=== PATIENT | male | born 1940 | race Caucasian/White ===

== ENCOUNTER 2019-04-23 19:25 | Inpatient (IN) | payer BC, MEDICARE ==
[~2019-04-23] VITALS: Ht 182.9 cm; Wt 78.7 kg
[2019-04-23 19:58] LABS: HEMATOCRIT 44.8 % (42.0-52.0); MEAN CORPUSCULAR HEMOGLOBIN 30.8 pg (27.0-33.0); MEAN CORPUSCULAR HGB CONC 33.5 g/dl (32.0-36.5); PLATELET COUNT, AUTOMATED 200 10^3/uL (150-450); RED BLOOD COUNT 4.87 10^6/uL (4.30-6.10)
[2019-04-23 20:13] LABS: ALBUMIN 3.2 GM/DL (3.2-5.2); BILIRUBIN,DIRECT 0.8 MG/DL (0.0-0.2); BILIRUBIN,TOTAL 1.9 MG/DL (0.2-1.0); CALCIUM LEVEL 9.3 MG/DL (8.8-10.2); CREATININE FOR GFR 2.38 MG/DL (0.70-1.30); GLOMERULAR FILTRATION RATE 28.2 (>42); POTASSIUM SERUM 4.1 MEQ/L (3.5-5.1); TOTAL PROTEIN 6.7 GM/DL (6.4-8.2)
[2019-04-23 20:16] LABS: WHITE BLOOD COUNT 31.2 10^3/uL (4.0-10.0)
[2019-04-23] MEDS ORDERED: AZITHROMYCIN INJ 500 MG, VIAL MATE ADAPTER 1 EACH in D5W 250 ML IV ONE (20:30)
[2019-04-23] MEDS ORDERED: cefTRIAXone SOD 1 GM in D5W MINI-BAG PLUS 50 ML IV ONE (20:30)
[2019-04-23 20:41] LABS: LYMPHOCYTES 3 % (16-44); MONOCYTES 3 % (0-5); NEUTROPHILS 87 % (28-66); PLATELET ESTIMATE NORMAL (NORMAL)
[2019-04-23] MEDS ORDERED: LOSA100T50 PO (20:43)
[2019-04-23] MEDS ORDERED: NS 1,000 ML IV ONE (20:45)
--- NOTE | 2019-04-23 20:50 | ECGEPIP ---
[facility] - ED Test Date: 2019-04-23 Pat Name: TACOS FINE Department: Room: - Gender: Male Manager Bank: : [id number] Requested By: AARON Ratliff Order Number: [id number] Reading MD: Wyatt Almaraz Measurements Intervals [place] Rate: 119 P: 50 [place]: 150 QRS: -64 QRSD: 144 T: 38 QT: 311 QTc: 439 Interpretive Statements SINUS TACHYCARDIA RIGHT BUNDLE BRANCH BLOCK POSSIBLE LATERAL MYOCARDIAL INFARCTION, OF INDETERMINATE AGE NO PRIORS FOR COMPARISON Electronically Signed on 04-23-2019 20:50:02 EDT by Wyatt Almaraz
--- NOTE | 2019-04-23 21:28 | HPEPDOC ---
General Date of Admission 04/23/19 Date of Service: Apr 23, 2019 Primary Care Physician: Regan Lind Attending Physician: TONI SANDY MD Chief Complaint The patient is a 78-year-old male admitted with a reason for visit of Flu/Cold Symptoms. Source: Patient Exam Limitations: No limitations Timing/Duration: Other Severity: Moderate Associated Symptoms: Chills History of Present Illness 78 years old white male with past medical history of hypertension, recently was treated for community-acquired pneumonia, left sudden onset of runny nose, c ough, decreased appetite, chills and fever. Patient was seen at an urgent care center and was referred to ER for further care. Patient denies chest pain, shortness of breath, dizziness, etc. Home Medications Scheduled Losartan Potassium (Losartan Potassium) 100 Mg Tablet, 100 MG PO DAILY, (Reported) Allergies Coded Allergies: No Known Allergies (Unverified , 04/23/19) Past Medical History Medical History Hypertension Surgical History anal fissure repair Family History Significant Family History: No pertinent family hx Social History * Smoker: non-smoker Alcohol: Denies Drugs: denies A-FIB/CHADSVASC A-FIB History Current/History of A-Fib/PAF?: No Review of Systems Constitutional: Reports: Chills, Fever Eyes: Denies: Pain, Vision change, Conjunctivae inflammation, Eyelid inflammation, Redness, Other ENT: Reports: Post Nasal Drip; Denies: Head Aches, Ear Pain, Dysphagia, Sinus Congestion, Sore Throat, Epistaxis, Other Symptoms Skin: Denies: Rash, Lesions, Jaundice, Bruising, Itching, Dry, Breakdown, Nail Changes, Other Pulmonary: Reports: Cough Cardiovascular: Denies: Chest Pain, Palpitations, Orthopnea, Paroxysmal Noc. Dyspnea, Edema, Lt Headedness, Other Symptoms Gastrointestinal: Denies: Nausea, Vomiting, Abdominal Pain, Diarrhea, Constipation, Melena, Hematochezia, Other Symptoms Genitourinary: Denies: Dysuria, Frequency, Incontinence, Hematuria, Retention, Other Symptoms Hematologic: Denies: Bruising, Bleeding Excessively, Petecchia, Purpura, Enlarged Lymph Nodes, Other Hematologic Endocrine: Denies: Polydipsia, Polyphagia, Polyuria, Heat Intolerance, Cold Intolerance, Other Endocrine Sx Musculoskeletal: Denies: Neck Pain, Back Pain, Shoulder Pain, Arm Pain, Hand Pain, Leg Pain, Foot Pain, Joint Pain, Muscle Pain, Spasms, Other Symptoms Neurological: Denies: Weakness, Numbness, Incoordination, Change in speech, Confusion, Seizures, Other Symptoms Psych: Denies: Mood Normal, Anxiety, Depression, Memory Issues, Thoughts of Self Harm, Anger, Thoughts of Harming Other, Other Psych Physical Examination General Exam: Positive: Alert, Cooperative Eye Exam: Positive: PERRLA, Conjunctiva & lids normal ENT Exam: Positive: Atraumatic, Mucous membr. moist/pink Neck Exam: Positive: Supple Chest Exam: Positive: Clear to auscultation, Other (crackles at right base) Heart Exam: Positive: Rate Normal, Normal S1, Normal S2 Abdomen Exam: Positive: Normal bowel sounds, Soft, Tenderness Extremity Exam: Positive: Normal pulses Skin Exam: Positive: Nl turgor and temperature Neuro Exam: Positive: Strength at 5/5 X4 ext, Sensation Intact Vital Signs Vital Signs Date Time Temp Pulse Resp B/P (MAP) Pulse Ox O2 Delivery O2 Flow Rate FiO2 04/23/19 20:02 04/23/19 20:00 117 19 04/23/19 19:55 91 04/23/19 19:26 99.7 Room Air Laboratory Data Labs 24H Laboratory Tests 2 04/23/19 19:45: White Blood Count 31.2*H, Red Blood Count 4.87, Hemoglobin 15.0, Hematocrit 44.8, Mean Corpuscular Volume 92.0, Mean Corpuscular Hemoglobin 30.8, Mean Corpuscular Hemoglobin Concent 33.5, Red Cell Distribution Width 13.9, Platelet Count 200, Neutrophils # (Auto) , Nucleated Red Blood Cells % (auto) 0.0, Neutrophils 87H, Band Neutrophils 7, Lymphocytes (Manual) 3L, Monocytes (Manual) 3, Platelet Estimate NORMAL, Red Blood Cell Morphology NORMAL, Anion Gap 9, Glomerular Filtration Rate 28.2L, Calcium Level 9.3, Aspartate Amino Transf (AST/SGOT) 19, Alanine Aminotransferase (ALT/SGPT) 22, Alkaline Phosphatase 121H , Total Bilirubin 1.9H, Direct Bilirubin 0.8H, Total Protein 6.7, Albumin 3.2, Albumin/Globulin Ratio 0.91L 04/23/19 19:59: Lactic Acid Level 1.7 CBC/BMP Laboratory Tests 04/23/19 19:45 Red Blood Count 4.87, Mean Corpuscular Volume 92.0, Mean Corpuscular Hemoglobin 30.8, Mean Corpuscular Hemoglobin Concent 33.5, Red Cell Distribution Width 13.9, Neutrophils # (Auto) Microbiology Microbiology 04/23/19 Blood Culture, Received Pending 04/23/19 Blood Culture, Received Pending Problems (1) Pneumonia Status: Acute Problem Text: 78 years old white male with past medical history of hypertension presented with chief complaints of shivering chills, cough, runny nose, decreased appetite on just a week. He was found to have right lower lobe pneumonia and his WBC was 31,000 on CBC . Patient will be admitted to medical MedSurg floor with the diagnosis of right lower lobe pneumonia, which is most likely community-acquired Admit to MedSurg floor IVF half-normal saline at 70 mL per hour Rocephin 1 g IV piggyback every 24 hours Zithromax 500 mg IV piggyback every 24 hours Tylenol when necessary Continue home meds CBC, CMP in a.m. DVT prophylaxis with heparin Diet regular Activity as tolerated (2) HTN (hypertension) Status: Chronic Problem Text: Continue home meds The patient is under control Plan / VTE VTE Prophylaxis Ordered?: Yes TONI SANDY MD Apr 23, 2019 21:28
[2019-04-23] MEDS ORDERED: MOM 30ML SUSPENSION UDC PO PRN (21:30)
[2019-04-23] MEDS ORDERED: MAALOX 30 ML SUSP *UDC PO PRN (21:30)
[2019-04-23] MEDS ORDERED: AZITHROMYCIN INJ 500 MG, VIAL MATE ADAPTER 1 EACH in D5W 250 ML IV SCH (22:00)
[2019-04-23 23:13] VITALS: BP 92/52
[2019-04-23 23:18] LABS: VENOUS BASE EXCESS -0.5 (-2.0-2.0); VENOUS HCO3 25.2 MEQ/L (23.0-27.0); VENOUS PARTIAL PRESSURE CO2 45.3 mmHg (38.0-50.0); VENOUS PARTIAL PRESSURE O2 93.3 mmHg (30.0-50.0); VENOUS PH 7.363 UNITS (7.330-7.430); VENOUS STANDARD HCO3 24.1 MEQ/L; VENOUS TOTAL CO2 26.6 MEQ/L (24.0-28.0)
[2019-04-23] MEDS ORDERED: NS 500 ML IV ONE (23:45)
[2019-04-23] MEDS: DOCUSATE SODIUM 100 MG CAP PO SCH (23:53)
[2019-04-24 00:45] VITALS: BP 98/54
[2019-04-24] MEDS: NS 1,000 ML IV SCH ×4 (01:21→20:59)
[2019-04-24 06:00] VITALS: BP 91/55
[2019-04-24 06:18] LABS: HEMATOCRIT 36.8 % (42.0-52.0); MEAN CORPUSCULAR HEMOGLOBIN 30.6 pg (27.0-33.0); MEAN CORPUSCULAR HGB CONC 33.7 g/dl (32.0-36.5); MEAN CORPUSCULAR VOLUME 90.9 fl (80.0-96.0); PLATELET COUNT, AUTOMATED 180 10^3/uL (150-450); RED BLOOD COUNT 4.05 10^6/uL (4.30-6.10); WHITE BLOOD COUNT 26.6 10^3/uL (4.0-10.0)
[2019-04-24] MEDS: ACETAMINOPHEN TAB 650MG DOSE (2X325MG) PO PRN ×2 (06:22→14:34)
[2019-04-24 06:28] LABS: HEMOGLOBIN 12.4 g/dl (13.5-17.5)
[2019-04-24 06:38] LABS: ALBUMIN 2.3 GM/DL (3.2-5.2); CALCIUM LEVEL 8.3 MG/DL (8.8-10.2); CREATININE FOR GFR 1.79 MG/DL (0.70-1.30); GLOMERULAR FILTRATION RATE 39.2 (>42); POTASSIUM SERUM 4.1 MEQ/L (3.5-5.1); TOTAL PROTEIN 5.9 GM/DL (6.4-8.2)
--- NOTE | 2019-04-24 07:58 | REP ---
Portable chest, a 01:00 p.m., single AP view the patient upright: There are no comparisons. There is a right upper lobe infiltrate. There is a right lower lobe infiltrate. There are nodular densities throughout the left lung. Cardiac size is normal. The laura, mediastinum, skeletal structures are unremarkable except for bilateral shoulder osteoarthritis. Impression: Right upper lobe infiltrate. Right lower lobe infiltrate. Multiple nodular densities in the left lung. Bilateral shoulder osteoarthritis. Electronically Signed by Rinku Sibley MD 04/24/2019 07:49 A
[2019-04-24] MEDS: DOCUSATE SODIUM 100 MG CAP PO SCH ×2 (08:59→22:15)
[2019-04-24] MEDS: HEPARIN SOD (PORCINE) 5000 UNITS/ML VIAL SC SCH ×2 (08:59→22:14)
[2019-04-24] MEDS ORDERED: FLUBLOK(EGG FREE)(QUAD)INFLUENZA VACC 0.5ML SYRINGE (90682)18YRS&OLDER IM ONE (09:00)
[2019-04-24] MEDS ORDERED: LOSARTAN 50 MG TAB PO SCH (09:00)
[2019-04-24] MEDS ORDERED: FLUBLOK(EGG FREE)(QUAD)INFLUENZA VACC 0.5ML SYRINGE (90682)18YRS&OLDER IM SCH (09:15)
[2019-04-24 10:22] LABS: AMORPHOUS SEDIMENT MODERATE (NEGATIVE); APPEARANCE, URINE CLOUDY (CLEAR); BACTERIA, URINE AUTO NEGATIVE (NEGATIVE); BILIRUBIN, URINE AUTO NEGATIVE (NEGATIVE); BLOOD, URINE BLOOD 1+ (NEGATIVE); COLOR, URINE AMBER (YELLOW); GLUCOSE, URINE (UA) AUTO NEGATIVE (NEGATIVE); GRANULAR CAST, URINE AUTO 20 /LPF; KETONE, URINE AUTO NEGATIVE (NEGATIVE); LEUKOCYTE ESTERASE, URINE AUTO NEGATIVE (NEGATIVE); MUCUS, URINE SMALL (NEGATIVE); NITRITE, URINE AUTO NEGATIVE (NEGATIVE); PROTEIN, URINE AUTO NEGATIVE (NEGATIVE); RBC, URINE AUTO 1 /HPF (0-3); SPECIFIC GRAVITY URINE AUTO 1.016 (1.002-1.035); SQUAMOUS EPITHELIAL CELL UR AU 0 /HPF (0-6); UROBILINOGEN, URINE AUTO 0.2 mg/dL (0.0-2.0); WBC, URINE AUTO 2 /HPF (0-3)
[2019-04-24 11:28] LABS: INFLUENZA A AMPLIFICATION NEGATIVE (NEGATIVE); INFLUENZA B AMPLIFICATION NEGATIVE (NEGATIVE)
[2019-04-24 14:00] VITALS: BP 91/50
--- NOTE | 2019-04-24 15:56 | IPNPDOC ---
Date Seen The patient was seen on 04/24/19. Progress Note SUBJECTIVE: 78-year-old male with past medical history of hypertension, admitted for pneumonia. Patient reports diagnosed a walking pneumonia little over a month ago, was treated with presumed oral antibiotics for 10 days, was doing well up until a few days ago, started experiencing dyspnea, cough productive of sputum, denies fever or chest pain, lives alone, denies sick contacts. Patient was hypotensive, tachycardic and febrile upon presentation, has been receiving IV fluids, clinically appears stable, sitting up on chair eating breakfast at this time, comfortable, without significant complaints at this time. He denies any chest pain, abdominal pain, nausea, vomiting or diarrhea at this time. 10 point review systems was negative except for above OBJECTIVE PHYSICAL EXAMINATION: VITAL SIGNS: Please see below. GENERAL: No distress HEENT: Normocephalic, atraumatic CARDIOVASCULAR: S1, S2, tachycardic. RESPIRATORY: Scattered rhonchi appreciated. ABDOMINAL: Soft, nontender, nondistended, positive bowel sounds EXTREMITIES: Range of Motion intact NEUROLOGICAL:. Alert and oriented 3, no focal deficits PSYCHOLOGICAL: Calm LABORATORY DATA, IMAGING STUDIES, MICROBIOLOGY: Please see below. DVT prophylaxis ordered?: Yes ASSESSMENT AND PLAN: 78-year-old male with past medical history history of hypertension, admitted for sepsis secondary to pneumonia and acute renal failure. PROBLEMS: 1. Sepsis: . Due to pneumonia, community-acquired. Respiratory viral panel negative. Chest x-ray reviewed, possible multifocal pneumonia, will evaluate further with CAT scan If no improvement is noted in the next 24-48 hours. Continue Zithromax and ceftriaxone, continue IV fluids. Continue Tylenol for fever. 2. Acute renal failure: . Likely related to infection, dehydration due to volume loss from fever. Continue IV fluids, will monitor 3. Hypertension: . Hold home meds given low normal blood pressure at this time. DVT prophylaxis: Heparin subcutaneous. GI prophylaxis: Not needed at this time VS, I&O, 24H, Fishbone Vital Signs/I&O Vital Signs Date Time Temp Pulse Resp B/P (MAP) Pulse Ox O2 Delivery O2 Flow Rate FiO2 04/24/19 14:00 100.4 118 19 91/50 (64) 91 04/23/19 19:26 Room Air I&O- Last 24 Hours up to 6 AM 04/24/19 06:00 Intake Total 2380 ml Output Total 0 ml Balance 2380 ml Laboratory Data 24H LABS Laboratory Tests 2 04/23/19 19:45: White Blood Count 31.2*H, Red Blood Count 4.87, Hemoglobin 15.0, Hematocrit 44.8, Mean Corpuscular Volume 92.0, Mean Corpuscular Hemoglobin 30.8, Mean Co rpuscular Hemoglobin Concent 33.5, Red Cell Distribution Width 13.9, Platelet Count 200, Neutrophils # (Auto) , Nucleated Red Blood Cells % (auto) 0.0, Neutrophils 87H, Band Neutrophils 7, Lymphocytes (Manual) 3L, Monocytes (Manual) 3, Platelet Estimate NORMAL, Red Blood Cell Morphology NORMAL, Anion Gap 9, Glomerular Filtration Rate 28.2L, Calcium Level 9.3, Aspartate Amino Transf (AST/SGOT) 19, Alanine Aminotransferase (ALT/SGPT) 22, Alkaline Phosphatase 121H, Total Bilirubin 1.9H, Direct Bilirubin 0.8H, Total Protein 6.7, Albumin 3.2, Albumin/Globulin Ratio 0.91L 04/23/19 19:59: Lactic Acid Level 1.7 04/23/19 22:48: Blood Gas Bicarbonate Standard 24.1, Venous Blood pH 7.363, Venous Blood Partial Pressure CO2 45.3, Venous Blood Partial Pressure O2 93.3H, Venous Blood Total Carbon Dioxide 26.6, Venous Blood HCO3 25.2, Venous Blood Oxygen Saturation 97.0H, Venous Blood Base Excess -0.5 04/24/19 06:01: Nucleated Red Blood Cells % (auto) 0.0, Anion Gap 9, Glomerular Filtration Rate 39.2L, Calcium Level 8.3L, Aspartate Amino Transf (AST/SGOT) 14, Alanine Aminotransferase (ALT/SGPT) 19, Alkaline Phosphatase 103, Total Bilirubin 1.0, Total Protein 5.9L, Albumin 2.3#L, Albumin/Globulin Ratio 0.64L, Blood Urea Nitrogen 41H, Creatinine 1.79H, Sodium Level 136, Potassium Level 4.1, Chloride Level 103, Carbon Dioxide Level 24 04/24/19 08:58: Influenza Type A (RT-PCR) NEGATIVE, Influenza Type B (RT-PCR) NEGATIVE 04/24/19 09:55: Urine Appearance CLOUDYH, Urine Color PRECIOUS, Urine pH 5.0, Urine Specific [place] 1.016, Urine Protein NEGATIVE, Urine Glucose (UA) NEGATIVE, Urine Ketones NEGATIVE, Urine Urobilinogen 0.2, Urine Bilirubin NEGATIVE, Urine Leukocyte Esterase NEGATIVE, Urine Blood 1+H, Urine Nitrite NEGATIVE, Urine WBC (Auto) 2, Urine RBC (Auto) 1, Urine Hyaline Casts (Auto) 0, Urine Bacteria (Auto) NEGATIVE, Urine Squamous Epithelial Cells 0, Urine Amorphous Sediment M [place], Urine Granular Casts (Auto) 20, Urine Mucus (Auto) SMALL, Urine Sperm (Auto) CBC/BMP Laboratory Tests 04/23/19 19:45 Red Blood Count 4.87, Mean Corpuscular Volume 92.0, Mean Corpuscular Hemoglobin 30.8, Mean Corpuscular Hemoglobin Concent 33.5, Red Cell Distribution Width 13.9, Neutrophils # (Auto) 04/24/19 06:01 Red Blood Count 4.05 L, Mean Corpuscular Volume 90.9, Mean Corpuscular Hemoglobin 30.6, Mean Corpuscular Hemoglobin Concent 33.7, Red Cell Distribution Width 14.1, Calcium Level 8.3 L, Aspartate Amino Transf (AST/SGOT) 14, Alanine Aminotransferase (ALT/SGPT) 19, Alkaline Phosphatase 103, Total Bilirubin 1.0, Total Protein 5.9 L, Albumin 2.3 #L Microbiology Microbiology 04/24/19 Urine Culture, Received Pending 04/24/19 Respiratory Virus Panel (PCR) (YG) - Final, Complete 04/23/19 Blood Culture, Received Pending 04/23/19 Blood Culture, Received Pending KIMBERLY ANDERSON MD Apr 24, 2019 15:56
--- NOTE | 2019-04-24 16:43 | REP ---
CT chest without contrast: History: Pneumonia. Comparison chest x-ray is from April 23, 2019. CT findings: There is extensive consolidation throughout the right lower lobe with air bronchograms consistent with essentially lobar pneumonia. There is also a fairly large right upper lobe infiltrate. The right middle lobe is spared. These findings are compatible with acute pneumonia. There is calcific pleural plaquing bilaterally. No significant pulmonary nodule is appreciated. There are scattered subcarinal and pretracheal mediastinal lymph nodes. The largest of these is right precarinal node measuring 1.4 x 1.8 cm. There is extensive calcification in the aortic valve leaflets, question aortic stenosis. Vascular calcification is seen in the arch and descending aorta. Incidental note is made of a fairly large nodule in the right lobe of the thyroid gland, 2.7 cm in greatest diameter. Impression: Extensive pneumonia throughout the right lower lobe and a large infiltrate in the right upper lobe. There is bilateral calcific pleural plaquing suggesting previous asbestos exposure. Mildly hypertrophied mediastinal lymph nodes are present. There is a right thyroid nodule. Electronically Signed by Shubham Bennett MD 04/24/2019 04:51 P
[2019-04-24] MEDS ORDERED: cefTRIAXone SOD 1 GM in D5W MINI-BAG PLUS 50 ML IV SCH (21:00)
[2019-04-24 22:00] VITALS: BP 107/56
[2019-04-24] MEDS: AZITHROMYCIN INJ 500 MG, VIAL MATE ADAPTER 1 EACH in D5W 250 ML IV SCH (23:06)
[2019-04-25] MEDS: BENZONATATE 100 MG CAP PO PRN ×3 (04:33→22:12)
[2019-04-25] MEDS: NS 1,000 ML IV SCH ×4 (04:36→19:53)
[2019-04-25 06:00] VITALS: BP 98/50
[2019-04-25 06:13] LABS: HEMATOCRIT 35.8 % (42.0-52.0); HEMOGLOBIN 11.8 g/dl (13.5-17.5); MEAN CORPUSCULAR HEMOGLOBIN 30.4 pg (27.0-33.0); MEAN CORPUSCULAR VOLUME 92.3 fl (80.0-96.0); PLATELET COUNT, AUTOMATED 169 10^3/uL (150-450); RED BLOOD COUNT 3.88 10^6/uL (4.30-6.10); WHITE BLOOD COUNT 28.1 10^3/uL (4.0-10.0)
[2019-04-25 06:46] LABS: ALBUMIN 1.9 GM/DL (3.2-5.2); ALT/SGPT 24 U/L (12-78); BILIRUBIN,TOTAL 0.6 MG/DL (0.2-1.0); BLOOD UREA NITROGEN 29 MG/DL (7-18); CALCIUM LEVEL 8.1 MG/DL (8.8-10.2); CARBON DIOXIDE LEVEL 25 MEQ/L (21-32); CHLORIDE LEVEL 108 MEQ/L (98-107); CREATININE FOR GFR 1.13 MG/DL (0.70-1.30); GLOMERULAR FILTRATION RATE > 60.0 (>42); GLUCOSE, FASTING 98 MG/DL (70-100); POTASSIUM SERUM 3.6 MEQ/L (3.5-5.1); SODIUM LEVEL 139 MEQ/L (136-145); TOTAL PROTEIN 5.3 GM/DL (6.4-8.2)
[2019-04-25] MEDS: HEPARIN SOD (PORCINE) 5000 UNITS/ML VIAL SC SCH ×2 (09:00→22:11)
[2019-04-25] MEDS: DOCUSATE SODIUM 100 MG CAP PO SCH ×2 (09:00→21:00)
[2019-04-25] MEDS: PIPERACILLIN/TAZOBACTAM SOD 3.375 GM in D5W MINI-BAG PLUS 50 ML IV SCH ×2 (12:21→18:19)
[2019-04-25] MEDS: TAMSULOSIN 0.4 MG CAP PO SCH (12:21)
[2019-04-25 14:00] VITALS: BP 112/58
[2019-04-25] MEDS: ACETAMINOPHEN TAB 650MG DOSE (2X325MG) PO PRN (14:40)
--- NOTE | 2019-04-25 19:16 | IPNPDOC ---
Date Seen The patient was seen on 04/25/19. Progress Note SUBJECTIVE: 78 y/o M with h/o HTN was admitted for pneumonia. Patient reports diagnosed a walking pneumonia little over a month ago, was treated with presumed oral antibiotics for 10 days, was doing well up until a few days ago, started experiencing dyspnea, cough productive of sputum, lives alone, denies sick contacts. Patient was hypotensive, tachycardic and febrile upon presentation, has been receiving IV fluids, clinically appears stable. Pt was seen and examined at bedside. Over the night foleys catheter was placed due to urinary retention. Pt c/o cough, 10 point review systems was negative except for above OBJECTIVE PHYSICAL EXAMINATION: VITAL SIGNS: stable, Please see below. GENERAL: No distress HEENT: Normocephalic, atraumatic CARDIOVASCULAR: S1, S2, tachycardic. RESPIRATORY: b/l scattered rhonchi ABDOMINAL: Soft, nontender, nondistended, positive bowel sounds EXTREMITIES: Range of Motion intact, NEUROLOGICAL:. Alert and oriented 3, no focal deficits PSYCHOLOGICAL: Calm LABORATORY DATA, IMAGING STUDIES, MICROBIOLOGY: reviewed, Please see below. DVT prophylaxis ordered?: Yes ASSESSMENT AND PLAN: 78-year-old male with past medical history history of hypertension, admitted for sepsis secondary to pneumonia and acute renal failure. PROBLEMS: 1. Sepsis: . Due to pneumonia, community-acquired. improving Respiratory viral panel negative. Chest x-ray reviewed, possible multifocal pneumonia, - Pt is still spiking fever, will change antibiotics to iv zosyn. will f/u sputum culture, if pt continues to spike fever after change in antibiotics will consider adding vancomycin. Continue Zithromax continue IV fluids. Continue Tylenol for fever. 2. Acute renal failure: . improving Likely related to infection, dehydration due to volume loss from fever. Continue IV fluids, will monitor 3. Hypertension: . Hold home meds given low normal blood pressure at this time. 4. urinary retention most probably related to BPH will start pt on PO flomax and continue garcia catheter for now will perform voiding trials DVT prophylaxis: Heparin subcutaneous. GI prophylaxis: Not needed at this time VS, I&O, 24H, Fishbone Vital Signs/I&O Vital Signs Date Time Temp Pulse Resp B/P (MAP) Pulse Ox O2 Delivery O2 Flow Rate FiO2 04/25/19 06:00 99.1 110 18 98/50 (66) 93 04/23/19 19:26 Room Air I&O- Last 24 Hours up to 6 AM 04/25/19 06:00 Intake Total 3000 ml Output Total 1825 ml Balance 1175 ml Laboratory Data 24H LABS Laboratory Tests 2 04/25/19 06:02: Nucleated Red Blood Cells % (auto) 0.0, Anion Gap 6L, Glomerular Filtration Rate > 60.0, Blood Urea Nitrogen 29H, Creatinine 1.13, Sodium Level 139, Potassium Level 3.6, Chloride Level 108H, Carbon Dioxide Level 25, Calcium Level 8.1L, Aspartate Amino Transf (AST/SGOT) 18, Alanine Aminotransferase (ALT/SGPT) 24, Alkaline Phosphatase 109, Total Bilirubin 0.6, Total Protein 5.3L, Albumin 1.9L, Albumin/Globulin Ratio 0.56L CBC/BMP Laboratory Tests 04/25/19 06:02 Red Blood Count 3.88 L, Mean Corpuscular Volume 92.3, Mean Corpuscular Hemoglobin 30.4, Mean Corpuscular Hemoglobin Concent 33.0, Red Cell Distribution Width 14.4, Calcium Level 8.1 L, Aspartate Amino Transf (AST/SGOT) 18, Alanine Aminotransferase (ALT/SGPT) 24, Alkaline Phosphatase 109, Total Bilirubin 0.6, Total Protein 5.3 L, Albumin 1.9 L Microbiology Microbiology 04/24/19 Urine Culture - Final, Complete 04/24/19 Respiratory Virus Panel (PCR) (YG) - Final, Complete 04/23/19 Blood Culture - Preliminary, Resulted No growth after 24 hours . All specim... 04/23/19 Blood Culture - Preliminary, Resulted No growth after 24 hours . All specim... SRIDEVI MARK MD Apr 25, 2019 12:08
[2019-04-25 22:00] VITALS: BP 105/56
[2019-04-25] MEDS: AZITHROMYCIN INJ 500 MG, VIAL MATE ADAPTER 1 EACH in D5W 250 ML IV SCH (22:12)
[2019-04-26] MEDS: PIPERACILLIN/TAZOBACTAM SOD 3.375 GM in D5W MINI-BAG PLUS 50 ML IV SCH ×4 (01:35→18:41)
[2019-04-26] MEDS: NS 1,000 ML IV SCH ×3 (04:37→21:35)
[2019-04-26 05:48] LABS: HEMATOCRIT 34.9 % (42.0-52.0); HEMOGLOBIN 11.5 g/dl (13.5-17.5); MEAN CORPUSCULAR HEMOGLOBIN 30.3 pg (27.0-33.0); MEAN CORPUSCULAR VOLUME 91.8 fl (80.0-96.0); PLATELET COUNT, AUTOMATED 184 10^3/uL (150-450); WHITE BLOOD COUNT 22.7 10^3/uL (4.0-10.0)
[2019-04-26 06:00] VITALS: BP 106/57
[2019-04-26 06:13] LABS: BLOOD UREA NITROGEN 19 MG/DL (7-18); CARBON DIOXIDE LEVEL 25 MEQ/L (21-32); CHLORIDE LEVEL 108 MEQ/L (98-107); CREATININE FOR GFR 1.07 MG/DL (0.70-1.30); GLOMERULAR FILTRATION RATE > 60.0 (>42); GLUCOSE, FASTING 86 MG/DL (70-100); POTASSIUM SERUM 3.4 MEQ/L (3.5-5.1); SODIUM LEVEL 140 MEQ/L (136-145)
[2019-04-26] MEDS: BENZONATATE 100 MG CAP PO PRN (06:26)
[2019-04-26] MEDS: TAMSULOSIN 0.4 MG CAP PO SCH (08:48)
[2019-04-26] MEDS: HEPARIN SOD (PORCINE) 5000 UNITS/ML VIAL SC SCH ×2 (08:48→21:36)
[2019-04-26] MEDS: DOCUSATE SODIUM 100 MG CAP PO SCH ×2 (08:48→21:00)
[2019-04-26] MEDS ORDERED: POTASSIUM CHLORIDE 10 MEQ SR TABLET PO ONE (09:00)
[2019-04-26 14:00] VITALS: BP 127/74
--- NOTE | 2019-04-26 16:49 | IPNPDOC ---
Date Seen The patient was seen on 04/26/19. Progress Note SUBJECTIVE: 78-year-old male with past medical history of hypertension, admitted for pneumonia. Patient reports diagnosed a walking pneumonia little over a month ago, was treated with presumed oral antibiotics for 10 days, was doing well up until a few days ago, started experiencing dyspnea, cough productive of sputum, denies fever or chest pain, lives alone, denies sick contacts. Patient was hypotensive, tachycardic and febrile upon presentation, has been receiving IV fluids, clinically appears stable, sitting up on chair eating breakfast at this time, comfortable, without significant complaints at this time. He denies any chest pain, abdominal pain, nausea, vomiting or diarrhea at this time. 04/26/19 No acute events overnight, patient fatigued, continues to have productive cough, dyspnea, improved, not requiring supplemental oxygen, having intermittent fevers, reports poor appetite, only eating breakfast, ambulating around the room, I encouraged to ambulate more if possible. 10 point review systems was negative except for above OBJECTIVE PHYSICAL EXAMINATION: VITAL SIGNS: Please see below. GENERAL: No distress HEENT: Normocephalic, atraumatic CARDIOVASCULAR: S1, S2, tachycardic. RESPIRATORY: Scattered rhonchi appreciated. ABDOMINAL: Soft, nontender, nondistended, positive bowel sounds EXTREMITIES: Range of Motion intact NEUROLOGICAL:. Alert and oriented 3, no focal deficits PSYCHOLOGICAL: Calm LABORATORY DATA, IMAGING STUDIES, MICROBIOLOGY: Please see below. DVT prophylaxis ordered?: Yes ASSESSMENT AND PLAN: 78-year-old male with past medical history history of hypertension, admitted for sepsis secondary to multifocal pneumonia and acute renal failure. PROBLEMS: 1. Sepsis: . Due to multifocal pneumonia Respiratory viral panel negative. CT scan with multifocal pneumonia in the right lung, appears gravity dependent, questionable aspiration, patient without complaints. Continue Zosyn, clinically improving. Continue Tylenol for fever. 2. Acute renal failure: . Resolved with IV fluids. We'll continue IV fluids given fever, tachycardia, low normal blood pressure, poor appetite. 3. Hypertension: . Hold home meds given low normal blood pressure at this time. DVT prophylaxis: Heparin subcutaneous. GI prophylaxis: Not needed at this time VS, I&O, 24H, Fishbone Vital Signs/I&O Vital Signs Date Time Temp Pulse Resp B/P (MAP) Pulse Ox O2 Delivery O2 Flow Rate FiO2 04/26/19 14:00 100.0 107 22 127/74 (91) 92 04/23/19 19:26 Room Air I&O- Last 24 Hours up to 6 AM 04/26/19 06:00 Intake Total 4167.5 ml Output Total 2250 ml Balance 1917.5 ml Laboratory Data 24H LABS Laboratory Tests 2 04/26/19 05:38: Nucleated Red Blood Cells % (auto) 0.0, Anion Gap 7L, Glomerular Filtration Rate > 60.0, Blood Urea Nitrogen 19H, Creatinine 1.07, Sodium Level 140, Potassium Level 3.4L, Chloride Level 108H, Carbon Dioxide Level 25, Calcium Level 8.0L CBC/BMP Laboratory Tests 04/26/19 05:38 Red Blood Count 3.80 L, Mean Corpuscular Volume 91.8, Mean Corpuscular Hemoglobin 30.3, Mean Corpuscular Hemoglobin Concent 33.0, Red Cell Distribution Width 14.5, Calcium Level 8.0 L Microbiology Microbiology 04/26/19 Stool Occult Blood (YG) - Final, Complete 04/25/19 Gram Stain - Final, Resulted 04/25/19 Sputum Culture, Resulted Pending 04/24/19 Urine Culture - Final, Complete 04/24/19 Respiratory Virus Panel (PCR) (YG) - Final, Complete 04/23/19 Blood Culture - Preliminary, Resulted No Growth after 48 hours. All Specime... 04/23/19 Blood Culture - Preliminary, Resulted No Growth after 48 hours. All Specime... KIMBERLY ANDERSON MD Apr 26, 2019 16:49
--- NOTE | 2019-04-26 19:39 | IPNPDOC ---
Text Note Date of Service The patient was seen on 04/26/19. NOTE *Interim progress note.* This note is from the evening hospitalist team. A stool occult blood test was ordered the morning of 04/26. Nursing staff on the evening of 04/26 reported a positive result on occult stool to evening hospitalist team. Patient's hemoglobin on most recent lab result was 11.5. He has been trending down on last 3 hemoglobins, from 12.4 to11.8 to the 11.5 most recently. Patient was admitted for primary reason of pneumonia. Evening hospitalist team, reviewed Mr. Salgado's chart and a morning CBC for 04/27 has been ordered. The day hospitalist team ove rseeing care of Mr. Salgado please be aware and continue to follow. Thank you. Franklyn TOMAS, I+O VSFranklyn, I+O Laboratory Tests 04/26/19 05:38 Red Blood Count 3.80 L, Mean Corpuscular Volume 91.8, Mean Corpuscular Hemoglobin 30.3, Mean Corpuscular Hemoglobin Concent 33.0, Red Cell Distribution Width 14.5, Calcium Level 8.0 L Vital Signs Date Time Temp Pulse Resp B/P (MAP) Pulse Ox O2 Delivery O2 Flow Rate FiO2 04/26/19 18:35 98.7 04/26/19 14:00 107 22 127/74 (91) 92 04/23/19 19:26 Room Air I&O- Last 24 Hours up to 6 AM 04/26/19 06:00 Intake Total 4167.5 ml Output Total 2250 ml Balance 1917.5 ml VALERIE VELASCO PGY-1 Apr 26, 2019 19:39
[2019-04-26] MEDS: AZITHROMYCIN INJ 500 MG, VIAL MATE ADAPTER 1 EACH in D5W 250 ML IV SCH (21:36)
[2019-04-26 22:00] VITALS: BP 126/65
[2019-04-27] MEDS: PIPERACILLIN/TAZOBACTAM SOD 3.375 GM in D5W MINI-BAG PLUS 50 ML IV SCH ×4 (01:26→18:28)
[2019-04-27] MEDS: NS 1,000 ML IV SCH (05:57)
[2019-04-27 06:00] VITALS: BP 136/79
[2019-04-27 06:03] LABS: HEMATOCRIT 34.9 % (42.0-52.0); HEMOGLOBIN 11.4 g/dl (13.5-17.5); MEAN CORPUSCULAR HGB CONC 32.7 g/dl (32.0-36.5); MEAN CORPUSCULAR VOLUME 91.8 fl (80.0-96.0); PLATELET COUNT, AUTOMATED 210 10^3/uL (150-450); WHITE BLOOD COUNT 19.2 10^3/uL (4.0-10.0)
[2019-04-27 06:42] LABS: ALBUMIN 1.5 GM/DL (3.2-5.2); ALT/SGPT 47 U/L (12-78); BLOOD UREA NITROGEN 18 MG/DL (7-18); CALCIUM LEVEL 7.8 MG/DL (8.8-10.2); CARBON DIOXIDE LEVEL 24 MEQ/L (21-32); CHLORIDE LEVEL 110 MEQ/L (98-107); CREATININE FOR GFR 0.88 MG/DL (0.70-1.30); GLOMERULAR FILTRATION RATE > 60.0 (>42); GLUCOSE, FASTING 84 MG/DL (70-100); POTASSIUM SERUM 3.4 MEQ/L (3.5-5.1); SODIUM LEVEL 141 MEQ/L (136-145); TOTAL PROTEIN 4.7 GM/DL (6.4-8.2)
[2019-04-27] MEDS ORDERED: POTASSIUM CHLORIDE 10 MEQ SR TABLET PO ONE (08:15)
[2019-04-27] MEDS: DOCUSATE SODIUM 100 MG CAP PO SCH (09:00)
[2019-04-27] MEDS: TAMSULOSIN 0.4 MG CAP PO SCH (09:30)
[2019-04-27] MEDS: HEPARIN SOD (PORCINE) 5000 UNITS/ML VIAL SC SCH ×2 (09:31→20:33)
[2019-04-27 14:00] VITALS: BP 134/70
[2019-04-27 14:05] LABS: CLOSTRIDIUM DIFFICILE PCR NEGATIVE (NEGATIVE)
[2019-04-27] MEDS: ONDANSETRON 4 MG TAB (S0181) PO PRN (14:41)
--- NOTE | 2019-04-27 16:37 | IPNPDOC ---
Date Seen The patient was seen on 04/27/19. Progress Note SUBJECTIVE: 78-year-old male with past medical history of hypertension, admitted for pneumonia. Patient reports diagnosed a walking pneumonia little over a month ago, was treated with presumed oral antibiotics for 10 days, was doing well up until a few days ago, started experiencing dyspnea, cough productive of sputum, denies fever or chest pain, lives alone, denies sick contacts. Patient was hypotensive, tachycardic and febrile upon presentation, has been receiving IV fluids, clinically appears stable, sitting up on chair eating breakfast at this time, comfortable, without significant complaints at this time. He denies any chest pain, abdominal pain, nausea, vomiting or diarrhea at this time. 04/26/19 No acute events overnight, patient fatigued, continues to have productive cough, dyspnea, improved, not requiring supplemental oxygen, having intermittent fevers, reports poor appetite, only eating breakfast, ambulating around the room, I encouraged to ambulate more if possible. 04/27/2019 Patient reports malaise, poor appetite, continues to have diarrhea, C. difficile ruled out. Patient denies any shortness of breath, chest pain, nausea, vomiting or abdominal pain. 10 point review systems was negative except for above OBJECTIVE PHYSICAL EXAMINATION: VITAL SIGNS: Please see below. GENERAL: No distress HEENT: Normocephalic, atraumatic CARDIOVASCULAR: S1, S2, tachycardic. RESPIRATORY: Scattered rhonchi appreciated. ABDOMINAL: Soft, nontender, nondistended, positive bowel sounds EXTREMITIES: Range of Motion intact NEUROLOGICAL:. Alert and oriented 3, no focal deficits PSYCHOLOGICAL: Calm LABORATORY DATA, IMAGING STUDIES, MICROBIOLOGY: Please see below. DVT prophylaxis ordered?: Yes ASSESSMENT AND PLAN: 78-year-old male with past medical history history of hyper tension, admitted for sepsis secondary to multifocal pneumonia and acute renal failure. PROBLEMS: 1. Sepsis: . Due to multifocal pneumonia Respiratory viral panel negative. CT scan with multifocal pneumonia in the right lung, appears gravity dependent, questionable aspiration, patient without complaints. Continue Zosyn, clinically improving. Continue Tylenol for fever. 2. Urinary retention. Likely related to BPH, Machado in place, on Flomax, plan for removal of Machado catheter tomorrow and attempt voiding trial. 3. Acute renal failure: . Resolved with IV fluids. IV fluids discontinued, will monitor PO intake. 4. Hypertension: . Home BP meds restarted. 5. Stool occult blood positive. No signs of active bleeding, hemoglobin down trend is likely related to IV fluids, recommend outpatient follow-up with GI. DVT prophylaxis: Heparin subcutaneous. GI prophylaxis: Not needed at this time VS, I&O, 24H, Fishbone Vital Signs/I&O Vital Signs Date Time Temp Pulse Resp B/P (MAP) Pulse Ox O2 Delivery O2 Flow Rate FiO2 04/27/19 14:00 98.9 111 19 134/70 (91) 92 04/23/19 19:26 Room Air I&O- Last 24 Hours up to 6 AM 04/27/19 06:00 Intake Total 4785 ml Output Total 1125 ml Balance 3660 ml Laboratory Data 24H LABS Laboratory Tests 2 04/27/19 05:30: Nucleated Red Blood Cells % (auto) 0.0, Anion Gap 7L, Glomerular Filtration Rate > 60.0, Blood Urea Nitrogen 18, Creatinine 0.88, Sodium Level 141, Potassium Level 3.4L, Chloride Level 110H, Carbon Dioxide Level 24, Calcium Level 7.8L, Aspartate Amino Transf (AST/SGOT) 41H, Alanine Aminotransferase (ALT/SGPT) 47, Alkaline Phosphatase 132H, Total Bilirubin 1.0#, Total Protein 4.7L, Albumin 1.5#L, Albumin/Globulin Ratio 0.47L 04/27/19 13:12: Clostridium difficile [id number] PRESUMPTIVE NEGATIVE, Clostridium difficile Toxin (PCR) NEGATIVE CBC/BMP Laboratory Tests 04/27/19 05:30 Red Blood Count 3.80 L, Mean Corpuscular Volume 91.8, Mean Corpuscular Hemoglobin 30.0, Mean Corpuscular Hemoglobin Concent 32.7, Red Cell Distribution Width 14.3, Calcium Level 7.8 L, Aspartate Amino Transf (AST/SGOT) 41 H, Alanine Aminotransferase (ALT/SGPT) 47, Alkaline Phosphatase 132 H, Total Bilirubin 1.0 #, Total Protein 4.7 L, Albumin 1.5 #L Microbiology Microbiology 04/26/19 Stool Occult Blood (YG) - Final, Complete 04/25/19 Gram Stain - Final, Complete 04/25/19 Sputum Culture - Final, Complete 04/24/19 Urine Culture - Final, Complete 04/24/19 Respiratory Virus Panel (PCR) (YG) - Final, Complete 04/23/19 Blood Culture - Preliminary, Resulted No Growth after 72 hours. All specime... 04/23/19 Blood Culture - Preliminary, Resulted No Growth after 72 hours. All specime... KIMBERLY ANDERSON MD Apr 27, 2019 16:37
[2019-04-27 20:00] VITALS: BP 112/68
[2019-04-27] MEDS: METAMUCIL (PSYLLIUM) PACKET PO SCH (20:33)
[2019-04-28] MEDS: PIPERACILLIN/TAZOBACTAM SOD 3.375 GM in D5W MINI-BAG PLUS 50 ML IV SCH ×4 (01:04→20:01)
[2019-04-28 06:00] VITALS: BP 112/57
[2019-04-28 06:25] LABS: HEMATOCRIT 32.7 % (42.0-52.0); HEMOGLOBIN 10.7 g/dl (13.5-17.5); MEAN CORPUSCULAR HEMOGLOBIN 30.1 pg (27.0-33.0); MEAN CORPUSCULAR HGB CONC 32.7 g/dl (32.0-36.5); MEAN CORPUSCULAR VOLUME 92.1 fl (80.0-96.0); PLATELET COUNT, AUTOMATED 252 10^3/uL (150-450); RED BLOOD COUNT 3.55 10^6/uL (4.30-6.10); WHITE BLOOD COUNT 18.6 10^3/uL (4.0-10.0)
[2019-04-28 06:51] LABS: BLOOD UREA NITROGEN 21 MG/DL (7-18); CALCIUM LEVEL 8.3 MG/DL (8.8-10.2); CARBON DIOXIDE LEVEL 23 MEQ/L (21-32); CHLORIDE LEVEL 110 MEQ/L (98-107); CREATININE FOR GFR 0.88 MG/DL (0.70-1.30); GLOMERULAR FILTRATION RATE > 60.0 (>42); GLUCOSE, FASTING 100 MG/DL (70-100); POTASSIUM SERUM 3.4 MEQ/L (3.5-5.1); SODIUM LEVEL 141 MEQ/L (136-145)
[2019-04-28] MEDS: OCUVITE 1 TAB PO SCH (08:32)
[2019-04-28] MEDS: TAMSULOSIN 0.4 MG CAP PO SCH (08:32)
[2019-04-28] MEDS: METAMUCIL (PSYLLIUM) PACKET PO SCH ×2 (08:33→20:01)
[2019-04-28] MEDS: HEPARIN SOD (PORCINE) 5000 UNITS/ML VIAL SC SCH ×2 (08:33→20:01)
[2019-04-28] MEDS: BENZONATATE 100 MG CAP PO PRN ×2 (08:37→22:58)
[2019-04-28] MEDS: KCL 10MEQ/100ML SWI (KRUN) 10 MEQ in IV 1 EA IV SCH ×4 (08:38→14:08)
--- NOTE | 2019-04-28 13:19 | IPNPDOC ---
Date Seen The patient was seen on 04/28/19. Progress Note SUBJECTIVE: 78-year-old male with past medical history of hypertension, admitted for pneumonia. Patient reports diagnosed a walking pneumonia little over a month ago, was treated with presumed oral antibiotics for 10 days, was doing well up until a few days ago, started experiencing dyspnea, cough productive of sputum, denies fever or chest pain, lives alone, denies sick contacts. Patient was hypotensive, tachycardic and febrile upon presentation, has been receiving IV fluids, clinically appears stable, sitting up on chair eating breakfast at this time, comfortable, without significant complaints at this time. He denies any chest pain, abdominal pain, nausea, vomiting or diarrhea at this time. 04/26/19 No acute events overnight, patient fatigued, continues to have productive cough, dyspnea, improved, not requiring supplemental oxygen, having intermittent fevers, reports poor appetite, only eating breakfast, ambulating around the room, I encouraged to ambulate more if possible. 04/27/2019 Patient reports malaise, poor appetite, continues to have diarrhea, C. difficile ruled out. Patient denies any shortness of breath, chest pain, nausea, vomiting or abdominal pain. 04/28/2019 Reports significant improvement in appetite, continues to have productive cough, dyspnea improved, encouraged ambulation with assistance, patient is agreeable. 10 point review systems was negative except for above OBJECTIVE PHYSICAL EXAMINATION: VITAL SIGNS: Please see below. GENERAL: No distress HEENT: Normocephalic, atraumatic CARDIOVASCULAR: S1, S2, tachycardic. RESPIRATORY: Scattered rhonchi appreciated. ABDOMINAL: Soft, nontender, nondistended, positive bowel sounds EXTREMITIES: Range of Motion intact NEUROLOGICAL:. Alert and oriented 3, no focal deficits PSYCHOLOGICAL: Calm LABORATORY DATA, IMAGING STUDIES, MICROBIOLOGY: Please see below. DVT prophylaxis ordered?: Yes ASSESSMENT AND PLAN: 78-year-old male with past medical history history of hypertension, admitted for sepsis secondary to multifocal pneumonia and acute renal failure. PROBLEMS: 1. Sepsis: . Due to multifocal pneumonia Respiratory viral panel negative. CT scan with multifocal pneumonia in the right lung, appears gravity dependent, questionable aspiration, patient without complaints. Continue Zosyn, clinically improving. Continue Tylenol for fever. 2. Urinary retention. Likely related to BPH Machado removed today, on Flomax, will monitor for retention. 3. Acute renal failure: . Resolved with IV fluids. IV fluids discontinued 4. Hypertension: . Home BP meds restarted. 5. Stool occult blood positive. No signs of active bleeding, hemoglobin down trend is likely related to IV fluids, recommend outpatient follow-up with GI. DVT prophylaxis: Heparin subcutaneous. GI prophylaxis: Not needed at this time VS, I&O, 24H, Fishbone Vital Signs/I&O Vital Signs Date Time Temp Pulse Resp B/P (MAP) Pulse Ox O2 Delivery O2 Flow Rate FiO2 04/28/19 06:00 98.4 98 17 112/57 (75) 90 04/23/19 19:26 Room Air I&O- Last 24 Hours up to 6 AM 04/28/19 05:59 Intake Total 3810 ml Output Total 1575 ml Balance 2235 ml Laboratory Data 24H LABS Laboratory Tests 2 04/28/19 05:33: Nucleated Red Blood Cells % (auto) 0.0, Anion Gap 8, Glomerular Filtration Rate > 60.0, Blood Urea Nitrogen 21H, Creatinine 0.88, Sodium Level 141, Potassium Level 3.4L, Chloride Level 110H, Carbon Dioxide Level 23, Calcium Level 8.3L CBC/BMP Laboratory Tests 04/28/19 05:33 Red Blood Count 3.55 L, Mean Corpuscular Volume 92.1, Mean Corpuscular Hemoglobin 30.1, Mean Corpuscular Hemoglobin Concent 32.7, Red Cell Distribution Width 14.2, Calcium Level 8.3 L Microbiology Microbiology 04/26/19 Stool Occult Blood (YG) - Final, Complete 04/25/19 Gram Stain - Final, Complete 04/25/19 Sputum Culture - Final, Complete 04/24/19 Urine Culture - Final, Complete 04/24/19 Respiratory Virus Panel (PCR) (YG) - Final, Complete 04/23/19 Blood Culture - Preliminary, Resulted No Growth after 72 hours. All specime... 04/23/19 Blood Culture - Preliminary, Resulted No Growth after 72 hours. All specime... KIMBERLY ANDERSON MD Apr 28, 2019 13:19
[2019-04-28 14:00] VITALS: BP 122/68
[2019-04-28 22:00] VITALS: BP 119/62
[2019-04-28] MEDS: ONDANSETRON 4 MG TAB (S0181) PO PRN (22:58)
[2019-04-29] MEDS: PIPERACILLIN/TAZOBACTAM SOD 3.375 GM in D5W MINI-BAG PLUS 50 ML IV SCH ×3 (01:56→13:00)
[2019-04-29 06:00] VITALS: BP 99/56
[2019-04-29 06:35] LABS: HEMATOCRIT 30.5 % (42.0-52.0); HEMOGLOBIN 10.1 g/dl (13.5-17.5); MEAN CORPUSCULAR HEMOGLOBIN 30.8 pg (27.0-33.0); MEAN CORPUSCULAR HGB CONC 33.1 g/dl (32.0-36.5); PLATELET COUNT, AUTOMATED 288 10^3/uL (150-450); RED BLOOD COUNT 3.28 10^6/uL (4.30-6.10); WHITE BLOOD COUNT 18.6 10^3/uL (4.0-10.0)
[2019-04-29 06:45] VITALS: BP 104/70
[2019-04-29 06:59] LABS: BLOOD UREA NITROGEN 19 MG/DL (7-18); CALCIUM LEVEL 8.3 MG/DL (8.8-10.2); CARBON DIOXIDE LEVEL 26 MEQ/L (21-32); CHLORIDE LEVEL 111 MEQ/L (98-107); CREATININE FOR GFR 0.83 MG/DL (0.70-1.30); GLOMERULAR FILTRATION RATE > 60.0 (>42); GLUCOSE, FASTING 114 MG/DL (70-100); POTASSIUM SERUM 3.5 MEQ/L (3.5-5.1); SODIUM LEVEL 143 MEQ/L (136-145)
[2019-04-29] MEDS ORDERED: POTASSIUM CHLORIDE 10 MEQ SR TABLET PO ONE (08:30)
[2019-04-29] MEDS: OCUVITE 1 TAB PO SCH (10:14)
[2019-04-29] MEDS: METAMUCIL (PSYLLIUM) PACKET PO SCH (10:14)
[2019-04-29] MEDS: KCL 10MEQ/100ML SWI (KRUN) 10 MEQ in IV 1 EA IV SCH ×4 (10:14→14:09)
[2019-04-29] MEDS: HEPARIN SOD (PORCINE) 5000 UNITS/ML VIAL SC SCH (10:15)
[2019-04-29] MEDS: TAMSULOSIN 0.4 MG CAP PO SCH (10:15)
[2019-04-29] MEDS ORDERED: FLOM0.4C39 PO (14:17)
--- NOTE | 2019-04-29 14:21 | DS.PDOC ---
Discharge Summary General Date of Admission Apr 23, 2019 at 21:29 Date of Discharge 04/29/2019 Attending Physician: KIMBERLY ANDERSON MD Discharge Summary PROCEDURES PERFORMED DURING STAY: None. ADMITTING DIAGNOSES: 1. Multifocal pneumonia. DISCHARGE DIAGNOSES: 1. Multifocal pneumonia. COMPLICATIONS/CHIEF COMPLAINT: Pneumonia. HISTORY OF PRESENT ILLNESS: 78-year-old male with past medical history of hypertension and BPH, admitted for sepsis secondary to multifocal pneumonia. He was treated with IV Zosyn, with significant clinical response, patient is now clinically and hemodynamically stable for discharge. During his stay, he developed urinary retention, Machado was placed which was removed later in the admission to attempt a voiding trial, patient failed voiding trial and Machado was reinserted prior to discharge. Patient was also stool occult blood positive, hemoglobin was stable, patient advised follow-up outpatient with GI for possible colonoscopy. Patient understands and is agreeable to discharge plan which includes all up with gastroenterology and urology. HOSPITAL COURSE: As above. DISCHARGE MEDICATIONS: Please see below. ALLERGIES: Please see below. PHYSICAL EXAMINATION: VITAL SIGNS: Please see below. GENERAL: No distress HEENT: Normocephalic, atraumatic, moist mucous membranes NECK: Supple CARDIOVASCULAR EXAMINATION: S1, S2, no murmurs RESPIRATORY EXAMINATION: Scattered rhonchi ABDOMINAL EXAMINATION: Soft, nontender, nondistended, positive bowel sounds EXTREMITIES: Range of motion intact SKIN: No rash NEUROLOGICAL EXAMINATION: Alert and oriented 3, no focal deficits PSYCHIATRIC EXAMINATION: Calm and cooperative LABORATORY DATA: Please see below. IMAGING: CT with multifocal pneumonia in the right lung PROGNOSIS: Fair ACTIVITY: As tolerated. DIET: Cardiac DISCHARGE PLAN: Patient will follow with gastroenterology and urology along with his PCP. DISPOSITION: . DISCHARGE INSTRUCTIONS: 1. Please follow with maintenance trainer urologist and PCP within 1-2 weeks. DISCHARGE CONDITION: Stable. TIME SPENT ON DISCHARGE: Greater than 35 minutes. Vital Signs/I&Os Vital Signs Date Time Temp Pulse Resp B/P (MAP) Pulse Ox O2 Delivery O2 Flow Rate FiO2 04/29/19 06:45 104/70 (81) 04/29/19 06:00 98.2 98 17 90 04/23/19 19:26 Room Air I&O- Last 24 Hours up to 6 AM 04/29/19 06:00 Intake Total 1050 ml Output Total 2925 ml Balance -1875 ml Laboratory Data Labs 24H Laboratory Tests 2 04/29/19 06:10: Nucleated Red Blood Cells % (auto) 0.0, Anion Gap 6L, Glomerular Filtration Rate > 60.0, Blood Urea Nitrogen 19H, Creatinine 0.83, Sodium Level 143, Potassium Level 3.5, Chloride Level 111H, Carbon Dioxide Level 26, Calcium Level 8.3L CBC/BMP Laboratory Tests 04/29/19 06:10 Red Blood Count 3.28 L, Mean Corpuscular Volume 93.0, Mean Corpuscular Hemoglobin 30.8, Mean Corpuscular Hemoglobin Concent 33.1, Red Cell Distribution Width 14.4, Calcium Level 8.3 L Microbiology Microbiology 04/26/19 Stool Occult Blood (YG) - Final, Complete 04/25/19 Gram Stain - Final, Complete 04/25/19 Sputum Culture - Final, Complete 04/24/19 Urine Culture - Final, Complete 04/24/19 Respiratory Virus Panel (PCR) (YG) - Final, Complete 04/23/19 Blood Culture - Final, Complete NO GROWTH AFTER 5 DAYS 04/23/19 Blood Culture - Final, Complete NO GROWTH AFTER 5 DAYS Discharge Medications Scheduled Losartan Potassium (Losartan Potassium) 100 Mg Tablet, 100 MG PO DAILY, (Reported) Tamsulosin HCl (Flomax) 0.4 Mg Capsule, 0.4 MG PO DAILY Allergies Coded Allergies: No Known Allergies (Unverified , 04/23/19) KIMBERLY ANDERSON MD Apr 29, 2019 14:21
[2019-04-29] MEDS ORDERED: KCL 10MEQ/100ML SWI (KRUN) 10 MEQ in IV 1 EA IV SCH (15:30)
== END 2019-04-29 17:36 | disposition home or self-care (01) | DRG 871 ==
LOC: M ED 19:25 → M ED INP 21:29 → M MSPAV 23:13
PROVIDERS: ADMIT Internal Medicine; ATTEND Internal Medicine
DX: A41.9 Sepsis, unspecified organism (principal); J18.9 Pneumonia, unspecified organism; N17.9 Acute kidney failure, unspecified; I10 Essential (primary) hypertension; N40.0 Benign prostatic hyperplasia without lower urinary tract symptoms; R33.9 Retention of urine, unspecified

== ENCOUNTER 2019-05-02 13:04 | Inpatient (IN) | payer MEDICARE ==
[~2019-05-02] VITALS: Ht 188 cm; Wt 86.9 kg
[~2019-05-02 13:04] MED LIST: FLOM0.4C39 PO; LOSA100T50 PO
[2019-05-02 14:14] LABS: BASO # 0.1 10^3/uL (0.0-0.2); BASO % 0.5 % (0.0-1.0); EOS # 0.2 10^3/uL (0.0-0.5); EOS % 0.9 % (0.0-3.0); HEMATOCRIT 34.2 % (42.0-52.0); HEMOGLOBIN 11.1 g/dl (13.5-17.5); LYMPH # 1.4 10^3/uL (1.5-5.0); LYMPH % 7.8 % (24.0-44.0); MEAN CORPUSCULAR HEMOGLOBIN 30.5 pg (27.0-33.0); MEAN CORPUSCULAR HGB CONC 32.5 g/dl (32.0-36.5); MONO # 0.9 10^3/uL (0.0-0.8); MONO % 5.2 % (0.0-5.0); NEUTROPHILS # 14.1 10^3/uL (1.5-8.5); NEUTROPHILS % 80.9 % (36.0-66.0); PLATELET COUNT, AUTOMATED 497 10^3/uL (150-450); RED BLOOD COUNT 3.64 10^6/uL (4.30-6.10); WHITE BLOOD COUNT 17.4 10^3/uL (4.0-10.0)
[2019-05-02] MEDS ORDERED: FUROSEMIDE 40 MG/4 ML VIAL (J1940) IV ONE (14:30)
[2019-05-02 14:42] LABS: ALBUMIN 2.2 GM/DL (3.2-5.2); ALT/SGPT 54 U/L (12-78); BILIRUBIN,DIRECT 0.2 MG/DL (0.0-0.2); BILIRUBIN,TOTAL 0.9 MG/DL (0.2-1.0); BLOOD UREA NITROGEN 12 MG/DL (7-18); CALCIUM LEVEL 8.3 MG/DL (8.8-10.2); CARBON DIOXIDE LEVEL 30 MEQ/L (21-32); CHLORIDE LEVEL 107 MEQ/L (98-107); CREATININE FOR GFR 0.84 MG/DL (0.70-1.30); GLOMERULAR FILTRATION RATE > 60.0 (>42); GLUCOSE, FASTING 102 MG/DL (70-100); NT-PRO BNP 15670 PG/ML (<450); SODIUM LEVEL 143 MEQ/L (136-145)
--- NOTE | 2019-05-02 14:54 | REP ---
Two-view chest: 05/02/2019. Indication: Pneumonia. Comparison: Plain film and CT studies of the chest dated 04/24/2019. Findings: The air space consolidation of the right upper lobe is more prominent on today's study. Right lower lobe aeration has mildly improved. There is no pleural effusion. No pneumothorax is present. Cardiac silhouette is unremarkable. The left lung is essentially clear with no changes compared to the previous study. Impression: Progressing pneumonia of the right upper lobe. Slightly improved aeration of the right lower lobe. Electronically Signed by Ronald Becerril DO 05/02/2019 02:45 P
--- NOTE | 2019-05-02 15:46 | ECGEPIP ---
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
--- NOTE | 2019-05-02 16:10 | REP ---
Duplex extremity venous ultrasound: Bilateral lower extremities. History: Edema. Question DVT. Findings: The deep veins are anechoic and fully compressible from the groin to the popliteal fossa in the left and right lower extremity. Color flow imaging is homogeneous. Spectral Doppler interrogation demonstrates intact respiratory variation in flow and normal manual augmentation of flow. There is no evidence of deep vein thrombosis. Impression: Negative bilateral lower extremity duplex venous ultrasound. No evidence of deep vein thrombosis. Electronically Signed by Shubham Bennett MD 05/02/2019 04:01 P
[2019-05-02] MEDS ORDERED: FLOM0.4C39 PO (16:28)
[2019-05-02] MEDS ORDERED: META28.32 PO (16:28)
[2019-05-02] MEDS ORDERED: OCUVCAP2 PO (16:28)
[2019-05-02] MEDS ORDERED: ACETAMINOPHEN TAB 650MG DOSE (2X325MG) PO PRN (17:00)
--- NOTE | 2019-05-02 17:57 | HPEPDOC ---
General Date of Admission May 02, 2019 at 16:51 Date of Service: May 02, 2019 Chief Complaint The patient is a 78-year-old male admitted with a reason for visit of Pneumonia. Source: Patient, Old records Exam Limitations: No limitations Timing/Duration: Day(s) Severity: Moderate Associated Symptoms: Loss of appetite History of Present Illness This is a 78-year-old male who was discharged from this hospital back on her around April 29. He had been admitted and treated for right-sided pneumonia. He received IV antibiotics in the form of Zosyn for 5 days. His leukocytosis showed a downward trend. He was subsequently discharged to home. In the interim, he had noted some edema to his feet and legs. This appeared to be worsening. He subsequently thought he should come back to the emergency room for evaluation. The patient did not have fever or chills. He did not have any chest pain, but had mild shortness of breath. He did not have any remarkable cough. He notes decreased appetite. Of interest, during his last hospital stay he was noted to have urinary retention and required placement of a Machado catheter; he has not yet had urology follow-up. Home Medications Scheduled C,E,Zinc,Copper 24/Om3/Lut/Lyn (Ocuvite Adult 50 Plus Softgel) 1 Each Capsule, 1 CAP PO DAILY, (Reported) Losartan Potassium (Losartan Potassium) 100 Mg Tablet, 100 MG PO DAILY, (Reported) Psyllium Husk (with Sugar) (Metamucil Powder) 575 Gm Powder, 1 PKT PO DAILY, (Reported) Tamsulosin HCl (Flomax) 0.4 Mg Capsule, 0.4 MG PO DAILY, (Reported) Allergies Coded Allergies: No Known Allergies (Unverified , 04/23/19) Past Medical History Medical History Past medical history is remarkable for hypertension, patient reports having "walking" pneumonia in February, patient has known benign prostatitic hypertrophy with recent episode of urinary retention, patient has reported occult blood to his stool, osteoarthritis, 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 There is also family member with a pacemaker. Social History * Smoker: non-smoker Alcohol: Denies Drugs: denies Psychosocial History: No pertinent psych hx The patient is retired from working for [employer]. A-FIB/CHADSVASC A-FIB History Current/History of A-Fib/PAF?: No Review of Systems Other systems 10 system review is otherwise negative except as stated in the brief presentation Physical Examination General Exam: Positive: Alert, Cooperative, No Acute Distress Eye Exam: Positive: PERRLA, Conjunctiva & lids normal, EOMI ENT Exam: Positive: Atraumatic, Mucous membr. moist/pink, Nares Patent Neck Exam: Positive: Supple; Negative: JVD, thyromegaly Chest Exam: Positive: Clear to auscultation, Normal air movement, Other (he does not have any rhonchi, rales or wheezing or cough) Heart Exam: Positive: Rate Normal, Regular Rhythm, Murmurs (patient has a grade 2 to 3/6 systolic murmur best heard to the left upper sternal border) Abdomen Exam: Positive: Normal bowel sounds, Soft; Negative: Tenderness, Hepatospenomegaly Extremity Exam: Positive: Edema (the patient does have 2-3+ pitting edema to his feet, ankles and legs), Normal pulses, Other (patient has remarkable joint changes, especially to his hands consistent with osteoarthritis. Additionally, he has bony deformity to his right foot from a nontreated dislocated fracture. He also has extended second toes bilaterally consistent with hammertoe); Negative: Clubbing, Cyanosis Skin Exam: Positive: Nl turgor and temperature; Negative: Breakdown, Lesion Neuro Exam: Positive: Normal Speech, Sensation Intact, Cranial Nerves 3-12 NL Psych Exam: Positive: Mental status NL, Mood NL, Memory Intact, Oriented x 3 Vital Signs Vital Signs Date Time Temp Pulse Resp B/P (MAP) Pulse Ox O2 Delivery O2 Flow Rate FiO2 05/02/19 16:30 94 119/57 (77) 93 Room Air 05/02/19 13:05 99.2 20 Laboratory Data Labs 24H Laboratory Tests 2 05/02/19 13:58: Immature Granulocyte % (Auto) 4.7H, Neutrophils (%) (Auto) 80.9H, Lymphocytes (%) (Auto) 7.8L, Monocytes (%) (Auto) 5.2H, Eosinophils (%) (Auto) 0.9, Basophils (%) (Auto) 0.5, Neutrophils # (Auto) 14.1H, Lymphocytes # (Auto) 1.4L, Monocytes # (Auto) 0.9H, Eosinophils # (Auto) 0.2, Basophils # (Auto) 0.1, Nucleated Red Blood Cells % (auto) 0.0, Anion Gap 6L, Glomerular Filtration Rate > 60.0, Calcium Level 8.3L, Total Bilirubin 0.9, Direct Bilirubin 0.2, Aspartate Amino Transf (AST/SGOT) 33, Alanine Aminotransferase (ALT/SGPT) 54, Alkaline Phosphatase 108, NY-Yzu-H-Type Natriuretic Peptide 45354D, Total Protein 5.0L, Albumin 2.2L, Albumin/Globulin Ratio 0.79L 05/02/19 15:13: Urine Color STRAW, Urine Appearance CLEAR, Urine pH 7.0, Urine Specific [place] 1.004, Urine Protein NEGATIVE, Urine Glucose (UA) NEGATIVE, Urine Ketones NEGATIVE, Urine Blood 1+H, Urine Nitrite NEGATIVE, Urine Bilirubin NEGATIVE, Urine Urobilinogen 0.2, Urine Leukocyte Esterase TRACEH, Urine WBC (Auto) 3, Urine RBC (Auto) 4H, Urine Hyaline Casts (Auto) 0, Urine Bacteria (Auto) NEGATIVE, Urine Squamous Epithelial Cells 0, Urine Mucus (Auto) SMALL, Urine Sperm (Auto) CBC/BMP Laboratory Tests 05/02/19 13:58 Microbiology Microbiology 05/02/19 Urine Culture, Received Pending Assessment/Plan 1. Right-sided pneumonia. Patient does have some increased infiltrate to the region of the right upper lobe. The patient's leukocytosis is less than it was at discharge. He does not have any demonstrable hypoxia and does not require oxygen. Plans are to place the patient on Levaquin; patient had been treated with 5 days of Zosyn. We will monitor for response. He has no active wheezing and consequently, we will not make use of systemic steroids. He also does not appear to need any nebulization treatments. The patient does not have any interstitial infiltrate consistent with fluid overload. 2. Lower extremity edema. Patient states that he had onset of this at discharge, actually. He states it got worse after he went home. Patient denies any history of heart disease. He has never had a stress test. He has not had chest pain or palpitations. There is no cardiomegaly to the chest x-ray. Patient is receiving diuresis with Lasix with good results. We will obtain an echocardiogram to look at his wall function and ejection fraction to rule and/out congestive heart failure. EKG shows sinus tachycardia with occasional supraventricular premature complexes. Note is made of right bundle branch block waveforms. Additionally, there are Q waves to V2 that may indicate an old event. 3. Urinary retention. Patient has known benign prostatic hypertrophy. He is on Flomax. Machado catheter is to remain in place until he has urology follow-up, which will occur on an outpatient basis. 4. Essential hypertension. Patient remains on his baseline regimen of losartan. Creatinine is stable at 0 .84. The patient is admitted inpatient status as we do anticipate it will take greater than 2 midnights to determine the etiology of his fluid overload. Again, he does not have interstitial infiltrate or cardiomegaly; patient has an elevated BNP of 15,670 with lower extremity edema. Plan / VTE VTE Prophylaxis Ordered?: Yes (Lovenox) Plan / Urinary Catheter Urinary Catheter: Other Catheter: (the patient has had a Machado catheter in place due to obstruction/retention.) Plan Diet: Continue Current Activity: Continue Current Medications: Start Antibiotics Diagnostics: Repeat Labs in AM Anticipated Discharge: Home DIONE OLIVAS MD May 02, 2019 17:57
[2019-05-02 18:35] VITALS: BP 123/74
[2019-05-02] MEDS: FUROSEMIDE 40 MG/4 ML VIAL (J1940) IV SCH (20:05)
[2019-05-02 22:00] VITALS: BP 114/66
[2019-05-03 05:47] LABS: HEMATOCRIT 32.1 % (42.0-52.0); HEMOGLOBIN 10.4 g/dl (13.5-17.5); MEAN CORPUSCULAR HEMOGLOBIN 30.1 pg (27.0-33.0); MEAN CORPUSCULAR HGB CONC 32.4 g/dl (32.0-36.5); MEAN CORPUSCULAR VOLUME 92.8 fl (80.0-96.0); PLATELET COUNT, AUTOMATED 479 10^3/uL (150-450); RED BLOOD COUNT 3.46 10^6/uL (4.30-6.10); WHITE BLOOD COUNT 15.4 10^3/uL (4.0-10.0)
[2019-05-03 06:00] VITALS: BP 121/66
[2019-05-03 06:15] LABS: BLOOD UREA NITROGEN 13 MG/DL (7-18); CALCIUM LEVEL 8.1 MG/DL (8.8-10.2); CARBON DIOXIDE LEVEL 32 MEQ/L (21-32); CHLORIDE LEVEL 107 MEQ/L (98-107); CREATININE FOR GFR 0.94 MG/DL (0.70-1.30); GLOMERULAR FILTRATION RATE > 60.0 (>42); GLUCOSE, FASTING 94 MG/DL (70-100); POTASSIUM SERUM 3.3 MEQ/L (3.5-5.1); SODIUM LEVEL 144 MEQ/L (136-145); TROPONIN I 0.05 NG/ML (< 0.10)
[2019-05-03] MEDS: FUROSEMIDE 40 MG/4 ML VIAL (J1940) IV SCH ×2 (08:30→20:16)
[2019-05-03] MEDS: TAMSULOSIN 0.4 MG CAP PO SCH (08:31)
[2019-05-03] MEDS: LOSARTAN 50 MG TAB PO SCH (08:31)
[2019-05-03] MEDS: ENOXAPARIN 40 MG/0.4 ML SYRINGE (J1650) SC SCH (08:31)
[2019-05-03] MEDS: METAMUCIL (PSYLLIUM) PACKET PO SCH (08:31)
[2019-05-03] MEDS: POTASSIUM CHLORIDE 10 MEQ SR TABLET PO SCH (08:31)
[2019-05-03 14:00] VITALS: BP 103/57
--- NOTE | 2019-05-03 19:22 | IPNPDOC ---
Text Note Date of Service The patient was seen on 05/03/19. NOTE SUBJECTIVE: Mr. Salgado is medically stable. Patient had been discharged recently for community-acquired pneumonia. He returned with lower extremity swelling and concerns for congestive heart failure. OBJECTIVE: Physical exam: HENT: Neck is supple with no adenopathy or thyromegaly. Oral mucosa is moist. There is no scleral icterus Cardiovascular: exam shows a regular rate and rhythm with a grade 2 to 3/6 systolic murmur at the left upper sternal border Respiratory: Clear to auscultation with no rhonchi, rales or wheezes. Abdomen:, Soft, nontender, nondistended. Extremities: Patient has edema decreased down to 1 - 2+ pitting to his feet, ankles and lower legs. Pedal pulses are readily palpable. Joint deformities to his feet and toes remain stable. ASSESSMENT/PLAN: 1. Right-sided pneumonia. On review of the x-rays this has not recurred, but infiltrate appears increased. Clinically patient remains stable with no hypoxia. White cell count is decreased from 17.4, down to 15.4. Patient remains on empiric antibiotics in the form of Levaquin. Cultures are negative to date. 2. Possible congestive heart failure, unspecified The patient developed lower extremity edema after discharge. The patient has responded well to diuretics. The patient initially denied any history of cardiac disease or cardiac event. He now mentions that he had been seen in [place] within the past month and undergone evaluation by echocardiogram; there is unverified report of valve stenosis. He also relates that valve placement was briefly discussed, but would not be required for another 2-3 years. Patient is to undergo evaluation by echocardiogram here. 3. Urinary retention. Patient has known benign prostatic hypertrophy. He had apparently been unable to urinate. He is expectant of outpatient follow-up with urology services. 4. Essential hypertension. Patient remains on his baseline regimen of losartan. VS,Fishbone, I+O VS, Fishbone, I+O Laboratory Tests 05/03/19 05:32 Vital Signs Date Time Temp Pulse Resp B/P (MAP) Pulse Ox O2 Delivery O2 Flow Rate FiO2 05/03/19 14:00 97.8 97 17 103/57 (72) 93 Room Air I&O- Last 24 Hours up to 6 AM 05/03/19 06:00 Intake Total 520 ml Output Total 4600 ml Balance -4080 ml DIONE OLIVAS MD May 03, 2019 19:22
[2019-05-03] MEDS: LevoFLOXacin IV 750 MG in IV 1 EA IV SCH (20:09)
[2019-05-03 22:00] VITALS: BP 120/64
[2019-05-04 06:00] VITALS: BP 121/76
[2019-05-04 07:47] LABS: BLOOD UREA NITROGEN 14 MG/DL (7-18); CALCIUM LEVEL 8.1 MG/DL (8.8-10.2); CARBON DIOXIDE LEVEL 33 MEQ/L (21-32); CHLORIDE LEVEL 105 MEQ/L (98-107); CREATININE FOR GFR 0.98 MG/DL (0.70-1.30); GLOMERULAR FILTRATION RATE > 60.0 (>42); GLUCOSE, FASTING 100 MG/DL (70-100); POTASSIUM SERUM 3.4 MEQ/L (3.5-5.1); SODIUM LEVEL 143 MEQ/L (136-145)
[2019-05-04 08:47] LABS: HEMATOCRIT 33.4 % (42.0-52.0); HEMOGLOBIN 10.6 g/dl (13.5-17.5); MEAN CORPUSCULAR HEMOGLOBIN 29.6 pg (27.0-33.0); MEAN CORPUSCULAR HGB CONC 31.7 g/dl (32.0-36.5); MEAN CORPUSCULAR VOLUME 93.3 fl (80.0-96.0); PLATELET COUNT, AUTOMATED 554 10^3/uL (150-450); RED BLOOD COUNT 3.58 10^6/uL (4.30-6.10); WHITE BLOOD COUNT 15.8 10^3/uL (4.0-10.0)
[2019-05-04] MEDS ORDERED: POTASSIUM CHLORIDE 10 MEQ SR TABLET PO ONE (09:00)
[2019-05-04] MEDS: ENOXAPARIN 40 MG/0.4 ML SYRINGE (J1650) SC SCH (09:18)
[2019-05-04] MEDS: METAMUCIL (PSYLLIUM) PACKET PO SCH (09:18)
[2019-05-04] MEDS: FUROSEMIDE 40 MG/4 ML VIAL (J1940) IV SCH ×2 (09:18→21:00)
[2019-05-04] MEDS: POTASSIUM CHLORIDE 10 MEQ SR TABLET PO SCH (09:19)
[2019-05-04] MEDS: TAMSULOSIN 0.4 MG CAP PO SCH (09:19)
[2019-05-04] MEDS: LOSARTAN 50 MG TAB PO SCH (09:19)
[2019-05-04 14:00] VITALS: BP 121/73
--- NOTE | 2019-05-04 15:09 | IPNPDOC ---
Text Note Date of Service The patient was seen on 05/04/19. NOTE SUBJECTIVE: Mr. Salgado complains of feeling weak today. Patient was re-admitted with right- sided pneumonia and lower extremity edema concerning for congestive heart failure. He does not have chest pain or shortness of breath. Does have activity intolerance. OBJECTIVE: Please see vital signs below Physical exam: HENT: Neck is supple with no adenopathy or thyromegaly. Oral mucosa is moist. There is no scleral icterus Cardiovascular: exam shows a regular rate and rhythm with a grade 2 to 3/6 systolic murmur at the left upper sternal border Respiratory: Clear to auscultation with no rhonchi, rales or wheezes. Abdomen:, Soft, nontender, nondistended. Extremities: Patient has edema decreased down to 1+ pitting to his feet, ankles and lower legs. Pedal pulses are readily palpable. Joint deformities to his feet and toes remain stable. ASSESSMENT/PLAN: 1. Right-sided pneumonia. On review of the x-rays this has not recurred, but infiltrate appears increased. Clinically patient remains stable with no hypoxia. White cell count is decreased from 17.4, down to 15.4. Patient remains on empiric antibiotics in the form of Levaquin. Cultures are negative to date. 2. Possible congestive heart failure, unspecified The patient developed lower extremity edema after discharge. The patient has responded well to diuretics. The patient initially denied any history of cardiac disease or cardiac event. He now mentions that he had been seen in [place] within the past month and undergone evaluation by echocardiogram; there is unverified report of valvular stenosis. He also relates that valve placement was briefly discussed, but would not be required for another 2-3 years. We are still awaiting echocardiogram and report. 3. Urinary retention. Patient has known benign prostatic hypertrophy. He had apparently been unable to urinate. He is expectant of outpatient follow-up with urology services. 4. Essential hypertension. Patient remains on his baseline regimen of losartan. VS,Fishbone, I+O VS, Fishbone, I+O Laboratory Tests 05/04/19 06:44 Vital Signs Date Time Temp Pulse Resp B/P (MAP) Pulse Ox O2 Delivery O2 Flow Rate FiO2 05/04/19 14:00 98.2 101 18 121/73 (89) 91 Room Air I&O- Last 24 Hours up to 6 AM 05/04/19 06:00 Intake Total 1020 ml Output Total 4600 ml Balance -3580 ml DIONE OLIVAS MD May 04, 2019 15:09
[2019-05-04 16:14] LABS: CALCIUM LEVEL 8.1 MG/DL (8.8-10.2); CREATININE FOR GFR 1.27 MG/DL (0.70-1.30); GLOMERULAR FILTRATION RATE 58.2 (>42); POTASSIUM SERUM 4.1 MEQ/L (3.5-5.1)
[2019-05-04] MEDS: LevoFLOXacin IV 750 MG in IV 1 EA IV SCH (21:03)
[2019-05-04 22:00] VITALS: BP 104/61
[2019-05-05 06:00] VITALS: BP 104/61
[2019-05-05 06:22] LABS: HEMATOCRIT 33.2 % (42.0-52.0); HEMOGLOBIN 10.6 g/dl (13.5-17.5); MEAN CORPUSCULAR HEMOGLOBIN 30.2 pg (27.0-33.0); MEAN CORPUSCULAR HGB CONC 31.9 g/dl (32.0-36.5); MEAN CORPUSCULAR VOLUME 94.6 fl (80.0-96.0); PLATELET COUNT, AUTOMATED 528 10^3/uL (150-450); RED BLOOD COUNT 3.51 10^6/uL (4.30-6.10); WHITE BLOOD COUNT 13.4 10^3/uL (4.0-10.0)
[2019-05-05] MEDS: FUROSEMIDE 40 MG/4 ML VIAL (J1940) IV SCH (09:10)
[2019-05-05] MEDS: METAMUCIL (PSYLLIUM) PACKET PO SCH (09:10)
[2019-05-05] MEDS: TAMSULOSIN 0.4 MG CAP PO SCH (09:11)
[2019-05-05] MEDS: LOSARTAN 50 MG TAB PO SCH (09:11)
[2019-05-05] MEDS: POTASSIUM CHLORIDE 10 MEQ SR TABLET PO SCH (09:11)
[2019-05-05] MEDS: ENOXAPARIN 40 MG/0.4 ML SYRINGE (J1650) SC SCH (09:12)
--- NOTE | 2019-05-05 11:32 | IPNPDOC ---
Text Note Date of Service The patient was seen on 05/05/19. NOTE SUBJECTIVE: Mr. Salgado is doing well. He was readmitted with presence of pneumonia and concern for possible congestive heart failure. OBJECTIVE: Physical exam: HENT: Neck is supple with no adenopathy or thyromegaly. Oral mucosa is moist. There is no scleral icterus Cardiovascular: exam shows a regular rate and rhythm with a grade 2 to 3/6 systolic murmur at the left upper sternal border Respiratory: Clear to auscultation with no rhonchi, rales or wheezes. Abdomen:, Soft, nontender, nondistended. Extremities: Patient has edema decreased down to 1+ pitting to his feet, ankles and lower legs. Pedal pulses are readily palpable. Joint deformities to his feet and toes remain stable. ASSESSMENT/PLAN: 1. Right-sided pneumonia. Patient remains stable with no hypoxia. White cell count is now down to 13.4. Patient remains on antibiotics in the form of Levaquin. Cultures remain negative to date. 2. Possible congestive heart failure, unspecified. The patient had developed lower extremity edema after his last discharge. He has responded well to diuretics in the form of Lasix. There is concern for valvular heart disease given his murmur, lower extremity edema and possible mention of valvular heart disease to an echocardiogram that was obtained outside of the hospital. We are still awaiting performance and results of an echocardiogram during this hospital stay. I will decrease his Lasix dosing. 3. Urinary retention. The patient has known benign prostatic hypertrophy. He had an inability to urinate and has a Machado catheter in place. Patient would like to trial removal of it. Patient is on Flomax and if he fails a trial we can put the Machado catheter back. 4. Essential hypertension. Patient remains on his baseline regimen of losartan. VS,Fishbone, I+O VS, Fishbone, I+O Laboratory Tests 05/04/19 15:34 05/05/19 06:04 Vital Signs Date Time Temp Pulse Resp B/P (MAP) Pulse Ox O2 Delivery O2 Flow Rate FiO2 05/05/19 09:11 122/64 05/05/19 06:00 98.4 86 16 92 Room Air I&O- Last 24 Hours up to 6 AM 05/05/19 06:00 Intake Total 1300 ml Output Total 2950 ml Balance -1650 ml DIONE OLIVAS MD May 05, 2019 11:32
[2019-05-05 14:00] VITALS: BP 107/59
[2019-05-05 20:00] VITALS: BP 136/74
[2019-05-05] MEDS: LevoFLOXacin IV 750 MG in IV 1 EA IV SCH (20:08)
[2019-05-05 22:00] VITALS: BP 98/60
[2019-05-06 05:43] LABS: HEMATOCRIT 34.8 % (42.0-52.0); MEAN CORPUSCULAR HEMOGLOBIN 29.7 pg (27.0-33.0); MEAN CORPUSCULAR HGB CONC 31.6 g/dl (32.0-36.5); MEAN CORPUSCULAR VOLUME 94.1 fl (80.0-96.0); PLATELET COUNT, AUTOMATED 560 10^3/uL (150-450); WHITE BLOOD COUNT 13.8 10^3/uL (4.0-10.0)
[2019-05-06 06:00] VITALS: BP 122/70
[2019-05-06 06:03] LABS: BLOOD UREA NITROGEN 23 MG/DL (7-18); CALCIUM LEVEL 8.7 MG/DL (8.8-10.2); CARBON DIOXIDE LEVEL 33 MEQ/L (21-32); CHLORIDE LEVEL 105 MEQ/L (98-107); CREATININE FOR GFR 1.22 MG/DL (0.70-1.30); GLOMERULAR FILTRATION RATE > 60.0 (>42); GLUCOSE, FASTING 99 MG/DL (70-100); POTASSIUM SERUM 4.4 MEQ/L (3.5-5.1); SODIUM LEVEL 141 MEQ/L (136-145)
[2019-05-06] MEDS: METAMUCIL (PSYLLIUM) PACKET PO SCH (08:29)
[2019-05-06] MEDS: POTASSIUM CHLORIDE 10 MEQ SR TABLET PO SCH (08:30)
[2019-05-06] MEDS: LOSARTAN 50 MG TAB PO SCH (08:30)
[2019-05-06] MEDS: TAMSULOSIN 0.4 MG CAP PO SCH (08:30)
[2019-05-06] MEDS: ENOXAPARIN 40 MG/0.4 ML SYRINGE (J1650) SC SCH (08:31)
[2019-05-06] MEDS ORDERED: FUROSEMIDE 40 MG/4 ML VIAL (J1940) IV SCH (09:00)
--- NOTE | 2019-05-06 13:36 | IPNPDOC ---
Text Note Date of Service The patient was seen on 05/06/19. NOTE Subjective: Patient was seen and examined at the bedside. Patient reports that his breathing is doing significant better. He denies any significant cough. Denies chest pain or palpitations. Has not expense any nausea, vomiting, abdominal pain, or diarrhea. Objective: Vitals (See below) General: Lying in bed, no acute distress, comfortable, AAOx3 HEENT: NC, AT CVS: RRR, +S1S2 Lungs: Fair air entry b/l, -w/r/r Abdomen: Soft, ND, NT Extremities: Trace edema bilaterally, - Calf tenderness Assessment and plan: Right-sided pneumonia - Clinically patient has reported improvement in her breathing and does not report any significant cough - Hemodynamically stable and afebrile - Physical is without any adventitious lung sounds - Leukocytosis appears to be improving - CXR 05/02: Progressing pneumonia of the right upper lobe. Slightly improved aeration of the right lower lobe. - c/w Levaquin Possible congestive heart failure, unspecified - Patient had presented with lower extremity edema that has significantly improved - Is not requiring any supplemental oxygen - Echocardiogram is currently pending - Will discontinue diuretic therapy at this time Urinary retention 2/2 BPH - Patient initially presented with indwelling Machado catheter - Patient of voiding trail that he has failed - Will have outpatient Folly catheter reinserted and have outpatient follow-up with urology - c/w Tamsulosin HTN - BP appears well controlled - c/w Losartan DVT prophylaxis - c/w Lovenox Disposition: - Patient has been ambulating without any difficulties - Anticipate discharge home within the next 24 hours VS,[place], I+O VS, [place], I+O Laboratory Tests 05/06/19 05:20 Vital Signs Date Time Temp Pulse Resp B/P (MAP) Pulse Ox O2 Delivery O2 Flow Rate FiO2 05/06/19 08:30 122/70 05/06/19 06:00 98.7 94 17 94 Room Air I&O- Last 24 Hours up to 6 AM 05/06/19 06:00 Intake Total 1760 ml Output Total 2435 ml Balance -675 ml CHING WRIGHT MD May 06, 2019 13:36
[2019-05-06 14:00] VITALS: BP 104/52
[2019-05-06] MEDS: LevoFLOXacin 750 MG TABLET PO SCH (17:32)
--- NOTE | 2019-05-06 19:25 | ECHO ---
DATE OF PROCEDURE: 05/06/2019 Date of : 1940 Age: 78 Gender: Male Height: 74 inches Weight: 191 pounds Body surface area: 2.14 meters squared Inpatient: [address] [place], room 4202 REFERRING PHYSICIAN: Dr. Ernestina Ho INDICATION: Edema. MEASUREMENTS: 2D Measurements: RV: 4.0 cm LV: 4.2 cm Septum: 1.0 cm Posterior wall: 1.0 cm Aortic root: 3.6 cm LA: 3.5 cm LVEF: 70% Doppler Measurements: AV: 3.0 meters per second LVOT: 1.0 meters per second Mean AV gradient: 22 mmHg Dimensionless index: 0.3 MV-E: 54, A: 108, EA ratio: 0.5 E prime: 6.2 A prime: 12 E/E prime ratio: 8.7 Pulmonary capillary wedge pressure: 11.8 mmHg PV: 1.0 meters per second Pulmonary artery acceleration time: 92 milliseconds RVSP: 46 mmHg IVC: 1.9 cm COMMENTS: Normal sinus rhythm with right bundle branch block. M-mode and two-dimensional echocardiography was performed with pulsed, continuous wave, color flow and tissue Doppler studies. Normal left ventricular size and wall thickness with subtle septal flattening suggestive of right ventricular pressure overload, yet preserved global resting left ventricular systolic function. Normal left atrial size but grade 1 diastolic dysfunction and current estimated mean left atrial pressure within normal limits. Right heart chamber sizes were upper limits of normal to slightly dilated with normal right ventricular free wall motion and Doppler evidence of at least moderate pulmonary hypertension. Normal inferior vena cava (IVC) size and collapse against an elevated central venous pressure at this time. Moderately severe calcific aortic stenosis without insufficiency. Normal aortic root size. Mild degenerative changes of the mitral valvular apparatus with very mild insufficiency. Normal appearing tricuspid valve with mild insufficiency. No apparent intracardiac mass or pericardial effusion.
[2019-05-06 22:00] VITALS: BP 109/59
[2019-05-07 06:00] VITALS: BP 111/60
[2019-05-07] MEDS: METAMUCIL (PSYLLIUM) PACKET PO SCH (08:04)
[2019-05-07 08:07] VITALS: BP 117/60
[2019-05-07] MEDS: POTASSIUM CHLORIDE 10 MEQ SR TABLET PO SCH (08:07)
[2019-05-07] MEDS: TAMSULOSIN 0.4 MG CAP PO SCH (08:07)
[2019-05-07] MEDS: LOSARTAN 50 MG TAB PO SCH (08:07)
[2019-05-07] MEDS: ENOXAPARIN 40 MG/0.4 ML SYRINGE (J1650) SC SCH (08:08)
--- NOTE | 2019-05-07 13:30 | IPNPDOC ---
Text Note Date of Service The patient was seen on 05/07/19. NOTE Subjective: Patient was seen and examined at the bedside. Patient reports that his breathing is doing significant better. He denies any significant cough. Denies chest pain or palpitations. He complained of right upper and lower quadrant abdominal pain in the am. He is concerned about his eye vitamins for his macular degeneration. Objective: Vitals (See below) General: Lying in bed, no acute distress, comfortable, AAOx3 HEENT: NC, AT, moist mucus membranes , anicteric eyes. CVS: RRR, +S1S2, Systolic murmur present, no rub or gallop. Lungs: Fair air entry b/l, -w/r/r Abdomen: Soft, non tender, normal bowel sounds. Extremities: No edema bilaterally, No Calf tenderness Assessment and plan: Right-sided pneumonia improving. Leukocytosis adam as before. CXR 05/02: Progressing pneumonia of the right upper lobe. Slightly improved aeration of the right lower lobe. c/w Levaquin Diastolic congestive heart failure with moderate to severe Aortic stenosis. Echo: shows diastolic dysfunction, EF 70%, moderate pulmonary HTN, moderately severe calcific aortic stenosis. Patient had presented with lower extremity edema that has significantly improved Is not requiring any supplemental oxygen in negative balance. continue to hold diuretics today. Urinary retention 2/2 BPH Patient initially presented with indwelling Machado catheter Patient had voiding trial that he has failed Machado catheter reinserted and have outpatient follow-up with urology c/w Tamsulosin HTN BP appears well controlled c/w Losartan DVT prophylaxis c/w Lovenox Disposition: Patient has been ambulating without any difficulties Anticipate discharge home within the next 24 hours VS,[place], I+O VS, [place], I+O Vital Signs Date Time Temp Pulse Resp B/P (MAP) Pulse Ox O2 Delivery O2 Flow Rate FiO2 05/07/19 08:07 117/60 05/07/19 06:00 98.5 80 18 98 05/06/19 22:00 Room Air I&O- Last 24 Hours up to 6 AM 05/07/19 06:00 Intake Total 660 ml Output Total 3700 ml Balance -3040 ml ABIEL ANTONY MD May 07, 2019 13:29
[2019-05-07 14:00] VITALS: BP 96/58
[2019-05-07] MEDS: OCUVITE 1 TAB PO SCH (14:59)
[2019-05-07] MEDS: LevoFLOXacin 750 MG TABLET PO SCH (17:23)
--- NOTE | 2019-05-07 19:48 | REP ---
HISTORY: Followup pneumonia. The patchy opacity seen previously in the right upper lobe is slightly more consolidated. The right lower lobe opacity is essentially unchanged. There is right CP angle blunting consistent with a small pleural effusion, which is essentially unchanged. There is a possible new opacity in the left mid lung zone difficult to evaluate on this portable exam. The heart is accentuated by technique. The osseous structures are unchanged. IMPRESSION: Evidence to suggest consolidating pneumonia and a right pleural effusion with other findings as described above. If clinically relevant consider CT. Electronically Signed by Claudy Martinez DO 05/07/2019 07:54 P
[2019-05-07 22:00] VITALS: BP 101/55
[2019-05-08 06:00] VITALS: BP 96/52
[2019-05-08 06:33] LABS: HEMATOCRIT 36.8 % (42.0-52.0); HEMOGLOBIN 11.4 g/dl (13.5-17.5); MEAN CORPUSCULAR HEMOGLOBIN 29.8 pg (27.0-33.0); MEAN CORPUSCULAR VOLUME 96.3 fl (80.0-96.0); PLATELET COUNT, AUTOMATED 525 10^3/uL (150-450); RED BLOOD COUNT 3.82 10^6/uL (4.30-6.10); WHITE BLOOD COUNT 11.3 10^3/uL (4.0-10.0)
[2019-05-08 08:53] VITALS: BP 99/54
[2019-05-08] MEDS: POTASSIUM CHLORIDE 10 MEQ SR TABLET PO SCH (08:57)
[2019-05-08] MEDS: OCUVITE 1 TAB PO SCH (08:57)
[2019-05-08] MEDS: TAMSULOSIN 0.4 MG CAP PO SCH (08:58)
[2019-05-08] MEDS: METAMUCIL (PSYLLIUM) PACKET PO SCH (08:58)
[2019-05-08] MEDS: ENOXAPARIN 40 MG/0.4 ML SYRINGE (J1650) SC SCH (08:58)
[2019-05-08 09:49] LABS: ALBUMIN 2.5 GM/DL (3.2-5.2); ALT/SGPT 27 U/L (12-78); BILIRUBIN,DIRECT 0.1 MG/DL (0.0-0.2); BILIRUBIN,TOTAL 0.4 MG/DL (0.2-1.0); TOTAL PROTEIN 5.8 GM/DL (6.4-8.2)
--- NOTE | 2019-05-08 13:43 | IPNPDOC ---
Text Note Date of Service The patient was seen on 05/08/19. NOTE Subjective: Complains of right upper quadrant pain for 2 days , no vomiting or diarrhea. Says mostly passing gas but no good bowel movements. He denies any cough and says his breathing is much better. Denies chest pain or palpitations. Objective: Vitals (See below) General: Lying in bed, no acute distress, comfortable, AAOx3 HEENT: NC, AT, moist mucus membranes , anicteric eyes. CVS: RRR, +S1S2, Systolic murmur present, no rub or gallop. Lungs: Fair air entry b/l, -w/r/r Abdomen: Soft, non tender, normal bowel sounds. Extremities: No edema bilaterally, No Calf tenderness Assessment and plan: Right-sided pneumonia Leukocytosis improving, no fever CXR 05/08: patchy opacity seen previously in the right upper lobe is slightly moreconsolidated. The right lower lobe opacity is essentially unchanged. There is right CP angle blunting consistent with a small pleural effusion, unchanged. Possible new opacity in the left mid lung zone On Levaquin from 05/03 Diastolic congestive heart failure with moderate to severe Aortic stenosis. Echo: shows diastolic dysfunction, EF 70%, moderate pulmonary HTN, moderately severe calcific aortic stenosis. Patient had presented with lower extremity edema that has resolved after diuresis. Is not requiring any supplemental oxygen in negative balance. Urinary retention 2/2 BPH Patient initially presented with indwelling Machado catheter Patient had voiding trial that he has failed Machado catheter reinserted and have outpatient follow-up with urology c/w Tamsulosin HTN BP appears well controlled c/w Losartan DVT prophylaxis c/w Lovenox Disposition: Patient has been ambulating without any difficulties Anticipate discharge home VS,Fishbone, I+O VS, Fishbone, I+O Laboratory Tests 05/08/19 05:13 Vital Signs Date Time Temp Pulse Resp B/P (MAP) Pulse Ox O2 Delivery O2 Flow Rate FiO2 05/08/19 08:53 98 99/54 (69) 05/08/19 06:00 97.9 16 98 Room Air I&O- Last 24 Hours up to 6 AM 05/08/19 06:00 Intake Total 1450 ml Output Total 1050 ml Balance 400 ml ABIEL ANTONY MD May 08, 2019 13:43
[2019-05-08 14:00] VITALS: BP 100/58
[2019-05-08 14:23] LABS: BLOOD UREA NITROGEN 26 MG/DL (7-18); CALCIUM LEVEL 8.7 MG/DL (8.8-10.2); CARBON DIOXIDE LEVEL 32 MEQ/L (21-32); CHLORIDE LEVEL 106 MEQ/L (98-107); GLOMERULAR FILTRATION RATE > 60.0 (>42); GLUCOSE, FASTING 83 MG/DL (70-100); POTASSIUM SERUM 4.6 MEQ/L (3.5-5.1); SODIUM LEVEL 142 MEQ/L (136-145)
--- NOTE | 2019-05-08 17:46 | REP ---
RIGHT UPPER QUADRANT ULTRASOUND: Real-time sonographic evaluation of the right upper quadrant performed. Gallbladder demonstrates no evidence of intraluminal sludge or calculi, wall thickening, or pericholecystic fluid. There is no intrahepatic or extrahepatic biliary dilatation, common bile duct measuring 3 mm. Liver and pancreas demonstrate no gross mass. Right kidney demonstrates no hydronephrosis with normal size 10.2 cm in length. Somewhat echogenic mass is seen of the mid right kidney measuring 2.9 x 1.8 x 2.3 cm. Right pleural fluid is incidentally noted. IMPRESSION: No gallstones or biliary dilatation. No free fluid. Right pleural fluid is noted. There is a solid echogenic nodule of the mid right kidney 2.9 cm in diameter. This is nonspecific. Recommend further evaluation with CT or MRI with and without contrast. Electronically Signed by Rinku Jiang MD 05/11/2019 10:14 A
[2019-05-08] MEDS: LevoFLOXacin 750 MG TABLET PO SCH (18:28)
[2019-05-08 22:00] VITALS: BP 107/86
[2019-05-08] MEDS ORDERED: ONDANSETRON 4 MG TAB (S0181) PO ONE (23:45)
[2019-05-09 06:00] VITALS: BP 98/50
[2019-05-09] MEDS ORDERED: LEVA750T7 PO (09:02)
[2019-05-09] MEDS: OCUVITE 1 TAB PO SCH (09:43)
[2019-05-09] MEDS: POTASSIUM CHLORIDE 10 MEQ SR TABLET PO SCH (09:43)
[2019-05-09] MEDS: TAMSULOSIN 0.4 MG CAP PO SCH (09:43)
[2019-05-09] MEDS: METAMUCIL (PSYLLIUM) PACKET PO SCH (09:43)
[2019-05-09] MEDS: ENOXAPARIN 40 MG/0.4 ML SYRINGE (J1650) SC SCH (09:44)
[2019-05-09 09:47] VITALS: BP 118/77
[2019-05-09 10:29] VITALS: BP 106/74
--- NOTE | 2019-05-09 15:51 | DS.PDOC ---
Discharge Summary General Date of Admission May 02, 2019 at 16:51 Date of Discharge 05/09/19 Discharge Summary PROCEDURES PERFORMED DURING STAY: ECHO: Normal left ventricular size and wall thickness with subtle septal flattening suggestive of right ventricular pressure overload, yet preserved global resting left ventricular systolic function. EF of 70% Normal left atrial size but grade 1 diastolic dysfunction and current estimated mean left atrial pressure within normal limits. Right heart chamber sizes were upper limits of normal to slightly dilated with normal right ventricular free wall motion and Doppler evidence of at least moderate pulmonary hypertension. RVSP 46 mm Hg Normal inferior vena cava (IVC) size and collapse against an elevated central venous pressure at this time. Moderately severe calcific aortic stenosis without insufficiency. Normal aortic root size. Mild degenerative changes of the mitral valvular apparatus with very mild insufficiency. Normal appearing tricuspid valve with mild insufficiency. No apparent intracardiac mass or pericardial effusion. DISCHARGE DIAGNOSES: Acute Diastolic CHF Moderate to Severe Aortic stenosis. Moderate pulmonary hypertension Right sided pneumonia with right small pleural effusion has been since 04/23/19. 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 HISTORY OF PRESENT ILLNESS: See History and physical HOSPITAL COURSE: This is a 78-year-old male who was hospitalized form 04/23 to 04/29 for right sided pneumonia and treated with 5 days of zosyn. He also had urinary retention during that hospitalization so was discharged with garcia catheter. He was again admitted on 05/02/19 for SOB. After the prior discharge he had noted some edema to his feet and legs. This appeared to be worsening. He subsequently thought he should come back to the emergency room for evaluation. CXR on 05/02/18 showed further progression of the consolidation on the right and also small right pleural effusion. Patient was started on Levofloxacin this admission. Patient also had signs of fluid overload. Patient was started on diuresis with good response and resolution of his SOB and his pedal edema. It was felt his symptoms this time was mostly due to Acute CHF. ECHO was done. Pateint complained of right upper quadrant pain so had an abdominal US done which showed a right kidney mid zone 2.9 CM solid echogenic mass. Acute CHF Diastolic congestive heart failure with moderate to severe Aortic stenosis. Echo: shows diastolic dysfunction, EF 70%, moderate pulmonary HTN, moderately severe calcific aortic stenosis. Patient had presented with lower extremity edema that has resolved after diuresis. Is not requiring any supplemental oxygen any more in negative balance. Right-sided pneumonia Leukocytosis improving, no fever CXR 05/08: patchy opacity seen previously in the right upper lobe is slightly more consolidated. The right lower lobe opacity is essentially unchanged. There is right CP angle blunting consistent with a small pleural effusion, unchanged. Possible new opacity in the left mid lung zone On Levaquin from 05/03 will need follow up CXR in 2 weeks Urinary retention 2/2 BPH Patient initially presented with indwelling Garcia catheter Patient had voiding trial that he has failed Garcia catheter reinserted and have outpatient follow-up with urology c/w Tamsulosin HTN BPs low in hospital losartan stopped Right renal Mass will need CT or MRI of the abdomen with and without contrast to further evaluate it Spoke with Dr Lind on the phone on 05/09/19 at 3:32 pm and he will arrange for t hese studies He will also arrange for a follow up CXR . DISCHARGE MEDICATIONS: Please see below. ALLERGIES: Please see below. PHYSICAL EXAMINATION ON DISCHARGE: VITAL SIGNS: Please see below. General: Lying in bed, no acute distress, comfortable, AAOx3 HEENT: NC, AT, moist mucus membranes , anicteric eyes. Neck: supple, no thyromegaly , no JVD CVS: RRR, +S1S2, Systolic murmur present, no rub or gallop. Lungs: Fair air entry b/l, slightly diminished at the right base, no ronchi or ralea or wheezing. Abdomen: Soft, non tender, normal bowel sounds. Extremities: No edema bilaterally, No Calf tenderness LABORATORY DATA: Please see below. IMAGING: CXR: The patchy opacity seen previously in the right upper lobe is slightly more consolidated. The right lower lobe opacity is essentially unchanged. There is right CP angle blunting consistent with a small pleural effusion, which is essentially unchanged. There is a possible new opacity in the left mid lung zone difficult to evaluate US abdomen: No gallstones or biliary dilatation. No free fluid. Right pleural fluid is noted. There is a solid echogenic nodule of the mid right kidney 2.9 cm in diameter. This is nonspecific. Recommend further evaluation with CT or MRI with and without contrast. ACTIVITY: [As tolerated]. DIET: regular with 1800 cc fluid restriction DISPOSITION: 01 Home, Self-Care. DISCHARGE INSTRUCTIONS: Follow up PMD in 1 to 2 weeks Follow up Urology for management of garcia ITEMS TO FOLLOWUP ON ON OUTPATIENT: CXR in [address] or MRI of the kidneys without followed by with contrast for evaluation of a solid echogenic nodule in mid right kidney DISCHARGE CONDITION: [Stable]. TIME SPENT ON DISCHARGE: 40 minutes. Vital Signs/I&Os Vital Signs Date Time Temp Pulse Resp B/P (MAP) Pulse Ox O2 Delivery O2 Flow Rate FiO2 05/09/19 10:29 88 18 106/74 (85) 95 Room Air 05/09/19 06:00 97.3 I&O- Last 24 Hours up to 6 AM 05/09/19 06:00 Intake Total 900 ml Output Total 1950 ml Balance -1050 ml Laboratory Data CBC/BMP Item Value Date Time White Blood Count 11.3 10^3/uL H 05/08/19 0513 Red Blood Count 3.82 10^6/uL L 05/08/19 0513 Hemoglobin 11.4 g/dl L 05/08/19 0513 Hematocrit 36.8 % L 05/08/19 0513 Mean Corpuscular Volume 96.3 fl H 05/08/19 0513 Mean Corpuscular Hemoglobin 29.8 pg 05/08/19 05 Mean Corpuscular Hemoglobin Concent 31.0 g/dl L 05/08/19 0513 Red Cell Distribution Width 14.7 % H 05/08/19 0513 Platelet Count 525 10^3/uL H 05/08/19 0513 Sodium Level 142 MEQ/L 05/08/19 0510 Potassium Level 4.6 MEQ/L 05/08/19 0510 Chloride Level 106 MEQ/L 05/08/19 0510 Carbon Dioxide Level 32 MEQ/L 05/08/19 0510 Anion Gap 4 MEQ/L L 05/08/19 0510 Blood Urea Nitrogen 26 MG/DL H 05/08/19 0510 Creatinine 1.20 MG/DL 05/08/19 0510 Glomerular Filtration Rate > 60.0 05/08/19 0510 Fasting Glucose 83 MG/DL 05/08/19 0510 Calcium Level 8.7 MG/DL L 05/08/19 0510 Total Bilirubin 0.4 MG/DL 05/08/19 0510 Direct Bilirubin 0.1 MG/DL 05/08/19 0510 Aspartate Amino Transf (AST/SGOT) 16 U/L 05/08/19 0510 Alanine Aminotransferase (ALT/SGPT) 27 U/L 05/08/19 0510 Alkaline Phosphatase 79 U/L 05/08/19 0510 Total Protein 5.8 GM/DL L 05/08/19 0510 Albumin 2.5 GM/DL L 05/08/19 0510 Albumin/Globulin Ratio 0.76 L 05/08/19 0510 Microbiology Microbiology 05/02/19 Urine Culture - Final, Complete Discharge Medications Scheduled C,E,Zinc,Copper 24/Om3/Lut/Lyn (Ocuvite Adult 50 Plus Softgel) 1 Each Capsule, 1 CAP PO DAILY, (Reported) Levofloxacin (Levaquin) 750 Mg Tablet, 750 MG PO DAILY@1800 Psyllium Husk (with Sugar) (Metamucil Powder) 575 Gm Powder, 1 PKT PO DAILY, (Reported) Tamsulosin HCl (Flomax) 0.4 Mg Capsule, 0.4 MG PO DAILY, (Reported) Allergies Coded Allergies: No Known Allergies (Unverified , 04/23/19) ABIEL ANTONY MD May 09, 2019 15:51
== END 2019-05-09 12:19 | disposition home health service (06) | DRG 194 ==
LOC: M ED 13:04 → M ED INP 16:51 → M MSPAV 18:35
PROVIDERS: ADMIT Internal Medicine; ATTEND Internal Medicine Nephrology
DX: J18.9 Pneumonia, unspecified organism (principal); I50.32 Chronic diastolic (congestive) heart failure; I35.0 Nonrheumatic aortic (valve) stenosis; I27.20 Pulmonary hypertension, unspecified; N40.0 Benign prostatic hyperplasia without lower urinary tract symptoms; R33.9 Retention of urine, unspecified; I11.0 Hypertensive heart disease with heart failure; Z79.899 Other long term (current) drug therapy

== ENCOUNTER → 2019-06-10 | Outpatient (REF) | payer MEDICARE ==
[~2019-06-10] MED LIST changes: +LEVA750T7 PO; +META28.32 PO; +OCUVCAP2 PO
== END ==
LOC: M SMT 17:22
PROVIDERS: ATTEND Urology
DX: N40.1 Benign prostatic hyperplasia with lower urinary tract symptoms (principal)

== ENCOUNTER → 2019-07-12 | Outpatient (REF) | payer MEDICARE ==
[2019-07-12 18:28] LABS: AMORPHOUS SEDIMENT SMALL (NEGATIVE); APPEARANCE, URINE CLEAR (CLEAR); BACTERIA, URINE AUTO 1+ (NEGATIVE); BILIRUBIN, URINE AUTO NEGATIVE (NEGATIVE); BLOOD, URINE BLOOD NEGATIVE (NEGATIVE); COLOR, URINE YELLOW (YELLOW); GLUCOSE, URINE (UA) AUTO NEGATIVE (NEGATIVE); KETONE, URINE AUTO NEGATIVE (NEGATIVE); LEUKOCYTE ESTERASE, URINE AUTO 3+ (NEGATIVE); MUCUS, URINE SMALL (NEGATIVE); NITRITE, URINE AUTO NEGATIVE (NEGATIVE); PROTEIN, URINE AUTO NEGATIVE (NEGATIVE); RBC, URINE AUTO 7 /HPF (0-3); SPECIFIC GRAVITY URINE AUTO 1.005 (1.002-1.035); SQUAMOUS EPITHELIAL CELL UR AU 0 /HPF (0-6); UROBILINOGEN, URINE AUTO 0.2 mg/dL (0.0-2.0); WBC, URINE AUTO TNTC /HPF (0-3)
== END ==
LOC: M SMT 17:32
PROVIDERS: ATTEND Nurse Practitioner Family
DX: R30.0 Dysuria (principal)

== ENCOUNTER 2021-02-24 18:15 | Observation (INO) | payer MEDICARE ==
[~2021-02-24] VITALS: Ht 180.3 cm; Wt 82.3 kg
[2021-02-24 18:54] LABS: VENOUS HCO3 25.1 MEQ/L (23.0-27.0); VENOUS O2 SATURATION 62.6 % (60.0-80.0); VENOUS PARTIAL PRESSURE CO2 42.4 mmHg (38.0-50.0); VENOUS PARTIAL PRESSURE O2 33.1 mmHg (30.0-50.0); VENOUS STANDARD HCO3 23.8 MEQ/L; VENOUS TOTAL CO2 26.4 MEQ/L (24.0-28.0)
[2021-02-24] MEDS ORDERED: fentaNYL 100 MCG/2 ML INJECTION (J3010) As Ordered ONE (19:03)
[2021-02-24] MEDS ORDERED: propofoL 200 MG/20 ML VIAL As Ordered ONE (19:04)
[2021-02-24] MEDS ORDERED: LIDOCAINE 1% MDV 20ML VIAL As Ordered ONE (19:14)
--- NOTE | 2021-02-24 19:16 | REP ---
INDICATION: Syncope/near-syncope. COMPARISON: Comparison portable chest x-ray May 07, 2019. TECHNIQUE: Portable upright AP chest radiograph. FINDINGS: Calcific pleural plaquing is visible bilaterally. EKG electrodes are seen. The heart is not enlarged. No infiltrate is seen. The pleural angles are sharp.. There are degenerative changes in the left shoulder and thoracic aorta. IMPRESSION: No active disease. <Electronically signed by Timbo Bennett > 02/24/21 9901
[2021-02-24 19:21] LABS: BASO % 0.2 % (0.0-1.0); EOS # 0.2 10^3/uL (0.0-0.5); EOS % 1.3 % (0.0-3.0); HEMATOCRIT 33.5 % (42.0-52.0); HEMOGLOBIN 10.9 g/dl (13.5-17.5); LYMPH # 1.7 10^3/uL (1.5-5.0); LYMPH % 15.2 % (24.0-44.0); MEAN CORPUSCULAR HEMOGLOBIN 30.9 pg (27.0-33.0); MEAN CORPUSCULAR HGB CONC 32.5 g/dl (32.0-36.5); MEAN CORPUSCULAR VOLUME 94.9 fl (80.0-96.0); MONO # 1.4 10^3/uL (0.0-0.8); MONO % 12.3 % (2.0-8.0); NEUTROPHILS % 70.5 % (36.0-66.0); PLATELET COUNT, AUTOMATED 143 10^3/uL (150-450); RED BLOOD COUNT 3.53 10^6/uL (4.30-6.10); WHITE BLOOD COUNT 11.3 10^3/uL (4.0-10.0)
[2021-02-24 19:32] LABS: INR 1.14; PROTHROMBIN TIME 15.1 SECONDS (12.7-14.5)
[2021-02-24] MEDS ORDERED: ceFAZolin SOD 2 GM in IV 1 EA IV ONE (19:35)
[2021-02-24 19:36] LABS: RSV AMPLIFICATION NEGATIVE (NEGATIVE)
[2021-02-24 19:36] LABS: CALCIUM LEVEL 8.3 MG/DL (8.8-10.2); CK-MB VALUE MASS 2.2 NG/ML (<3.6); CREATININE FOR GFR 1.59 MG/DL (0.70-1.30); GLOMERULAR FILTRATION RATE 44.7 (>35); MAGNESIUM LEVEL 2.6 MG/DL (1.8-2.4); POTASSIUM SERUM 4.1 MEQ/L (3.5-5.1); THYROID STIMULATING HORMONE 0.657 uIU/ML (0.358-3.740); TROPONIN I 0.4 NG/ML (< 0.10)
[2021-02-24] MEDS ORDERED: PRESCAP PO (19:39)
[2021-02-24] MEDS ORDERED: FINA5TAB2 PO (19:39)
[2021-02-24] MEDS ORDERED: HOME MED LIST COMPLETE! XX SCH (19:40)
[2021-02-24] MEDS ORDERED: ceFAZolin 2 GM/D5W 50 ML IV BAG (J0690 PER 500MG) As Ordered ONE (20:42)
[2021-02-24] MEDS ORDERED: LR 1,000 ML IV SCH (21:45)
[2021-02-24] MEDS ORDERED: fentaNYL 100 MCG/2 ML INJECTION (J3010) IV PRN (21:45)
[2021-02-24] MEDS ORDERED: ONDANSETRON 4MG/2ML VIAL IV PRN (21:45)
[2021-02-24] MEDS ORDERED: ACETAMINOPHEN TAB 650MG DOSE (2X325MG) PO PRN ×2 (21:50→22:05)
[2021-02-24] MEDS ORDERED: traMADol 50 MG TAB PO PRN (22:05)
[2021-02-24 22:20] VITALS: BP 124/56
[2021-02-24 22:50] VITALS: BP 116/56
[2021-02-24 23:00] VITALS: BP 116/74
--- NOTE | 2021-02-24 23:19 | REPVR ---
PROCEDURE INFORMATION: Exam: XR Chest Exam date and time: 02/24/21 (9:59pm) Age: 80 years old Clinical indication: S/P pacemaker placement TECHNIQUE: Imaging protocol: Portable CXR Views: 1 view COMPARISON: Portable CXR of 02/24/21 (6:43pm) FINDINGS: Comparison is made with a portable CXR done 3 hours ago. Stable heart size. Dual chamber pacemaker electrodes have been placed, with right atrial and right ventricular leads. Generator pack projects over the left lateral lung field. S/P aortic valve replacement. Aortic knob calcifications. No significant vascular congestion. No focal infiltrates. No pleural effusions. Old granulomatous changes are likely present. Degenerative changes at each shoulder joint. Skin finn project over the left upper lung field. IMPRESSION: No acute findings. S/P dual chamber pacemaker electrode placement. Right atrial and right ventricular leads are seen. No pneumothorax. Previous aortic valve replacement. Electronically signed by: Jovana Ochoa On 02/24/2021 23:18:52 PM
[2021-02-25] VITALS (9 sets, daily range): BP systolic 116–136; BP diastolic 56–78
[2021-02-25] MEDS: ceFAZolin SOD 1 GM in D5W MINI-BAG PLUS 50 ML IV SCH ×2 (05:26→12:15)
--- NOTE | 2021-02-25 06:42 | ECGEPIP ---
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
--- NOTE | 2021-02-25 08:17 | REP ---
INDICATION: s/p pacer placement. COMPARISON: 02/24/2021 TECHNIQUE: Two views FINDINGS: The lungs are emphysematous. Granulomas in both lungs. Postoperative changes after permanent pacemaker insertion. No active disease in either lung. Heart not enlarged. No failure PH no evidence of pneumothorax. No interval change compared with yesterday's exam. IMPRESSION: No interval change. No active process. <Electronically signed by Adolfo Vaughn > 02/25/21 0860
[2021-02-25] MEDS ORDERED: FINASTERIDE 5 MG TAB PO SCH (09:00)
[2021-02-25] MEDS ORDERED: TAMSULOSIN 0.4 MG CAP PO SCH (09:00)
[2021-02-25] MEDS ORDERED: METAMUCIL (PSYLLIUM) PACKET PO SCH (09:00)
--- NOTE | 2021-02-25 09:40 | RO ---
OPERATIVE NOTE DATE OF OPERATION: 02/24/2021 ADMITTING PREOPERATIVE DIAGNOSIS: 1. Syncope. 2. Complete heart block. 3. Abnormal electrocardiogram (EKG). 4. Aortic valve disorder (non-rheumatic/post transfemoral aortic valve replacement February 22, 2021 ) POSTOPERATIVE DIAGNOSIS: 1. Syncope. 2. Complete heart block 3. Abnormal electrocardiogram (EKG) 4. Aortic valve disorder (non-rheumatic/post transfemoral aortic valve replacement February 22, 2021 PROCEDURE: Implantation of permanent dural chamber pacemaker. IMPLANTING DRAWSTRING KNOTTER: Jaron Vo MD ANESTHESIOLOGIST: Deanne Marrero ANESTHESIA: Monitored local anesthesia. CLINICAL SUMMARY: This is an 80-year-old single retired resident of [place], [place], has been remarkably independent and active, living alone and caring for his own home, does his own shopping and driving. He has had a longstanding history of heart murmur with recent echocardiographic evidence demonstrating severe aortic stenosis. Cardiac catheterization at [facility] one month ago showed normal coronary arteries February 22, 2021, underwent transfemoral aortic valve replacement with Dr. Cheng, oceanography professor at [facility] in [place]. Procedure was uncomplicated. He was discharged home yesterday morning and had his sister say with him. This morning when he got up out of bed, he felt profoundly lightheaded and then collapsed on the floor. Family was present quickly and his awareness was restored. He remained profoundly weak. He had contacted his physician, who instructed him to come to [facility] Emergency Room. Upon his arrival, he was found to have profoundly slow rate in the 30s with blood pressure 105/55. He was bright and alert in the supine position. Electrocardiogram (EKG) confirmed a complete heart block with underlying sinus rate of approximately 100 beats per minute and ventricular response did average 39 beats per minute. QRS complexes showed a left anterior hemiblock and right bundle branch block. The emergency room physician promptly contacted my cardiology service for management. Upon my presentation, the patient was alert in the supine position. He felt comfortable having no chest pain. He was able to relay his history without difficulty. PAST MEDICAL HISTORY: Includes hemorrhoidectomy/anal fissure repair in his 40s. Longstanding heart murmur as mentioned above aortic valve disorder aortic stenosis. Prior colonoscopy showing diverticular disease. 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 Philip urology. He has had to perform self urethral catheterization every 4 hours for the past year. Prior CT scan reportedly shows right renal cyst that is being monitoring. CARDIAC SYMPTOMS: Prior to his recent valve surgery, the patient actually claims not to have had any chest pain, shortness of breath or dizziness. Has had no awareness of his heart action. No history of embolic phenomenon or claudication. Previously did not have lower leg swelling. CORONARY RISK FACTORS: Age, male gender, prior history of hypertension, denies hypercholesterolemia, smoking, diabetes or family history of premature coronary artery heart disease. OTHER SYSTEMS REVIEW: Denies any fever, chills or weight loss. No night sweats or chills. There is some reduced visual acuity. No apparent hearing problems. Has his own teeth. Denies cough, sputum, hemoptysis, but has a prior bout of pneumonia 2018 requiring hospitalization. Good appetite with no dysphagia, heartburn or reflux. Prior problem with intermittent abdominal pain, constipation and diverticulitis. Prior anal fissure and hemorrhoidal bleeding. Urinary problems as mentioned above. Denies arthralgia or arthritis. No history of rash or arthritic complaints. Customarily, he does not have any muscular weakness. Denies any lateralizing neurological deficits. All other systems reviewed were negative. PHYSICAL EXAMINATION: Friendly, bright, pleasant elderly male, lying comfortably, no pallor or cyanosis. VITAL SIGNS: Heart rate 36 beats per minute and somewhat irregular. Blood pressure 105/55, supine. Respiratory rate 18 per minute. O2 saturation 95% on room air, afebrile. Weight 174 pounds, height 5'11". EYES: Normal conjunctivae and lids. There was xanthelasmas. ENT/MOUTH: He has his own teeth. Normal moisture. No central cyanosis. NECK: Trachea midline. Thyroid not enlarged. Jugular veins did not appear to be elevated. RESPIRATORY: Normal appearing chest configuration and chest expansion. Good air entry with both lung fernandes with no abnormal adventitious sounds. CARDIOVASCULAR: Apical impulse currently nonpalpable. Heart sounds were somewhat distant, but still has soft audible systolic murmur. No diastolic murmur or rub. Normal carotid upstrokes with some variable volume with his variable heart rate. No carotid bruits. UPPER EXTREMITIES: Femoral and pedal pulses were all symmetrical and normal. Abdominal aorta was not palpable. No bruits. EXTREMITIES: No obvious joint deformities. Fairly normal muscular strength and tone. NEURO/PSYCH: Bright, alert and oriented, gave a lucid history. Eyes, facial and extremities movements were symmetrical and normal. No abnormal movements. SKIN: Ecchymotic areas over the right side of his neck and his groin following his recent transfemoral aortic valve replacement. No other rashes. Slightly degenerative changes of his skin of both lower legs associated with edema only since his valve replacement. ABDOMEN: Soft, nontender with hepatosplenomegaly. Normal sounds. Rectal examination not indicated. INVESTIGATIONS: Blood work: Hemoglobin 10.9 with normal red blood indices. White blood cell count was slightly elevated 11.3, platelet count 143,000. PT/INR 15.1/1.14. Venous blood gas showed a pH of 7.39, pCO2 of 42, pO2 of 33. Electrolytes were imbalanced with potassium 4.1, BUN was increased to 29 with creatinine 1.59, glomerular filtration rate 44.7, random glucose 112. Serum calcium was slightly low at 8.3 with serum magnesium 2.6. Total CPK was normal. Troponin I was slightly increased at 0.4 in keeping with his renal insufficiency. Ultra-sensitive TSH was normal at 0.66. Portable upright chest x-ray taken at 6:43 p.m. this evening was reviewed independently and shows a normal appearing heart size for this technique. Somewhat unfolded throughout the aorta with some calcification of the aortic arch. His aortic valve prothesis mesh was visible. Normal appearing pulmonary vasculature with no infiltrate or pleural effusion. Electrocardiogram (EKG) showed underlying sinus rhythm at 100 beats per minute with complete heart block and QRS complexes having left anterior hemiblock and right bundle branch block morphology. DESCRIPTION OF PROCEDURE: With the patient having no eaten since 1 o'clock this afternoon and after having signed informed consent, receiving Ancef 2 gm IV premedication, the patient was taken to the operating theatre. While he was in the emergency room, he had self adhesive cardioverting/defibrillator/noninvasive pacing pads positioned in place. These were connected to a bedside cardioverted defibrillator/noninvasive pacemaker system. In the operating theatre, we connected to bedside monitor - electrocardiogram (EKG), blood pressure and O2 saturations. His left subclavian region was prepped and draped in the usual fashion. The skin in the left subclavian region was infiltrated with 1% Xylocaine and the left subclavian vein was catheterized using a micropuncture technique. A 5 cm linear incision was made several cm below and parallel to the left clavicle. Dissection was carried to the level of the pectoralis fascia and a pocket was fashioned below the level of the incision line. Two screw in active-fixation steroid-eluting pacing leads were then positioned to the right ventricular apex and higher at atrial appendage under fluoroscopic electrocardiographic control. The right ventricular lead ([employer], model number [id number], serial number [id number]) measurements were focal and stimulation threshold 0.5 V/0.4 ms/impedance, 495 ohms. R wave amplitude measured 9.6 mV. The right atrial lead ([employer], model number [id number], serial number [id number]) measurements were focal and initially 1.7 V and by the time we reached the recovery room, this was down to 1.25 V, 0.4 ms, lead impedence 661 ohms. P wave amplitude measured 4.3 mV. These leads were secured in position with sleeve sutured at the insertion site. They were then connected to a dual chamber pulse generator ([employer], model number [id number], serial number [id number]) Assurity MRI compatible and appropriate DDD pacing was documented. The generator was then placed and the pocket secured in position with a suture through the upper right hand corner of the Epoxy header. The subcutaneous tissues were approximated using a running chromic suture and the skin was closed using finn. A dry dressing was applied and the patient was returned to the recovery room in good condition. No significant complications. The patient did receive IV dobutamine infusion temporarily with more profound bradycardia with good effect during pacemaker insertion that proves to be very sensitive to propofol IV infusion. Estimated blood loss: 10 ml. In the recovery room, his heart rate was 98 beats per minute and regular, blood pressure 125/72, respiratory rate was 16, O2 saturation 98% on room air. Postoperative portable upright chest x-ray was reviewed independently and shows normal appearing heart size with no pulmonary venous congestion and good pacing lead position with pulse generator in the left subclavian region. His postoperative electrocardiogram (EKG) showed appropriate dual chamber pacer function with consistent atrial sensing and tracking with ventricular pacing with pacing QRS complexes showing a left axis with left bundle branch block in keeping with the apical stimulation. Our plan is to monitor overnight on telemetry and while he is here he will receive an additional three dose of Ancef 1 gm IV q 8 hours. Intent is to obtain a follow up PA and left lateral chest x-ray and electrocardiogram (EKG) and reassess his device prior to his tentative discharge tomorrow afternoon.
--- NOTE | 2021-02-25 13:39 | ECGEPIP ---
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
--- NOTE | 2021-02-25 13:40 | ECGEPIP ---
[facility] Test Date: 2021-02-25 Pat Name: TACOS FINE Department: Room: [place] [address] Gender: Male Nurse Head: SARIKA : 1940 Requested By: Jaron Vo Order Number: [id number] Reading MD: Jaron Vo Measurements Intervals [place] Rate: 82 P: 22 PA: 108 QRS: -70 QRSD: 172 T: 79 QT: 424 QTc: 495 Interpretive Statements normal sinus rhythm Dual-chamber pacemaker with consistent atrial sensing and tracking with consistent ventricular pacing Paced QRS complexes with left axis and LEFT BUNDLE BRANCH BLOCK configuration in keeping with RV apical stimulation. Different precordial lead placement from previous day. Electronically Signed on 02-25-2021 13:40:48 EDT by Jaron Vo
--- NOTE | 2021-02-25 18:28 | IPN ---
PROGRESS NOTE DATE: 02/25/2021 HISTORY: This elderly gentleman has been up in the room following his pacemaker implant yesterday. Has minor incisional discomfort but no further dizziness, shortness of breath or any awareness of his heart action. PHYSICAL EXAM: Tall, slim male sitting up in the bedside chair appearing quite comfortable. Heart rate 89 beats per minute, blood pressure 121/56, respiratory rate 16, O2 saturation 95% on room air. He is afebrile. No pallor. Normal oral moisture. Trachea midline. Jugular veins were below the level of the sternal angle with him sitting. Normal chest expansion. His pacemaker incision appears to be healing well with no erythema, swelling or discharge. His dressing was changed. Good air entry over both lung fernandes with no abnormal adventitious sounds. Normal S1, paradoxically split S2 with S4 gallop and soft systolic murmur related to his bioprosthetic valve. No diastolic murmur. Continues to have mild lower leg pitting edema following his transfemoral aortic valve replacement procedure February 22, 2021. INVESTIGATIONS: PA and left lateral chest x-ray performed this morning was reviewed independently and appears to show a heart size of upper limits of normal, slightly tortuous thoracic aorta with some calcification of the aortic arch. The fishnet supporting apparatus for his bioprosthetic valve was visible especially on the lateral projection. His pacing leads were in good position with pulse in the right ventricular apex and high rate atrial appendage, his pulse generator left subclavian region. No pulmonary vascular congestion or infiltrate. No pneumothorax. EKG: secured entrance monitor and EKG confirm appropriate dual chamber pacer function normal sinus rhythm with appropriate atrial sensing and tracking with consistent ventricular pacing. EKG shows paced QRS complexes with a leftward axis and left bundle branch block configuration in keeping with right ventricular stimulation. No significant change from the previous day. FINAL DIAGNOSIS: 1. Syncopal spell. 2. Complete heart block. 3. 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 4. Aortic valve disorder (nonrheumatic/aortic stenosis/post transforaminal aortic valve replacement). 5. History of hypertension. MEDICATIONS AND DISPOSITION: We will allow him to go home tonight. We have requested he resume a modest salt intake restriction and perform only light activities with his left arm and avoid getting his incision wet until his finn are removed in my office in 7-10 days time. My office will be contacting him with that appointment. He already has a follow-up appointment with his primary taxicab driver, Dr. Marquis, in [place], March 10, 2021. I have spoken with Dr. Marquis directly regarding his patient's recent problems. MEDICATIONS: These should continue the same including Tamsulosin 0.4 mg p.o. daily, Finasteride 5 mg daily, Metamucil Powder one package daily and vitamin A/vitamin C/vitamin E/zinc/copper tablet one tablet b.i.d. as before. We have encouraged him to contact us should he notice any abnormal erythema, swelling or discharge.
== END 2021-02-25 19:00 | disposition home or self-care (01) ==
LOC: M ED 18:15 → M SDC 18:16 → M PCU 22:20 → INTOOBSV 22:20
PROVIDERS: ADMIT Internal Medicine Cardiovascular Disease; ATTEND Internal Medicine Cardiovascular Disease
DX: R55 Syncope and collapse (principal); I44.2 Atrioventricular block, complete; R94.31 Abnormal electrocardiogram [ECG] [EKG]; I35.9 Nonrheumatic aortic valve disorder, unspecified; I10 Essential (primary) hypertension; K57.90 Diverticulosis of intestine, part unspecified, without perforation or abscess without bleeding; N40.0 Benign prostatic hyperplasia without lower urinary tract symptoms; Z79.899 Other long term (current) drug therapy
CPT/HCPCS: 33208; 71045; 71046; 76000; 80048; 82550; 82553; 82803; 83735; 84443; 84484; 85025; 85610; 87631; 93005; 93041; 96365; 96366; 99285; C1785; C1898; G0378; J0690; J3010

== ENCOUNTER 2021-04-18 12:28 | Emergency (ER) | payer MEDICARE ==
[~2021-04-18] VITALS: Ht 180.3 cm; Wt 83.2 kg
[~2021-04-18 12:28] MED LIST changes: +FINA5TAB2 PO; +PRESCAP PO
[2021-04-18 14:13] VITALS: BP 152/67
== END 2021-04-18 14:18 | disposition home or self-care (01) ==
LOC: M ED 12:28
DX: I10 Essential (primary) hypertension (principal); Z95.0 Presence of cardiac pacemaker; Z95.2 Presence of prosthetic heart valve; Z79.899 Other long term (current) drug therapy

== ENCOUNTER 2021-05-08 11:58 | Emergency (ER) | payer MEDICARE ==
[~2021-05-08] VITALS: Ht 180.3 cm; Wt 85.9 kg
--- OUTSIDE RECORDS SUMMARY | 2021-05-08 12:07 | CCD | Continuity of Care Document ---
Author Author Beau CHENG MD Organization Unknown Address [address] [place] [address] [address] [place] [address] Phone [phone] Care Team Providers Care Insurance Service Representative Name Role Phone Regan Lind MD [facility] [phone] Problems Description No Information Available Social History Type Date Description Comments Sex Unknown Allergies, Adverse Reactions, Alerts Description No Information Available Medications Active Medications SIG Qnty Indications Ordering Provide r Date Plavix 75mg Tablets Take 2 Tablets By Mouth On 01/18/21 Followed By 1 Tablet By Mouth Every Am Including Morning Of Procedure 5tabs Dorothy Cheng MD 01/08/2021 Immunizations Description No Information Available Vital Signs Description No Information Available Results Description No Information Available Procedures Date Code Description Status 02/22/2021 53563 Aortic Valve Replacement W/ Pros thetic VLV Femoral Art Appr Completed 01/21/2021 21113 Coronary Angiography W/O C No LV Gram Completed 01/08/2021 19252 Left Heart Cath W/Wo LV & Wilson ry Angiography Completed 01/08/2021 81624 Perc Transcatheter Placement, In tracoronary Stent W/Plasty Completed Medical Devices Description No Information Available Encounters Description No Information Available Assessments Date Code Description Provider 02/22/2021 I35.0 Nonrheumatic aortic (valve) sten Dorothy Julien MD 02/22/2021 Z00.6 Encounter for gio herbiejaja for normal comparison and control in clinical research program Dorothy Cheng MD 01/21/2021 R93.1 Abnormal findings on diagnostic imaging of heart and coronary circulation Dorothy Cheng MD 01/08/2021 I35.0 Nonrheumatic aortic (valve) sten Dorothy Julien MD Plan of Treatment No Information Available Functional Status Description No Information Available Mental Status Description No Information Available Referrals Description No Information Available
--- OUTSIDE RECORDS SUMMARY | 2021-05-08 12:07 | CCD | Continuity of Care Document ---
Author Author Beau CHENG MD Organization Unknown Address [address] [place] [address] [place] [address] Phone [phone] Care Team Providers Care Humanities And Languages Professor Name Role Phone Regan Lind MD [facility] [phone] Problems Description No Information Available Social History [...] Information Available Procedures Date Code Description Status 02/23/2021 42905 Hospital Discharge Day Completed 02/22/2021 01216 Aortic Valve Replacement W/ Pros thetic VLV Femoral Art Appr Completed 01/21/2021 18475 Coronary Angiography W/O LHC No LV Gram Completed 01/08/2021 66813 Left Heart Cath W/Wo LV & Wilson ry Angiography Completed 01/08/2021 78185 Perc Transcatheter Placement, In tracoronary Stent W/Plasty Completed Medical Devices Description No Information Available Encounters Description No Information Available Assessments Date Code Description Provider 02/23/2021 I35.0 Nonrheumatic aortic (valve) sten Dorothy Julien MD 02/23/2021 Z00.6 Encounter for examin ation for normal comparison and control in clinical research program Dorothy Cheng MD 02/22/2021 I35.0 Nonrheumatic aortic (valve) sten Dorothy Julien MD 02/22/2021 Z00.6 Encounter for examin ation for normal comparison and control in clinical research program Dorothy Cheng MD 01/21/2021 R93.1 Abnormal findings on diagnostic imaging of heart and coronary circulation Dorothy Cheng MD 01/08/2021 I35.0 Nonrheumatic aortic (valve) sten osis Dorothy Cheng MD Plan of Treatment No Information Available Functional Status Description No Information Available Mental Status Description No Information Available Referrals Description No Information Available
--- OUTSIDE RECORDS SUMMARY | 2021-05-08 12:07 | CCD | Continuity of Care Document ---
Author Author Beau SHINE Organization Unknown Address [id number] [place] [address] [address], [place] [address] Phone [phone] Care Team Providers Care Agriscience Technology Instructor Name Role Phone Ernestina Ho MD [facility] [phone] Regan Lind MD [facility] [phone] Problems Active Problems Provider Date Cardiac pacemaker in situ CODEY Oliver Onset: 02/15 Social History Type Date Description Comments Sex Unknown Allergies, Adverse Reactions, Alerts Description No Information Available Medications Description No Information Available Immunizations Description No Information Available Vital Signs Description No Information Available Results Description No Information Available Procedures Date Code Description Status 03/08/2021 52025 Office/Outpatient Established Mi nimal Problem(S) Completed Medical Devices Description No Information Available Encounters Type Date Location Provider Dx Diagnosis Office Visit 03/08/2021 8:00a Main Office CODEY Oliver Z95 .0 Presence of cardiac pacemaker Assessments Date Code Description Provider 03/08/2021 Z95.0 Presence of cardiac pacemaker Ca CODEY Olguin Plan of Treatment 03/08/2021 - CODEY Oliver* Z95.0 Presence of cardiac pacemaker* Recommendations:* Recommendations: 1. You may resume driving and may shower tomorrow. 2. Do not soak in a bath tub or hot tub for another week. 3. Continue to limit the use of your left arm for another week - no lifting your shoulder above 90 degrees and no lifting, pulling or pushing more than 10 lbs. * All * Follow up:* With Dr. Marquis Functional Status Description No Information Available Mental Status Description No Information Available Referrals Description No Information Available
--- OUTSIDE RECORDS SUMMARY | 2021-05-08 12:07 | CCD | Continuity of Care Document ---
Author Author Baeu SHINE Organization Unknown Address [id number] [place] [address] [employer], [place] [address] Phone [phone] Care Team Providers Care Service Supervisor Name Role Phone Ernestina Ho MD [facility] [phone] Regan Lind MD [facility] [phone] Problems Active Problems Provider Date Cardiac pacemaker in situ CODEY Oliver Onset: 02/15 Social History Type Date Description Comments Sex Unknown Allergies, Adverse Reactions, Alerts Description No Information Available Medications Description No Information Available Immunizations Description No Information Available Vital Signs Description No Information Available Results Description No Information Available Procedures Date Code Description Status 03/08/2021 71020 Office/Outpatient Established Mi nimal Problem(S) Completed Medical [...]
--- OUTSIDE RECORDS SUMMARY | 2021-05-08 12:10 | CCD ---
Author Author [facility] Organization [facility] Address Unknown Phone Unavailable Care Team Providers Care Budget Examiner Name Role Phone Shakir Antony MD Unavailable Unavailable Chani CHENG MD Unavailable Unavailable Chani CHENG MD Unavailable Unavailable Chani CHENG MD Unavailable Unavailable Chani CHENG MD Unavailable Unavailable Chani CHENG MD Unavailable Unavailable Chani CHENG MD Unavailable Unavailable Chani CHENG MD Unavailable Unavailable Chani CHENG MD Unavailable Unavailable Chani CHENG MD Unavailable Unavailable Chani CHENG MD Unavailable Unavailable Chani CHENG MD Unavailable Unavailable Chani CHENG MD Unavailable Unavailable Chani CHENG MD Unavailable Unavailable Chani CHENG MD Unavailable Unavailable Chani CHENG MD Unavailable Unavailable Chani CHENG MD Unavailable Unavailable Chani CHENG MD Unavailable Unavailable Chani CHENG MD Unavailable Unavailable Chani CHENG MD Unavailable Unavailable Chani CHENG MD Unavailable Unavailable Chani CHENG MD Unavailable Unavailable Chani CHENG MD Unavailable Unavailable Chani CHENG MD Unavailable Unavailable Chani CHENG MD Unavailable Unavailable Chani CHENG MD Unavailable Unavailable Chani CHENG MD Unavailable Unavailable BRENDA, S AYMAN MD Unavailable Unavailable BRENDA, S AYMAN MD Unavailable Unavailable BRENDA, S AYMAN MD Unavailable Unavailable BRENDA, S AYMAN MD Unavailable Unavailable BRENDA, S AYMAN MD Unavailable Unavailable BRENDA, S AYMAN MD Unavailable Unavailable BRENDA, S AYMAN MD Unavailable Unavailable BRENDA, S AYMAN MD Unavailable Unavailable BRENDA, S AYMAN MD Unavailable Unavailable BRENDA, S AYMAN MD Unavailable Unavailable BRENDA, S AYMAN MD Unavailable Unavailable BRENDA, S AYMAN MD Unavailable Unavailable BRENDA, S AYMAN MD Unavailable Unavailable BRENDA, S AYMAN MD Unavailable Unavailable BRENDA, S AYMAN MD Unavailable Unavailable BRENDA, S AYMAN MD Unavailable Unavailable BRENDA, S AYMAN MD Unavailable Unavailable BRENDA, S AYMAN MD Unavailable Unavailable BRENDA, S AYMAN MD Unavailable Unavailable BRENDA, S AYMAN MD Unavailable Unavailable BRENDA, S AYMAN MD Unavailable Unavailable BRENDA, S AYMAN MD Unavailable Unavailable BRENDA, S AYMAN MD Unavailable Unavailable BRENDA, S AYMAN MD Unavailable Unavailable BRENDA, S AYMAN MD Unavailable Unavailable BRENDA, S AYMAN MD Unavailable Unavailable BRENDA, S AYMAN MD Unavailable Unavailable BRENDA, S AYMAN MD Unavailable Unavailable BRENDA, S AYMAN MD Unavailable Unavailable BRENDA, S AYMAN MD Unavailable Unavailable BRENDA, S AYMAN MD Unavailable Unavailable BRENDA, S AYMAN MD Unavailable Unavailable BRENDA S AYMAN MD Unavailable Unavailable BRENDA, S AYMAN MD Unavailable Unavailable BRENDA, S AYMAN MD Unavailable Unavailable BRENDA, S AYMAN MD Unavailable Unavailable BRENDA, S AYMAN MD Unavailable Unavailable BRENDA, S AYMAN MD Unavailable Unavailable BRENDA, S AYMAN MD Unavailable Unavailable BRENDA, S AYMAN MD Unavailable Unavailable BRENDA, S AYMAN MD Unavailable Unavailable BRENDA, S AYMAN MD Unavailable Unavailable BRENDA, S AYMAN MD Unavailable Unavailable BRENDA, S AYMAN MD Unavailable Unavailable BRENDA, S AYMAN MD Unavailable Unavailable BRENDA, S AYMAN MD Unavailable Unavailable BRENDA, S AYMAN MD Unavailable Unavailable BRENDA, S DOROTHY BALLESTEROS Unavailable Unavailable BRENDA, S DOROTHY BALLESTEROS Unavailable Unavailable BRENDA, S DOROTHY BALLESTEROS Unavailable Unavailable BRENDA, S DOROTHY BALLESTEROS Unavailable Unavailable BRENDA, S DOROTHY BALLESTEROS Unavailable Unavailable BRENDA, S DOROTHY BALLESTEROS Unavailable Unavailable BRENDA, S DOROTHY BALLESTEROS Unavailable Unavailable BRENDA, S DOROTHY BALLESTEROS Unavailable Unavailable BRENDA, S DOROTHY BALLESTEROS Unavailable Unavailable BRENDA, S DOROTHY MD Unavailable Unavailable BRENDA, S DOROTHY MD Unavailable Unavailable BRENDA, S DOROTHY MD Unavailable Unavailable BRENDA, S DOROTHY MD Unavailable Unavailable BRENDA, S DOROTHY BALLESTEROS Unavailable Unavailable Recore, Faye Christina WHNP Unavailable Unavailable Recore, Faye Christina WHNP Unavailable Unavailable Recore, Faye Christina WHNP Unavailable Unavailable Recore, Faye Christina WHNP Unavailable Unavailable Recore, Faye Christina WHNP Unavailable Unavailable Recore, Faye Christina WHNP Unavailable Unavailable Recore, Faye Christina WHNP Unavailable Unavailable Recore, Faye Christina WHNP Unavailable Unavailable Recore, Faye Christina WHNP Unavailable Unavailable Recore, Faye Christina WHNP Unavailable Unavailable Recore, Faye Christina WHNP Unavailable Unavailable Recore, Faye Christina WHNP Unavailable Unavailable Recore, Faye Christina WHNP Unavailable Unavailable Recore, Faye Christina WHNP Unavailable Unavailable Recore, Faye Christina WHNP Unavailable Unavailable Recore, Faye Christina WHNP Unavailable Unavailable Recore, Faye Christina WHNP Unavailable Unavailable Recore, Faye Christina WHNP Unavailable Unavailable Recore, Faye Christina WHNP Unavailable Unavailable Recore, Faye Christina WHNP Unavailable Unavailable Recore, Faye Christina WHNP Unavailable Unavailable Recore, Faye Christina WHNP Unavailable Unavailable Recore, Faye Christina WHNP Unavailable Unavailable Recore, Faye Christina WHNP Unavailable Unavailable Recore, Faye Christina WHNP Unavailable Unavailable Recore, Faye Christina WHNP Unavailable Unavailable Recore, Faye Christina WHNP Unavailable Unavailable Recore, Faye Christina WHNP Unavailable Unavailable Recore, Faye Christina WHNP Unavailable Unavailable Recore, Faye Christina WHNP Unavailable Unavailable Recore, Faye Christina WHNP Unavailable Unavailable VANWAGNER, SALLY DO Unavailable Unavailable VANWAGNER, SALLY DO Unavailable Unavailable VANWAGNER, SALLY DO Unavailable Unavailable VANWAGNER, SALLY DO Unavailable Unavailable VANWAGNER, SALLY DO Unavailable Unavailable VANWAGNER, SALLY DO Unavailable Unavailable VANWAGNER, SALLY DO Unavailable Unavailable VANWAGNER, SALLY DO Unavailable Unavailable VANWAGNER, SALLY DO Unavailable Unavailable VANWAGNER, SALLY DO Unavailable Unavailable VANWAGNER, SALLY DO Unavailable Unavailable VANWAGNER, SALLY DO Unavailable Unavailable VANWAGNER, SALLY DO Unavailable Unavailable VANWAGNER, SALLY DO Unavailable Unavailable VANWAGNER, SALLY DO Unavailable Unavailable VANWAGNER, SALLY DO Unavailable Unavailable Jessica-Ortiz, K Imre Unavailable Unavailable Jessica-Ortiz, K Oleksandre Unavailable Unavailable Jessica-Ortiz, K Oleksandre Unavailable Unavailable Jessica-Ortiz, K Imre Unavailable Unavailable Jessica-Ortiz, K Oleksandre Unavailable Unavailable Arti Paez MD Unavailable Unavailable Arti Paez MD Unavailable Unavailable Cristobal, A April CONCESSION ATTENDANT Unavailable Unavailable Cristobal, A April CONCESSION ATTENDANT Unavailable Unavailable Cristobal, A April CONCESSION ATTENDANT Unavailable Unavailable Cristobal, A April CONCESSION ATTENDANT Unavailable Unavailable Cristobal, A April CONCESSION ATTENDANT Unavailable Unavailable Cristobal, A April CONCESSION ATTENDANT Unavailable Unavailable Cristobal, A April CONCESSION ATTENDANT Unavailable Unavailable Cristobal, A April CONCESSION ATTENDANT Unavailable Unavailable Cristobal, A April CONCESSION ATTENDANT Unavailable Unavailable Cristobal, A April CONCESSION ATTENDANT Unavailable Unavailable Cristobal, A April CONCESSION ATTENDANT Unavailable Unavailable Cristobal, A April CONCESSION ATTENDANT Unavailable Unavailable Cristobal, A April CONCESSION ATTENDANT Unavailable Unavailable Cristobal, A April CONCESSION ATTENDANT Unavailable Unavailable Cristobal, A April CONCESSION ATTENDANT Unavailable Unavailable Cristobal, A April CONCESSION ATTENDANT Unavailable Unavailable Cristobal, A April CONCESSION ATTENDANT Unavailable Unavailable Cristobal, A April CONCESSION ATTENDANT Unavailable Unavailable Cristobal, A April CONCESSION ATTENDANT Unavailable Unavailable Cristobal, A April CONCESSION ATTENDANT Unavailable Unavailable Cristobal, A April CONCESSION ATTENDANT Unavailable Unavailable Cristobal, A April CONCESSION ATTENDANT Unavailable Unavailable Cristobal, A April CONCESSION ATTENDANT Unavailable Unavailable Cristobal, A April CONCESSION ATTENDANT Unavailable Unavailable Cristobal, A April CONCESSION ATTENDANT Unavailable Unavailable O'EMILIANO, CHINA OD Unavailable Unavailable O'EMILIANO, CHINA OD Unavailable Unavailable O'EMILIANO, CHINA OD Unavailable Unavailable O'EMILIANO, CHINA OD Unavailable Unavailable O'EMILIANO, CHINA OD Unavailable Unavailable O'EMILIANO, CHINA OD Unavailable Unavailable LEANAJOYCE MD Unavailable Unavailable LEANAJOYCE MD Unavailable Unavailable LEANAJOYCE MD Unavailable Unavailable LEANA, JOYCE BALLESTEROS Unavailable Unavailable LEANA, JOYCE BALLESTEROS Unavailable Unavailable LEANA, JOYCE BALLESTEROS Unavailable Unavailable LEANA, JOYCE BALLESTEROS Unavailable Unavailable LEANA, JOYCE BALLESTEROS Unavailable Unavailable LEANA, JOYCE BALLESTEROS Unavailable Unavailable LEANA, JOYCE BALLESTEROS Unavailable Unavailable LEANA, JOYCE BALLESTEROS Unavailable Unavailable LEANA, JOYCE BALLESTEROS Unavailable Unavailable LEANA, JOYCE BALLESTEROS Unavailable Unavailable LEANA, JOYCE BALLESTEROS Unavailable Unavailable LEANA, JOYCE BALLESTEROS Unavailable Unavailable LEANA, JOYCE BALLESTEROS Unavailable Unavailable LEANA, JOYCE BALLESTEROS Unavailable Unavailable LEANA, JOYCE BALLESTEROS Unavailable Unavailable LEANA, JOYCE BALLESTEROS Unavailable Unavailable LEANA, JOYCE BALLESTEROS Unavailable Unavailable LEANA, JOYCE BALLESTEROS Unavailable Unavailable LEANA, JOYCE BALLESTEROS Unavailable Unavailable LEANA, JOYCE BALLESTEROS Unavailable Unavailable LEANA, JOYCE BALLESTEROS Unavailable Unavailable LEANA, JOYCE BALLESTEROS Unavailable Unavailable LEANA, JOYCE BALLESTEROS Unavailable Unavailable LEANA, JOYCE BALLESTEROS Unavailable Unavailable LEANA, JOYCE BALLESTEROS Unavailable Unavailable LEANA, JOYCE BALLESTEROS Unavailable Unavailable LEANA, JOYCE BALLESTEROS Unavailable Unavailable LEANA, JOYCE BALLESTEROS Unavailable Unavailable LEANA, JOYCE BALLESTEROS Unavailable Unavailable LEANA, JOYCE BALLESTEROS Unavailable Unavailable LEANA, JOYCE BALLESTEROS Unavailable Unavailable LEANA, JOYCE BALLESTEROS Unavailable Unavailable LEANA, JOYCE BALLESTEROS Unavailable Unavailable LEANA, JOYCE BALLESTEROS Unavailable Unavailable LEANA, JOYCE BALLESTEROS Unavailable Unavailable LEANA, JOYCE BALLESTEROS Unavailable Unavailable LEANA, JOYCE BALLESTEROS Unavailable Unavailable LEANA, JOYCE BALLESTEROS Unavailable Unavailable LEANA, JOYCE BALLESTEROS Unavailable Unavailable LEANA, JOYCE BALLESTEROS Unavailable Unavailable LEANA, JOYCE BALLESTEROS Unavailable Unavailable LEANA, JOYCE BALLESTEROS Unavailable Unavailable LEANA, JOYCE BALLESTEROS Unavailable Unavailable LEANA, JOYCE BALLESTEROS Unavailable Unavailable LEANA, JOYCE BALLESTEROS Unavailable Unavailable LEANA, JOYCE BALLESTEROS Unavailable Unavailable LEANA, JOYCE BALLESTEROS Unavailable Unavailable LEANA, JOYCE BALLESTEROS Unavailable Unavailable LEANA, JOYCE BALLESTEROS Unavailable Unavailable LEANA, JOYCE BALLESTEROS Unavailable Unavailable LEANA, JOYCE BALLESTEROS Unavailable Unavailable LEANA, JOYCE BALLESTEROS Unavailable Unavailable ANTONY, NEHEMIAH MD Unavailable Unavailable ANTONY NEHEMIAH Unavailable Unavailable ANTONY NEHEMIAH Unavailable Unavailable ANTONY NEHEMIAH MD Unavailable Unavailable ANTONY, NEHEMIAH MD Unavailable Unavailable ANTONY, NEHEMIAH MD Unavailable Unavailable ANTONY, NEHEMIAH MD Unavailable Unavailable ANTONY, NEHEMIAH MD Unavailable Unavailable ANTONY, NEHEMIAH MD Unavailable Unavailable ANTONY, NEHEMIAH MD Unavailable Unavailable ANTONY, NEHEMIAH MD Unavailable Unavailable ANTONY, NEHEMIAH MD Unavailable Unavailable ANTONY, NEHEMIAH MD Unavailable Unavailable ANTONY, NEHEMIAH MD Unavailable Unavailable ANTONY, NEHEMIAH MD Unavailable Unavailable ANTONY, NEHEMIAH MD Unavailable Unavailable ANTONY, NEHEMIAH MD Unavailable Unavailable ANTONY, NEHEMIAH MD Unavailable Unavailable ANTONY, NEHEMIAH MD Unavailable Unavailable ANTONY, NEHEMIAH MD Unavailable Unavailable ANTONY, NEHEMIAH MD Unavailable Unavailable Faye L Recore, WRNP Unavailable Unavailable Maggi Horvath MD Unavailable Unavailable Jamey Varma MD Unavailable Unavailable Jamey Varma MD Unavailable Unavailable Jamey Varma MD Unavailable Unavailable Modesta Lind MD Unavailable Unavailable Modesta Lind MD Unavailable Unavailable Modesta Lind MD Unavailable Unavailable Modesta Lind MD Unavailable Unavailable Modesta Lind MD Unavailable Unavailable Modesta Lind MD Unavailable Unavailable Modesta Lind MD Unavailable Unavailable Modesta Lind MD Unavailable Unavailable Modesta Lind MD Unavailable Unavailable Modesta Lind MD Unavailable Unavailable Modesta Lind MD Unavailable Unavailable Modesta Lind MD Unavailable Unavailable Modesta Lind MD Unavailable Unavailable Modesta Lind MD Unavailable Unavailable Modesta Lind MD Unavailable Unavailable Modesta Lind MD Unavailable Unavailable Modesta Lind MD Unavailable Unavailable Modesta Lind MD Unavailable Unavailable Modesta Lind MD Unavailable Unavailable Modesta Lind MD Unavailable Unavailable Modesta Lind MD Unavailable Unavailable Modesta Lind MD Unavailable Unavailable Modesta Lind MD Unavailable Unavailable Modesta Lind MD Unavailable Unavailable Modesta Lind MD Unavailable Unavailable Modesta Lind MD Unavailable Unavailable Modesta Lind MD Unavailable Unavailable Modesta Lind MD Unavailable Unavailable Modesta Lind MD Unavailable Unavailable Modesta Lind MD Unavailable Unavailable Modesta Lind MD Unavailable Unavailable Modesta Lind MD Unavailable Unavailable Modesta Lind MD Unavailable Unavailable Modesta Lind MD Unavailable Unavailable Modesta Lind MD Unavailable Unavailable Modesta Lind MD Unavailable Unavailable DiogoModesta MD Unavailable Unavailable DiogoModesta MD Unavailable Unavailable DiogoModesta MD Unavailable Unavailable Diogo, Modesta Spears MD Unavailable Unavailable Diogo, Modesta Spears MD Unavailable Unavailable Diogo, Modesta Spears MD Unavailable Unavailable Diogo, Modesta Spears MD Unavailable Unavailable Diogo, Modesta Spears MD Unavailable Unavailable Diogo, Modesta Spears MD Unavailable Unavailable Diogo, Modesta Spears MD Unavailable Unavailable Diogo, Modesta Spears MD Unavailable Unavailable Diogo, Modesta Spears MD Unavailable Unavailable Diogo, Modesta Spears MD Unavailable Unavailable Diogo, Modesta Spears MD Unavailable Unavailable Diogo, Modesta Spears MD Unavailable Unavailable Diogo, Modesta Spears MD Unavailable Unavailable Diogo, Modesta Spears MD Unavailable Unavailable Diogo, Modesta Spears MD Unavailable Unavailable Diogo, Modesta Spears MD Unavailable Unavailable Diogo, Modesta Spears MD Unavailable Unavailable Diogo, Modesta Spears MD Unavailable Unavailable DiogoModesta MD Unavailable Unavailable Diogo, Modesta Spears MD Unavailable Unavailable DiogoModesta MD Unavailable Unavailable Diogo, Modesta Spears MD Unavailable Unavailable DiogoModesta MD Unavailable Unavailable Diogo, Modesta Spears MD Unavailable Unavailable DiogoModesta MD Unavailable Unavailable DiogoModesta MD Unavailable Unavailable DiogoModesta MD Unavailable Unavailable DiogoModesta MD Unavailable Unavailable DiogoModesta MD Unavailable Unavailable DiogoModesta MD Unavailable Unavailable DiogoModesta MD Unavailable Unavailable DiogoModesta MD Unavailable Unavailable DiogoModesta MD Unavailable Unavailable DiogoModesta MD Unavailable Unavailable DiogoModesta claire MD Unavailable Unavailable DiogoModesta MD Unavailable Unavailable DiogoModesta MD Unavailable Unavailable DiogoModesta MD Unavailable Unavailable DiogoModesta MD Unavailable Unavailable DiogoModesta MD Unavailable Unavailable DiogoModesta MD Unavailable Unavailable DiogoModesta MD Unavailable Unavailable DiogoModesta MD Unavailable Unavailable DoigoModesta MD Unavailable Unavailable DiogoModesta MD Unavailable Unavailable DiogoModesta MD Unavailable Unavailable DiogoModesta MD Unavailable Unavailable DiogoModesta MD Unavailable Unavailable DiogoModesta MD Unavailable Unavailable DiogoModesta MD Unavailable Unavailable Diogo, Modesta Spears MD Unavailable Unavailable Diogo, Modesta Spears MD Unavailable Unavailable Diogo, Modesta Spears MD Unavailable Unavailable Modesta Lind MD Unavailable Unavailable Modesta Lind MD Unavailable Unavailable Modesta Lind MD Unavailable Unavailable Modesta Lind MD Unavailable Unavailable Modesta Lind MD Unavailable Unavailable Modesta Lind MD Unavailable Unavailable Modesta Lind MD Unavailable Unavailable Modesta Lind MD Unavailable Unavailable Abiodun, J Oclleen PA Unavailable [phone] Abiodun, J Colleen PA Unavailable [phone] Abiodun, J Colleen PA Unavailable [phone] Abiodun, J Colleen PA Unavailable [phone] FÁTIMA, L PRATEEK PA Unavailable Unavailable FÁTIMA, L PRATEEK PA Unavailable Unavailable FÁTIMA, L PRATEEK PA Unavailable Unavailable FÁTIMA, L PARTEEK PA Unavailable Unavailable FÁTIMA, L PRATEEK PA Unavailable Unavailable FÁTIMA, L PRATEEK PA Unavailable Unavailable FÁTIMA, L PRATEEK PA Unavailable Unavailable FÁTIMA, L PRTAEEK PA Unavailable Unavailable FÁTIMA, L PRATEEK PA Unavailable Unavailable FÁTIMA, L PRATEEK PA Unavailable Unavailable FÁTIMA, L PRATEEK PA Unavailable Unavailable FÁTIMA, L PRATEEK PA Unavailable Unavailable FÁTIMA, L PRATEEK PA Unavailable Unavailable FÁTIMA, L PRATEEK PA Unavailable Unavailable FÁTIMA, L PRATEEK PA Unavailable Unavailable FÁTIMA, L PRATEEK PA Unavailable Unavailable Ginny CASAREZ MD Unavailable Unavailable Ginny CASAREZ MD Unavailable Unavailable Ginny CASAREZ MD Unavailable Unavailable Ginny CASAREZ MD Unavailable Unavailable Chani CHENG MD Unavailable Unavailable Chani CHENG MD Unavailable Unavailable Chani CHENG MD Unavailable Unavailable Chani CHENG MD Unavailable Unavailable Chani CHENG MD Unavailable Unavailable Chani CHENG MD Unavailable Unavailable Chani CHENG MD Unavailable Unavailable Chani CHENG MD Unavailable Unavailable Chani CHENG MD Unavailable Unavailable Chani CHENG MD Unavailable Unavailable Chani CHENG MD Unavailable Unavailable Chani CHENG MD Unavailable Unavailable Chani CHENG MD Unavailable Unavailable Chani CHENG MD Unavailable Unavailable BRENDA, S AYMAN MD Unavailable Unavailable BRENDA, S AYMAN MD Unavailable Unavailable BRENDA, S AYMAN MD Unavailable Unavailable BRENDA, S AYMAN MD Unavailable Unavailable BRENDA, S AYMAN MD Unavailable Unavailable BRENDA, S AYMAN MD Unavailable Unavailable BRENDA, S AYMAN MD Unavailable Unavailable BRENDA, S AYMAN MD Unavailable Unavailable BRENDA, S AYMAN MD Unavailable Unavailable BRENDA, S AYMAN MD Unavailable Unavailable BRENDA, S AYMAN MD Unavailable Unavailable BRENDA, S AYMAN MD Unavailable Unavailable BRENDA, S AYMAN MD Unavailable Unavailable BRENDA, S AYMAN MD Unavailable Unavailable BRENDA, S AYMAN MD Unavailable Unavailable BRENDA, S AYMAN MD Unavailable Unavailable BRENDA, S AYMAN MD Unavailable Unavailable BRENDA, S AYMAN MD Unavailable Unavailable BRENDA, S AYMAN MD Unavailable Unavailable BRENDA, S AYMAN MD Unavailable Unavailable BRENDA, S AYMAN MD Unavailable Unavailable BRENDA, S AYMAN MD Unavailable Unavailable BRENDA, S AYMAN MD Unavailable Unavailable BRENDA, S AYMAN MD Unavailable Unavailable BRENDA, S AYMAN MD Unavailable Unavailable BRENDA, S AYMAN MD Unavailable Unavailable BRENDA, S AYMAN MD Unavailable Unavailable BRENDA, S AYMAN MD Unavailable Unavailable BRENDA, S AYMAN MD Unavailable Unavailable BRENDA, S AYMAN MD Unavailable Unavailable BRENDA, S AYMAN MD Unavailable Unavailable BRENDA, S AYMAN MD Unavailable Unavailable BRENDA, S AYMAN MD Unavailable Unavailable BRENDA, S AYMAN MD Unavailable Unavailable BRENDA, S AYMAN MD Unavailable Unavailable BRENDA, S AYMAN MD Unavailable Unavailable BRENDA, S AYMAN MD Unavailable Unavailable BRENDA, S AYMAN MD Unavailable Unavailable BRENDA, S AYMAN MD Unavailable Unavailable BRENDA, S AYMAN MD Unavailable Unavailable BRENDA, S AYMAN MD Unavailable Unavailable BRENDA, S AYMAN MD Unavailable Unavailable BRENDA, S AYMAN MD Unavailable Unavailable BRENDA, S AYMAN MD Unavailable Unavailable BRENDA, S AYMAN MD Unavailable Unavailable BRENDA, S AYMAN MD Unavailable Unavailable BRENDA, S AYMAN MD Unavailable Unavailable BRENDA, S AYMAN MD Unavailable Unavailable BRENDA, S AYMAN MD Unavailable Unavailable BRENDA, S AYMAN MD Unavailable Unavailable BRENDA, S AYMAN MD Unavailable Unavailable BRENDA, S AYMAN MD Unavailable Unavailable BRENDA, S AYMAN MD Unavailable Unavailable BRENDA, S AYMAN MD Unavailable Unavailable BRENDA, S AYMAN MD Unavailable Unavailable BRENDA, S AYMAN MD Unavailable Unavailable BRENDA, S AYMAN MD Unavailable Unavailable BRENDA, S AYMAN MD Unavailable Unavailable BRENDA, S AYMAN MD Unavailable Unavailable BRENDA, S AYMAN MD Unavailable Unavailable BRENDA, S AYMAN MD Unavailable Unavailable BRENDA, S AYMAN MD Unavailable Unavailable BRENDA, S AYMAN MD Unavailable Unavailable BRENDA, S AYMAN MD Unavailable Unavailable BRENDA, S AYMAN MD Unavailable Unavailable BRENDA, S AYMAN MD Unavailable Unavailable BRENDA, S AYMAN MD Unavailable Unavailable BRENDA, S AYMAN MD Unavailable Unavailable BRENDA, S AYMAN MD Unavailable Unavailable BRENDA, S AYMAN MD Unavailable Unavailable BRENDA, S AYMAN MD Unavailable Unavailable BRENDA, S AYMAN MD Unavailable Unavailable BRENDA, S AYMAN MD Unavailable Unavailable Re-disclosure Warning The records that you are about to access may contain information from federally-assisted alcohol or drug abuse programs. If such information is present, then the following federally mandated warning applies: This information has been disclosed to you from records protected by federal confidentiality rules (42 CFR part 2). The federal rules prohibit you from making any further disclosure of this information unless further disclosure is expressly permitted by the written consent of the person to whom it pertains or as otherwise permitted by 42 CFR part 2. A general authorization for the release of medical or other information is NOT sufficient for this purpose. The Federal rules restrict any use of the information to criminally investigate or prosecute any alcohol or drug abuse patient.The records that you are about to access may contain highly sensitive health information, the redisclosure of which is protected by Article 27-F of the [place] State Public Health law. If you continue you may have access to information: Regarding HIV / AIDS; Provided by facilities licensed or operated by the [facility] Office of Mental Health; or Provided by the [facility] Office for People With Developmental Disabilities. If such information is present, then the following [facility] mandated warning applies: This information has been disclosed to you from confidential records which are protected by state law. State law prohibits you from making any further disclosure of this information without the specific written consent of the person to whom it pertains, or as otherwise permitted by law. Any unauthorized further disclosure in violation of state law may result in a fine or residential sentence or both. A general authorization for the release of medical or other information is NOT sufficient authorization for further disc losure. Allergies and Adverse Reactions Type Description Substance Reaction Status Data Source(s ) Drug allergy Drug allergy No Known Allergies [facility] Family History Family Member Name Family Member Gender Family Member Status Date o f Status Description Data Source(s) Unknown Male Condition [facility] Unknown Male Condition [facility] Encounters Encounter Providers Location Date Indications Data Source(s ) Outpatient Attender: CHINA BOWERS OD [email or web address]-CPSLAOPT 03:18:00 PM EDT [facility]. [email or web address] 05/02/2021 12:30:54 PM EDT [email or web address] 04/29/2021 12:00:00 AM EDT [facility] Out[facility] Attender: SALLY HERNANDES DO CPSCAORT-CPSLAOPT 10:48:00 AM EDT - 04/14/2021 10:49[facility]. [facility] S[facility]-SJP 04/12/2021 09:43:10 PM EDT [facility] Outpatient Referrer: JOYCE SIERRA.SHADE-SJP.SHADE 04/09/2021 10:37:59 AM EDT [facility] Outpatient Attender: JOYCE ARTISSHADE-SJP.SHADE 10:37:42 AM EDT - 04/09/2021 12:04:[address] [facility] Outpatient Attender: SALLY CECILIO ROBISON CPSCAORT-CPSLAOPT 09:34:00 AM EDT - 03/29/2021 09:35:00 [facility] Attender: JOYCE DUEÑAS MDReferrer: Sarah Lind MD SJP .SHADE-SJP.SHADE 03/10/2021 12:00:00 AM EDT - 03/10/2021 02:54:41 PM EDT [facility] Outpatient Attender: PRATEEK ALEGRE Main Office 03/08/2021 0 8:00:00 AM EDT [facility] ([facility]) Inpatient Admitter: DOROTHY CHENG MDReferrer: CHLOE RIVERA MD ES1-SJ.ANES 02/22/2021 10:04:[address] [facility] Inpatient Attender: DOROTHY CHENG MDAdmitter: DOROTHY GAMBOA MD [id number] 02/22/2021 07:11:00 AM EDT - 02/23/2021 05:01:00 PM EDT [facility] Patient discharged. Outpatient Referrer: DOROTHY CHENG MD MOB-MOB.PAT 12/2020 09:32:26 AM EDT - 02/19/2021 09:32:[address] [facility] Outpatient Attender: DOROTHY CHENG MDReferrer: DOROTHY GAMBOA MD MOB-MOB.PAT 02/19/2021 09:10:59 AM EDT - 02/19/2021 10:30:30 AM EDT [facility] Outpatient Referrer: DOROTHY CHENG MD 02/02/2021 04:24:12 PM EDT [facility] Emergency Attender: Brad Varma MD CPSCAORT-ED 12:36:00 PM EDT - 01/30/2021 02:10:00 PM EDT [facility] Patient discharged. Inpatient Attender: DOROTHY CHENG MDAdmitter: DOROTHY GAMBOA MD ES1-SJ.CV 01/25/2021 10:47:[address] [facility] Inpatient Attender: Oleksandrromaine JessicaMonae MDAttender: Francois Lopez-Ortiz MDAttender: Jenn Paez MDAdmitter: Francois Lopez-Ortiz MDConsultant: Nehemiah Antony MDConsultant: NEHEIMAH ANTONY MD [facility] 01/22/2021 02:22 :00 PM EDT - 01/25/2021 04:57:00 PM EDT GI BLEED [facility] GI BLEED Patient discharged. Outpatient Attender: DOROTHY CHENG MDA dmitter: DOROTHY CHENG MDReferrer: April MERRILLP ES1-SJ.CV 01/21/2021 10:56:00 AM EDT - 01/21/2021 04:25:00 PM EDT [facility] Patient discharged. Outpatient Attender: DOROTHY CHENG MD [facility] 12/16 12:48:00 PM EDT - 01/12/2021 12:49:00 PM EDT I35.0 [facility] I35.0 Patient discharged. Outpatient Attender: PEDRO LUIS Banks RecoreAttender: Faye Mendez [facility] ED-LAB 01/08/2021 07:22:00 AM EDT - 01/08/2021 07:23:00 AM EDT Q610 0 [facility] Q6100 Patient discharged. [place] [address] [address] 01/06/2021 12:00:00 AM EDT eCW1 ([facility]) [place] [address] [address] 12/30/2020 12:00:00 AM EDT eCW1 ([facility]) Outpatient Attender: Sarah Lind MD CPSCAORT-CARPD 10:41:00 AM EDT - 11/19/2020 10:42:00 AM EDT I35.0,R01.1 [facility] I35.0,R01.1 Patient discharged. Outpatient Attender: Sarah Lind MD ED-LAB 07:29:00 AM EDT - 10/20/2020 07:30:00 AM EDT E7800 I10 [id number] [facility] E7800 I10 [id number] Z0000 Patient discharged. [place] [address] [address] 06/30/2020 12:00:00 AM EST eCW1 ([facility]) Outpatient Attender: CHINA BOWERS OD CPSCAORT-CPSLAOPT 08:01:00 AM EST - 06/10/2020 08:02:00 AM EST [facility] Patient discharged. Outpatient Attender: SALLY HERNANDES DO CPSCAORT-REFOPS 05/17 10:05:00 AM EST - 05/27/2020 10:06:00 AM EST SAME DAY POST OP [facility] SAME DAY POST OP Patient discharged. Outpatient Attender: SALLY HERNANDES DO CPSCAORT-SDCLOC 05/17 06:49:00 AM EST - 05/27/2020 07:55:00 AM EST CATARACT LEFT EYE [facility] CATARACT LEFT EYE Patient discharged. Outpatient CPSCAORT-LABEJN 05/22/2020 10:05:00 AM EST [facility] Outpatient Attender: SALLY HERNANDES DO ED-LABPNP 12/2019 08:05:00 AM EST - 05/22/2020 08:06:00 AM EST PRE OP SCREENING [facility] PRE OP SCREENING Patient discharged. Outpatient Attender: SALLY HERNANDES DO CPSCAORT-REFOPS 04/17 01:00:00 PM EDT SAME DAY POST OP [facility] SAME DAY POST OP Outpatient Attender: SALLY HERNANDES DO CPSCAORT-SDCLOC 04/17 10:00:00 AM EDT - 05/13/2020 11:55:00 AM EDT CATARACT RIGHT EYE [facility] al CATARACT RIGHT EYE Patient discharged. Preadmit Attender: SALLY HERNANDES DO CPSCAORT-REFOPS 05/13/2020 12:00:00 AM EDT SAME DAY POST OP [facility] SAME DAY POST OP Outpatient CPSCAORT-LABEJN 05/08/2020 10:04:00 AM EDT [facility] Outpatient Attender: SALLY HERNANDES DO ED-LABPNP 04/17 07:47:00 AM EDT - 05/08/2020 07:48:00 AM EDT PRE OP SCREENING [facility] PRE OP SCREENING Patient discharged. Outpatient Attender: SALLY HERNANDES DO CPSCAORT-CPSLAOPT 10:47:00 AM EDT - 04/29/2020 10:48:00 AM EDT [facility] Patient discharged. Outpatient Attender: Sarah Lind MD CPSCAORT-LABPD 0 10:28:00 AM EDT - 04/27/2020 10:29:00 AM EDT I10,E78.00,Z01.818 [facility] I10,E78.00,Z01.818 Patient discharged. Outpatient Attender: Colleen ALEGRE CPSCAORT-CPSLAUCC 10:30:00 AM EDT - 03/14/2020 10:31:00 AM EDT [facility] Patient discharged. Outpatient Attender: SALLY HERNANDES DO CPSCAORT-CPSLAOPT 01:29:00 PM EDT - 03/06/2020 01:30:00 PM EDT [facility] Patient discharged. Outpatient Attender: Sarah Lind MD ED-LABGH 0 08:14:00 AM EDT - 02/20/2020 08:15:00 AM EDT AFC [facility] AF Patient discharged. Immunizations Vaccine Date Status Description Data Source(s) 207 08/28/2020 12:00:00 AM EST completed <td I D="[id number]">Covid-19 (Moderna)</td><td>08/28/2020, 07/31/2020</td><td></td> [facility] COVID-19 VACCINE Moderna 08/28/2020 12:00:00 AM EST completed [facility] Vaccine Series Complete: YESThis Data wa s Submitted to [facility] [employer]. COVID-19 VACCINE, MRNA-1273, LNP-S (MODERNA)/PF 08/28/2020 1 2:00:00 AM EST completed [facility] 207 07/31/2020 12:00:00 AM EST completed <td I D="[id number]">Covid-19 (Moderna)</td><td>08/28/2020, 07/31/2020</td><td></td> [facility] COVID-19 VACCINE, MRNA-1273, LNP-S (MODERNA)/PF 07/31/2020 1 2:00:00 AM EST completed [facility] COVID-19 VACCINE Moderna 07/31/2020 12:00:00 AM EST completed [facility] Vaccine Series Complete: NOThis Data was Submitted to [facility] [employer]. Medications Medication Brand Name Start Date Product Form Dose Route Admi nistrative Instructions Pharmacy Instructions Status Indications Reaction Description Data Source(s) 50 mg 04/27/2021 12:00:00 AM EDT tablet 90 TAKE ONE TABLET BY MOUTH EVERY DAY TAKE ONE TABLET BY MOUTH EVERY DAY SOLD: 04/28/2021 [facility] 1 % 03/29/2021 12:00:00 AM EDT drops,suspension 5 INSTILL 1 DROP INTO RIGHT EYE TWO TIMES A DAY FOR 7 DAYS INSTILL 1 DROP INTO RIGHT EYE TWO TIMES A DAY FOR 7 DAYS SOLD: 03/29/2021 [facility] Metoprolol Tartrate 25 MG Oral Tablet me toprolol tartrate (LOPRESSOR) 25 MG tablet metoprolol tartrate (LOPRESSOR) 25 MG tablet 03/10/2021 12:0 0:00 AM EDT 25 mg Oral active Cardiac pacema ker in situNonrheumatic aortic (valve) stenosisHypertension, unspecified type Take 1 tablet ( 25 mg total) by mouth 2 (two) times a day [facility] Cardiac pacemaker in situ Nonrheumatic aortic (valve) stenosis Hypertension, unspecified type 25 mg 03/10/2021 12:00:00 AM EDT tablet 60 TAKE ONE TABLET BY MOUTH TWICE A DAY TAKE ONE TABLET BY MOUTH TWICE A DAY SOLD: 03/10/2021 [facility] 25 mg 03/10/2021 12:00:00 AM EDT tablet 60 TAKE ONE TABLET BY MOUTH TWICE A DAY TAKE ONE TABLET BY MOUTH TWICE A DAY SOLD: 04/09/2021 [facility] Bisacodyl 10 MG Rectal Suppository bisacodyl (DULCOLAX ) suppository 10 mg bisacodyl (DULCOLAX) suppository 10 mg 02/25/2021 09:00:00 AM EDT 10 mg Rectal active 10 mg, Rectal, Daily PRN, constipation, Starting on Mon02/25/21 at 0900, Post-op
If lactulose not effective, give bisacodyl suppository x 1 per rectum prn starting POD #3.
[facility] Medication administered onsite POLYETHYLENE GLYCOL 3350 142 MG/ML Oral Solution polyethylene glycol (GLYCOLAX) packet 17 g polyethylene glycol (GLYCOLAX) packet 17 g 02/24/2021 07:00:00 AM EDT 17 g Oral active 17 g, Or al, Daily PRN, For constipation, Starting on Mon02/24/21 at 0700, PACU & Post-op
hold for loose stools
[facility] Medication administered onsite Aspirin 81 MG Delayed Release Oral Tablet aspirin EC 8 1 MG EC tablet aspirin EC 81 MG EC tablet 02/24/2021 12:00:00 AM EDT 81 mg Oral ac tive Take 1 tablet (81 mg total) by mouth daily [facility] Docusate Sodium 100 MG Oral Capsule docusate sodium (C OLACE) capsule 100 mg docusate sodium (COLACE) capsule 100 mg 02/23/2021 09:00:00 AM EDT 100 mg Oral active 100 mg, Oral, 2 times daily, First dose on Mon02/23/21 at 0900, Post-op
Start first POD.
[facility] Medication administered onsite Daily Emiliano (THERAGRAN) 1 tablet [id number] 02/23/2021 09:00:00 AM EDT 1 {tbl} Oral active 1 tablet, Oral, Daily, First dose on Mon02/23/21 at 0900 [facility] Medication administered onsite pantoprazole 40 MG Delayed Release Oral Tablet pantoprazole (PROTONIX) EC tablet 40 mg pantoprazole (PROTONIX) EC tablet 40 mg 02/23/2021 09:00:00 AM E DT 40 mg Oral active Stress Ulcer Prophylaxis 40 mg, Oral, Daily, Indications: Stress Ulcer Prophylaxis, First dose on Mon02/23/21 at 0900, Post-op [facility] Stress Ulcer Prophylaxis Medication administered onsite clopidogrel 75 MG Oral Tablet clopidogrel (PLAVIX) tab let 75 mg clopidogrel (PLAVIX) tablet 75 mg 02/23/2021 09:00:00 AM EDT 75 mg Oral active 75 mg, Oral, Daily, First dose on Mon02/23/21 at 0900, Post-op
Start first POD.
[facility] Medication administered onsite Aspirin 81 MG Delayed Release Oral Tablet aspirin EC t ablet 81 mg aspirin EC tablet 81 mg 02/23/2021 09:00:00 AM EDT 81 mg Oral activ e 81 mg, Oral, Daily, First dose on Mon02/23/21 at 0900, Post-op
Starting POD # 1 for ISAAK patient. Hold for platelet count less than 90,000. If OG tube in place, give non-enteric aspirin.
[facility] Medication administered onsite Polyethylene Glycol 400 4 MG/ML / Propyl harrison glycol 3 MG/ML Ophthalmic Solution Polyethyl Glycol-Propyl Glycol (SYSTANE) 0.4-0.3 % ophthalmic solution 1 drop Polyethyl Glycol-Propyl Glycol (SYSTANE) 0.4-0.3 % ophthalmic solution 1 drop 02/23/2021 08:00:00 AM EDT 1 [drp] active 1 drop, Both Eyes, Daily, First dose on Mon02/23/21 at 0800 [facility] Medication administered onsite Magnesium Oxide (MAG-OX) tablet 400 mg [id number] 08:00:00 AM EDT 400 mg Oral active 400 mg, Oral, Da vineet, First dose on Mon02/23/21 at 0800 [facility] Medication administered onsite heparin (porcine) injection 5,000 Units [id number] 02/23/20 09:00:00 PM EDT 5000 U Subcutaneous active 5,000 Units , Subcutaneous, Every 12 hours (scheduled), First dose on Mon02/22/21 at 2100, Post-op
If platelet count is less than 100,000 or hematocrit is less than 25, or if there is a 5 point decrea se in hematocrit, do not give the dose and call physician/designee. Hold for INR greater than or equal to 1.7 if receiving Coumadin therapy.
[facility] Medication administered onsite Cefazolin 1000 MG Injection ceFAZolin (ANCEF) injectio n 1 g ceFAZolin (ANCEF) injection 1 g 02/22/2021 07:00:00 PM EDT 1 g Intravenous completed Perioperative Pharmacoprophylaxis 1 g, Intravenous, Ev darleen 8 hours (relative), First dose on Mon02/22/21 at 1900, For 2 doses, Post-op
Reconstitute with 10 ml sterile water for injection. Administer IV push over 3 minutes. Use within 1 hour of reconstitution
[facility] Perioperative Pharmacoprophylaxis Medication administered onsite normal saline flush 0.9 % injection 3 mL [id number] 02/22/2021 03:00:00 PM EDT 3 mL Intravenous active 3 mL , Intravenous, PROTOCOL, First dose on Mon02/22/21 at 1500, Post-op
flush per protocol, D/C Main IV fluid if appropriate
[facility] Medication administered onsite sodium chloride 0.9% (NS) infusion 0146-1739-94 02/22/2021 03:00:00 P M EDT Intravenous aborted at 75 mL/hr, Intravenous, Continuous, Starting on Mon02/22/21 at 1500, For 4 hours, Post-op [facility] Medication administered onsite acetaminophen (TYLENOL) 325 MG tablet 650 mg 02:07:43 PM EDT 650 mg Oral active [Order 1 S tart] Name: acetaminophen (TYLENOL) 325 MG tablet 650 mg Signed Summary: 650 mg, Oral, Every 4 hours PRN, mild pain (1-3), for temperature > 101. Call MD/PA. May also give for headache., Starting on Mon02/22/21 at 1407, Post-op
"Maximum dose of acetaminophen is 4,000 mg from all sources in 24 hours."
[Order 1 End] [Order 2 Start] Name: acetaminophen (TYLENOL) suppository 650 mg Signed Summary: 650 mg (1 suppository), Rectal, Every 4 hours PRN, mild pain (1-3), for temperature > 101. Call MD/PA. May also give for headache., Starting on Mon02/22/21 at 1407, Post-op [Order 2 End] [facility] Medication administered onsite ondansetron (ZOFRAN) injection 4 mg [id number] 02/22/2021 02:07:4 2 PM EDT 4 mg Intravenous active 4 mg, In travenous, Every 6 hours PRN, nausea, vomiting, Starting on Mon02/22/21 at 1407, Post-op
If no response in 15-30 minutes then give metoclopramide 10 mg IV x 1 then q6h prn N/V.
[facility] Medication administered onsite 2 ML Metoclopramide 5 MG/ML Prefilled Sy ringe metoclopramide (REGLAN) injection 10 mg metoclopramide (REGLAN) injection 10 mg 02/22/2021 02:07:42 PM E DT 10 mg Intravenous active 10 mg, I ntravenous, Every 6 hours PRN, nausea, vomiting, Starting on Mon02/22/21 at 1407, Post-op
Give once if no response to Zofran after 15-30 minutes, then q6h prn N/V.
[facility] Medication administered onsite Magnesium Chloride 0.10590 MEQ/ML / Pota ssium Chloride 0.0497 MEQ/ML / Sodium Acetate 0.0163 MEQ/ML / Sodium Chloride 0.0899 MEQ/ML / Sodium gluconate 5.02 MG/ML Injectable Solution [Normosol-R] electrolyte-R (NORMOSOL-R/PLASMALYTE-R) solution electrolyte-R (NORMOSOL-R/PLASMALYTE-R) solution 02/22 01:00:00 PM EDT Intravenous active at 1 00 mL/hr, Intravenous, Continuous, Starting on Mon02/22/21 at 1300, PACU (only) [facility] Medication administered onsite Tamsulosin hydrochloride 0.4 MG Oral Cap karey tamsulosin (FLOMAX) 24 hr capsule 0.4 mg tamsulosin (FLOMAX) 24 hr capsule 0.4 mg 02/22/2021 12:00:00 PM EDT 0.4 mg Oral active 0.4 mg, Oral, Daily, Fir st dose on Mon02/22/21 at 1200 [facility] Medication administered onsite Finasteride 5 MG Oral Tablet finasteride (PROSCAR) tab let 5 mg finasteride (PROSCAR) tablet 5 mg 02/22/2021 12:00:00 PM EDT 5 mg Oral active 5 mg, Oral, Daily, First dose on Mon02/22/21 at 1200 [facility] Medication administered onsite Meclizine Hydrochloride 12.5 MG Oral Tablet meclizine (ANTIVERT) tablet 25 mg meclizine (ANTIVERT) tablet 25 mg 02/22/2021 11:10:01 AM EDT 25 mg Oral active 25 mg, Oral, 3 times daily PRN, dizziness, Starting on Mon02/22/21 at 1110 [facility] Medication administered onsite Cefuroxime 250 MG Oral Tablet CEFUROXIME AXETIL 01/25/2021 12:00 :00 AM EDT tablet 20 TAKE ONE TABLET BY M OUTH TWICE A DAY, TAKE FIRST DOSE THIS EVENING, CONTINUE TWICE DAILY THEREAFTER UNTIL GONE TAKE ONE TABLET BY MOUTH TWICE A DAY, TAKE FIRST DOSE THIS EVENING, CONTINUE TWICE DAILY THEREAFTER UNTIL GONE SOLD: 01/25/2021 [facility] normal saline flush 0.9 % injection 3 mL [id number] 01/21/2021 03:00:00 PM EDT 3 mL Intravenous active 3 mL , Intravenous, PROTOCOL, First dose on Andreia 01/21/21 at 1500, Pre-op
flush per protocol, D/C Main IV fluid if appropriate
[facility] Medication administered onsite normal saline flush 0.9 % injection 3 mL [id number] 01/21/2021 02:00:00 PM EDT 3 mL Intravenous active 3 mL , Intravenous, Every 8 hours (scheduled), First dose on Andreia 01/21/21 at 1400, Pre-op
Rapid push positive pressure flushing shall be performed with a 10 cc normal saline syringe to check the PATENCY of a PIV site prior to any infusion therapy initiation unless resistance is met.
[facility] Medication administered onsite iopamidol (ISOVUE-370) 76 % [id number] 01/21/2021 01:58:04 PM EDT active As needed, Starting on Andreia 01/21/21 at 1358, Intra-Proce dure [facility] Medication administered onsite 1 ML heparin sodium, porcine 1000 UNT/ML Injection hep madhuri (porcine) injection heparin (porcine) injection 01/21/2021 01:52:30 PM EDT active As needed, Starting on Mon01/21/21 at 1352, Intra-Procedure [facility] Medication administered onsite 4 ML Verapamil hydrochloride 2.5 MG/ML Injection verap gumaro (ISOPTIN) injection verapamil (ISOPTIN) injection 01/21/2021 01:52:20 PM EDT active As needed, Starting on Mon01/21/21 at 1352, Intra-Procedure [facility] Medication administered onsite lidocaine 1 % injection [id number] 01/21/2021 01:50:42 PM EDT active As needed, Starting on Mon 1 at 1350, Intra-Procedure [facility] Medication administered onsite 2 ML Midazolam 1 MG/ML Injection midazolam (VERSED) in jection midazolam (VERSED) injection 01/21/2021 01:47:32 PM EDT active As needed, Starting on Andreia 01/21/21 at 1347, Intra-Procedure [facility] Medication administered onsite fentaNYL Citrate (PF) (SUBLIMAZE) injection [id number] 01/21/2021 01:47:23 PM EDT active As neede d, Starting on Andreia 01/21/21 at 1347, Intra-Procedure [facility] Medication administered onsite sodium chloride 0.9% (NS) infusion [id number] 01/21/2021 12:00:00 PM EDT 100 mL/h Intravenous active at 100 m L/hr, 100 mL/hr, Intravenous, Continuous, Starting on Andreia 01/21/21 at 1200, Pre-op
Start two hours prior to scheduled start time
[facility] Medication administered onsite Acetaminophen 325 MG Oral Tablet acetaminophen (TYLENO L) 325 MG tablet 650 mg acetaminophen (TYLENOL) 325 MG tablet 650 mg 01/21/2021 11:21:01 AM EDT 650 mg Oral active 650 mg, Or al, Every 4 hours PRN, headaches, and non cardiac pain, Starting on Andreia 01/21/21 at 1121, Pre-op
"Maximum dose of acetaminophen is 4,000 mg from all sources in 24 hours."
[facility] Medication administered onsite Aspirin 81 MG Delayed Release Oral Tablet aspirin EC 8 1 MG EC tablet aspirin EC 81 MG EC tablet 01/21/2021 12:00:00 AM EDT 81 mg Oral ac tive Take 81 mg by mouth daily [facility] clopidogrel 75 MG Oral Tablet clopidogrel (PLAVIX) 75 MG tablet clopidogrel (PLAVIX) 75 MG tablet 01/18/2021 12:00:00 AM EDT 75 mg Oral aborted Take 75 mg by mouth daily Took 2 tablets on Monday and then took 1 each day until today [facility] 75 mg 01/09/2021 12:00:00 AM EDT tablet 5 TAKE 2 TABLETS BY MOUTH ON 01/18/21 FOLLOWED BY 1 TABLET EVERY MORNING INCLUDING MORNING OF PROCEDURE TAKE 2 TABLETS BY MOUTH ON 01/18/21 FOLLOWED BY 1 TABLET EVERY MORNING INCLUDING MORNING OF PROCEDURE SOLD: 01/12/[address] [facility] clop[facility]rel 75 MG Oral Tablet [Plavix] Plavix 01/08/2021 12:00:00 A M EDT active [facility] ([facility]) 50 mg 10/26/2020 12:00:00 AM EDT tablet 90 TAKE ONE TABLET BY MOUTH EVERY DAY TAKE ONE TABLET BY MOUTH EVERY DAY SOLD: 01/25/2021 [facility] 50 mg 10/26/2020 12:00:00 AM EDT tablet 90 TAKE ONE TABLET BY MOUTH EVERY DAY TAKE ONE TABLET BY MOUTH EVERY DAY SOLD: 10/26/2020 [facility] Finasteride 5 MG Oral Tablet FINASTERIDE 09/01/2020 12:00:00 AM EST ta blet 90 TAKE ONE TABLET BY MOUTH EVERY DAY TAKE ONE TABLET BY MOUTH EVERY DAY SOLD: 12/02/2020 [facility] Finasteride 5 MG Oral Tablet FINASTERIDE 09/01/2020 12:00:00 AM EST ta blet 90 TAKE ONE TABLET BY MOUTH EVERY DAY TAKE ONE TABLET BY MOUTH EVERY DAY SOLD: 09/03/2020 [facility] Finasteride 5 MG Oral Tablet FINASTERIDE 09/01/2020 12:00:00 AM EST ta blet 90 TAKE ONE TABLET BY MOUTH EVERY DAY TAKE ONE TABLET BY MOUTH EVERY DAY SOLD: 03/03/2021 [facility] 0.4 mg 08/19/2020 12:00:00 AM EST capsule 90 TAKE ONE CAPSULE BY MOUTH EVERY DAY TAKE ONE CAPSULE BY MOUTH EVERY DAY SOLD: 11/23/2020 [facility] 0.4 mg 08/19/2020 12:00:00 AM EST capsule 90 TAKE ONE CAPSULE BY MOUTH EVERY DAY TAKE ONE CAPSULE BY MOUTH EVERY DAY SOLD: 02/25/2021 [facility] 0.4 mg 08/19/2020 12:00:00 AM EST capsule 90 TAKE ONE CAPSULE BY MOUTH EVERY DAY TAKE ONE CAPSULE BY MOUTH EVERY DAY SOLD: 08/24/2020 [facility] Finasteride 5 MG Oral Tablet FINASTERIDE 06/30/2020 12:00:00 AM EST ta blet 30 TAKE ONE TABLET BY MOUTH EVERY DAY TAKE ONE TABLET BY MOUTH EVERY DAY SOLD: 08/05/2020 [facility] Finasteride 5 MG Oral Tablet FINASTERIDE 06/30/2020 12:00:00 AM EST ta blet 30 TAKE ONE TABLET BY MOUTH EVERY DAY TAKE ONE TABLET BY MOUTH EVERY DAY SOLD: 07/02/2020 [facility] Meclizine Hydrochloride 25 MG Oral Tablet MECLIZINE HCL 06/04/2020 12:00:00 AM EST tablet 30 TAKE ONE TABLET BY MOUTH THR EE TIMES A DAY NEEDED TAKE ONE TABLET BY MOUTH THREE TIMES A DAY NEEDED SOLD: 08/05/2020 [facility] Meclizine Hydrochloride 25 MG Oral Tablet MECLIZINE HCL 06/04/2020 12:00:00 AM EST tablet 30 TAKE ONE TABLET BY MOUTH THR EE TIMES A DAY NEEDED TAKE ONE TABLET BY MOUTH THREE TIMES A DAY NEEDED SOLD: 06/04/2020 [facility] Meclizine Hydrochloride 25 MG Oral Tablet MECLIZINE HCL 06/04/2020 12:00:00 AM EST tablet 30 TAKE ONE TABLET BY MOUTH THR EE TIMES A DAY NEEDED TAKE ONE TABLET BY MOUTH THREE TIMES A DAY NEEDED SOLD: 11/01/2020 [facility] 0.4 % 04/30/2020 12:00:00 AM EDT drops 5 INSTILL ONE DROP IN THE RIGHT EYE THREE TIMES A DAY INSTILL ONE DROP IN THE RIGHT EYE THREE TIMES A DAY SO LD: 04/30/2020 [facility] 0.05 % 04/30/2020 12:00:00 AM EDT drops 5 INSTILL ONE DROP IN THE RIGHT EYE THREE TIMES A DAY INSTILL ONE DROP IN THE RIGHT EYE THREE TIMES A DAY SO LD: 04/30/2020 [facility] 10,000 unit- 1 mg/mL 04/30/2020 12:00:00 AM EDT drops 10 INSTILL ONE DROP IN THE RIGHT EYE THREE TIMES A DAY INSTILL ONE DROP IN THE RIGHT EYE THREE TIMES A DAY SOLD: 04/30/2020 [facility] doxycycline hyclate 100 MG Oral Tablet DOXYCYCLINE HYCLATE 1 12:00:00 AM EDT tablet 28 TAKE ONE TABLET BY MOUTH JARRET RY 12 HOURS FOR 14 DAYS TAKE ONE TABLET BY MOUTH EVERY 12 HOURS FOR 14 DAYS SOLD: 04/22/2020 [facility] Meclizine Hydrochloride 25 MG Oral Tablet MECLIZINE HCL 03/14/2020 12:00:00 AM EDT tablet 15 TAKE ONE TABLET BY MOUTH JARRET RY 8 HOURS NEEDED FOR 5 DAYS TAKE ONE TABLET BY MOUTH EVERY 8 HOURS NEEDED FOR 5 DAYS SOLD: 03/14/2020 [facility] Finasteride 5 MG Oral Tablet FINASTERIDE 07/08/2019 12:00:00 AM EST ta blet 90 TAKE ONE TABLET BY MOUTH EVERY DAY TAKE ONE TABLET BY MOUTH EVERY DAY SOLD: 04/06/2020 [facility] 0.4 mg 05/31/2019 12:00:00 AM EST capsule 90 TAKE ONE CAPSULE BY MOUTH EVERY DAY TAKE ONE CAPSULE BY MOUTH EVERY DAY SOLD: 05/23/2020 [facility] Losartan Potassium 50 MG Oral Tablet losartan (COZAAR) 50 MG tablet losartan (COZAAR) 50 MG tablet 50 mg Oral aborted Ta ke 50 mg by mouth daily [facility] Losartan Potassium 50 MG Oral Tablet losartan (COZAAR) 50 MG tablet losartan (COZAAR) 50 MG tablet 25 mg Oral aborted Take 25 mg by mouth daily as needed (for high bp) [facility] Hydrochlorothiazide 25 MG Oral Tablet hy drochlorothiazide (HYDRODIURIL) 25 MG tablet hydrochlorothiazide (HYDRODIURIL) 25 MG tablet 25 mg O ral aborted Take 25 mg by mouth daily [facility] Meclizine Hydrochloride 25 MG Oral Tablet meclizine (A NTIVERT) 25 MG tablet meclizine (ANTIVERT) 25 MG tablet 25 mg Oral abor mauro Take 25 mg by mouth 3 (three) times a day as needed for dizziness [facility] Insurance Providers Payer name Policy type / Coverage type Policy ID Covered republican ID Covered republican's relationship to riggins Policy Riggins Plan Information BCBS [facility] 304/804 [id number] SP [id number] [facility] MEDICARE ADVANTAGE [id number] Retired [id number] [employer] MEDICARE Medicare [id number] [employer] MEDICARE [id number] Ena [id number] [employer] MEDICARE [id number] Ena [id number] INSURANCE COVID-19 COVID Ena C OVID INSURANCE COVID-19 [id number] xOVID 2 [id number] INSURANCE COVID-19 COVID Ena C OVID INSURANCE COVID-19 [id number] xOVID 2 [id number] INSURANCE COVID-19 COVID Ena C OVID INSURANCE COVID-19 COVID Ena C OVID BLUE [place] MEDICARE ADVANTAGE [id number] Retired [id number] [facility] MEDICARE ADVANTAGE [id number] Retired [id number] MEDICARE [id number] SP [id number] MEDICARE BLUE PPO [id number] SP [id number] [facility] MEDICARE ADVANTAGE [id number] Retired [id number] JUDYUS BCBS B [id number] S [id number] MEDICARE BLUE PPO [id number] SP [id number] Problems, Conditions, and Diagnoses Code Display Name Description Problem Type Effective Dates Data Source(s) Z96.1 Presence of intraocular lens PRESENCE OF INTRAOCULAR L ENS Diagnosis 05/04/2021 03:18:00 PM EDT [facility] H26.492 Other secondary cataract, left eye OTHER SECONDA RY CATARACT, LEFT EYE Diagnosis 04/14/2021 10:48:00 AM EDT [facility] I73.9 Peripheral vascular disease, unspecified Peripheral vascular disease, unspecified Diagnosis 04/09/2021 10:37:42 AM EDT [facility] N40.0 Benign prostatic hyperplasia without low er urinary tract symptoms Benign prostatic hyperplasia without low Diagnosis 04/09/2021 10:37:42 AM EDT [facility] I10 Essential (primary) hypertension Essential (primary) h ypertension Diagnosis 04/09/2021 10:37:42 AM EDT [facility] Z95.0 Presence of cardiac pacemaker Presence of cardiac pace maker Diagnosis 04/09/2021 10:37:42 AM EDT [facility] H35.3132 Nonexudative age-related mac ular degeneration, bilateral, intermediate dry stage NEXDTVE AGE-RELATED MCLR DEGN, BILATERAL, INTERMED DRY STAGE Diagnosis 03/29/2021 09:34:00 AM EDT [facility] H26.493 Other secondary cataract, bilateral OTHER SECOND VAUGHN CATARACT, BILATERAL Diagnosis 03/29/2021 09:34:00 AM EDT [facility] I35.0 Nonrheumatic aortic (valve) stenosis Nonrheumati c aortic (valve) stenosis Diagnosis 02/22/2021 07:11:[address] 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 DOCUMENTATION DESIGNER (CURRENT) DRUG THERAPY Diagnosis 01/30/2021 12:36:00 PM EDT [facility] E11.9 Type 2 diabetes mellitus without complic ations TYPE 2 DIABETES MELLITUS WITHOUT COMPLICATIONS Diagnosis 01/30/2021 12:36:00 PM [facility] K62.5 Hemorrhage of anus and rectum HEMORRHAGE OF ANUS AND R ECTUM Diagnosis 01/30/2021 12:36:00 PM [facility] Y84.6 Urinary catheterization as t he cause of abnormal reaction of the patient, or of later complication, without mention of misadventure at the time of the procedure URINARY CATHETERIZATION CAUSE ABN REACT/COMPL, W/O MISADVNT Diagnosis 01/22/2021 02:22:00 PM [facility] R33.8 Other retention of urine OTHER RETENTION OF URINE Diag nosis 01/22/2021 02:22:00 PM [facility] K64.8 Other hemorrhoids OTHER HEMORRHOIDS Diagnosis 01/22/2021 02:22:00 PM [facility] N40.1 Benign prostatic hyperplasia with lower urinary tract symptoms BENIGN PROSTATIC HYPERPLASIA WITH LOWER URINARY TRACT SYMP Diagnosis 02:22:00 PM [facility] E78.5 Hyperlipidemia, unspecified HYPERLIPIDEMIA, UNSPECIFIE D Diagnosis 01/22/2021 02:22:00 PM [facility] I10 Essential (primary) hypertension ESSENTIAL (PRIMARY) H YPERTENSION Diagnosis 01/22/2021 02:22:00 PM [facility] I35.0 Nonrheumatic aortic (valve) stenosis NONRHEUMATI C AORTIC (VALVE) STENOSIS Diagnosis 01/22/2021 02:22:00 PM [facility] B96.4 Proteus (mirabilis) (morgani i) as the cause of diseases classified elsewhere PROTEUS (MIRABILIS) (MORGANII) CAUSING DIS CLASSD ELSWHR Trinidad gnosis 01/22/2021 02:22:00 PM [facility] T45.515A Adverse effect of anticoagulants, initia l encounter ADVERSE EFFECT OF ANTICOAGULANTS, INITIAL ENCOUNTER Diagnosis 01/22/2021 02:22:00 PM [facility] 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 HEMORRHAGIC DISORD D/T EXTRINSIC CIRCULATING ANTICOAGULANTS Diagnosis 01/22/2021 02:22:00 PM [facility] N39.0 Urinary tract infection, site not specif ied URINARY TRACT INFECTION, SITE NOT SPECIFIED Diagnosis 01/22/2021 02:22:00 PM [facility] T83.511A Infection and inflammatory r eaction due to indwelling urethral catheter, initial encounter I/I REACT D/T INDWELLING URETHRAL CATHETER, INIT Diagnosis 01/22/2021 02:22:00 PM [facility] K57.91 Diverticulosis of intestine, part unspecified, without perforation or abscess with bleeding DVRTCLOS OF INTEST, PART UNSP, W/O PERF OR ABSCESS W BLEED Diagnosis 01/22/2021 02:22:00 PM [facility] I35.0 Nonrheumatic aortic (valve) stenosis NONRHEUMATI C AORTIC (VALVE) STENOSIS Diagnosis 01/12/2021 12:48:00 PM [facility] 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, unspecified CONGENITAL RE NAL CYST, UNSPECIFIED Diagnosis 01/08/2021 07:22:00 AM [facility] I07.1 Rheumatic tricuspid insufficiency RHEUMATIC TRIC USPID INSUFFICIENCY Diagnosis 11/19/2020 10:41:00 AM [facility] I34.0 Nonrheumatic mitral (valve) insufficienc y NONRHEUMATIC MITRAL (VALVE) INSUFFICIENCY Diagnosis 11/19/2020 10:41:00 AM [facility] I50.30 Unspecified diastolic (congestive) heart failure UNSPECIFIED DIASTOLIC (CONGESTIVE) HEART FAILURE Diagnosis 11/19/2020 10:41:00 AM [facility] I51.7 Cardiomegaly CARDIOMEGALY Diagnosis 11/19/2020 10:41:00 A M [facility] H16.223 Keratoconjunctivitis sicca, not specifie d as Sjogren's, bilateral KERATOCONJUNCT SICCA, NOT SPECIFIED SJOGREN'S, BILATERAL Diagnosis 06/10/2020 08:01:00 AM [facility] H35.3131 Nonexudative age-related mac ular degeneration, bilateral, early dry stage NEXDTVE AGE-RELATED MCLR DEGN, BILATERAL, EARLY DRY STAGE Di agnosis 06/10/2020 08:01:00 AM [facility] E78.00 Pure hypercholesterolemia, unspecified P URE HYPERCHOLESTEROLEMIA, UNSPECIFIED Diagnosis 05/27/2020 06:49:00 AM [facility] H25.812 Combined forms of age-related cataract, left eye COMBINED FORMS OF AGE- RELATED CATARACT, LEFT EYE Diagnosis 05/27/2020 06:49:00 AM [facility] 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, UNSPECIFIED EYE EPITHELIAL (JUVENILE) CORNEAL DYSTROPHY, UNSPECIFIED EYE Diagnosis 05/13/20 20 01:00:00 PM [facility] H25.811 Combined forms of age-related cataract, right eye COMBINED FORMS OF AGE- RELATED CATARACT, RIGHT EYE Diagnosis 05/13/2020 10:00:00 AM [facility] H26.8 Other specified cataract OTHER SPECIFIED CATARACT Diag nosis 05/13/2020 10:00:00 AM [facility] Z11.59 Encounter for screening for other viral diseases ENCOUNTER FOR SCREENING FOR OTHER VIRAL DISEASES Diagnosis 05/08/2020 07:47:00 AM [facility] Z01.812 Encounter for preprocedural laboratory e xamination ENCOUNTER FOR PREPROCEDURAL LABORATORY EXAMINATION Diagnosis 05/08/2020 07:47:00 AM [facility] H25.813 Combined forms of age-related cataract, bilateral COMBINED FORMS OF AGE- RELATED CATARACT, BILATERAL Diagnosis 04/29/2020 10:47:00 AM [facility] R42 Dizziness and giddiness DIZZINESS AND GIDDINESS Diagno sis 03/14/2020 10:30:00 AM [facility] I73.9 PAD (peripheral artery disease) PAD (peripheral artery disease) [id number] 03/10/2021 12:00:00 AM [facility] N40.0 BPH (benign prostatic hyperplasia) BPH (benign p rostatic hyperplasia) [id number] 03/10/2021 12:00:[address] 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 Surgeries/Procedures Procedure Description Date Indications Data Source(s) Hospital outpatient clinic visit for assessment and ma nagement of a patient Hospital Outpatient Clinic Visit 05/04/2021 12:00:00 AM EDT [facility] ECG ROUTINE ECG W/LEAST 12 LDS W/I&R <td>POCT AMB EKG</td><td>Routine</td><td>03/10/2021 3:34 PM EDT</td><td> Hypertension, unspecified type Nonrheumatic aortic (valve) stenosis Cardiac pacemaker in situ</td><td> </td> 03/10/2021 03:34:00 PM EDT Cardiac pacemaker in situNonrheumatic ao rtic (valve) stenosisHypertension, unspecified type [facility] Cardiac pacemaker in situ Nonrheumatic aortic (valve) stenosis Hypertension, unspecified type OFFICE OUTPATIENT VISIT 5 MINUTES 03/08/2021 12:00:00 AM EDT [facility] ([facility]) ECHO TRANSTHORC R-T 2D W/WO M-MODE REC F-UP/LMTD <td>E CHOCARDIOGRAM TRANSTHORACIC LIMITED</td><td>Routine</td><td>02/23/2021 10:04 AM EDT</td><td></td><td> </td> 02/23/2021 10:04:10 AM EDT [facility] BLOOD COUNT COMPLETE AUTOMATED <td>CBC</td><td>STAT</t d><td>02/23/2021 8:06 AM EDT</td><td></td><td> </td> 02/23/2021 08:06:00 AM EDT [facility] BASIC METABOLIC PANEL CALCIUM TOTAL <td>BASIC METABOLI C PANEL</td><td>STAT</td><td>02/23/2021 8:06 AM EDT</td><td></td><td> </td> 02/23/2021 08:06:00 AM EDT [facility] HOSPITAL DISCHARGE DAY MANAGEMENT 30 MIN/< 02/23/2021 12:00:00 AM EDT [facility] ([facility] XR CHEST PORTABLE <td>XR CHEST PORTABLE</td><t d>STAT</td><td>02/22/2021 12:50 PM EDT</td><td></td><td> </td> 02/22/2021 12:50:17 PM EDT [facility] PROTHROMBIN TIME <td>PROTIME-INR</td><td>STAT </td><td>02/22/2021 12:34 PM EDT</td><td></td><td> </td> 02/22/2021 12:34:00 PM EDT [facility] BLOOD COUNT COMPLETE AUTOMATED <td>CBC</td><td>STAT</t d><td>02/22/2021 12:34 PM EDT</td><td></td><td> </td> 02/22/2021 12:34:00 PM EDT [facility] MAGNESIUM <td>MAGNESIUM</td><td>STAT</ td><td>02/22/2021 12:34 PM EDT</td><td></td><td> </td> 02/22/2021 12:34:00 PM EDT [facility] BASIC METABOLIC PANEL CALCIUM TOTAL <td>BASIC METABOLI C PANEL</td><td>STAT</td><td>02/22/2021 12:34 PM EDT</td><td></td><td> </td> 02/22/2021 12:34:00 PM EDT [facility] ECG ROUTINE ECG W/LEAST 12 LDS TRCG ONLY W/O I&R <td>E CG 12- LEAD</td><td>Routine</td><td>02/22/2021 12:33 PM EDT</td><td></td><td></td> 02/22/2021 12:33:[address] [facility] POC ACT <td>POC ACT</td><td>Routine< /td><td>02/22/2021 11:53 AM EDT</td><td></td><td> </td> 02/22/2021 11:53:00 AM EDT [facility] TRANSCATHETER AORTIC VALVE IMPLANT FEMORAL <td>TRANSCA THETER AORTIC VALVE IMPLANT FEMORAL</td><td>Routine</td><td>02/22/2021 11:51 AM EDT</td><td> Nonrheumatic aortic (valve) stenosis</td><td></td> 02/22/2021 11:51:04 AM EDT Nonrheumatic aortic (valve) stenosis [facility] Nonrheumatic aortic (valve) stenosis POC ACT <td>POC ACT</td><td>Routine< /td><td>02/22/2021 11:27 AM EDT</td><td></td><td> </td> 02/22/2021 11:27:00 AM EDT [facility] POC ARTERIAL BLOOD GAS W LYTES <td>POC ARTERIAL BLOOD GAS W LYTES</td><td>Routine</td><td>02/22/2021 10:33 AM EDT</td><td></td><td> </td> 02/22/2021 10:33:00 AM EDT [facility] POC ACT <td>POC ACT</td><td>Routine< /td><td>02/22/2021 10:32 AM EDT</td><td></td><td> </td> 02/22/2021 10:32:00 AM EDT [facility] ECG TRANSESOPHAG R-T 2D W/PRB IMG ACQUISJ I&R <td>ECHO CARDIOGRAM TRANSESOPHAGEAL</td><td>Routine</td><td>02/22/2021 10:04 AM EDT</td><td></td><td> </td> 02/22/2021 10:04:16 AM EDT [facility] GLUC BLD GLUC MNTR DEV CLEARED FDA SPEC HOME USE <td>P OCT GLUCOSE</td><td>Routine</td><td>02/22/2021 7:51 AM EDT</td><td></td><td> </td> 02/22/2021 07:51:00 AM EDT [facility] BLOOD TYPING ABO <td>PREPARE RBC</td><td>Rout ine</td><td>02/22/2021 12:01 AM EDT</td><td></td><td></td> 02/22/2021 12:01:00 AM EDT [facility] Aortic Valve Replacement W/ Prosthetic VLV Femoral Art Appr 02/22/2021 12:00:00 AM EDT [facility] ([facility] ROOM TEMP AB SCREEN <td>ROOM TEMP AB SCREEN</td> <td>Routine</td><td>02/19/2021 10:20 AM EDT</td><td> Nonrheumatic aortic (valve) stenosis</td><td> </td> 02/19/2021 10:20:00 AM EDT Nonrheumatic aortic (valve) stenosis [facility] Nonrheumatic aortic (valve) stenosis URINE MICROSCOPIC <td>URINE MICROSCOPIC</td><t d>Add-On</td><td>02/19/2021 10:20 AM EDT</td><td></td><td> </td> 02/19/2021 10:20:00 AM EDT [facility] URNLS DIP STICK/TABLET RGNT AUTO W/O MICROSCOPY <td>UR INALYSIS W/O MICRO</td><td>Routine</td><td>02/19/2021 10:20 AM EDT</td><td> Nonrheumatic aortic (valve) stenosis</td><td> </td> 02/19/2021 10:20:00 AM EDT Nonrheumatic aortic (valve) stenosis [facility] Nonrheumatic aortic (valve) stenosis ECG ROUTINE ECG W/LEAST 12 LDS TRCG ONLY W/O I&R <td>E CG 12- LEAD</td><td>Routine</td><td>02/19/2021 10:03 AM EDT</td><td> Nonrheumatic aortic (valve) stenosis</td><td></td> 02/19/2021 10:03:44 AM EDT Nonrheumatic aortic (valve) stenosis [facility] Nonrheumatic aortic (valve) stenosis NT PRO BNP <td>NT PRO BNP</td><td>Routi ne</td><td>02/19/2021 10:00 AM EDT</td><td> Nonrheumatic aortic (valve) stenosis</td><td> </td> 02/19/2021 10:00:00 AM EDT Nonrheumatic aortic (valve) stenosis [facility] Nonrheumatic aortic (valve) stenosis THROMBOPLASTIN TIME PARTIAL PLASMA/WHOLE BLOOD <td>APTT</td><td>Routine</td><td>02/19/2021 10:00 AM EDT</td><td> Nonrheumatic aortic (valve) stenosis</td><td> </td> 02/19/2021 10:00:00 AM EDT Nonrheumatic aortic (valve) stenosis [facility] Nonrheumatic aortic (valve) stenosis PROTHROMBIN TIME <td>PROTIME-INR</td><td>Rout ine</td><td>02/19/2021 10:00 AM EDT</td><td> Nonrheumatic aortic (valve) stenosis</td><td> </td> 02/19/2021 10:00:00 AM EDT Nonrheumatic aortic (valve) stenosis [facility] Nonrheumatic aortic (valve) stenosis BLOOD COUNT COMPLETE AUTO&AUTO DIFRNTL WBC COUNT <td>C BC AND DIFFERENTIAL</td><td>Routine</td><td>02/19/2021 10:00 AM EDT</td><td> Nonrheumatic aortic (valve) stenosis</td><td> </td> 02/19/2021 10:00:00 AM EDT Nonrheumatic aortic (valve) stenosis [facility] Nonrheumatic aortic (valve) stenosis BLOOD TYPING ABO <td>TYPE AND SCREEN</td><td> Routine</td><td>02/19/2021 10:00 AM EDT</td><td> Nonrheumatic aortic (valve) stenosis</td><td> </td> 02/19/2021 10:00:00 AM EDT Nonrheumatic aortic (valve) stenosis [facility] Nonrheumatic aortic (valve) stenosis HEMOGLOBIN GLYCOSYLATED A1C <td>HEMOGLOBIN A1C</td><td>Routine</td><td>02/19/2021 10:00 AM EDT</td><td> Nonrheumatic aortic (valve) stenosis</td><td> </td> 02/19/2021 10:00:00 AM EDT Nonrheumatic aortic (valve) stenosis [facility] Nonrheumatic aortic (valve) stenosis COMPREHENSIVE METABOLIC PANEL <td>COMPREHENSIVE METABO LIC PANEL</td><td>Routine</td><td>02/19/2021 10:00 AM EDT</td><td> Nonrheumatic aortic (valve) stenosis</td><td> </td> 02/19/2021 10:00:00 AM EDT Nonrheumatic aortic (valve) stenosis [facility] Nonrheumatic aortic (valve) stenosis 2019 NCOV AMPLIFIED <td>2019 NCOV AMPLIFIED</td> <td>STAT</td><td>02/19/2021 9:00 AM EDT</td><td> COVID-19</td><td> </td> 02/19/2021 09:00:00 AM EDT COVID-19 [facility] COVID-19 ECG ROUTINE ECG W/LEAST 12 LDS TRCG ONLY W/O I&R ELECTROCARD IOGRAM TRACING 01/30/2021 12:00:00 AM [facility] BLOOD TYPING ABO BLOOD TYPING SEROLOGIC ABO 01/30/2021 12:00:00 AM [facility] ANTIBODY SCREEN RBC EACH SERUM TECHNIQUE RBC ANTIBODY SCREEN 01/30/2021 12:00:00 AM [facility] THROMBOPLASTIN TIME PARTIAL PLASMA/WHOLE BLOOD THROMBOPLASTI N TIME PARTIAL 01/30/2021 12:00:00 AM [facility] PROTHROMBIN TIME PROTHROMBIN TIME 01/30/2021 12:00:00 AM [facility] BLOOD COUNT COMPLETE AUTO&AUTO DIFRNTL WBC COUNT COMPLETE CB C W/AUTO DIFF WBC 01/30/2021 12:00:00 AM [facility] MAGNESIUM ASSAY OF MAGNESIUM 01/30/2021 12:00:00 AM [facility] TROPONIN QUANTITATIVE ASSAY OF TROPONIN QUANT 01/30/2021 12:00:00 A M [facility] LIPASE ASSAY OF LIPASE 01/30/2021 12:00:00 AM [facility] COMPREHENSIVE METABOLIC PANEL COMPREHEN METABOLIC PANEL 01/14 12:00:00 AM [facility] Injection, pantoprazole sodium, per vial 01/30/2021 12 :00:00 AM [facility] THER PROPH/DX NJX IV PUSH SINGLE/1ST SBST/DRUG THER/PROPH/DI AG INJ IV PUSH 01/30/2021 12:00:00 AM [facility] EMERGENCY DEPARTMENT VISIT HIGH/URGENT SEVERITY EMERGENCY DE PT VISIT 01/30/2021 12:00:00 AM [facility] DUPLEX SCAN EXTRACRANIAL ART COMPL BI STUDY <td>US CAR OTID BILATERAL</td><td>Pending Discharge</td><td>01/21/2021 3:02 PM EDT</td><td></td><td> </td> 01/21/2021 03:02:51 PM EDT [facility] CARDIAC CATHETERIZATION <td>CARDIAC CATHETERIZATION</td><td>Routine</td><td>01/21/2021 2:05 PM EDT</td><td> Nonrheumatic aortic (valve) stenosis</td><td> </td> 01/21/2021 02:05:51 PM EDT Nonrheumatic aortic (valve) stenosis [facility] Nonrheumatic aortic (valve) stenosis BEDSIDE PULMONARY FUNCTION TEST <td>BEDSIDE PULMONARY FUNCTION TEST</td><td>Routine</td><td>01/21/2021 2:02 PM EDT</td><td></td><td></td> 01/21/2021 02:02:[address] [facility] ECG ROUTINE ECG W/LEAST 12 LDS TRCG ONLY W/O I&R <td>E CG 12- LEAD</td><td>Routine</td><td>01/21/2021 11:19 AM EDT</td><td></td><td></td> 01/21/2021 11:19:[address] [facility] Coronary Angiography W/O LHC No LV Gram 01/21/2021 12: 00:00 AM [facility] COLLECTION VENOUS BLOOD VENIPUNCTURE ROUTINE VENIPUNCTURE 12:00:00 AM [facility] BLOOD COUNT COMPLETE AUTO&AUTO DIFRNTL WBC COUNT COMPLETE CB C W/AUTO DIFF WBC 01/12/2021 12:00:00 AM [facility] BASIC METABOLIC PANEL CALCIUM TOTAL METABOLIC PANEL TOTAL CA 01/12/2021 12:00:00 AM [facility] Perc Transcatheter Placement, Intracoronary Stent W/Plasty 01/08/2021 12:00:00 AM [facility] Left Heart Cath W/Wo LV & Coronary Angiography 021 12:00:00 AM [facility] ([facility] ECHO TTHRC R-T 2D W/WOM-MODE COMPL SPEC&COLR DOP TTE W/DOPPL ER COMPLETE 11/19/2020 12:00:00 AM [facility] COMPUTERIZED OPHTHALMIC IMAGING RETINA CPTR OPHTH DX IMG POS T SEGMT 06/10/2020 12:00:00 AM [facility] Replacement of Left Lens with Synthetic Substitute, Pe rcutaneous Approach REPLACEMENT OF LEFT LENS WITH SYNTH SUB, PERC APPROACH 05/27/2020 12:00:00 AM [facility] Injection, fentanyl citrate, 0.1 mg 05/13/2020 12:00:0 0 AM [facility] Injection, midazolam hydrochloride, per 1 mg 0 12:00:00 AM [facility] CATARACT REMOVAL INSERTION OF LENS XCAPSL CTRC RMVL W/O ECP 05/13/2020 12:00:00 AM EDT [facility] Replacement of Right Lens with Synthetic Substitute, P ercutaneous Approach REPLACEMENT OF RIGHT LENS WITH SYNTH SUB, PERC APPROACH 05/13/2020 12:00:00 AM EDT [facility] [id number] SARS-COV-2 COVID-19 AMP PRB 05/08/2020 12:00:00 AM EDT [facility] OPH BMTRY PRTL COHER INTRFRMTRY IO LENS PWR THOM OPHTHALMIC B IOMETRY 04/29/2020 12:00:00 AM EDT [facility] Results ID Date Data Source [id number] 05/02/2021 12:30:13 PM EDT [facility] Name Value Range Interpretation Code Description Data Criselda rce(s) Supporting Document(s) &PDF [facility] TGODGo6zIaAGXqQu36/WDZznWZZzb6VyRGvgRNq6PIcbUKHvE0EpyFfkTJ0YN8vAFFsCGbKRHoTWHS1k yKE [file] AgICAgICAgICAgICAgICAgICAgICAgICAgICAgICAg JVNcPWOoLQVcQENpTRNpWMMyVJNrBDNcJUAbHSZsOTBePVLhWY1BAKKhNZGmXKCtNMSiGLXzCXCzYJKm ICAgICAgICAgICAgICAgICAgICAgICAgICAgICAgICAgICAgICAgICAgICAgICAgICAgICAgICAgICAg EZVzRPYmRRKtTZUqPYBaQSKkWA8RSRDuOZArBNFsMF AgICAgICAgICAgICAgICAgICAgICAgICAgICAgICAgICAgICAgICAgICAgICAgICAgICAgICAgICAgIC BrEXOwJILtCAIrAOMoRMJcCRPkCDRlIEYmFDVdYW2ARWHdDLKgSRWgMVMmPUEjAISwZEUdKBPeJVZiEN AgICAgICAgICAgICAgICAgICAgICAgICAgICAgICAg CFLsXTZzOGAhRSNoWPEpTXGhFAZiNQJaLWSkIONgMKCrLVYiDVFmFM9AZPQoCEHzDHThSHBwUVNnDRFt ICAgICAgICAgICAgICAgICAgICAgICAgICAgICAgICAgICAgICAgICAgICAgICAgICAgICAgICAgICAg OHSlUFAqUURwBSImAWJkNHHcQCLjEW7GAWWkQNKzWE AgICAgICAgICAgICAgICAgICAgICAgICAgICAgICAgICAgICAgICAgICAgICAgICAgICAgICAgICAgIC WbRWFkDSDxDTHaSSOvNEJjJIAfXQXuDSMtTBLpLGIaNX6KTCDpYDJkBWVfDCPeKIWmHETfKSEmRFJhUY AgICAgICAgICAgICAgICAgICAgICAgICAgICAgICAg TEJpOUZfOTSaHFHcYRWjMYJvAOEfQDKzHLQlDFUcMPDsMUMeCOVcVKKjDZ8CZFLlRMKrJRLcEJSxNBTo ICAgICAgICAgICAgICAgICAgICAgICAgICAgICAgICAgICAgICAgICAgICAgICAgICAgICAgICAgICAg FKKgXTBjIUIfGAZvYYAfIBLwJVBkQDJaLT0SEGAwSM AgICAgICAgICAgICAgICAgICAgICAgICAgICAgICAgICAgICAgICAgICAgICAgICAgICAgICAgICAgIC XoDOPsHBJsBCStSZOgMXMhNTMzTILbIOVrMRWxCXGeYCHhWH4EYGBkHKLxMMUjCLCzBBVhYIKzEKAxGZ AgICAgICAgICAgICAgICAgICAgICAgICAgICAgICAg WQHhTTTmWHZiNLTjPEPvJGNlDTMvYTGdVRFlXRChYQUlKJWySPSrDVXiPXZsFZ3PMC50pCUcc2X7MBHn TT2edug/Ju4ANPpieyRdbAQaGL0UKvHcSL5opp2DEyRrRR1thn9YOPnRJvRrQ7D6kNZlJHQdZSCGFoRe Q74jYOndBn64SPnsLIAkVvXdZKo0Or1XXrKrF4ucDO JiOjH0EEJsOfZ5TDCbFtHsOAbvBX0Vn0TaqBMpAPm+Vf5ZSD2te1XsXRlrNlVlVP1dli7WLVlVQkZaK4 S9zXDtS6H9KZyuCd0YCNPmBXYwTmUcGIFZYQglTZ8RXE2haaI3OD0EzFVsRLZsKAMvxXGwPMu7L36doR KvHHioID5QJYX+Reta+Rm1OMGNjKZUlMCQbRxJpUWOG BoFjS06azNRoOFLlZDQnDERjHs1YAYYeI1HreqAdiCbxrjIbKOIsWQINJT6EZZnurlSbrLXknDdoXZ26 iJhuGZ0EGs2VJeKvDK5pja0ErFOhUv4UJRClOU3CSIBtLIUlKPLtNOD2IPNnBiVfAVtlVMHjVNWuHSS6 VFSmBHUhOV5FTsGhWOJhZLiqDfUfGYLqBAZjmp9COC DxOBUpLDe5ZtFxUSIuZYYdQKuhHSQeCOGuPLnjBUBxRDHrBT3GSaSpTSYjCDE7XMCnHWSyLARnza5OCZ IlOATkWgM3YjFnKWZtGBSnJAmrXMYxZMSgFEr4VALpRJMuLS5PZnAeKCEbWTXvZTKoZSFuDDZsoj9UOK XzOTDhIWZ4FKOwMSFqLGGuVChxSVEoPNS0WxN9GAPd FJIbHE8PSuKzFSHoKND5ReogFHClAIMcrw8BZBQaYKVmBbC3LmVoKNBjDIOmJDzwXINcIFB9Yyo4HSMe VUUzRL7GTaYnRSDoPAD9GBBuXUDmTEHjbi8SEIYcRNLyFOx4HuAgGUBzEPJoTBbaIJAcVNFbGXF4SJKz IPYnCQ5AMiUlAOTuGXBnUdBhYVGgEMPync4WTIRgWW WwXsKtRBNfZKGuTGZlMLhuQTJwQCIxCpO8LAIqPFMaVM3FQjLxLOKcRTC5GOJhWXQiLZKzpi9RMLVcJR MuUgn0IMIoREPkMKPrBYciPNXdJPLwQOT8UINlGWJiQM0JSiReSJSvGYJ7BCHtECAiEXLbze1NCPFwME WyOND3ORVkQFSzLYVrCGkiWDXgQEZ9NqFeHQDpZESg QY0EDaXxOPRtQAS9QxLaZVOpSJYevy8CNHFkGHDsCLxyKKRaEZTrMYPmGOboZKIrDDC2OHVoEJSkTOYb EG3IPpVcKFToDYXnEKZsVWHwPIFvpl1CLKCuEXVmPxW5UBHsEKRgOHOvYVniBUFjWAZ3XXNaQJPeAUOv MH4HBnHaMAZhAAg0AfYrYFQcIRPawg7PEKEiOEQtSG c7DVNgPAImCQGaMMs8wdBvjWSzBRb9DC5DR0CiyvBwZkDKTy2Ed882JBInLWHoPo9TS7svDe2gOAAaQP HRMq4XVZg3SiOlSyGrSAN6RLIqSfG6PmC4X2StGGEpKkGeT1TlEnF+XOvmORNsLqI0BbqnKuX7XLSbMW zpL2ZcTuGsMnNyM7NzRG1tQYQHDt5+NLyboWHpkPlzVITXYrS7XPY8QLyaIOFZMz2Z ID Date Data Source [id number] 04/12/2021 09:28:15 PM EDT [facility] Name Value Range Interpretation Code Description Data Criselda rce(s) Supporting Document(s) &PDF [facility] VKOLDp6jGnUWHnIq29/LQWlqLMJhp0LoTNtsAUb1OQcrGHLjA3UrwSnpFQ8LU8nDWYaSNpKKAmBZJH5u oRX [file] DQpYhWNgYNDeGsOABPTf/5+HxBV++f//roof mechanic+743xWVFrI0J3SEa+CqE8CmTS/bJNB8LVk+n//98sSPzJ PHxnCI1paB0U3F42fornMTGn0eM7Qx+BAr0+J/+lQwX8f/8Hg3/HWYX2i5BOlMtJL7COZ4kOr/eaW98f uZ7vBRFRVE5VEK0MEW3ma5BaWODpUTcmltWlGojBTe H1HSIvq5PaKYy4WF1KOWRiKQraSO9IN0RwYNI6F1Y6FvA5cGZwSD9aV9EhRaVyWP2iaZpiF9AyuHDEQA YIz30sp50vynYtYL7Dw5cfpuBbYLFoA3XgmgwiVTGWIg4PiCR8vHGcSx1LLFtisVFrJJQfENWtE5DsQO EqCL9JjFo8LASnYa2HzAV6AUFdE85lPR2VKhZxN1JH CXByVRT7ZEZcBwXIHe8+IPngqCDtPJ2CVekY+///PwMYBGRUQBADbvAfDECKEyqIV4+lJNtmbL5hXs5F KvUkud+hoYFE/xaQqJ64+ELWghQFHqjRgTV+WSffurhfW5dLKnqzb5wrF2Sa3uYJ2CFpAverYyTSrbJh +HTtXDRIP9d4MTanbrApaEUeAI3SCkQbCC7orv6KXw qsZSCvAtnDOvv8DHmzRK9JaFUsN7sQOgrwI1CcH7JbzVppUG9PvJXfGX6VSR3rB1orNeJrXpd5c2Zpah BgzZOpxlOieKE1T3XfmK9cK5JnM7JlEGR7sBIcL4YgzX6GiYR7kLJqVq8UVZuoxCZqOFRvPFVpR0UcGP WjVa2HcEh7CWItOb0QiQK3FPLxL90qTD8OUf5+DQpz lHQlNW8BXipIhW1aRuVbDRP/yRrHKJbrTSPRcjyws6RRoKtMGO5RnV/RBrdDp/SHor39LW5Sn7O2ya+n kt4sDMqRZc9ytJDq7Cq2SR6bGIxVUJvDN+oXGoZeaNxjvE3yLf42KVhrhEKnflJqeB6es763yena7166 YOuhll47jBsjQhsv/bmBY5yiPuUCUvKcZXS2nuAwmP 6EMW4gz0KqDDmhFFUhPG6rwr5DMGsXRtToK3W5lDJbZS8bmuVbmY5IxHB8zXMzG4tqAHmaG43otTVgmS 6eLk7NyZXuDTErU58vsZ8yZL55SDhfU35vy0DHvZPgMC3FELEaP7SNP2NwF1wlmHczFPWmWUTrC8r1JT A7N5bgocl6sMGbRruwReitvXZqWClmQlenfCLGCTFz NXLdNEbjWF2QUDDchdGeOFUjZFNqIRs+Qm2Qr0NkWJLfHEoXon8Ouj0LPZlR/FeNY0LCE3FE/1yxRYKP nRJVY0nfxFIhGklb5a5iZJIidBgh4mByyMofYJOnn6RTX6FqyUhMOmZA0futkMo/UGHnI429K0/Po8hY uX520szb2TgLvRHb/Xzbm0JIK8sI7DP6oU/hR50IxJ 0vDq7/6Igm7J2VyY2GZP8ed9OwBXYqIKmelpTrKfwJQuUoDZQkk8FfOTh8EO2DZZXaCQedNE2RP9HdRT X6Y9R8OjZ6cJKpVF0nB4EfOeCnTL0ujSe9Q3MaxAMLQFGZx85tc65xzrDsIV7Aj0tltkLhJSEfR2Xqpz pyNXwwPNwmU9yxkOmiCVBhBUFhA4a6RUL8G5urkdf7 hJB4TS5WyRn3QDRlLo6UiWM1HNVuJ54qYI0RNu4+DVfumCFeQE4JYodUI4AtKEabPJeD//5e3WiTB6kM XJBskWKJKabE3OMs4vDqbEyjV9n03K9IRgOXBYGZiB1DWX3qb6KsRROaBEckhcEtCpgTMpVpOMRvn9Kr QAa1GW3KVSNgICpoTV1YW9BfRAV4Y4I1LcL8mBUyFM 3wH6HtMwXmAJ0xeZl6E3UckTBXIRSYz97ur53hnrPqSN1Mr8iypfAqHYNmC7IvjftbAEQQQk0YhSO7qB JeIl2PMOcuiQTrUGBsHVQvY5SySCPvM8DniUCndcMxD6SuCEHaSGJnt8CzYN5BLVJvV70ki3jyDjAjAF ONZN1KRt8MYpH7nqRycQ7NAQZ4/59OICCjAoiIFIcI JsqBMw2LlvhOJjg+fae1SRJ2mCnCZH0MpeEIYMtWYvBKBj7UBjsdABYBEuPPqw9IDZ0vf1JeJSAgJTgm rrUzYboVNgXdESEyh4YhHWohQQ1SPA6xn0FySKfsFJUpu2NtNXf9HK6HFFGzYMKiS5DwbCXzM5AUOb2S ITy3O7feLHmhHx2CqKIxQYCvEPlpZE6Gu901PWk5HX 3WBHWjNkHgKUMURdAlYSUhIjTyAKYlBNPELBzvXDMcS0QaQSRvQWEzBq3SAWViSU7ORtWoGqOmRRKADb RbCRDlAdEjKhWpHAUIIm2VNhGbS3yMUxgrC7KnLBnvD7mmQaFpRiaeBCYWOGjaVAPnO3rpLbTpOrdbRV RSKIutCKSyO0ldDkJwXdzeCMGDBIzzASLaS9euJoGa BgFsDZVEBGdoRTIxX8vqBhOlHqMcLZFODHngNEGhE0qxXiNqLfFaVOLMIl4TSuMyM2E3jVhDzKE5CAZ6 HA5SXrMZCtZuEPy8D0V5vHYdD7E7vDyOkNZ3FY2YEY6CRHXnAH9+YlNvS9GKUNjXBMO9CF6TaEAyOL0B uSUDV6DytQTkDz2qCXUptEecbBo+TnLqC5CXWBZVYC W4HX4OgONaEF8CtGATB7AymJSuFi0uOHerVjZtXW3fTQ2+TO3PXUXGVaNOKwKnBLjlKCngDQMtBJf7R6 D5TQKvZ8PPR9Y1J8n8q2mkxm2+JO0PUOCgM1RCWDYUUwWxCXahSDnrVIPjPPq5U2J0ALOlR2GCZ1djB3 h0ZW4+PiANCiAgID4+DQo+Qb4MAS8vi7GlFTkxKLTq UA7biq0HAVvfLFRuP7VeHQSpSQcxU1JfhXzwRN9IPUnbUIltEY8FMJPtCMY3YX7+VAqbiJDcDF1BTqj/ jSZcJ7plkMHvFDemhx4q01n/ZcTcBS1zSrVHIX1qI0NkoUu6dkYBdz8FP3knTrjgUh5+DZnrNSc6Rgup eW7mnBVqcNr1vUM0fc2oQu5fQTkfICrbuJ8rmjA3qU 3aHESrZfX2feE0mRW2BC3mPe4RUQXpQLsbUGH9IeQSPYyaiH0gSfGoIl3qtMS9dEmfT0m3gc56Je7glh kyCOn5KZ2lGf6kZs3aGJKoh5shjGY4II2wExo+JEkwAUHrBJ9sZGI0HbHNQh8KYZL4I5f1cH6foBA7XZ 4NCiAgICAgICAgICAgICAgICAgICAgICAgICAgICAg ICAgICAgICAgICAgICAgICAgICAgICAgICAgICAgICAgICAgICAgICAgICAgICAgICAgICAgICAgICAg ICAgICAgICAgICANCiAgICAgICAgICAgICAgICAgICAgICAgICAgICAgICAgICAgICAgICAgICAgICAg ICAgICAgICAgICAgICAgICAgICAgICAgICAgICAgIC AgICAgICAgICAgICAgICAgICAgICANCiAgICAgICAgICAgICAgICAgICAgICAgICAgICAgICAgICAgIC AgICAgICAgICAgICAgICAgICAgICAgICAgICAgICAgICAgICAgICAgICAgICAgICAgICAgICAgICAgIC AgICANCiAgICAgICAgICAgICAgICAgICAgICAgICAg ICAgICAgICAgICAgICAgICAgICAgICAgICAgICAgICAgICAgICAgICAgICAgICAgICAgICAgICAgICAg ICAgICAgICAgICAgICANCiAgICAgICAgICAgICAgICAgICAgICAgICAgICAgICAgICAgICAgICAgICAg ICAgICAgICAgICAgICAgICAgICAgICAgICAgICAgIC AgICAgICAgICAgICAgICAgICAgICAgICANCiAgICAgICAgICAgICAgICAgICAgICAgICAgICAgICAgIC AgICAgICAgICAgICAgICAgICAgICAgICAgICAgICAgICAgICAgICAgICAgICAgICAgICAgICAgICAgIC AgICAgICANCiAgICAgICAgICAgICAgICAgICAgICAg ICAgICAgICAgICAgICAgICAgICAgICAgICAgICAgICAgICAgICAgICAgICAgICAgICAgICAgICAgICAg ICAgICAgICAgICAgICAgICANCiAgICAgICAgICAgICAgICAgICAgICAgICAgICAgICAgICAgICAgICAg ICAgICAgICAgICAgICAgICAgICAgICAgICAgICAgIC AgICAgICAgICAgICAgICAgICAgICAgICAgICANCiAgICAgICAgICAgICAgICAgICAgICAgICAgICAgIC AgICAgICAgICAgICAgICAgICAgICAgICAgICAgICAgICAgICAgICAgICAgICAgICAgICAgICAgICAgIC AgICAgICAgICANCiAgICAgICAgICAgICAgICAgICAg ICAgICAgICAgICAgICAgICAgICAgICAgICAgICAgICAgICAgICAgICAgICAgICAgICAgICAgICAgICAg ICAgICAgICAgICAgICAgICAgICANCjw/wMZcD1lsdNDsvlT9X2mhAv4ABf7CKZ4db5MvAGBrGPlpdoIu YhgTLoBnVYKsEgeFOmc1KWjhQX8DnYGcX9MsK7RoAE rdAD4EQHUuEYBcxORaSDVeYPWwBkB1TAVcOTwtUS6HvAGoGXhpIWDhNYBlYfKuPZFiXMUkECMbMJ1VVA OlF091qdJlTl8LQk0BHfFdBY2ban0DTdCjAHRmFcnUByi8DOurOR6RaXXsS8JkuQLfe4nCGnSeV1BFYZ PmLJKsSv8JHAHmTlTuOCEmPLkwBE3hOCSqAOODcFfi apT1JQ6EUP2jjzXiTY8VWbWrJr3lTu3SYgFwJ4ClH0DjRIIhKQOASTitEY9LRWMaESH4WBHtJSIwZPZR IeSoH01qCW3HB0Stb58gEtK7PUEkWqXeUXubMK66sUnmwiTafOFkdLrgQP0AQe6+DQplbmRvYmoNCnhy WVLCOoPxWfBQBnHzCFXzHWLrMCJnGiT7CnWfBq6XEH XzTWVjAYIdQdJmQKOsCXPyJXwtKVMsLMQhBBN8HOEhYEVuJS9SAaThAPAwBlI5AzCuFTQuVEXsmk9OVZ OaFYDlEOM3IJEvBHPqSGIpNOpiCOXqOZCyPyecYUBnIEOzMP1PHsEwSUErTKU5PeXaBGIzYKMqgs1ZYI PmMDRpSfu1UzEfJZAiYEHwYXskGJTqXYL0SIhaRPJs KZPsQK2UIjSmVMGhKMFcMMrkSKPlRAVbdl0YSPAhOUAwHUD7FYFvUEJeDYPfGUwqCMGaUWWlVeYwTOSx GYWxPU5AOxWxPGCpXOO0LCniWGPxVZKhdu6WBULpOCDcFRCuUIDhOMCkHHKtLVxjGKZuUDOjNEkpXLNr MLVwMU1RExEiASYzMMY9IUTwEBJdOCMmtv8TWQTrSZ HdDso2NYAzWAOeJLMlCNmbSJOwIRR3QVG2MISaKTVsGK0WYxDnYBWkAHdoTZQfWEKkIHEzte2ZSVGdNJ MrGVU3KGUiSWUgJZItYVdrOEHiJKW3EeP8JVMePLApZQ0ZQdYtJKOfNGk1RPWkBVXaDKTjxu5IAXYdRF BjUNF7SDVvHCVkSFCzVUlwGYYlPTK1GVv9PZKgKUOh IP0IQeNaYSJyCyQrRSBzJHUwIYBygb3YYDAyZNFiHPn1BTQyESIlCQSeNKsgCLUeUEYvIYi6ZNKgDJDm NR8RHoQuMWKfNzBjOVWcHJKcUGQidn6HVERaSOWpWXI4ZSRgGQGjAVTwRKriOEZuCAIsWJI7HCMzOHKo JK0GPkOnSYTpEbGvKSHaGMPfIFCzwz9DANHdBRFsTz YwTpTvIQBgKGEaQApqUQKjLYKfZJN3FOHfEDKpBD1VWzAqNWCeJuImIHIiSXBpRBQkzd9CSZIfIEUwSx OhGKCgHMCaGNTdQYbiQPOmBGX9SBwiKYNhHSFgZS5ABiSqPRueABSOMuu1BExiS4z8PXDbCn4FK6Hnl4 RtVzZeFXVAQLfoLV7gwpAeHBJzYm2AT9gLXipoSKT1 IWylUKKjZuquKYBhEzylVQJ2QgZ3RRJ1JgNaCy4vDKD1ASPmLDTjR1ArBXW6U2UhPYWxEIA2SzcqLens WRIqVtGsFT1DCy4AZtC6HGF9dEGhDf1EZoXgDwrXVdLcQP6DGUp= ID Date Data Source [id number] 03/31/2021 04:59:21 PM EDT [facility] Name Value Range Interpretation Code Description Data Criselda rce(s) Supporting Document(s) &PDF [facility] HWDYUj5pSsVCPqSh88/CJPwjALPwx8VdKQzoBJd5VRelFIOhD5LeoMbfJY8XI7kUTGdZCfTHAjNGAY2f oRX [file] E+DQogICAgICAgICAgICAgICAgICAgICAgICAgICAg ICAgICAgICAgICAgICAgICAgICAgICAgICAgICAgICAgICAgICAgICAgICAgICAgICAgICAgICAgICAg ICAgICAgICAgICAgDQogICAgICAgICAgICAgICAgICAgICAgICAgICAgICAgICAgICAgICAgICAgICAg ICAgICAgICAgICAgICAgICAgICAgICAgICAgICAgIC AgICAgICAgICAgICAgICAgICAgICAgDQogICAgICAgICAgICAgICAgICAgICAgICAgICAgICAgICAgIC AgICAgICAgICAgICAgICAgICAgICAgICAgICAgICAgICAgICAgICAgICAgICAgICAgICAgICAgICAgIC AgICAgDQogICAgICAgICAgICAgICAgICAgICAgICAg ICAgICAgICAgICAgICAgICAgICAgICAgICAgICAgICAgICAgICAgICAgICAgICAgICAgICAgICAgICAg ICAgICAgICAgICAgICAgDQogICAgICAgICAgICAgICAgICAgICAgICAgICAgICAgICAgICAgICAgICAg ICAgICAgICAgICAgICAgICAgICAgICAgICAgICAgIC AgICAgICAgICAgICAgICAgICAgICAgICAgDQogICAgICAgICAgICAgICAgICAgICAgICAgICAgICAgIC AgICAgICAgICAgICAgICAgICAgICAgICAgICAgICAgICAgICAgICAgICAgICAgICAgICAgICAgICAgIC AgICAgICAgDQogICAgICAgICAgICAgICAgICAgICAg ICAgICAgICAgICAgICAgICAgICAgICAgICAgICAgICAgICAgICAgICAgICAgICAgICAgICAgICAgICAg ICAgICAgICAgICAgICAgICAgDQogICAgICAgICAgICAgICAgICAgICAgICAgICAgICAgICAgICAgICAg ICAgICAgICAgICAgICAgICAgICAgICAgICAgICAgIC AgICAgICAgICAgICAgICAgICAgICAgICAgICAgDQogICAgICAgICAgICAgICAgICAgICAgICAgICAgIC AgICAgICAgICAgICAgICAgICAgICAgICAgICAgICAgICAgICAgICAgICAgICAgICAgICAgICAgICAgIC AgICAgICAgICAgDQogICAgICAgICAgICAgICAgICAg ICAgICAgICAgICAgICAgICAgICAgICAgICAgICAgICAgICAgICAgICAgICAgICAgICAgICAgICAgICAg FCPuKDFeRKNkRFYwRMObLPTcSBJdWNa7W6tiYITmTEHsAB3pEMw9Rq8+HVjTKpAmYZQ7zbOyrB0SWX1t a1TrVHzePFSeh4NuEWw5LX1ERCOxGDkyNH8AWOsvin 6KPMMkQACntWXUy4kmBpUbBOD5RDWpNnhtEZ8KQIBgQ5zuuyExGJWbTGXRZAcrDNCMPQ4CSiNbT6YatX 71VAICVy6+KMxkuoQyEdlSOaU5HNRay9HpXIb8SU9HPTNaISkoJG3UMOWjkD4hCEukTK0UDzOfISBhJO RXRwXiV82lwDLwEUw9I8RkBeIlHUQzPuwjQBNtQYpy TmFtZXMgWyBdDQogID4+ID4+CUklYX0TGDgkvlEaHRKyOc9NWERfMNC9WBJjnPUtIjRcFPJDHNelLQ2L rBZhJBK9iQ1fULtyIUTpAZCqK3jWIrNttDurQM26cJrqsyKuoNLaFJu+Kx8HCT0ba8OqLIl5wpBwMHjr GFO0CAzhJNOjDHSiWFHwXOY8UAH8TXPEGmMzFZZwRX BdCMhyYMJmYUNcry0HFQGjDTIsVXHwJZGhJOJtVIQiJCygUMFaFIE3YRjqBZDcCKXnBY0KPlNdQBQxUO IrZDHuHDFtRHSwsk9FKHVxPHItMhHaSoRmADVmUMBgLWyhKWVuKHSgRlW6ZVBrZBUxUB3PTpVdUFQdRP CaNOJuDOTuQSOyqj0XYOIkULNtDNSpDgHnVLWfNZQf ITyuUSDvJUL2JJD2BBOhUHQqFE5FZaIgKRWtFWNkPoEwBRAsKFHwzo8YQQVmOCIoYeN6TjTiZSFoJHVx RFppYYYgVXJ1WLZhQCSuSOKkLO5FHhAsDAZlTFf3AZDxLEFqCFRskg3SVYMbYGLbRbg4BlHgBMOzUDVu UJzsXTUaUBEcJqX6MWHkHCJiVP0TChEaXGNrHSJsPs GsZGGqLROvwn3DBCCyLPBwCnI6QjXmAUCxNEZmZTvxOZCxNKZtOJV8IKFjBDAiAV7NMcYpLYHzYRW3Um OmGNFoMMJrni8LZGRxHFZeEBRlKdDvAIGkLFDyPDnfJKZsWCX6IxblNNDsKDVjBG1WGnMiWGAcTAO1Xt NyEPOoCIWman7CRIKeMLObXFP6FQWqQNMxXHZzOSxr GLVkULW7Tyj5NRLyOKGfYO2AReXhLQBcZgF7IBSlQGAkALSrxb0UTITnXRYaGwT2RyAyRXJmLLGlZEe1 biCgqSJoEBu5ZH3AE5BeelJxWhjOKf7Xh388EKG9QKAeRu5XC8jrYr4uRJSrKTTYIz8SZAn5OBOfFeg2 ZBIbTHq5QAB0UUAgK8PjELAjKFM3LyLsOVI+IDw1YW NmNGG1CIK8HAR2XgX4ODUxLHDtS4U6GJToPQD4Uz4vRUTXUn2+PTkgjDMdhQikWHMFLeF4CNq2IZcjXW VPRg0K ID Date Data Source [id number] 03/11/2021 02:24:24 PM EDT [facility] NT INFORMATIONPatient MRN Name Date of Age Gend*PT [id number] Beau Salgado W 1940 80 years M IPPT Location Admission Date/Time Visit ID Attending [id number] 02/22/21 07 --- --- EPI ID CSN Admitting Provider [id number] Dorothy Cheng MD([id number]) Attestation signed by Dorothy Cheng MD at 03/11/2021 2:24 PMI saw and evaluated the patient and reviewed Cristobal's note. I agree withthe history, physical and medical decision making with the following additions,exceptions, and/or observationsSignature: CLAUDINE Willisate: March 11, 2021Time: 2:24 PM -----Physician Discharge Summary Beau SalgadoMRN: [id number] date: 02/22/2021ttending Physician: Dorothy Cheng MDAdmission Diagnosis: Nonrheumatic aortic (valve) stenosisSecondary Diagnoses: Principal Problem: Nonrheumatic aortic (valve) stenosisAdditional Problems: Hypertension BPH Bladder atoniaPrinciple Procedures:Transfemoral TAVR with a #29 mm Schmitt Erickson 3 valveIndication for Admission:80 years old white male with a history of cardiac murmur diagnosed approximately4 years ago who has been followed by his PCP until he was recently referred tocardiologist, Dr. Dueñas. On most recent routine evaluation with his primary it wasnoted that his murmur got louder. He was advised further cardiac work-up. He hadan echocardiogram that revealed his aortic stenosis had advanced to severe. Thepatient notes worsening fatigue and dyspnea on exertion. He was referred forTAVR and underwent all testing. His case was discussed at themulti-disciplinarystructural heart conference where the team agreed that thebest treatment for his severe aortic stenosis was TAVR.Hospital Course & Complications:The patient underwent TAVR on 02/22/21. Following the procedure he was SR on themonitor with a new 1st degree AVB but baseline RBBB. No bradyarrhythmias werenoted. His TVP was discontinued without any issues.On 02/23 the patient feels well. He has been ambulating without any issues. Hehad no bradyarrhythmias on telemetry. He had an echocardiogram that reveals anEF of 65%, no AI and an aortic MG of 13 mmHg. The patient will be discharged [place] today. He is being discharged on aspirin only. He will be foll owing up withDr. Dueñas on April 09. His PRN losartan was discontinued at this time as hisblood pressure has not been over 109 systolically today.Past Medical History:Past Medical History:Diagnosis Date Bladder atonia BPH (benign prostatic hyperplasia) Carotid artery occlusion Hypertension Nonrheumatic aortic (valve) stenosis Osteoarthritis Pneumonia 2018 Self-catheterizes urinary bladderMost Recent Labs:BMP:Lab ResultsComponent Value Date NA 144 02/23/2021 K 3.9 02/23/2021 CL 111 (H) 02/23/2021 CO2 27 02/23/2021 ANIONGAP 6 (L) 02/23/2021 CALCIUM 7.9 (L) 02/23/2021 GLU 90 02/23/2021 BUN 17 02/23/2021 CREATININE 0.87 02/23/2021 GFRAA >60 02/23/2021 GFRNONAA >60 02/23/2021BC without Diff:Lab ResultsComponent Value Date WBC 9.3 02/23/2021 RBC 3.61 (L) 02/23/2021 HGB 11.3 (L) 02/23/2021 HCT 33.0 (L) 02/23/2021 MCV 91.4 02/23/2021 MCH 31.2 02/23/2021 MCHC 34.1 02/23/2021 RDW 13.4 02/23/2021 PLT 142 (L) 02/23/2021 MPV 7.9 02/23/2021Medications:Your medication listSTART taking these medications Instructions Last Dose Given Morning Afternoon Evening Bedtime As Neededaspirin 81 MG EC tabletStart taking on: February 24, 2021 Take 1 tablet (81 mg total) by mouth dailyCONTINUE taking these medications Instructions Last Dose Given Morning Afternoon Evening Bedtime As NeededAdvanced Formula Eye Drops 0.05-0.1-1-1 % SolnGeneric drug: Pzfkakudrxa-Sfsquph-OPO-Povid Administer 1 drop to both eyes once dailyDaily Emiliano per tablet Take 1 tablet by mouth dailyfinasteride 5 MG tabletCommonly known as: PROSCAR Take 5 mg by mouth dailyMagnesium 500 MG Tabs Take 500 mg by m outh once dailymeclizine 25 MG tabletCommonly known as: ANTIVERT Take 25 mg by mouth 3 (three) times a day as needed for dizzinessOSTEO BI-FLEX JOINT SHIELD PO Take 1 tablet by mouth once dailytamsulosin 0.4 MG CapsCommonly known as: FLOMAX Take 0.4 mg by mouth dailySTOP taking these medicationslosartan 50 MG tabletCommonly known as: COZAARWhere to Get Your MedicationsThese medications were sent to [facility] [address] [place] [id number] aspirin 81 MG EC tabletDischarge Exam:Vitals: Temp: [97.4 F-98.7 F] 98.7 FHeart Rate: [71-95] 80Resp: [8-27] 22BP: (89-127)/(49-61) 107/53Arterial Line BP: (124-138)/(45-50) 124/45General appearance: alert, appears younger than stated age and cooperativeLungs: Clear to auscultation bilaterally. No wheezes, rales or rhonchi. No coughon exam.Heart: S1, S2 normal, soft systolic murmur, no click, rub or gallopAbdomen: Soft, nontender, bowel sounds present.Extremities: No edema in lower extremities.Wound/Incision: Bilateral groins clean, dry and intact. Right groin ecchymoticbut soft. Left groin soft and without hematoma.Discharged Condition:goodDisposition: Home or Self CareFollow Up: Dr. Dueñas on 04/09Signature: April Jain, NPDate: February 23, 2021Time: 12:52 PM Name Value Range Interpretation Code Description Data Criselda rce(s) Supporting Document(s) ID Date Data Source [id number] 02/24/2021 06:52:00 PM EDT [facility] Name Value Range Interpretation Code Description Data [facility] rce(s) Supporting Document(s) SARS coronavirus 2 RNA [Presence] in Res piratory specimen by KIRAN with probe detection NEGATIVE [facility] This lab was ordered by [facility] a nd reported by [facility]. ID Date Data Source [id number] 02/23/2021 10:09:42 AM EDT [facility] Name Value Range Interpretation Code Description Data Criselda rce(s) Supporting Document(s) SODIUM 144 mmol/L (136-145) [facility] POTASSIUM 3.9 mmol/L (3.6-5.2) [facility] CHLORIDE 111 mmol/L (100-108) H [facility] CO2 27 mmol/L (22-31) [facility] ANION GAP 6 mmol/L (7-16) L [facility] UREA NITROGEN 17 mg/dL (7-24) [facility] CREATININE 0.87 mg/dL (0.80-1.30) [facility] BUN/CREAT RATIO 19.5 RATIO (10.0-20.0) [facility] GLUCOSE 90 mg/dL (70-99) [facility] CALCIUM 7.9 mg/dL (8.4-10.2) L [facility] GFR >60 ml/min/1.73m2 (>59) [facility] GFR ( AMER) >60 ml/min/1.73m2 (>59) [facility] GFR INTERPRETATION [facility] --NORMAL KIDNEY FUNCTION OR MILD DISEASE - GFR >OR= 60CHRONIC KIDNEY DISEASE - GFR 15 - 59RENAL FAILURE - GFR <15 Est. GFR calculation based on the MDRDstudy equation, which assumes a steadystate for creatinine. Est. GFR should notbe used for medication dosing. ID Date Data Source [id number] 02/23/2021 09:42:08 AM EDT [facility] Name Value Range Interpretation Code Description Data Criselda rce(s) Supporting Document(s) WBC 9.3 10*3/uL (4.1-11.0) [facility] RBC 3.61 10*6/uL (4.60-6.10) L [facility] HGB 11.3 g/dL (13.5-18.0) L [facility] HCT 33.0 % (41.0-53.0) L [facility] MCV 91.4 fL (80.0-95.0) [facility] MCH 31.2 pg (27.0-32.0) [facility] [place] [facility] MCHC 34.1 g/dL (32.0-36.0) [facility] [place] [facility] RDW 13.4 % (10.5-14.5) [facility] [place] [facility] PLT 142 10*3/uL (150-450) L [facility] [place] [facility] MPV 7.9 fL (7.1-10.7) [facility] [place] [facility] ID Date Data Source [id number] 02/22/2021 12:58:19 PM EDT [facility] Name Value Range Interpretation Code Description Data Criselda rce(s) Supporting Document(s) [facility] SIAIWx7hCcHVCdSzz4PwEbZzLRVkWY4mqjn0D5A9rBLyI7UozXHrn3feN6NoK8EbQBDdHRRKXB7VtBQw jb2 [file] 23j671d407fPa65G29/6ZlRF1CchAS1oErc8921+2vd36PU38/dB1105y7X1j25k8x8Tt03nA37rJIp9 ANQ3gNd//CCc5X/8uXd8kKP7ynja152+pI0eGd4rAS 1Yt/+53k3/Tq+pv7w+XN/bYbf1k4okmIy95hQi949nZa221vQYKti/jb3/945DAim05oHH3uY177Orzj L10+yre8p0999bQ19kdIEib/984f++WF83oA3k2aO1r60579ZV5zHGg+qhcj67xr64Pm/M9t36t78/Business Support Associate [file] YbSuoFBl6Hk7WceyV4ccQwKnU7BjNdFjKuCL4K ID Date Data Source [id number] 02/22/2021 12:52:15 PM EDT [address] [address]Aj[place]uc[place] Name: BEAU JACQUESB: 1940Sex: MOrdering Provider: APRIL Maxwell Prov: APRIL Brar Provider: Procedure Performed: / XR CHEST PORTABLEExam Date: 02/22/2021 12:50MRN: [id number] Number: [id number] Class: InpatientAccount #: [id number] Exam: Post TAVR procedureTechnique: Single AP view obtained.Comparison: NoneFindings: There appears to be transvenous pacemaker lead overlying the base of the heart. Calcification thoracic aorta. No mediastinal widening. Lungs are clear. No pneumothorax. No pleural effusion.IMPRESSION: No acute disease of the chest.Report electronically signed by: ULISES JENNINGS On 02/22/2021 12:52 PMWorkstation ID: [id number] Name Value Range Interpretation Code Description Data Criselda rce(s) Supporting Document(s) ID Date Data Source [id number] 02/22/2021 03:09:59 PM EDT [facility] [place] [facility] Name Value Range Interpretation Code Description Data Criselda rce(s) Supporting Document(s) MAGNESIUM 2.3 mg/dL (1.7-2.4) [facility] [place] [facility] ID Date Data Source [id number] 02/22/2021 03:09:59 PM EDT [facility] [place] [facility] Name Value Range Interpretation Code Description Data Criselda rce(s) Supporting Document(s) SODIUM 144 mmol/L (136-145) [facility] [place] [facility] POTASSIUM 4.0 mmol/L (3.6-5.2) [facility] [place] [facility] CHLORIDE 111 mmol/L (100-108) H [facility] [place] [facility] CO2 27 mmol/L (22-31) [facility] [place] [facility] ANION GAP 6 mmol/L (7-16) L [facility] [place] [facility] UREA NITROGEN 14 mg/dL (7-24) [facility] [place] [facility] CREATININE 0.78 mg/dL (0.80-1.30) L [facility] [place] [facility] BUN/CREAT RATIO 17.9 RATIO (10.0-20.0) [facility] GLUCOSE 77 mg/dL (70-99) [facility] [place] [facility] CALCIUM 7.8 mg/dL (8.4-10.2) L [facility] [place] [facility] GFR >60 ml/min/1.73m2 (>59) [facility] [place] [facility] GFR ( AMER) >60 ml/min/1.73m2 (>59) [facility] [place] [facility] GFR INTERPRETATION [facility] [place] --NORMAL KIDNEY FUNCTION OR MILD DISEASE - GFR >OR= 60CHRONIC KIDNEY DISEASE - GFR 15 - 59RENAL FAILURE - GFR <15 Est. GFR calculation based on the MDRDstudy equation, which assumes a steadystate for creatinine. Est. GFR should notbe used for medication dosing. ID Date Data Source [id number] 02/22/2021 02:53:41 PM EDT [facility] [place] [facility] Name Value Range Interpretation Code Description Data Criselda rce(s) Supporting Document(s) PT 11.9 s (9.2-11.9) [facility] [place] [facility] PER[facility]MED AT [address] [place] [address] N Y [address] INR 1.14 [facility] [place] [facility] SUGGESTED THERAPEUTIC RANGES USING INR F ORSTABILIZED ANTICOAGULATED PATIENTS:STANDARD DOSE THERAPY INR 2.0-3.0 DVT, PE, PREVENT DVT OR EMBOLISMHIGH DOSE THERAPY INR 2.5-3.5 PREVENT EMBOLISM FROM MECHANICAL HEART VALVE ID Date Data Source [id number] 02/22/2021 02:39:26 PM EDT [facility] Name Value Range Interpretation Code Description Data Criselda rce(s) Supporting Document(s) WBC 7.3 10*3/uL (4.1-11.0) [facility] [place] [facility] [place] RBC 3.83 10*6/uL (4.60-6.10) L [facility] [place] [facility] HGB 11.8 g/dL (13.5-18.0) L [facility] [place] [facility] [place] HCT 35.1 % (41.0-53.0) L [facility] [place] [facility] MCV 91.5 fL (80.0-95.0) [facility] [place] [facility] MCH 30.8 pg (27.0-32.0) [facility] [place] [facility] MCHC 33.6 g/dL (32.0-36.0) [facility] [place] [facility] RDW 13.5 % (10.5-14.5) [facility] [place] [facility] PLT 146 10*3/uL (150-450) L [facility] [place] [facility] MPV 7.6 fL (7.1-10.7) [facility] [place] [facility] ID Date Data Source [id number] 02/22/2021 12:12:51 PM EDT [facility] INFORMATIONPatient MRN Name Date of Age Gend*PT [id number] Beau Salgado 1940 80 years M IPPT Location Admission Date/Time Visit ID Attending [id number] 02/22/21 0711 --- Dorothy Cheng MD([id number]) EPI ID CSN Admitting Provider [id number] Dorothy Cheng MD([id number])TRANSCATHETER AORTIC VALVE REPLACEMENTCardiovascular and Thoracic Surgery Operative ReportDate of Procedure: 02/22/2021 Patient's PCP: NALDO CARTERatient Name: Beau Salgado 80 years maleDate of :1940MRN: [id number]: [id number]: [facility] Note Date and Time: 02/22/2021 12:08 PMDate of Admission: 02/22/2021 7:11 AMPreoperative diagnoses:1. Aortic stenosis, severePostoperative diagnoses:1. Aortic stenosis, severeProcedure:1. Percutaneous access bilateral common femoral artery with 6 Swedish sheath2. Perclose placement 2 right common femoral artery3. Placement of right common femoral artery 16 Swedish E sheath4. Aortic root angiogram5. Placement of 29 mm Erickson 3 aortic valve6. Aortic valve balloon valvuloplasty with Erickson 3 balloonInterventional Sprinkler Fitter:ROWENA Willisardiac Surgeon:Rylan Hernandezthesia:Tip Provider(s):Anesthesiologist: ROSIBEL Pinedatmary Nurse Grey Stock Recorder: Winifred GaethlePerfusionist: Werner Scott CCPEstimated Blood Loss:100 mL.Implants:Implants Implant Valve,Thv,Erickson 3,29mm W/Comm - [id number] - Implanted Aorta Inventory item: VALVE,THV,ERICKSON 3,29MM W/COMM Model/Cat number: [id number] Serial number: [id number] Computerized Mill Mill Recorder: Jascha Lot number: [id number]:Post deployment valve well seated with mild PVL which improved after postdilation with 1 extra cc added to the Erickson balloon.Fluoroscopy Time / Contrast Volume:Please see scanned [address] Operator Report.Description of Procedure:After informed consent was obtained and the surgical site was confirmed, thepatient was brought into the operating room and placed supine on the operatingtable. The patient was then given preoperative antibiotics. A temporary pacingwire was then placed through the Right IJ venous sheath and floated into theright ventricle. The patient was prepped with surgical prep and sterile drapeswere applied.Both common Femoral Arteries were accessed and 6 Swedish sheaths placed. Theright sheath was then removed over a guidewire, and two separate Perclosedevices were then placed. An 8 Swedish sheath was then placed. The patient washeparinized with 100 units/kg of heparin.Capture was confirmed with the pacemaker. A pigtail catheter was placed throughthe left arterial sheath. It was placed up into the non coronary sinus. Theaortic root arteriogram was obtained. The deployment angle for the imagingsy stem was confirmed.A Lunderquist stiff wire was placed through the right arterial sheath. The 8French sheath was removed and a 16 Swedish E sheath was placed over the stiffwire.Then JR4 catheter was then placed from the right side. A straight wire was thenused to cross the valve. JR4 was then advanced into the ventricle and Safariwire was then advanced to the apex.A timeout was performed confirming the appropriate valve and the orientation ofthe Valve in the delivery device. The delivery device was then placed over theSuper Stiff wire. Once the delivery device was in the descending aorta the valvewas positioned over the balloon. The valve and delivery device were thenadvanced around the aortic arch into position.The heart was paced at 170 bpm. The valve was fully deployed. The balloon wasinflated for 4 seconds. Once the ballon was deflated, the delivery system wasremoved.Transesophageal echocardiogram showed good position of the valve, there was mildPVL. Post dilation then performed with 1 extra cc added to the Erickson balloon.The delivery system was completely removed from the patient. The 2 Perclose weredeployed, however there was still significant bleeding from the artery. A thirdPerclose was deployed, then pressure was held. The patient was given protamineto reverse the heparin.Sheaths and catheters were then removed from the left groin and femoral arteryclosed with one Perclose.All sponge and needle counts were correct. The patient tolerated the procedurewell and was transferred to PACU in stable condition.Tommy Pinon MD [facility] FACSCardiovascular Thoracic Surgery02/22/2021, 12:08 PM Name Value Range Interpretation Code Description Data Criselda rce(s) Supporting Document(s) ID Date Data Source [id number] 02/22/2021 11:57:01 AM EDT [facility] NT INFORMATIONPatient MRN Name Date of Age Gend*PT [id number] Beau Salgado 1940 80 years M IPPT Location Admission Date/Time Visit ID Attending ProviderCV-11 02/22/21 0711 --- Dorothy Cheng MD([id number]) EPI ID CSN Admitting Provider [id number] Dorothy Cheng MD([id number])[facility]. [facility] CARDIOVASCULAR [id number] [place] [id number] CARDIAC CATHETERIZATION Preoperative diagnosis: Severe symptomatic aortic stenosisPostoperative diagnosis severe symptomatic aortic stenosisReferring Physician: Dr. Lind Surgeon: Dr. Thorne-surgeon: Dr. Pinon Anesthesia: Dr. AriastermanAnesthesia type: MAC Brief Cardiolab NotePatient Name: Beau Salgado of : 1940 Age 80 yearsPrimary Physician: SARAH LIND MD PCP [place] of Surgery: 02/22/2021 Cargo Service Supervisor: Dorothy Cheng MD Data Processing Mechanic(s): None CCS Functional Classification: None History:This is a pleasant 80-year-old gentleman with history of hypertension, carotidartery disease, BPH, who was found to have severe symptomatic aortic stenosiswith a peak and mean gradient of 72 and 40 mmHg effectively valve area of 1.0cm and preserved ejection fraction with normal coronary arteries. Patient wasreferred for our TAVR programRisk/benifit/alternative of TAVR procedure was discussed with patient/family.Risks included, but not limited to; MN, CVA, , renal impairment, vascularcomplication, and need for emergency surgery were discussed and accepted bypatient. Findings/Intervention Procedures: 1. successful percutaneous transfemoral TAVR using a 29 millimeter Erickson 3valve via right femoral approach TECHNIQUE: The patient was brought to the operating room in a fasting state.Bilateral femoral access was obtained.Temporary transvenous pacer was placed by anesthesia via an IJ approachTwo pre Perclose suture was deployed in the right femoral artery.A 6 Swedish pigtail catheter was advanced through the left femoral artery .The aortic valve was crossed with a JR4 catheter and a Confida wire was advancedto the left ventricular apex.BAV was now performedThe 29 millimeter Erickson valve was advanced and was deployed under rapid pacingsuccessfully.Post deployment LILLIAM revealed mild PVL. 1 cc of diluted contrast was added andpost dilatation was performed. Final LILLIAM revealed trivial to mild residual PVLand due to the shunt of calcium at the aortic annulus we elected not to proceedwith any further balloon dilatation to avoid the risk of rupture.. Theprocedure was therefore deemed successful.The 2 pre Perclose suture on the right side with sutured with excellenthemostasis,Likewise another Perclose was deployed in the left femoral artery with excellenthemostasis.The patient tolerated the procedure very well Primary Access Site: right femoral arteryClosure: Perclose Estimated Blood Loss: NoneComplications: NoneSedation: Fentanyl and VersedSpecimens: NoneImplants: 29 mm Erickson 3Contrast Used: see scanned cath report document under the media tab. Plan: The patient will be admitted and treated according to the post TAVR protocolThe above was discussed with the Tommy Cheng MD02/22/2021 11:54 AM Name Value Range Interpretation Code Description Data Criselda rce(s) Supporting Document(s) ID Date Data Source [id number] 02/22/2021 11:58:32 AM EDT [facility] [place] [facility] Name Value Range Interpretation Code Description Data Criselda rce(s) Supporting Document(s) POC ACT 136 s (80-140) [facility] [place] [facility] PERFORMED BY [facility] CLINICAL STAFF ID Date Data Source [id number] 02/22/2021 11:47:57 AM EDT [facility]PAT[facility] NT INFORMATIONPatient MRN Name Date of Age Gend*PT [id number] Beau Salgado 1940 80 years M IPPT Location Admission Date/Time Visit ID Attending Provider --- --- --- --- EPI ID CSN Admitting Provider [id number] ---Arterial Line PlacementPatient location during procedure: CV hybrid roomIndications for arterial line: multiple ABGs and hemodynamic monitoringStaffingPerformed by: Chloe Casarez MDApproved by: ROWENA Pinedaompleted: patient identified, risks and benefits discussed, surgical consentobtained, anesthesia consent obtained, monitors and equipment checked, pre-opevaluation completed, timeout performed, patient was prepped and draped in usualsterile fashion,Arterial Line InsertionSite prep: chlorhexidineAnesthesia: local infiltr ationLocal anesthetic: lidocaine 1% without epinephrineLaterality: rightLocation: radial arteryNeedle gauge: 20 GTechnique: Seldinger technique usedNumber of attempts: 1AssessmentSutured: noDressing: Bio patch appliedPatient tolerance: tolerated well Name Value Range Interpretation Code Description Data Criselda rce(s) Supporting Document(s) ID Date Data Source [id number] 02/22/2021 11:47:57 AM EDT [facility]PAT[facility] NT INFORMATIONPatient MRN Name Date of Age Gend*PT [id number] Beau Salgado W 1940 80 years M IPPT Location Admission Date/Time Visit ID Attending Provider --- --- --- --- EPI ID CSN Admitting Provider [id number] ---Central Line InsertionPatient location during procedure: CV hybrid roomIndications for central line: temporary pacing and vascular accessStaffingPerformed by: Chloe Casarez MDApproved by: Shahana Pinedaleted: patient identified, risks and benefits discussed, surgical consentobtained, anesthesia consent obtained, monitors and equipment checked, pre-opevaluation completed, timeout performed, patient was prepped and draped in usualsterile fashion,Central LineCatheter type: IntroducerCVC type: non-tunnelledNeedle gauge: 18 GCatheter size: 7.5 FrSite prep: chlorhexidine gluconateLaterality: rightLocation: internal jugularTechnique: CVC inserted using ultrasound guidanceProcedure: Catheter inserted and manometry was performed, Guidewire passedthrough the catheter and No arrythmiasAssessmentPlacement verification: UltrasoundAssessment: other (comment)Additional NotesModerate right side neck hematoma after puncture of non-carotid, arterialvessell, pressure held, mild tracheal deviation, no airway compromise noted Name Value Range Interpretation Code Description Data Criselda rce(s) Supporting Document(s) ID Date Data Source [id number] 02/22/2021 11:47:57 AM EDT [facility]PAT[facility] NT INFORMATIONPatient MRN Name Date of Age Gend*PT [id number] Beau Salgado W 1940 80 years M IPPT Location Admission Date/Time Visit ID Attending Provider --- --- --- --- EPI ID CSN Admitting Provider [id number] ---Introducer AdditionsPatient location during procedure: CV hybrid roomIndications for introducer addition: Temporary pacingStaffingPerformed by: Chloe Casarez MDApproved by: Josiah Pinedad: patient identified, risks and benefits discussed, surgical consentobtained, anesthesia consent obtained, monitors and equipment checked, pre-opevaluation completed, timeout performed, patient was prepped and draped in usualsterile fashion,Introducer AdditionsIntroducer addition: Transvenous PacerInsertion depth (cm): 35Introducer placed: At time of introducer additionPacing wires procedure: Pacing wire was introduced, Pacing box set at VOO andWire was advanced using balloon flow directed method until ventricular capturewas notedType of pacing wires: VentricularPacing box rate: 90Pacing threshold obtained at: 0AssessmentSecurement method: suturedPlacement verification: fluoroscopyAssessment: tolerated well Name Value Range Interpretation Code Description Data Criselda rce(s) Supporting Document(s) ID Date Data Source [id number] 02/22/2021 11:42:16 AM EDT [facility] Name Value Range Interpretation Code Description Data Criselda rce(s) Supporting Document(s) &PDF [facility] TLKSYc7aRlHYGfPj32/PFPkgIDKfw6YjMCloMFv9RMkcKKFnL7SccFloFR8CL5uKKDoJQfZLSfLWXE7v FcG [file] XlZ7MYRbZRR+FC4tAVm+Cb4Mn2IlrgC3qtGrUIurPHHrWC8RDFIGI1EWVu== ID Date Data Source [id number] 02/22/2021 11:31:29 AM EDT [facility] [place] [facility] Name Value Range Interpretation Code Description Data Criselda rce(s) Supporting Document(s) POC ACT 125 s (80-140) [facility] [place] [facility] CLINICAL STAFF ID Date Data Source [id number] 02/22/2021 10:36:59 AM EDT [facility] [place] [facility] Name Value Range Interpretation Code Description Data Criselda rce(s) Supporting Document(s) POC TEMPERATURE [facility] [place] [facility] 37.0C POC SOURCE [facility] [place] [facility] POC FIO2 100 [facility] [place] [facility] CP BYPASS [facility] [place] [facility] POC PH 7.34 pH (7.35-7.45) L [facility] [place] [facility] POC PCO2 52.6 MMHG (32.0-48.0) H [facility] [place] [facility] POC PO2 139 MMHG (83-108) H [facility] [place] [facility] POC SAT O2 99 % (95-99) [facility] [place] [facility] POC BASE EXCESS 2 MMOL/L (0-3) [facility] [place] [facility] POC HCO3 28.5 MMOL/L (21.0-29.0) [facility] [place] [facility] POC TOTAL CO2 30 MMOL/L (23.0-32.0) [facility] [place] [facility] CLINICAL STAFF POC HCT 34 % (41.0-53.0) L [facility] [place] [facility] POC SODIUM 143 MMOL/L (136-145) [facility] [place] [facility] POC POTASSIUM 3.9 MMOL/L (3.6-5.2) [facility] [place] [facility] POC IONIZED CALCIUM 5.0 MG/DL (4.6-5.3) [facility] POC GLU 89 MG/DL (70-99) [facility] [place] [facility] PER[facility] [place] [facility] ID Date Data Source [id number] 02/22/2021 10:37:25 AM EDT [facility] [place] [facility] Name Value Range Interpretation Code Description Data Criselda rce(s) Supporting Document(s) POC ACT 136 s (80-140) [facility] [place] [facility] CLINICAL STAFF ID Date Data Source [id number] 02/22/2021 08:04:56 AM EDT [facility]PAT[facility] NT INFORMATIONPatient MRN Name Date of Age Gend*PT [id number] Beau Salgado W 1940 80 years M IPPT Location Admission Date/Time Visit ID Attending ProviderCV-11 02/22/21 0711 --- Dorothy Cheng MD([id number]) EPI ID CSN Admitting Provider [id number] Dorothy Cheng MD([id number])Updated H&PPlease see the scanned/dictated outpatient note.I have reviewed the note, clinical history and physical exam findings. Therehave been no significant changes.Plan as outlined in the outpatient note.Risk/benifit/alternative of TAVR was discussed with patient/family. Risksincluded, but not limited to; MN, CVA, , renal impairment, vascularcomplication, and need for emergency surgery were discussed and accepted bypatient.Dorothy Cheng MD, [facility], [facility]ITALInterventional Sprinkler Fitter Name Value Range Interpretation Code Description Data Criselda rce(s) Supporting Document(s) ID Date Data Source [id number] 02/22/2021 07:52:57 AM EDT [facility] [place] karma LEGGETT Name Value Range Interpretation Code Description Data Criselda rce(s) Supporting Document(s) POC NOVA GLU 92 mg/dL (70-99) [facility] [place] Carlos Eduardo COE PERFORMED BY [facility] CLINICAL STAFF ID Date Data Source [id number] 02/26/2021 02:06:57 AM EDT Lab [facility] SPEC EXP DATE 02/25/2021TEST ING SITE PERFORMED AT [address] [place] [address] [id number] NUMBER [id number] COMPONENT TYPE LEUKOPOOR RED CELLSUNIT DIVISION 00STATUS OF UNIT REL FROM ALLOCTRANSFUSION STATUS OK TO TRANSFUSECROSSMATCH RESULT COMPATIBLEUNIT NUMBER [id number] COMPONENT TYPE LEUKOPOOR RED CELLSUNIT DIVISION 00STATUS OF UNIT REL FROM ALLOCTRANSFUSION STATUS OK TO TRANSFUSECROSSMATCH RESULT COMPATIBLEUNIT NUMBER [id number] COMPONENT TYPE LEUKOPOOR RED CELLSUNIT DIVISION 00STATUS OF UNIT REL FROM ALLOCTRANSFUSION STATUS OK TO TRANSFUSECROSSMATCH RESULT COMPATIBLEUNIT NUMBER [id number] COMPONENT TYPE LEUKOPOOR RED CELLSUNIT DIVISION 00STATUS OF UNIT REL FROM ALLOCTRANSFUSION STATUS OK TO TRANSFUSECROSSMATCH RESULT COMPATIBLE Name Value Range Interpretation Code Description Data Criselda rce(s) Supporting Document(s) TRANSFUSE RED CELLS [facility] TESTING SITE PERFORMED AT [address] [place] [address]2015 ID Date Data Source [id number] 02/19/2021 02:21:32 PM EDT [facility]PAT[facility] NT INFORMATIONPatient MRN Name Date of Age Gend*PT [id number] Beau Salgado 1940 80 years M OPPT Location Admission Date/Time Visit ID Attending Provider --- --- --- Dorothy Cheng MD([id number]) EPI ID CSN Admitting Provider [id number] ---HISTORY PHYSICALName: Beau Salgado : 1940 Sex: male [facility] Physician: Dr. Beanformant: The patient who is reliable.Chief Complaint: "I need heart surgery."HISTORY OF PRESENT ILLNESS: 80 years old white male with a history of cardiacmurmur diagnosed approximately 4 years ago. Patient states that has beenfollowed by his PCP until he was recently referred to casting and locker room servicer, Dr. Dueñas. Onmost recent routine evaluation with his primary it was noted that his murmur gotlouder. He was advised further cardiac work-up. He underwent echo on 11/19/2020.Echo estimates ejection fraction 65%. If found severe aortic stenosis with apeak gradient of 72 mmHg and mean gradient of 40 mmHg. Patient's cardiaccatheterization was on 01/21/2021 which vessels to be angiographically normal.Patient reports increasing fatigue over the last year. He reports he reportsminimal dyspnea with excessive exertion. He denies any shortness of breath atrest or chest pain/pressure/tightness.The patient met with Dr. Dina real, options were discussed and they have electedto under go transcatheter aortic valve implant femoral on 02/22/2021.PAST MEDICAL HISTORY:Past Medical History:Diagnosis Date Bladder atonia BPH (benign prostatic hyperplasia) Carotid artery occlusion Hypertension Nonrheumatic aortic (valve) stenosis Osteoarthritis Pneumonia 2018 Self-catheterizes urinary bladderPAST SURGICAL HISTORY:Past Surgical History:Procedure Laterality Date ANAL FISSURECTOMY CARDIAC CATHETERIZATION N/A 01/21/2021 Procedure: CATHETERIZATION, HEART, LEFT; Surgeon: Dorothy Cheng MD;Laterality: N/A; CATARACT EXTRACTION, BILATERALALLERGIES: No Known Drug AllergiesMEDICATIONS:Prior to Admission medicationsMedication Sig Start Date End Date Taking? Authorizing ProviderDaily Emiliano (THERAGRAN) per tablet Take 1 tablet by mouth daily HistoricalProvider, finasteride (PROSCAR) 5 MG tablet Take 5 mg by mouth daily HistoricalProviMD marclosartan (COZAAR) 50 MG tablet Take 25 mg by mouth daily as needed (for high bp)Historical Provider, MDMagnesium 500 MG TABS Take 500 mg by mouth once daily Historical Provider, Lynneeclizine (ANTIVERT) 25 MG tablet Take 25 mg by mouth 3 (three) times a day asneeded for dizziness Historical Provider, LYNNEisc Natural Products (OSTEO BI-FLEX JOINT SHIELD PO) Take 1 tablet by mouthonce daily Historical Provider, tamsulosin (FLOMAX) 0.4 MG CAPS Take 0.4 mg by mouth daily HistoricalProvider, ZXVfumxnrxlqr-Xmlnpjq-YIK-Povid (Advanced Formula Eye Drops) 0.05-0.1-1-1 % SOLNAdminister 1 drop to both eyes once daily Historical Provider, hydrochlorothiazide (HYDRODIURIL) 25 MG tablet Take 25 mg by mouth daily 02/19/21Historical Provider, ROSIBELocial HistoryTobacco Use Smoking status: Never Smoker Smokeless tobacco: Never UsedVaping Use Vaping Use: Never usedSubstance Use Topics Alcohol use: Never Drug use: NeverFamily HistoryProblem Relation Age of Onset Malig Hyperthermia Neg HxREVIEW OF SYSTEMS:Constitution: Weight stable. Denies fever or chills. Caffeine intake: 2cups/day. He has fatigue.HEENT: He wears glasses. Denies any blurred vision, double vision, dizziness,tinnitus, dysphagia or headaches.Respiratory: Denies any shortness of breath at rest, he is getting minimaldyspnea with excessive exertion. Denies cough, yellow sputum production orwheezing.Cardiovascular: Denies any chest pain, pressure or tightness. Denies anyparoxysmal nocturnal dyspnea or orthopnea.Muscle/Skeletal System: Reports neck pain that radiates into his scalp andshoulders. Additionally reports right knee and right foot pain.Neurologic: Right medial thigh numbness. Denies any tingling, tremors orsyncope.GI: Denies any nausea, vomiting, diarrhea, constipation or melena.: Denies any dysuria, hematuria or nocturia.Endocrine: Denies polyuria, polydipsia or polyphagia. Denies any heat or coldintolerance or night sweats.Hematology: Denies any bleeding or bruising tendencies.DNR Status: Full Code per the patient.HCP: No per patient.PHYSICAL EXAM:General: He is a 80 years old, pleasant white male, in no acute distress at timeof examination. Vitals on arrival to the office are BP 111/69 (BP Location: Leftupper arm, Patient Position: Sitting) | Pulse 76 | Temp 96.7 F (Skin) | Resp18 | Ht 1.803 m (5' 11") | Wt 80.9 kg (178 lb 4.8 oz) | SpO2 99% | BMI 24.87kg/m Body mass index is 24.87 kg/m ..Skin is pink warm and dry.HEENT: He is normocephalic, atraumatic. [place] conjunctivae. Anicteric sclerae.Pupils are equal, round, reactive to light and accommodation. Extraocularmovements are intact. Ears: Without drainage or lesion. Mouth: Dentition is ingood repair. He has a grade 1 airway. Neck is supple midline without cervicaladenopathy. There is no tonsillo pharyngeal c ongestion. Mucous membranes aremoist. There are no oral lesions. No jugular distention. No carotid bruit.CHEST/BREAST: A/P less than transverse. Breast exam declined.LUNGS: Clear to auscultation. No wheezes, rhonchi or crackles.HEART: Rate rhythm regular. 3/6 murmur, best heard at second intercostal spaceright sternal border.ABDOMEN: Bowel sounds positive times four. Soft, non tender. No reboundtenderness. No hepatosplenomegaly. Negative CVAT.GENITAL/RECTAL: Deferred.MUSCLE/SKELETAL: Strength is 5/5. Digital Media Designer are equal.NEUROLOGICALLY: Cranial nerves II through XII are grossly intact.VASCULAR: Pulses are symmetrical. No edema.Anesthesia complications: DeniesSteroid use: He denies any oral steroid therapy for three weeks or greaterwithin the last 3 months.CSHA Frailty Scale :: 4/10 Vulnerable (while not dependent on others for dailyhelp, often symptoms limit activities. A common complaint is being "slowed up",and /or being tired during the day).Stop Bang Questionnaire - Total Score:STOP-Bang Total Score: 4IMPRESSION and PLAN:Primary Diagnosis: Nonrheumatic aortic valve stenosis surgery as per .Secondary Diagnosis and Plan:1. Hypertension Continuation of prior to admission anti-hypertensivemedications unless precluded by clinical status.2. BPH Monitor for post operative urinary retention, using bedside bladderscanning if needed3. GI prophylaxis Per surgeon4. DVT prophylaxis Early ambulation. Pneumatic compression device.Subcutaneous Heparin or LMW Heparin if clinically indicated5. Self catheterizes urinary bladderBased on above medical co morbidities, length of stay may be prolonged greaterthan previously anticipated.ALLERGIES:Patient has no known drug allergies.02/19/2021 2:21 PMCheryle Saleh NP*This document or parts of this document, were dictated using One[employer] Virtual software. A reasonable attempt at proofreading has beenmade to minimize errors. Please call with any questions or corrections. Name Value Range Interpretation Code Description Data Criselda rce(s) Supporting Document(s) ID Date Data Source [id number] 02/19/2021 11:39:14 AM EDT [facility] Name Value Range Interpretation Code Description Data Criselda rce(s) Supporting Document(s) EKG [facility] MRCYSl7dYtDHCpTps6FuKuWjHLNyLC0upsc2P0G5jCDzU3JxzRFah8tcW3BdN0IrYKWzLIKSZR1VlOTi jb2 [file] jxAxp+1N4A7g/qZiRTaB0bJjWCNhynC+WRyb6C8Lg0eds8x/Size Painter+/0N/Oca5+nSdsTimO+h+1gCyxwp2/ [file] biV97eiajjt3TCw4j/saqzz1Al5ymvWin64hMqqFu04F46/iu4/web development intern/RrhS6ceVyG9fJyRreCOJWyJ9Jj nM1Q8lToOOBo5Dgd6HJ0A/KptzbA3R1MfnBrN/OfYhwMu9h7nRxlLdcy7hZKfm87Oty/XPvNjh+ugGvH j+6YK3d8z5Iq1f646b1i7RczgyPeObpeWnTWUlvYSo m0PcNe2/HjnSE/brS72Gu+vzob05H1yf+8O6e9NXn9vrfggtYriNiVEnLNE76+M9/7YbLzgNR3cOcb+e 7J76acqH3OzH8fVrIzxJ0OsE5nNzUhlT1EwD8tPiBmd86QSTzsZQP6q67Amr+urNtKF2qYhdSC98tZ5p YxTlyRbtpseaelzdDftwsybXelnwW0Lar/Uag5zbZg htcjMbv5FA4qAY+x1rYDfthuC9m3B51lOkdjHRz4oiiC9bgWqiy3IiIwho6MoCrfcdU2nwtPcI+mqxT3 1yXEGMps4okp6kjYZO/vYStFl3xxcsuA7Nh37Z9KL41z/cfO0K+cNI3pqrvVxw5Kji58n3n5/6LcA26i tX1L4KqckSikCah3Hr5WkRaX3WDN+0H9B/305ce+23 /quintanilla/3Hvtt/6Ze4o59hd+a3mr11tQWl2Hiv1+U4HpQqmv7j/aS6x3kN9Cx4XkKZ0X/DwvJCG6wBil1tlU [file] ID Date Data Source [id number] 02/20/2021 11:25:09 AM EDT [facility] [place] [facility] Name Value Range Interpretation Code Description Data Criselda rce(s) Supporting Document(s) SPECIMEN DESCRIPTION [facility] STAPH SCREEN RESULTS (ONEGSA) [facility] COMMENT [facility] [place] [facility] GENE TO DETECT STAPH AUREUS. (2) RT-P CR WAS PERFORMED FOR THE mecA AND SCCmec GENES TO DETECT METHICILLIN RESISTANCE IN STAPH AUREUS. ID Date Data Source [id number] 02/20/2021 07:53:31 AM EDT [facility] [place] [facility] SPECIMEN DESCRIPTION MIDSTREAM UR INE,CLEAN CATCHCULTURE RESULTS NO GROWTHREPORT STATUS FINAL 02/20/2021 Name Value Range Interpretation Code Description Data Criselda rce(s) Supporting Document(s) ID Date Data Source [id number] 02/19/2021 06:21:41 PM EDT [facility] [place] [facility] Name Value Range Interpretation Code Description Data Criselda rce(s) Supporting Document(s) ROOM TEMP AB SCREEN [facility] ROOM TEMP AB SCREEN NEGATIVE ID Date Data Source [id number] 02/19/2021 04:35:56 PM EDT [facility] [place] [facility] Name Value Range Interpretation Code Description Data Criselda rce(s) Supporting Document(s) URINE WBC (0-5) [facility] [place] [facility] URINE RBC (0-2) [facility] [place] [facility] EPITHELIAL CELLS 2+ [HPF] [facility] [place] [facility] BACTERIA 1+ [HPF] [facility] [place] [facility] MUCUS 1+ [HPF] [facility] [place] [facility] ID Date Data Source [id number] 02/19/2021 04:03:00 PM EDT [facility] [place] [facility] Name Value Range Interpretation Code Description Data Criselda rce(s) Supporting Document(s) COLOR [facility] [place] [facility] APPEARANCE [facility] [place] [facility] SPEC GRAV URINE 1.025 (1.003-1.030) [facility] PH URINE 6.0 (5.0-7.5) [facility] [place] [facility] LEUK ESTERASE 2+ (NEG) A [facility] [place] [facility] NITRITE URINE (NEG) [facility] [place] [facility] PROTEIN URINE (NEG) [facility] [place] [facility] GLUCOSE URINE (NEG) [facility] [place] [facility] KETONE URINE (NEG) A [facility] [place] [facility] [place] UROBILINOGEN 0.2 mg/dL (0-1.0) [facility] [place] [facility] [place] BILIRUBIN URINE (NEG) [facility] [place] [facility] BLOOD/HGB URINE (NEG) [facility] [place] [facility] ID Date Data Source [id number] 02/19/2021 06:52:07 PM EDT [facility] [place] [facility] SPEC EXP DATE 02/23/2021ATI ENT ABO/Rh O NEGATIVEANTIBODY SCREEN NEGATIVETESTING SITE PERFORMED AT [address] [place] [address] [place] [address] Name Value Range Interpretation Code Description Data Criselda rce(s) Supporting Document(s) TYPE AND SCREEN [facility] [place] [facility] ID Date Data Source [id number] 02/19/2021 02:08:45 PM EDT [facility] [place] [facility] Name Value Range Interpretation Code Description Data Criselda rce(s) Supporting Document(s) HEMOGLOBIN A1C @ 5.1 % (4.0-6.0) [facility] Performed using Siemens Hayward immunoassa y.Care must be taken when interpreting [id number] in patients with a hemoglobin variantor decreased erythrocyte lifespan. Values 5.7 - 6.4% suggest prediabetes.Values >=6.5% are diagnostic for diabetes.REFERENCE: DIABETES CARE 2018: 41(S13-S27). EST AVERAGE GLUCOSE 100 mg/dL [facility] [place] ID Date Data Source [id number] 02/19/2021 01:35:33 PM EDT [facility] [place] [facility] [place] Name Value Range Interpretation Code Description Data Criselda rce(s) Supporting Document(s) APTT 28.8 s (22.0-34.3) [facility] [place] [facility] [place] ID Date Data Source [id number] 02/19/2021 01:35:33 PM EDT [facility] [place] [facility] [place] Name Value Range Interpretation Code Description Data Criselda rce(s) Supporting Document(s) PT 10.9 s (9.2-11.9) [facility] [place] [facility] [place] INR 1.05 [facility] [place] [facility] LEGG[facility]T SUGGESTED THERAPEUTIC RANGES USING INR F ORSTABILIZED ANTICOAGULATED PATIENTS:STANDARD DOSE THERAPY INR 2.0-3.0 DVT, PE, PREVENT DVT OR EMBOLISMHIGH DOSE THERAPY INR 2.5-3.5 PREVENT EMBOLISM FROM MECHANICAL HEART VALVE ID Date Data Source [id number] 02/19/2021 01:35:28 PM EDT [facility] [place] [facility] [place] Name Value Range Interpretation Code Description Data Criselda rce(s) Supporting Document(s) NT PRO BNP 729 pg/mL (0-450) H [facility] [place] [facility] [place] ID Date Data Source [id number] 02/19/2021 01:35:28 PM EDT [facility] [place] [facility] [place] Name Value Range Interpretation Code Description Data Criselda rce(s) Supporting Document(s) SODIUM 142 mmol/L (136-145) [facility] [place] [facility] POTASSIUM 4.1 mmol/L (3.6-5.2) [facility] [place] [facility] CHLORIDE 107 mmol/L (100-108) [facility] [place] [facility] CO2 31 mmol/L (22-31) [facility] [place] [facility] ANION GAP 4 mmol/L (7-16) L [facility] [place] [facility] UREA NITROGEN 23 mg/dL (7-24) [facility] [place] [facility] CREATININE 0.87 mg/dL (0.80-1.30) [facility] [place] [facility] BUN/CREAT RATIO 26.4 RATIO (10.0-20.0) H [facility] GLUCOSE 82 mg/dL (70-99) [facility] [place] [facility] CALCIUM 9.1 mg/dL (8.4-10.2) [facility] [place] [facility] TOTAL PROTEIN 6.4 g/dL (6.4-8.2) [facility] [place] [facility] ALBUMIN 4.1 g/dL (3.2-4.5) [facility] [place] [facility] GLOBULIN 2.3 g/dL (2.7-4.3) L [facility] [place] [facility] ALB/GLOB RATIO 1.8 RATIO [facility] [place] [facility] ALKALINE PHOSPHATASE 62 U/L (45-117) [facility] BILIRUBIN,TOTAL 0.9 mg/dL (0.0-1.0) [facility] [place] [facility] PLEASE NOTE:Total bilirubin results may be falselyelevated in patients taking Eltrombopag. AST (SGOT) 22 U/L (11-39) [facility] [place] [facility] ALT (SGPT) 29 U/L (12-78) [facility] [place] [facility] GFR >60 ml/min/1.73m2 (>59) [facility] [place] [facility] GFR ( AMER) >60 ml/min/1.73m2 (>59) [facility] [place] [facility] GFR INTERPRETATION [facility] --NORMAL KIDNEY FUNCTION OR MILD DISEASE - GFR >OR= 60CHRONIC KIDNEY DISEASE - GFR 15 - 59RENAL FAILURE - GFR <15 Est. GFR calculation based on the MDRDstudy equation, which assumes a steadystate for creatinine. Est. GFR should notbe used for medication dosing. ID Date Data Source [id number] 02/19/2021 01:25:39 PM EDT [facility] [place] [facility] Name Value Range Interpretation Code Description Data Criselda rce(s) Supporting Document(s) WBC 7.7 10*3/uL (4.1-11.0) [facility] [place] [facility] [place] RBC 4.33 10*6/uL (4.60-6.10) L [facility] [place] [facility] HGB 13.7 g/dL (13.5-18.0) [facility] [place] [facility] HCT 40.1 % (41.0-53.0) L [facility] [place] [facility] MCV 92.6 fL (80.0-95.0) [facility] [place] [facility] MCH 31.6 pg (27.0-32.0) [facility] [place] [facility] MCHC 34.1 g/dL (32.0-36.0) [facility] [place] [facility] RDW 13.7 % (10.5-14.5) [facility] [place] [facility] PLT 177 10*3/uL (150-450) [facility] [place] [facility] MPV 7.8 fL (7.1-10.7) [facility] [place] [facility] NEUT % 68.6 % (35.0-75.0) [facility] [place] [facility] LYMPH % 18.3 % (16.0-52.0) [facility] [place] [facility] MONO % 9.6 % (0.0-8.0) H [facility] [place] [facility] EOS % 3.0 % (0.0-5.0) [facility] [place] [facility] BASO % 0.5 % (0.0-4.0) [facility] [place] [facility] NEUT # 5.3 10*3/uL (1.8-7.7) [facility] [place] [facility] LYMPH # 1.4 10*3/uL (1.2-4.8) [facility] [place] [facility] MONO # 0.7 10*3/uL (0.0-0.8) [facility] [place] [facility] Eosinophils [#/volume] in Blood by Automated count 0.2 10*3/uL (0.0-0 .5) [facility] [place] [facility] BASO # 0.0 10*3/uL (0.0-0.2) [facility] [place] [facility] ID Date Data Source [id number] 02/19/2021 09:00:00 AM EDT [facility] Name Value Range Interpretation Code Description Data Criselda rce(s) Supporting Document(s) SARS coronavirus 2 RNA [Presence] in Res piratory specimen by KIRAN with probe detection NOT DETECTED [facility] This lab was reported by [facility] [place] [facility]. ID Date Data Source [id number] 02/19/2021 04:44:24 PM EDT [facility] [place] [facility] [place] Name Value Range Interpretation Code Description Data Criselda rce(s) Supporting Document(s) SPECIMEN DESCRIPTION [facility] [place] COVID 19 RESULT (NDET) [facility] [place] [facility] NEGATIVE COVID-19 RESULTS DONOT PRECLUDE COVID-2019 INFECTION ANDSHOULD NOT BE USED THE SOLE BASISFOR PATIENT MANAGEMENT DECISIONS. COMMENT [facility] [place] [facility] THE [place] FDA HAS MADE THIS TEST AVAILABL EUNDER AN EMERGENCY USE AUTHORIZATION(EUA) FOR THE DETECTION AND/OR DIAGNOSISOF THE VIRUS THAT CAUSES COVID-19.THIS ASSAY AMPLIFIES AND DETECTS TARGETDNA USING METER READER- MEDIATEDAMPLIFICATIONTESTING PERFORMED ON A-STAR FIRST TEST [facility] [place] [facility] EMPLOYED IN HLTHCARE [facility] SYMPTOMATIC [facility] [place] [facility] [place] DATE OF SYMPT ONSET [facility] HOSPITALIZED [facility] [place] [facility] ICU [facility] [place] [facility] [place] CONGREGATE CARE SET [facility] [place] [place] ID Date Data Source [id number] 01/24/2021 07:59:00 AM EDT [facility] Name: BEAU SALGADO : 1940 A ge/Sex: 80M Attending Physician: Francois Horvath MD Med Rec #: [id number] Admission Date: 01/22/21 Room #: Formerly named [facility] Admitting Physician: Francois Horvath MD Report Number: [id number] _ cc: Send Report To: Report Status - Signed CONSULTATION DATE OF CONSULTATION: 01/22/2021 by phone, 01/23/2021 in person. DATE OF ADMISSION: 01/22/2021 HISTORY: Mr. Salgado is a pleasant 80-year-old gentleman with a known history ofcritical aortic stenosis with valve area calculi of approximately one cm squared. He has had some vertiginous symptoms which has lead to his further evaluation. He was placed on double dose Plavix on Monday, a single dose on Monday, Monday, and . Underwent a cardiac catheterization with fullheparinization on . He had no significant event then, however, awoke the next morning with bloody stools unassociated with any abdominal pain. He has had prior evaluations for lower GI bleed. The last in 2017 with no overt finding on colonoscopy beyond diverticula. Overnight he has been hydrated, placed on clear liquids, and has had just a touch of blood in the bowel this morning. He has a stable hemogram, no abdominal pain, chest pain, shortness of breath. MEDICAL PROBLEMS: 1. Hypertension. 2. Hyperlipidemia. 3. Diverticulosis. 4. Prior anal fissure. 5. History of bleeding with his last endoscopy in 2017. No etiology found on two prior evaluations. PAST SURGICAL HISTORY: 1. Colonoscopy. Last in October of 2017. 2. Cardiac catheterization. 3. Anal fissure repair. 4. Coronary angiogram and evaluation for TAVR. 5. Cataract surgery with lens implant. SOCIAL HISTORY: Nonsmoker. Nondrinker. FAMILY HISTORY: Noncontributory. ALLERGIES: No known drug allergies. MEDICATIONS: As per the Intake Sheet IMAGING STUDIES: CT of the abdomen unremarkable beyond diverticula. LABORATORY DATA: Hemoglobin on admission 13.9, presently 13.1, platelet count 158, PT/INR 1.04, BUN 18, creatinine 0.8, transaminases unremarkable, C-reactiveprotein 9.87. PHYSICAL EXAMINATION: VITAL SIGNS: Height 6 feet, weight 174. Temperature 98.1, blood pressure 114/67, pulse 82, O2 sat 98. HEAD/NECK: Unremarkable. CHEST: Clear. HEART: He has a regular rate. ABDOMEN: Soft. Nontender. EXTREMITIES: With no clubbing, cyanosis, or edema. SKIN: Warm and dry. MUSCULOSKELETAL: Unremarkable. ASSESSMENT: Lower gastrointestinal bleed most likely diverticular in nature, resolving. It was complicated by his anticoagulation and his Plavix. Given hisresolution and the high-grade vascular lesion I do not feel that a colonoscopy would be in his best interest at present. Should he resume bleeding would recommend a red tag study and an angiogram. The case discussed with the Attending Services yesterday and today. REPORT SIGNATURE ON FILE Dictated By: Nehemiah Antony MD <Electronically signed by Nehemiah Antony MD> 02/09/21 1627 Dictation Date/Time: 01/23/21 1116 Transcribed Date/Time: 01/24/21 [email or web address] Name Value Range Interpretation Code Description Data Criselda rce(s) Supporting Document(s) ID Date Data Source [id number] 02/09/2021 02:46:00 PM [facility] NGIO CHEST ABDOMEN PELVIS TAVRCLINICAL HISTORY: Av replace, percutaneous planning, valve planeCOMPARISON: None.TECHNIQUE: Coronal, parasagittal and 3-dimensional reconstructions or MIPS were provided (or created on the workstation) and reviewed.115 cc Isovue 370 administered. 10 cc discarded.FINDINGS: The thoracic and abdominal aorta are normal in caliber without dissection or aneurysm. There are dense calcifications at the aortic valve. There are mild calcifications in the ascending aorta and [id number] calcifications at the aortic arch. There i s no high-grade stenosis of the great vessel origins. The left vertebral artery arises directly from the aortic arch, a normal variant. There are mild calcifications at the origins of the celiac, superior mesenteric, inferior mesenteric, and renal arteries bilaterally, causing less than 50% stenosis. There are mild calcifications in the common iliac arteries bilaterally causing less than 50% stenosis.There is mild atelectasis or scarring at the right lung base. Bilateral calcified pleural plaques are seen, suggestive of asbestos exposure. There is no pleural effusion or pneumothorax. There is no mediastinal adenopathy or pericardial effusion.The liver, gallbladder, spleen, pancreas, and adrenal glands are unremarkable. Multiple bilateral renal cysts are noted. No calculus or hydronephrosis is seen. The urinary bladder is distended. No focal lesion is seen in the bladder. The prostate gland is mildly enlarged measuring 5.0 x 4.2 cm. There is colonic diverticulosis without evidence of acute diverticulitis. The bowel is otherwise unremarkable. There is no adenopathy. There is no free air or free fluid. There is no acute osseous abnormality.IMPRESSION:1. No evidence of an aortic dissection or aneurysm. Aortic valvular calcifications and atherosclerotic disease as described above.2. Bilateral calcified pleural plaques suggestive of prior asbestos exposure.3. Enlarged prostate gland.4. Colonic diverticulosis.Dictated by: MAXIMINO SIMMONS on 02/09/2021lectronically Signed by: MAXIMINO SIMMONS on 02/09/2021 02:51 PMTranscribed by: vinny on 02/09/2021 02:51 PMCDS G code: , , ,CDS Modifier: , , ,cc: Name Value Range Interpretation Code Description Data Criselda rce(s) Supporting Document(s) ID Date Data Source [id number] 01/30/2021 12:36:00 PM EDT [facility] Name: BEAU SALGADO [facility] Rec #: [id number] 64 : 1940 Age/Sex: 80M Date of Service: 01/30/21 PHYSICIAN CHART Physician Documentation [facility] Name: Beau Salgado Age: 80 yrs Sex: Male : 1940 Arrival Date: 01/30/2021 Time: 12:36 Bed 5 Private MD: Sarah Lind ED Physician Brad Varma Disposition: 01/30 13:56 Chart complete. jam2 HPI: 12:59 This 80 yrs old Male presents to ER via Walk-In jam2 with complaints of Rectal Bleeding. 12:59 The patient presents to the emergency department with jam2 bleeding from the rectum/anus, that is mild. Onset: The symptoms/episode began/occurred 8 day(s) ago. Context: the patient has no known special context relating to the rectal area complaint(s). Modifying factors: The symptoms are alleviated by nothing, The symptoms are aggravated by bowel movement. Associate signs and symptoms: Pertinent negatives: abdominal pain, fever. The patient has experienced a previous episode. The patient was admitted one week ago for a GI bleed. This was thought to be from heparin and plavix given after a heart cath. He was discharged in stable condition but has had dark stool since. He was told to be on the look out for "coffee ground" stool as an indicator of continued bleeding. He has otherwise been in his usual state of health. Historical: - Allergies: No known drug Allergies; - Home Meds: 1. Flomax 0.4 mg Oral cap 1 cap once daily 2. losartan 50 mg Oral tab 1 tab once daily 3. antibiotic for UTI - PMHx: Diabetes Mellitus; prosatitis; - PSHx: None; - Med Reconciliation:: Green Alert: The patient's med list is complete to the best of the nurse's/provider's knowledge. Medications reviewed, completed by nurse verbally from patient/family. - Immunization history,: Flu vaccine is up to date. COVID- 19 vaccine: Two dose series complete. - Advance directive: There is no existing advanced directive. Information offered. - Family History:: mother is . Father is . - Social History: Smoking status (Tobacco): Patient states he/she has never smoked tobacco. Preferred Language: Mexican. ROS: 13:02 Constitutional: Negative for fever, chills. Cardiovascular: jam2 Negative for chest pain. Respiratory: Negative for cough, shortness of breath. Abdomen/GI: Positive for black/tarry stool, Negative for abdominal pain, nausea, vomiting, diarrhea. All other systems are negative. Exam: 13:03 Constitutional: This is a well developed, well nourished jam2 patient who is awake, alert, and in no acute distress. Head/Face: Normocephalic, atraumatic. Eyes: Pupils equal round and reactive to light, extra-ocular motions intact. Conjunctiva and sclera are non-icteric and not injected. Periorbital areas with no swellin g, redness, or edema. ENT: Oropharynx with no redness, swelling, or masses, exudates, or evidence of obstruction, uvula midline. Mucous membranes moist. Respiratory: Lungs have equal breath sounds bilaterally, clear to auscultation. No rales, rhonchi or wheezes noted. No increased work of breathing, no retractions or nasal flaring. Abdomen/GI: Soft, non-tender, with normal bowel sounds. No distension. No rebound, rigidity, or guarding. No organomegaly. Skin: Warm, dry with normal turgor. Normal color with no rashes, no lesions, and no evidence of cellulitis. MS/ Extremity: Full ROM all joints. No evidence of trauma. no deformity. Psych: Awake, alert, with orientation to person, place and time. Behavior, mood, and affect are within normal limits. 13:03 Cardiovascular: Rate: normal, Rhythm: regular, Pulses: no pulse deficits are appreciated, Heart sounds: normal, normal S1and S2, murmur, systolic, crescendo - decrescendo, grade 5 over 6, heard in the aortic area, Edema: is not appreciated. 13:03 : Rectal exam: Rectal tone: normal, Guaiac testing: guaiac negative. Control passed (blue color visible in performance control area). brown, the nurse was present for the exam. Vital Signs: 12:42 BP 155 / 74; Pulse 91; Resp 18; Temp 98.0(TE); Pulse Ox 98% md1 on R/A; Weight 78.93 kg; Height 6 ft. 1 in. (185.42 cm); Pain 0/10; 13:16 BP 124 / 57 RA Sitting (auto/reg); Pulse 80 MON; Resp 21 S; am7 Pulse Ox 96% on R/A; 14:12 BP 125 / 62; Pulse 74; Resp 17; Temp 98.7; Pulse Ox 97% ; am7 12:42 Body Mass Index 22.96 (78.93 kg, 185.42 cm) md1 MDM: 12:47 Patient medically screened. [facility] 13:55 Data reviewed: vital signs, nurses notes, old medical [facility] records, lab test result(s), EKG. ECG: The ECG on this patient demonstrates no evidence of ischemia, normal sinus rhythm. ED course: The patient has been stable while here. He feels that he describes as coffee-ground. However, upon my evaluation he had severe negative from below. His hemoglobin is at baseline. He has no complaints of pain. Work-up is unremarkable. There ischemia. I made him aware of his diagnosis. Advise discharge with supportive measures. His primary care follow-up on Monday. I gave indications for emergent return. He voiced understanding. 01/30 12:44 Order name: Cbc With Auto Differential; Complete Time: 13:36jam2 01/30 12:44 Order name: COMMET; Complete Time: 13:47 jam2 01/30 12:44 Order name: Troponin I; Complete Time: 13:47 jam2 01/30 12:44 Order name: PT; Complete Time: 13:36 jam2 01/30 12:44 Order name: PTT; Complete Time: 13:36 jam2 01/30 12:44 Order name: Magnesium; Complete Time: 1 3:47 [facility] 01/30 12:44 Order name: Lipase; Complete Time: 13:47 jam2 01/30 12:44 Order name: Iv Saline Lock; Complete Time: 13:06 [facility] 01/30 12:44 Order name: Type And Screen 2 01/30 12:44 Order name: Emergency Room EKG Order - Use EKG Work-Up jam2 /Quick Select; Complete Time: 13:20 01/30 12:44 Order name: Cardiology EKG Interpretation - Choose Reason [facility] for Test 01/30 12:44 Order name: NPO; Complete Time: 12:59 2 Dispensed Medications: 13:11 Drug: Protonix 40 mg [Protonix 40 mg intravenous solution am7 (40 mg)] Route: IVP; Site: left antecubital; Disposition Summary: 01/30/21 13:57 Discharge Ordered Location: Home/Self Care jam2 Condition: Good jam2 Diagnosis - Rectal bleeding jam2 Followup: jam2 - With: Sarah Lind MD - When: 1 week - Reason: Continuance of care Discharge Instructions: - Discharge Summary Sheet jam2 - Rectal Bleeding jam2 Forms: - Medication Reconciliation [facility] Signatures: Dispatcher [employer] EDBrad Steele MD MD jam2 Rosmery Shell RN RN md1 Rachelle Rodriguez RN RN am7 Annabelle Quigley, ED PCT ED PCvm1 Corrections: (The following items were deleted from the chart) 14:12 12:44 POC COVID-19 swab ordered. jam2 am7 14:14 12:44 Collect Urine, Clean Catch ordered. jam2 am7 Name Value Range Interpretation Code Description Data Criselda rce(s) Supporting Document(s) ID Date Data Source [id number] 01/30/2021 12:36:00 PM EDT [facility] Name: BEAU SALGADO [facility] Rec #: [id number] 63 : 1940 Age/Sex: 80M Date of Service: 01/30/21 DISPOSITION SUMMARY Discharge Summary [facility] Name:Beau Salgado Emergency Department Age:80 yrs Sex:Male :1940 Arrival:01/30/2021 12:36 Departure Date01/30/2021 Departure Time14:18 Private MD:Sarah Lind MD Outcome: Discharge Location: Home/Self Care Condition: Good Chief Complaint: Rectal Bleeding Diagnosis: - Rectal bleeding Prescriptions: Follow up: Sarah Lind MD Custom Notes: Attending Physician: Brad Varma MD Private MD: Saarh Lind MD Mid Level Provider: Followup Physician: Sarah Lind MD Orders: Cbc With Auto Differential, COMMET, Troponin I, PT, PTT, Magnesium, Lipase, UA., Collect Urine - Clean Catch, Iv Saline Lock, Protonix, Type And Screen, Emergency Room EKG Order - Use EKG Work-Up /Quick Select, Cardiology EKG Interpretation - Choose Reason for Test, NPO, POC - Collect COVID-19 swab Discharge Instruction: Discharge Summary Sheet, Rectal Bleeding, Medication Reconciliation, Fax Visit Summary for Sarah Lind MD Name Value Range Interpretation Code Description Data Criselda rce(s) Supporting Document(s) ID Date Data Source [id number] 01/30/2021 12:36:00 PM EDT [facility] Name: BEAU SALGADO [facility] Rec #: [id number] 63 : 1940 Age/Sex: 80M Date of Service: 01/30/21 NURSE CHART Nurse's Notes [facility] Name: Beau Salgado Age: 80 yrs Sex: Male : 1940 Arrival Date: 01/30/2021 Time: 12:36 Bed 5 Private MD: Sarah Lind Diagnosis: Rectal bleeding Presentation: 01/30 12:39 Transition of care: codey gorman was not received from another md1 setting of care. Presenting complaint: Patient states - that he was admitted last Monday for rectal bleeding and was discharged on Monday. States that his bowel movements are loose and look like coffee grounds. Have you travelled in the last 30 days? Yes, Where have you travelled? [place], no respiratory symptoms present, no GI symptoms. Have you had contact with an individual with a confirmed diagnosis of Ebola or COVID-19? No. 12:39 Acuity: Urgent - 3 md1 12:39 Method Of Arrival: Walk-In md1 Triage Assessment: 12:41 SEPSIS SCREEN: A Confirmed or Suspected Infection is md1 Unknown, SIRS or Sepsis criteria is not present. Suicide Screening: Have you had thoughts of harming yourself or others? No. The patient appears to have no apparent distress, The patient is cooperative. The patient denies having pain. Neuro: Level of Consciousness is awake, alert, obeys commands, Patient is oriented to person, place and time. Respiratory: Airway is patent. Respiratory effort is even, Respiratory pattern is regular. GI: The patient reports rectal bleeding. : No deficits noted. Derm: No deficits noted. Historical: - Allergies: No known drug Allergies; - Home Meds: 1. Flomax 0.4 mg Oral cap 1 cap once daily 2. losartan 50 mg Oral tab 1 tab once daily 3. antibiotic for UTI - PMHx: Diabetes Mellitus; prosatitis; - PSHx: None; - Med Reconciliation:: Green Alert: The patient's med list is complete to the best of the nurse's/provider's knowledge. Medications reviewed, completed by nurse verbally from patient/family. - Immunization history,: Flu vaccine is up to date. COVID-19 vaccine: Two dose series complete. - Advance directive: There is no existing advanced directive. Information offered. - Family History:: mother is . Father is . - Social History: Smoking status (Tobacco): Patient states he/she has never smoked tobacco. Preferred Language: Mexican. Screenin:45 AUDIT 1. How often do you have a drink containing alcohol? md1 Never (0 points). Drug Abuse Screening Test: 1. Have you used d rugs other than those required for medical reasons? No (0 points), screen is complete, no risk. Abuse screen: Denies threats or abuse. Nutritional screening: No deficits noted. Patient has no identifiable fall risk (Dunne Scale: 0 points). Assessment: 13:07 GI: The patient reports coffee ground stool. am7 Vital Signs: 12:42 BP 155 / 74; Pulse 91; Resp 18; Temp 98.0(TE); Pulse Ox 98% md1 on R/A; Weight 78.93 kg; Height 6 ft. 1 in. (185.42 cm); Pain 0/10; 13:16 BP 124 / 57 RA Sitting (auto/reg); Pulse 80 MON; Resp 21 S; am7 Pulse Ox 96% on R/A; 14:12 BP 125 / 62; Pulse 74; Resp 17; Temp 98.7; Pulse Ox 97% ; am7 12:42 Body Mass Index 22.96 (78.93 kg, 185.42 cm) md1 ED Course: 12:37 Patient arrived in ED. awr 12:39 Sarah Lind MD is Private Physician. md1 12:41 Triage completed. mdFranko 12:43 Brad Varma MD is Attending Physician. vannessa 12:43 Arm band placed on left wrist. Patient has correct armband md1 on for positive identification. 12:46 Rachelle Rodriguez, RN is Primary Nurse. von 13:07 No procedures ordered. Labs drawn by lab staff. was sent am7 per order to lab. Inserted peripheral IV: 18 gauge in left ac. 13:15 An EKG was obtained and reviewed by Brad Varma MD. 1 13:20 Cardiology EKG Interpretation - Choose R lorene for Test Sent.good [facility] 13:57 Sarah Lind MD is Referral Physician. [facility] 14:14 Radiology: None performed. am7 Administered Medications: 13:11 Drug: Protonix 40 mg [Protonix 40 mg intravenous solution am7 (40 mg)] Route: IVP; Site: left antecubital; Outcome: 13:57 Discharge ordered by . javier 14:12 Patient verbalized understanding of disposition am7 instructions. Patient has no functional deficits. 14:12 Patient discharged to home 14:12 Condition: good 14:12 Discharge instructions given to patient, Patient was instructed on discharge instructions, follow up and referral plans, No prescriptions given. 14:14 Vitals are Complete in accordance with Emergency Department am7 Policy. 14:18 Patient left the ED. am7 Signatures: Brad Varma MD MD jam2 Chartier, Michelle, RN RN md1 Werner Luciano RN RN Kimberly Zavaleta Amanda, RN RN castro7 Annabelle Handley, ED PCT ED PCvm1 Name Value Range Interpretation Code Description Data Criselda rce(s) Supporting Document(s) ID Date Data Source [id number] 01/31/2021 12:48:[facility] INFORMATION[facility]N Name Date of Age Gend*PT [id number] Beau Salgado 1940 80 years M HOPPT Location Admission Date/Time Visit ID Attending [id number] 01/21/21 1056 --- --- EPI ID CSN Admitting P guerline [id number] Dorothy Cheng MD([id number]) [place] [address] CONSULTATION REPORT CONSULTNAME: BEAU SALGADO MChristoph#: [id number] #: [id number] ADMISSION DATE: 01/21/2021OB: 1940 SEX: M PT TYPE: H CRDACCT #: [id number] CARE PHYSICIAN: SARAH KEATING PHYSICIAN: APRIL DELEON OF CONSULTATION: 1CHIEF COMPLAINT:Shortness of breath.HISTORY OF PRESENT ILLNESS:This is an 80-year-old gentleman who is progressively becoming moreshortness of breath. The patient's echocardiogram has shown severe aorticstenosis. I was asked to see this patient in consultation forconsideration of aortic valve replacement, TAVR versus conventional aorticvalve replacement.PAST MEDICAL HISTORY:Positive for hypertension and aortic valve stenosis.REVIEW OF SYSTEMS:Negative for 14 system except what I mentioned in the history of presentillness and past medical history.PHYSICAL EXAMINATION:GENERAL: Well-developed, well-nourished gentleman, in no acute distress.Alert and oriented x3.HEENT: Sclerae nonicteric. Con junctivae are non-anemic.NECK: Trachea in midline. No neck lymphadenopathy. No scapular nodeinvolvement.LUNGS: No rales, no rhonchi, no wheezing.HEART: The patient has IV/ systolic murmur in the aortic focus. Noabdominal bruit. Femoral pulses palpable.BACK: No CVA tenderness. Lower extremity pulses are not palpable.SKIN: Within normal limits.ABDOMEN: No rigidity, no tenderness, no mass. Bowel sounds within normallimits.EXTREMITIES: Upper and lower extremity equal strength and no peripheraledema.IMPRESSION:Severe aortic stenosis.PLAN:I believe the patient is more suitable for aortic valve replacementconsidering the patient's old age. I spoke with the patient about allchoices of treatment (including no treatment or medical therapy), the risksand benefits and also aortic valve replacement, TAVR versus conventionalaortic valve replacement, the possible complication including but notlimited to bleeding, infection, arrhythmia, allergy, [place], stroke, otherorgan damages, , nerve injury including but not limited to phrenicnerve injury and the consequences, the fact that the patient may not beable to do activities he wishes to do or used to do, blood and producttransfusion, the possible complication including but not limited to AIDSand hepatitis, possibility of mediastinitis, need for muscle flap closure,nonunion of the sternum, tracheostomy, gastrostomy feeding tube, staying int hospital for a long time, dying from any of these complications, thefact that there is a possibility of rupture of the heart, in that situationthe patient may need an emergency open heart surgery, which is a seriousemergency. The patient indicated understood, agreed to TAVR and just incase also open heart surgery.WOLFGANG Telles/JEREMY Job #: [id number] DOC #: [id number] Name Value Range Interpretation Code Description Data Criselda rce(s) Supporting Document(s) ID Date Data Source [id number] 01/30/2021 02:03:00 PM EDT [facility] Name Value Range Interpretation Code Description Data Criselda rce(s) Supporting Document(s) BLOOD TYPE PATIENT O Negative Normal (applies to non-numer ic results) [facility] ANTIBODY SCREEN NEGATIVE Normal (applies to non-numeric results) [facility] ID Date Data Source [id number] 01/30/2021 01:39:00 PM EDT [facility] Name Value Range Interpretation Code Description Data Criselda rce(s) Supporting Document(s) Troponin I 0.000-0.045 Normal (applies to non-numeric resu lts) [facility] ID Date Data Source [id number] 01/30/2021 01:37:00 PM EDT [facility] Name Value Range Interpretation Code Description Data Criselda rce(s) Supporting Document(s) Sodium 144 mmol/L 137-145 Normal (applies to non-numeric resul ts) [facility] Potassium 3.5-5.1 Normal (applies to non-numeric resul ts) [facility] Chloride 110 mmol/L 98-112 Normal (applies to non-numeric resul ts) [facility] Carbon Dioxide CO2 22.0-33.0 Normal (applies to non-numer ic results) [facility] Anion Gap 4.0-11.0 Below low normal [facility] BUN 16 mg/dL 9-20 Normal (applies to non-numeric resul ts) [facility] Creatinine 0.80-1.50 Normal (applies to non-numeric resul ts) [facility] GFR 66 mL/min >60 Normal (applies to non-numeric resul ts) [facility] Result based on MDRD formula. Glucose Level 90 mg/dL 74-99 Normal (applies to non-numeric re sults) [facility] The reference range is only applicable w hen fasting. Calcium-Uncorrected 8.4-10.2 Normal (applies to non-nume marnie results) [facility] Corrected Calcium 8.4-10.2 Normal (applies to non-numeri c results) [facility] Bilirubin,Total 0.2-1.3 Normal (applies to non-numeric results) [facility] SGOT(AST) 18 U/L 17-59 Normal (applies to non-numeric resul ts) [facility] SGPT(ALT) 22 U/L 21-72 Normal (applies to non-numeric resul ts) [facility] Alkaline Phosphatase 73 U/L 38-126 Normal (applies to non-num natividad results) [facility] can increase Alkaline Phosp le vels up to 2 times the normal adult value. Normal values for children and adolescents are 2 to 3 times the normal adult value. Total Protein 6.3-8.2 Normal (applies to non-numeric re sults) [facility] Albumin 3.5-5.0 Normal (applies to non-numeric resul ts) [facility] ID Date Data Source [id number] 01/30/2021 01:37:00 PM EDT [facility] Name Value Range Interpretation Code Description Data Criselda rce(s) Supporting Document(s) Lipase 105 U/L 73-393 Normal (applies to non-numeric resul ts) [facility] ID Date Data Source [id number] 01/30/2021 01:37:00 PM EDT [facility] Name Value Range Interpretation Code Description Data Criselda rce(s) Supporting Document(s) Magnesium 1.80-2.40 Above high normal [facility] ID Date Data Source [id number] 01/30/2021 01:27:00 PM EDT [facility] Name Value Range Interpretation Code Description Data Criselda rce(s) Supporting Document(s) PT 9.4-12.5 Normal (applies to non-numeric results) [facility] INR Normal (applies to non-numeric results) [facility] The use of the INR is restricted to marcos ents on stable oral anticoagulant. Therapeutic Range: 2.0-3.0 High Risk Values: 2.5-3.5 ID Date Data Source [id number] 01/30/2021 01:27:00 PM EDT [facility] Name Value Range Interpretation Code Description Data Criselda rce(s) Supporting Document(s) PTT 25.1-36.5 Above high normal [facility] ID Date Data Source [id number] 01/30/2021 01:21:00 PM EDT [facility] Name Value Range Interpretation Code Description Data Criselda rce(s) Supporting Document(s) White Blood Count 4.8-10.8 Normal (applies to non-numeri c results) [facility] Red Blood Count 4.35-6.08 Below low normal [facility] Hemoglobin 13.0-17.5 Normal (applies to non-numeric resul ts) [facility] Hematocrit 37.7-51.0 Normal (applies to non-numeric resul ts) [facility] Mean Corpuscular Volume 80-94 Normal (applies to non- numeric results) [facility] Mean Corpuscular Hemoglobin 27.0-33.0 Normal (appli es to non-numeric results) [facility] Mean Corpuscular HGB Conc 32.0-36.0 Normal (applies to no n-numeric results) [facility] Red Cell Distribution Width 11.5-14.5 Normal (appli es to non-numeric results) [facility] Platelet Count 200 X10 3/uL 130-450 Normal (applies to non-numeric results) [facility] Mean Platelet Volume 9.6-13.1 Below low normal [facility] Imm Grans% (AUTO) 0 % 0-2 Normal (applies to non-numeri c results) [facility] Neutrophils % (AUTO) 68 % 40-75 Normal (applies to non-num natividad results) [facility] Lymphocytes % (AUTO) 20 % 21-46 Below low normal [facility] Monocytes % (AUTO) 9 % 5-12 Normal (applies to non-numer ic results) [facility] Eosinophils % (AUTO) 3 % 1-5 Normal (applies to non-num natividad results) [facility] Basophils % (AUTO) 0 % 0-1 Normal (applies to non-numer ic results) [facility] Imm Grans# (AUTO) 0.0-0.5 Normal (applies to non-numeri c results) [facility] Neutrophils # (AUTO) 1.5-8.1 Normal (applies to non-num natividad results) [facility] Lymphocytes # (AUTO) 1.0-3.1 Normal (applies to non-num natividad results) [facility] Monocytes # (AUTO) 0.2-1.3 Normal (applies to non-numer ic results) [facility] Eosinophils# (AUTO) 0.0-0.5 Normal (applies to non-nume marnie results) [facility] Basophils # (AUTO) 0.0-0.1 Normal (applies to non-numer ic results) [facility] ID Date Data Source [id number] 02/01/2021 08:27:00 AM EDT [facility] Name: BEAU SALGADO : 1940 A ge/Sex: 80M Ordering Provider: Brad Varma MD Med Rec #: [id number] Reg Status:DEP ER Room #: Date of Service: 01/30/21 Report Number: [id number] cc: Sarah Lind MD; Brad Varma MD Send Report To: Reason for exam: Baseline SINUS RHYTHM RIGHT BUNDLE BRANCH BLOCK LEFT ANTERIOR FASCICULAR BLOCK ABNORMAL ECG Compared to 01/22/2021 there is no significant change Physician Apparel Manager: Chris Rueda M.D. ECG HEART RATE: 82 /min ECG RR INTERVAL: 723 ms ECG P DURATION: 132 ms ECG QRS DURATION: 163 ms ECG SC INTERVAL: 187 ms ECG QT INTERVAL: 382 ms ECG QTC INTERVAL: 420 ms Q-T dispersion: ms ECG P AXIS: 61 deg ECG QRS AXIS: -56 deg ECG T AXIS: 54 deg REPORT SIGNATURE ON FILE 02/01/21826 Reported By: Chris Rueda MD, [facility] <<Signature on File>> Exam Date/Time: 01/30/21 1315 Order #: [id number] Dictation Date/Time: 02/01/21826 Transcribed Date/Time: 02/01/21826 Immigration Specialist: PINA Name Value Range Interpretation Code Description Data Criselda rce(s) Supporting Document(s) ID Date Data Source [id number] 01/25/2021 01:44:00 PM EDT [facility] Name Value Range Interpretation Code Description Data Criselda rce(s) Supporting Document(s) White Blood Count 4.8-10.8 Normal (applies to non-numeri c results) [facility] Red Blood Count 4.35-6.08 Normal (applies to non-numeric results) [facility] Hemoglobin 13.0-17.5 Normal (applies to non-numeric resul ts) [facility] Hematocrit 37.7-51.0 Normal (applies to non-numeric resul ts) [facility] Mean Corpuscular Volume 80-94 Normal (applies to non- numeric results) [facility] Mean Corpuscular Hemoglobin 27.0-33.0 Normal (appli es to non-numeric results) [facility] Mean Corpuscular HGB Conc 32.0-36.0 Normal (applies to no n-numeric results) [facility] Red Cell Distribution Width 11.5-14.5 Normal (appli es to non-numeric results) [facility] Platelet Count 185 X10 3/uL 130-450 Normal (applies to non-numeric results) [facility] Mean Platelet Volume 9.6-13.1 Below low normal [facility] Imm Grans% (AUTO) 0 % 0-2 Normal (applies to non-numeri c results) [facility] Neutrophils % (AUTO) 63 % 40-75 Normal (applies to non-num natividad results) [facility] Lymphocytes % (AUTO) 23 % 21-46 Normal (applies to non-num natividad results) [facility] Monocytes % (AUTO) 10 % 5-12 Normal (applies to non-numer ic results) [facility] Eosinophils % (AUTO) 4 % 1-5 Normal (applies to non-num natividad results) [facility] Basophils % (AUTO) 1 % 0-1 Normal (applies to non-numer ic results) [facility] Imm Grans# (AUTO) 0.0-0.5 Normal (applies to non-numeri c results) [facility] Neutrophils # (AUTO) 1.5-8.1 Normal (applies to non-num natividad results) [facility] Lymphocytes # (AUTO) 1.0-3.1 Normal (applies to non-num natividad results) [facility] Monocytes # (AUTO) 0.2-1.3 Normal (applies to non-numer ic results) [facility] Eosinophils# (AUTO) 0.0-0.5 Normal (applies to non-nume marnie results) [facility] Basophils # (AUTO) 0.0-0.1 Normal (applies to non-numer ic results) [facility] ID Date Data Source [id number] 01/25/2021 08:40:00 AM EDT [facility] Name Value Range Interpretation Code Description Data Criselda rce(s) Supporting Document(s) Sodium 146 mmol/L 137-145 Above high normal [facility] Potassium 3.5-5.1 Normal (applies to non-numeric resul ts) [facility] Chloride 108 mmol/L 98-112 Normal (applies to non-numeric resul ts) [facility] Carbon Dioxide CO2 22.0-33.0 Normal (applies to non-numer ic results) [facility] Anion Gap 4.0-11.0 Normal (applies to non-numeric resul ts) [facility] BUN 17 mg/dL 9-20 Normal (applies to non-numeric resul ts) [facility] Creatinine 0.80-1.50 Normal (applies to non-numeric resul ts) [facility] GFR 84 mL/min >60 Normal (applies to non-numeric resul ts) [facility] Result based on MDRD formula. Glucose Level 87 mg/dL 74-99 Normal (applies to non-numeric re sults) [facility] The reference range is only applicable w hen fasting. Calcium-Uncorrected 8.4-10.2 Normal (applies to non-nume marnie results) [facility] Corrected Calcium 8.4-10.2 Normal (applies to non-numeri c results) [facility] Phosphorus 2.5-4.9 Normal (applies to non-numeric resul ts) [facility] Albumin 3.5-5.0 Below low normal [facility] ID Date Data Source [id number] 01/25/2021 08:18:00 AM EDT [facility] Name Value Range Interpretation Code Description Data [facility] rce(s) Supporting Document(s) White Blood Count 4.8-10.8 Normal (applies to non-numeri c results) [facility] Red Blood Count 4.35-6.08 Below low normal [facility] Hemoglobin 13.0-17.5 Below low normal [facility] Hematocrit 37.7-51.0 Normal (applies to non-numeric resul ts) [facility] Mean Corpuscular Volume 80-94 Normal (applies to non- numeric results) [facility] Mean Corpuscular Hemoglobin 27.0-33.0 Normal (appli es to non-numeric results) [facility] Mean Corpuscular HGB Conc 32.0-36.0 Normal (applies to no n-numeric results) [facility] Red Cell Distribution Width 11.5-14.5 Normal (appli es to non-numeric results) [facility] Platelet Count 161 X10 3/uL 130-450 Normal (applies to non-numeric results) [facility] Mean Platelet Volume 9.6-13.1 Normal (applies to non-num natividad results) [facility] Imm Grans% (AUTO) 1 % 0-2 Normal (applies to non-numeri c results) [facility] Neutrophils % (AUTO) 67 % 40-75 Normal (applies to non-num natividad results) [facility] Lymphocytes % (AUTO) 17 % 21-46 Below low normal [facility] Monocytes % (AUTO) 12 % 5-12 Normal (applies to non-numer ic results) [facility] Eosinophils % (AUTO) 3 % 1-5 Normal (applies to non-num natividad results) [facility] Basophils % (AUTO) 0 % 0-1 Normal (applies to non-numer ic results) [facility] Imm Grans# (AUTO) 0.0-0.5 Normal (applies to non-numeri c results) [facility] Neutrophils # (AUTO) 1.5-8.1 Normal (applies to non-num natividad results) [facility] Lymphocytes # (AUTO) 1.0-3.1 Below low normal [facility] Monocytes # (AUTO) 0.2-1.3 Normal (applies to non-numer ic results) [facility] Eosinophils# (AUTO) 0.0-0.5 Normal (applies to non-nume marnie results) [facility] Basophils # (AUTO) 0.0-0.1 Normal (applies to non-numer ic results) [facility] ID Date Data Source [id number] 01/22/2021 10:27:00 AM EDT [facility] Name: BEAU SALGADO [facility] Rec #: [id number] : 1940 Age/Sex: 80M Date of Service: 01/22/21 PHYSICIAN CHART Physician Documentation [facility] Name: Beau Salgado Age: 80 yrs Sex: Male : 1940 Arrival Date: 01/22/2021 Time: 10:27 Bed 11 Private MD: Sarah Lind ED Physician Jenn Paez HPI: 01/22 11:41 This 80 yrs old Male presents to ER via Walk-In 2 with complaints of Bloody Stools. 11:41 Patient is an 80-year-old male who presents today due to 2 evaluation of rectal bleeding. Patient states he has noticed bright red blood per rectum three times since early this morning. He does tell me that he noticed dark, black-colored bits of stool as well. He is not anticoagulated, but does take a daily baby aspirin. He is denying chest pain, shortness of breath, feeling fatigued. He does tell me that he had a heart cath conducted yesterday in [place], this was preliminary, as he is scheduled for a TAVR due to aortic stenosis. He tells me that his coronary arteries were "perfect" without any signs of blockages, no stents deployed. He does note some mild lower abdominal discomfort, he is unsure if this is related to his symptoms or due to the fact that he needs to urinate which he requires self-catheterization to do so due to enlarged prostate and subsequent urinary retention. Historical: - Allergies: No known drug Allergies; - Home Meds: 1. Flomax 0.4 mg Oral cap 1 cap once daily 2. one urinary med 3. losartan 50 mg oral tab 1 tab once daily - PMHx: prosatitis; Diabetes mellitus; - Med Reconciliation:: Yellow Alert: The patient's home medication list is partly complete. However, additional information is required to complete list. Medications reviewed, completed by nurse verbally from patient/family. - Immunization history,: Flu vaccine is up to date. - Advance directive: There is no existing advanced directive. Information offered. - Family History:: mother is . Father is . - Social History: Smoking status (Tobacco): Patient states he/she has never smoked tobacco. No barriers to communication noted, The patient speaks fluent Mexican. Exam: 12:02 Abdomen/GI: Rectal exam: rectal tone normal, Stool: grossly hm2 bloody, mass, is not appreciated, swelling, is not appreciated, tenderness, is not appreciated. 12:03 Constitutional: This is a well developed, well nourished hm2 patient who is awake, alert, and in no acute distress. Head/Face: Normocephalic, atraumatic. 12:03 Cardiovascular: Rate: normal, Rhythm: regular, Heart sounds: murmur, systolic. 12:03 Respiratory: the patient does not display signs of respiratory distress, Respirations: normal, Breath sounds: are normal. 12:03 Abdomen/GI: Inspection: abdomen appears normal, Palpation: soft, mild abdominal tenderness, in the suprapubic area. 12:03 Skin: Appearance: Color: pink, Temperature: warm, Moisture: dry. 12:03 Neuro: Orientation: appropriate for stated age, no acute changes, Mentation: appropriate for stated age, no acute changes. 12:03 Psych: Behavior/mood is pleasant. Vital Signs: 10:35 BP 129 / 71; Pulse 85; Resp 20; Temp 98.4; Pulse Ox 97% on edv R/A; Weight 80.74 kg; Height 6 ft. 1 in. (185.42 cm); 12:52 BP 123 / 56; Pulse 92; Resp 16; Pulse Ox 98% on R/A; tp1 16:23 BP 115 / 70; Pulse 82; Resp 14; Temp 97.6; Pulse Ox 98% on tp1 R/A; 10:35 Body Mass Index 23.48 (80.74 kg, 185.42 cm) edv MDM: 10:41 Patient medically screened. hm2 13:25 ED course: Patient had a bowel movement while here, which hm2 was grossly bloody, large amount of bright red blood. His blood pressure has remained stable. Have ordered a type and sc reen. We will continue to monitor. 13:44 Case presented to: Jenn Paez MD. Data reviewed: vital hm2 signs, nurses notes, lab test result(s), EKG, radiologic studies. 13:45 ED course: Patient has been stable while here. Presents 2 today due to evaluation of bright red blood per rectum. On arrival, his vital signs are stable, afebrile and overall nontoxic in appearance. His hemoglobin is 13.9, hematocrit is 40.2. On exam, he had marck bright red blood, he had a bowel movement here, which was a large amount of bright red blood. Type and screen is pending. CT scan reveals a moderately distended bladder of note, patient does require self-catheterization, he did not self cath while here, as he was able to urinate through his urethra. Diverticulosis without definite diverticulitis or focal inflammation noted. Patient is not anticoagulated, but he had a heart catheterization yesterday in which he received heparin and likely Plavix and aspirin. Given the degree of bleeding while here, will discuss with GI and hospitalist for admission. 01/22 11:02 Order name: CRP - Wide Range; Complete Time: 13:04 [facility] 01/22 11:02 Order name: Cbc With Auto Differential; Complete Time: 12:11[facility] 01/22 11:02 Order name: Comprehensive Metabolic Prof.; Complete Time: [facility] 13:04 01/22 11:02 Order name: Lipase; Complete Time: 13:04 [facility] 01/22 11:02 Order name: [facility] [facility] 11:02 Order name: Lactic Acid; Complete Time: 12:12 [facility] 01/22 11:02 Order name: Troponin I; Complete Time: 13:04 [facility] 01/22 13:43 Interpretation: Within normal limits. [facility] 01/22 11:02 Order name: PT; Complete Time: 12:12 [facility] 01/22 11:02 Order name: PTT; Complete Time: 12:12 [facility] 01/22 11:02 Order name: Emergency Room EKG Order - Use EKG Work-Up [facility] /Quick Select; Complete Time: 11:18 01/22 11:02 Order name: Cardiology EKG Interpretation - Choose Reason [facility] for Test 01/22 12:29 Order name: Type And Screen [facility] 01/22 13:08 Order name: CT Abdomen ; Complete Time: 14:33 EDMS 01/22 11:02 Order name: Collect Urine - Clean Catch; Complete Time: hm2 13:52 01/22 11:02 Order name: Iv Saline Lock; Complete Time: 11:29 2 01/22 11:02 Order name: NPO; Complete Time: 11:29 2 01/22 14:25 Order name: Admit to Inpatient EDMS Dispensed Medications: No medications were administered Disposition Summary: 01/22/21 13:52 Hospitalization Ordered Hospitalization Status: Inpatient Admission [facility] Provider: Hospitalist, Decontamination Technician [facility] Condition: Stable [facility] Location: Med-Surg 2(01/22/21 14:11) kms Room Assignment: [id number](01/22/21 14:20) kms Diagnosis - GI Bleeding [facility] Additional Information - Patient Status Inpatient. [facility] Forms: - Medication Reconciliation [facility] - SBAR [facility] Addendum: 01/24/2021 09:18 Attestation: I discussed the plan of care with Mid-Level jt Provider and agree with what they have documented. I have reviewed relevant laboratory values and/or imaging studies. Signatures: Dispatcher [employer] EDMS Robinson Love RN RN edv Mauro Mccarthy RN RN tp1 Jenn Paez MD MD jtv Munz, Heather, PA-C PA-C [facility] Emily Bhardwaj NA NA [facility] Corrections: (The following items were deleted from the chart) 01/22 10:39 10:37 Home Meds: BP med; edv edv 13:08 12:12 CT Abdomen & Pelvis w Con+CT.RAD.CAN ordered. EDVA EDMS 14:11 13:52 Med/Surg 3 2 kms 14:11 13:52 2 kms 14:20 14:11 [id number] kms kms Name Value Range Interpretation Code Description Data Criselda rce(s) Supporting Document(s) ID Date Data Source [id number] 01/22/2021 10:27:00 AM EDT [facility] Name: BEAU SALGADO Med Rec #: [id number] 63 : 1940 Age/Sex: 80M Date of Service: 01/22/21 NURSE CHART Nurse's Notes [facility] Name: Beau Salgado Age: 80 yrs Sex: Male : 1940 Arrival Date: 01/22/2021 Time: 10:27 Bed 11 Private MD: Sarah Lind Diagnosis: GI Bleeding Presentation: 01/22 10:34 Transition of care: codey gorman was not received from another edv setting of care. Presenting complaint: Patient states - Bloody stools w/black stool x 3 today. Have you travelled in the last 30 days? No. Have you had contact with an individual with a confirmed diagnosis of Ebola or COVID-19? No. 10:34 Method Of Arrival: Walk-In edv 10:34 Acuity: Urgent - 3 edv Triage Assessment: 10:36 Suicide Screening: Have you had thoughts of harming edv yourself or others? No. The patient appears to have no apparent distress, The patient is behaving appropriately according to age, cooperative. The patient denies having pain. GI: The patient reports Black stool w/blood in bowl x 3 this AM. 10:45 SEPSIS SCREEN: A Confirmed or Suspected Infection is jc3 Unknown, their temperature is not <96.8 or >100.9, their heart rate is not >90, their RR is not >20, it is unknown if their WBC is <4 or > 12, the patient does not have new or unexplained altered mental status. SIRS or Sepsis criteria is not present. Historical: - Allergies: No known drug Allergies; - Home Meds: 1. Flomax 0.4 mg Oral cap 1 cap once daily 2. one urinary med 3. losartan 50 mg oral tab 1 tab once daily - PMHx: prosatitis; Diabetes mellitus; - Med Reconciliation:: Yellow Alert: The patient's home medication list is partly complete. However, additional information is required to complete list. Medications reviewed, completed by nurse verbally from patient/family. - Immunization history,: Flu vaccine is up to date. - Advance directive: There is no existing advanced directive. Information offered. - Family History:: mother is . Father is . - Social History: Smoking status (Tobacco): Patient stat es he/she has never smoked tobacco. No barriers to communication noted, The patient speaks fluent Mexican. Screenin:39 AUDIT 1. How oft en do you have a drink containing alcohol? edv Never (0 points). Drug Abuse Screening Test: 1. Have you used drugs other than those required for medical reasons? No (0 points), screen is complete, no risk. Abuse screen: Denies threats or abuse. Nutritional screening: No deficits noted. Patient has no identifiable fall risk (Dunne Scale: 0 points). Assessment: 11:30 The patient denies having pain. The patient appears to have tp1 no apparent distress, The patient is behaving appropriately according to age, cooperative. Respiratory: No deficits noted. GI: Pt reports blood in stool this morning. Vital Signs: 10:35 BP 129 / 71; Pulse 85; Resp 20; Temp 98.4; Pulse Ox 97% on edv R/A; Weight 80.74 kg; Height 6 ft. 1 in. (185.42 cm); 12:52 BP 123 / 56; Pulse 92; Resp 16; Pulse Ox 98% on R/A; tp1 16:23 BP 115 / 70; Pulse 82; Resp 14; Temp 97.6; Pulse Ox 98% on tp1 R/A; 10:35 Body Mass Index 23.48 (80.74 kg, 185.42 cm) edv ED Course: 10:27 Patient arrived in ED. mlr 10:34 Sarah Lind MD is Private Physician. edv 10:35 Triage co mpleted. edv 10:35 Arm band placed on right wrist. Patient placed in exam room edv Patient has correct armband on for positive identification. 10:39 Mauro Mccarthy RN is Primary Nurse. edv 10:41 [facility] hm2 10:41 Jenn Paez MD is Attending Physician. 2 11:19 Cardiology EKG Interpretation - Choose Reason for Test Sent.kb2 11:19 An EKG was obtained and reviewed by Sherrie Be PA-C. kb2 11:31 Labs drawn by ED staff. Inserted peripheral IV: 18 gauge in tp1 right antecubital area and blood collected. 12:04 Rectal exam performed, by Sherrie Be PA-C Occult blood kb2 test was positive. Patient tolerated well. 13:43 Radiology: The patient went to get his/her CT at 13:10. jc3 Patient returned from CT at 13:20. 13:48 CT Abdomen Sent. 3 13:52 Hospitalist, Decontamination Technician is Hospitalizing Provider. 2 13:52 Urine collected. Straight cath urine specimen collected. jc3 15:18 Effie Murillo, RN is Primary Nurse. Administered Medications: No medications were administered Output: 13:55 Urine: 650ml; Total: 650ml. 3 Outcome: 13:52 Decision to Hospitalize by Provider. 2 14:03 Reassessment: No Change in symptoms. 3 14:03 Patient verbalized understanding of disposition instructions. Patient has no functional deficits. 14:03 Condition: unchanged 14:03 Patient was instructed on purpose of admission . The patient demonstrated understanding of instructions, Not Applicable. 14:03 Vitals are Complete in accordance with Emergency Department Policy. 14:25 Report given to Rn on 2nd floor tp1 16:23 Patient admitted to Med/Surg, accompanied by nurse, via tp1 wheelchair, with chart. 16:24 Patient left the ED. tp1 Signatures: Robinson Love RN RN edv Romi Dominguez RN RN Mauro Cartagena, RN RN tp1 Inge Delgado, GN GN kb2 Sherrie Be PA-C PA-C 2 Tanya Grant RN RN jc3 Rosmery Burgos Corrections: (The following items were deleted from the chart) 10:39 10:37 Home Meds: BP med; edv edv Name Value Range Interpretation Code Description Data Criselda rce(s) Supporting Document(s) ID Date Data Source [id number] 01/24/2021 08:25:00 AM EDT [facility] Name Value Range Interpretation Code Description Data Criselda rce(s) Supporting Document(s) White Blood Count 4.8-10.8 Normal (applies to non-numeri c results) [facility] Red Blood Count 4.35-6.08 Below low normal [facility] Hemoglobin 13.0-17.5 Normal (applies to non-numeric resul ts) [facility] Hematocrit 37.7-51.0 Normal (applies to non-numeric resul ts) [facility] Mean Corpuscular Volume 80-94 Normal (applies to non- numeric results) [facility] Mean Corpuscular Hemoglobin 27.0-33.0 Normal (appli es to non-numeric results) [facility] Mean Corpuscular HGB Conc 32.0-36.0 Normal (applies to no n-numeric results) [facility] Red Cell Distribution Width 11.5-14.5 Normal (appli es to non-numeric results) [facility] Platelet Count 164 X10 3/uL 130-450 Normal (applies to non-numeric results) [facility] Mean Platelet Volume 9.6-13.1 Normal (applies to non-num natividad results) [facility] Imm Grans% (AUTO) 0 % 0-2 Normal (applies to non-numeri c results) [facility] Neutrophils % (AUTO) 73 % 40-75 Normal (applies to non-num natividad results) [facility] Lymphocytes % (AUTO) 15 % 21-46 Below low normal [facility] Monocytes % (AUTO) 9 % 5-12 Normal (applies to non-numer ic results) [facility] Eosinophils % (AUTO) 3 % 1-5 Normal (applies to non-num natividad results) [facility] Basophils % (AUTO) 1 % 0-1 Normal (applies to non-numer ic results) [facility] Imm Grans# (AUTO) 0.0-0.5 Normal (applies to non-numeri c results) [facility] Neutrophils # (AUTO) 1.5-8.1 Normal (applies to non-num natividad results) [facility] Lymphocytes # (AUTO) 1.0-3.1 Below low normal [facility] Monocytes # (AUTO) 0.2-1.3 Normal (applies to non-numer ic results) [facility] Eosinophils# (AUTO) 0.0-0.5 Normal (applies to non-nume marnie results) [facility] Basophils # (AUTO) 0.0-0.1 Normal (applies to non-numer ic results) [facility] ID Date Data Source [id number] 01/24/2021 08:21:00 AM EDT [facility] Name Value Range Interpretation Code Description Data Criselda rce(s) Supporting Document(s) Sodium 144 mmol/L 137-145 Normal (applies to non-numeric resul ts) [facility] Potassium 3.5-5.1 Normal (applies to non-numeric resul ts) [facility] Chloride 108 mmol/L 98-112 Normal (applies to non-numeric resul ts) [facility] Carbon Dioxide CO2 22.0-33.0 Normal (applies to non-numer ic results) [facility] Anion Gap 4.0-11.0 Normal (applies to non-numeric resul ts) [facility] BUN 14 mg/dL 9-20 Normal (applies to non-numeric resul ts) [facility] Creatinine 0.80-1.50 Below low normal [facility] GFR >60 Normal (applies to non-numeric results) [facility] Result based on MDRD formula. Glucose Level 82 mg/dL 74-99 Normal (applies to non-numeric re sults) [facility] The reference range is only applicable w hen fasting. Calcium-Uncorrected 8.4-10.2 Below low normal [facility] Corrected Calcium 8.4-10.2 Normal (applies to non-numeri c results) [facility] Phosphorus 2.5-4.9 Normal (applies to non-numeric resul ts) [facility] Albumin 3.5-5.0 Below low normal [facility] ID Date Data Source [id number] 01/23/2021 06:17:00 PM EDT [facility] Name Value Range Interpretation Code Description Data Criselda rce(s) Supporting Document(s) White Blood Count 4.8-10.8 Normal (applies to non-numeri c results) [facility] Red Blood Count 4.35-6.08 Below low normal [facility] Hemoglobin 13.0-17.5 Normal (applies to non-numeric resul ts) [facility] Hematocrit 37.7-51.0 Normal (applies to non-numeric resul ts) [facility] Mean Corpuscular Volume 80-94 Normal (applies to non- numeric results) [facility] Mean Corpuscular Hemoglobin 27.0-33.0 Normal (appli es to non-numeric results) [facility] Mean Corpuscular HGB Conc 32.0-36.0 Normal (applies to no n-numeric results) [facility] Red Cell Distribution Width 11.5-14.5 Normal (appli es to non-numeric results) [facility] Platelet Count 163 X10 3/uL 130-450 Normal (applies to non-numeric results) [facility] Mean Platelet Volume 9.6-13.1 Normal (applies to non-num natividad results) [facility] Imm Grans% (AUTO) 0 % 0-2 Normal (applies to non-numeri c results) [facility] Neutrophils % (AUTO) 67 % 40-75 Normal (applies to non-num natividad results) [facility] Lymphocytes % (AUTO) 21 % 21-46 Normal (applies to non-num natividad results) [facility] Monocytes % (AUTO) 8 % 5-12 Normal (applies to non-numer ic results) [facility] Eosinophils % (AUTO) 3 % 1-5 Normal (applies to non-num ntaividad results) [facility] Basophils % (AUTO) 0 % 0-1 Normal (applies to non-numer ic results) [facility] Imm Grans# (AUTO) 0.0-0.5 Normal (applies to non-numeri c results) [facility] Neutrophils # (AUTO) 1.5-8.1 Normal (applies to non-num natividad results) [facility] Lymphocytes # (AUTO) 1.0-3.1 Normal (applies to non-num natividad results) [facility] Monocytes # (AUTO) 0.2-1.3 Normal (applies to non-numer ic results) [facility] Eosinophils# (AUTO) 0.0-0.5 Normal (applies to non-nume marnie results) [facility] Basophils # (AUTO) 0.0-0.1 Normal (applies to non-numer ic results) [facility] ID Date Data Source [id number] 01/22/2021 10:27:00 AM EDT [facility] Name: BEAU SALGADO [facility] Rec #: [id number] 63 : 1940 Age/Sex: 80M Date of Service: 01/22/21 DISPOSITION SUMMARY Discharge Summary [facility] Name:Beau Salgado Emergency Department Age:80 yrs Sex:Male :1940 Arrival:01/22/2021 10:27 Departure Date01/22/2021 Departure Time16:24 Private MD:Sarah Lind MD Outcome: Hospitalize Location: Med-Surg 2 Condition: Stable Chief Complaint: Bloody Stools Diagnosis: GI Bleeding Prescriptions: Custom Notes: Attending Physician: Jenn Paez MD Private MD: Sarah Lind MD Mid Level Provider: Sherrie Be PA-C Hospitalizing Provider: Hospitalist, Decontamination Technician Orders: CRP - Wide Range, Cbc With Auto Differential, Comprehensive Metabolic Prof., Lipase, UA., Lactic Acid, Troponin I, PT, PTT, Emergency Room EKG Order - Use EKG Work-Up /Quick Select, Cardiology EKG Interpretation - Choose Reason for Test, Ct Abdomen & Pelvis with Con, Type And Screen, CT Abdomen , Collect Urine - Clean Catch, Iv Saline Lock, NPO, Admit to Inpatient Discharge Instruction: Medication Reconciliation, SBAR, Fax Visit Summary for Sarah Lind MD Name Value Range Interpretation Code Description Data Criselda rce(s) Supporting Document(s) ID Date Data Source [id number] 01/23/2021 08:24:00 AM EDT [facility] Name Value Range Interpretation Code Description Data [facility] rce(s) Supporting Document(s) Sodium 144 mmol/L 137-145 Normal (applies to non-numeric resul ts) [facility] Potassium 3.5-5.1 Normal (applies to non-numeric resul ts) [facility] Chloride 109 mmol/L 98-112 Normal (applies to non-numeric resul ts) [facility] Carbon Dioxide CO2 22.0-33.0 Normal (applies to non-numer ic results) [facility] Anion Gap 4.0-11.0 Below low normal [facility] BUN 13 mg/dL 9-20 Normal (applies to non-numeric resul ts) [facility] Creatinine 0.80-1.50 Normal (applies to non-numeric resul ts) [facility] GFR >60 Normal (applies to non-numeric results) [facility] Result based on MDRD formula. Glucose Level 81 mg/dL 74-99 Normal (applies to non-numeric re sults) [facility] The reference range is only applicable w hen fasting. Calcium-Uncorrected 8.4-10.2 Normal (applies to non-nume marnie results) [facility] Corrected Calcium 8.4-10.2 Normal (applies to non-numeri c results) [facility] Bilirubin,Total 0.2-1.3 Normal (applies to non-numeric results) [facility] SGOT(AST) 15 U/L 17-59 Below low normal [facility] SGPT(ALT) 17 U/L 21-72 Below low normal [facility] Alkaline Phosphatase 62 U/L 38-126 Normal (applies to non-num natividad results) [facility] can increase Alkaline Phosp le vels up to 2 times the normal adult value. Normal values for children and adolescents are 2 to 3 times the normal adult value. Total Protein 6.3-8.2 Below low normal [facility] Albumin 3.5-5.0 Below low normal [facility] ID Date Data Source [id number] 01/23/2021 08:05:00 AM EDT [facility] Name Value Range Interpretation Code Description Data Criselda rce(s) Supporting Document(s) White Blood Count 4.8-10.8 Normal (applies to non-numeri c results) [facility] Red Blood Count 4.35-6.08 Below low normal [facility] Hemoglobin 13.0-17.5 Normal (applies to non-numeric resul ts) [facility] Hematocrit 37.7-51.0 Normal (applies to non-numeric resul ts) [facility] Mean Corpuscular Volume 80-94 Normal (applies to non- numeric results) [facility] Mean Corpuscular Hemoglobin 27.0-33.0 Normal (appli es to non-numeric results) [facility] Mean Corpuscular HGB Conc 32.0-36.0 Normal (applies to no n-numeric results) [facility] Red Cell Distribution Width 11.5-14.5 Normal (appli es to non-numeric results) [facility] Platelet Count 158 X10 3/uL 130-450 Normal (applies to non-numeric results) [facility] Mean Platelet Volume 9.6-13.1 Normal (applies to non-num natividad results) [facility] Imm Grans% (AUTO) 0 % 0-2 Normal (applies to non-numeri c results) [facility] Neutrophils % (AUTO) 68 % 40-75 Normal (applies to non-num natividad results) [facility] Lymphocytes % (AUTO) 15 % 21-46 Below low normal [facility] Monocytes % (AUTO) 12 % 5-12 Normal (applies to non-numer ic results) [facility] Eosinophils % (AUTO) 4 % 1-5 Normal (applies to non-num natividad results) [facility] Basophils % (AUTO) 1 % 0-1 Normal (applies to non-numer ic results) [facility] Imm Grans# (AUTO) 0.0-0.5 Normal (applies to non-numeri c results) [facility] Neutrophils # (AUTO) 1.5-8.1 Normal (applies to non-num natividad results) [facility] Lymphocytes # (AUTO) 1.0-3.1 Normal (applies to non-num natividad results) [facility] Monocytes # (AUTO) 0.2-1.3 Normal (applies to non-numer ic results) [facility] Eosinophils# (AUTO) 0.0-0.5 Normal (applies to non-nume marnie results) [facility] Basophils # (AUTO) 0.0-0.1 Normal (applies to non-numer ic results) [facility] ID Date Data Source [id number] 01/23/2021 12:10:00 AM EDT [facility] Name Value Range Interpretation Code Description Data Criselda rce(s) Supporting Document(s) Troponin I 0.000-0.045 Normal (applies to non-numeric resu lts) [facility] ID Date Data Source [id number] 01/22/2021 05:55:00 PM EDT [facility] Name Value Range Interpretation Code Description Data Criselda rce(s) Supporting Document(s) Troponin I 0.000-0.045 Normal (applies to non-numeric resu lts) [facility] ID Date Data Source [id number] 01/22/2021 05:42:00 PM EDT [facility] Name Value Range Interpretation Code Description Data Criselda rce(s) Supporting Document(s) White Blood Count 4.8-10.8 Normal (applies to non-numeri c results) [facility] Red Blood Count 4.35-6.08 Below low normal [facility] Hemoglobin 13.0-17.5 Normal (applies to non-numeric resul ts) [facility] Hematocrit 37.7-51.0 Normal (applies to non-numeric resul ts) [facility] Mean Corpuscular Volume 80-94 Normal (applies to non- numeric results) [facility] Mean Corpuscular Hemoglobin 27.0-33.0 Normal (appli es to non-numeric results) [facility] Mean Corpuscular HGB Conc 32.0-36.0 Normal (applies to no n-numeric results) [facility] Red Cell Distribution Width 11.5-14.5 Normal (appli es to non-numeric results) [facility] Platelet Count 157 X10 3/uL 130-450 Normal (applies to non-numeric results) [facility] Mean Platelet Volume 9.6-13.1 Below low normal [facility] Imm Grans% (AUTO) 0 % 0-2 Normal (applies to non-numeri c results) [facility] Neutrophils % (AUTO) 69 % 40-75 Normal (applies to non-num natividad results) [facility] Lymphocytes % (AUTO) 18 % 21-46 Below low normal [facility] Monocytes % (AUTO) 10 % 5-12 Normal (applies to non-numer ic results) [facility] Eosinophils % (AUTO) 3 % 1-5 Normal (applies to non-num natividad results) [facility] Basophils % (AUTO) 0 % 0-1 Normal (applies to non-numer ic results) [facility] Imm Grans# (AUTO) 0.0-0.5 Normal (applies to non-numeri c results) [facility] Neutrophils # (AUTO) 1.5-8.1 Normal (applies to non-num natividad results) [facility] Lymphocytes # (AUTO) 1.0-3.1 Normal (applies to non-num natividad results) [facility] Monocytes # (AUTO) 0.2-1.3 Normal (applies to non-numer ic results) [facility] Eosinophils# (AUTO) 0.0-0.5 Normal (applies to non-nume marnie results) [facility] Basophils # (AUTO) 0.0-0.1 Normal (applies to non-numer ic results) [facility] ID Date Data Source [id number] 01/25/2021 11:10:00 AM EDT [facility] Name Value Range Interpretation Code Description Data Criselda rce(s) Supporting Document(s) Urine Culture [facility] ID Date Data Source [id number] 01/25/2021 11:10:00 AM EDT [facility] Name Value Range Interpretation Code Description Data Criselda rce(s) Supporting Document(s) Ampicillin Susceptible. Indicates for microbiol ogy susceptibilities only. [facility] Cefazolin Susceptible. Indicates for microbiol ogy susceptibilities only. [facility] Cefepime Susceptible. Indicates for microbiol ogy susceptibilities only. [facility] Ceftazadime Susceptible. Indicates for m icrobiology susceptibilities only. [facility] Ceftriaxone Susceptible. Indicates for m icrobiology susceptibilities only. [facility] Ciprofloxacin Susceptible. Ind icates for microbiology susceptibilities only. [facility] Ertapenem Susceptible. Indicates for microbiol ogy susceptibilities only. [facility] Gentamicin Susceptible. Indicates for microbiol ogy susceptibilities only. [facility] Levofloxacin Susceptible. Indicates for m icrobiology susceptibilities only. [facility] Nitrofurantoin 128 Results entered -- not verified [facility] Pipercillin/Tazobactam Susceptib le. Indicates for microbiology susceptibilities only. [facility] Trimeth/Sulfamethoxazole Suscept ible. Indicates for microbiology susceptibilities only. [facility] ID Date Data Source [id number] 01/22/2021 03:53:00 PM EDT [facility] Name Value Range Interpretation Code Description Data Criselda rce(s) Supporting Document(s) Color,Urine Yellow Normal (applies to non-numeric resu lts) [facility] Clarity,Urine Clear Normal (applies to non-numeric re sults) [facility] Specific [place],Urine 1.001-1.030 Normal (applies to non- numeric results) [facility] PH,Urine 5.0-8.0 [place] Protein,Urine Negative Normal (applies to non-numeric re sults) [facility] Glucose,Urine (UA) Negative Normal (applies to non-numer ic results) [facility] Ketones,Urine Negative [facility] Blood,Urine Negative Normal (applies to non-numeric resu lts) [facility] Bilirubin,Urine Negative Normal (applies to non-numeric results) [facility] Urobilinogen,Urine Norm 0.2-1 Normal (applies to non-numer ic results) [facility] Leukocyte Esterase,Urine Negative [facility] Nitrite,Urine Negative [facility] ID Date Data Source [id number] 01/22/2021 03:53:00 PM EDT [facility] Name Value Range Interpretation Code Description Data Criselda rce(s) Supporting Document(s) RBC,Auto Urine 0-2 Normal (applies to non-numeric r esults) [facility] WBC Urine Auto 0-2 [place] [facility] Casts,Hyaline,Urine Auto 0-2 Normal (applies to non -numeric results) [facility] Bacteria Urine Auto None Seen Normal (applies to non-nume marnie results) [facility] Epithelial Cell Ur Auto None-Few Normal (applies to non- numeric results) [facility] ID Date Data Source [id number] 01/22/2021 02:38:00 PM EDT [facility] Name Value Range Interpretation Code Description Data Criselda rce(s) Supporting Document(s) BLOOD TYPE PATIENT O Negative Normal (applies to non-numer ic results) [facility] ANTIBODY SCREEN NEGATIVE Normal (applies to non-numeric results) [facility] ID Date Data Source [id number] 01/22/2021 04:48:00 PM EDT [facility] Name: BEAU SALGADO : 1940 A ge/Sex: 80M Ordering Provider: CODEY Hylton Med Rec #: [id number] Reg Status: ADM IN Room #: 206-1 Date of Service: 01/22/21 Report Number: [id number] cc:Sarah Lind MD; CODEY Hylton Send Report To: [id number] CT/CT Abdomen & Pelvis No Contras Reason for exam: LOWER ABDO DISCOMFORT, BLOODY STOOLS, BRBPR FINDINGS: The lung bases demonstrate cylindrical bronchiectasis bilaterally. The liver and spleen appear normal. The adrenals, gallbladder, pancreas appear normal. Cysts off the anterior border of the right kidney. One is a bit hyperdense and measures approximately 2.7 cm. That has Hounsfield units of 29. The other one measures approximately 2 cm with Hounsfield units of 10. Ultrasound may be helpful to confirm the cystic nature of these cysts. Cyst off the posterior border of the left kidney measures 1.5 cm. Atherosclerotic changes within the aorta. Bowel gas pattern within normal limits. There are diverticula identified throughout the colon. These diverticula are most notable in the descending colon. No other significant findings. The appendix appears normal. The bladder appears to be distended. No signs of any focal inflammatory change. No abdominal wall defects noted. IMPRESSION: Moderately distended bladder. Diverticulosis. No definite diverticulitis or focal inflammation noted. While performing the above CT exam, the following dose reduction techniques wereused: *Automated exposure control *Adjustment of the mA and/or kV according to patient size *Use of iterative reconstruction technique CT Dose in mSv: 6.40 Contrast Agent in ml: Method of Administration: REPORT SIGNATURE ON FILE Reported By: Maximino Alaniz MD Electronically signed by: Maximino Alaniz MD 01/22/21 9825 Dictation Date/Time: 01/22/21 0958 Transcribed Date/Time: 01/22/21 1648 Immigration Specialist: AMANDA Name Value Range Interpretation Code Description Data Criselda rce(s) Supporting Document(s) ID Date Data Source [id number] 01/22/2021 12:36:00 PM EDT [facility] 3 hour post Lactic if elevated? Y Name Value Range Interpretation Code Description Data Criselda rce(s) Supporting Document(s) Troponin I 0.000-0.045 Normal (applies to non-numeric resu lts) [facility] ID Date Data Source [id number] 01/22/2021 12:22:00 PM EDT [facility] Name Value Range Interpretation Code Description Data Criselda rce(s) Supporting Document(s) C-Reactive Protein,Wide Range <3.00 Above high normal [facility] ID Date Data Source [id number] 01/22/2021 12:22:00 PM EDT [facility] Name Value Range Interpretation Code Description Data Criselda rce(s) Supporting Document(s) Sodium 141 mmol/L 137-145 Normal (applies to non-numeric resul ts) [facility] Potassium 3.5-5.1 Normal (applies to non-numeric resul ts) [facility] Chloride 108 mmol/L 98-112 Normal (applies to non-numeric resul ts) [facility] Carbon Dioxide CO2 22.0-33.0 Normal (applies to non-numer ic results) [facility] Anion Gap 4.0-11.0 Normal (applies to non-numeric resul ts) [facility] BUN 18 mg/dL 9-20 Normal (applies to non-numeric resul ts) [facility] Creatinine 0.80-1.50 Normal (applies to non-numeric resul ts) [facility] GFR 88 mL/min >60 Normal (applies to non-numeric resul ts) [facility] Result based on MDRD formula. Glucose Level 93 mg/dL 74-99 Normal (applies to non-numeric re sults) [facility] The reference range is only applicable w hen fasting. Calcium-Uncorrected 8.4-10.2 Normal (applies to non-nume marnie results) [facility] Corrected Calcium 8.4-10.2 Normal (applies to non-numeri c results) [facility] Bilirubin,Total 0.2-1.3 Normal (applies to non-numeric results) [facility] SGOT(AST) 16 U/L 17-59 Below low normal [facility] SGPT(ALT) 20 U/L 21-72 Below low normal [facility] Alkaline Phosphatase 63 U/L 38-126 Normal (applies to non-num natividad results) [facility] can increase Alkaline Phosp le vels up to 2 times the normal adult value. Normal values for children and adolescents are 2 to 3 times the normal adult value. Total Protein 6.3-8.2 Normal (applies to non-numeric re sults) [facility] Albumin 3.5-5.0 Normal (applies to non-numeric resul ts) [facility] ID Date Data Source [id number] 01/22/2021 12:22:00 PM EDT [facility] Name Value Range Interpretation Code Description Data Criselda rce(s) Supporting Document(s) Lipase 68 U/L 73-393 Below low normal [facility] ID Date Data Source [id number] 01/22/2021 12:06:00 PM EDT [facility] 3 hour post Lactic if elevated? Y 3 jessica r post Lactic if elevated? Y 3 hour post Lactic if elevated? Y 3 jessica r post Lactic if elevated? Y Name Value Range Interpretation Code Description Data Criselda rce(s) Supporting Document(s) PT 9.4-12.5 Normal (applies to non-numeric results) [facility] INR Normal (applies to non-numeric results) [facility] The use of the INR is restricted to marcos ents on stable oral anticoagulant. Therapeutic Range: 2.0-3.0 High Risk Values: 2.5-3.5 ID Date Data Source [id number] 01/22/2021 12:06:00 PM EDT [facility] 3 hour post Lactic if elevated? Y 3 jessica r post Lactic if elevated? Y 3 hour post Lactic if elevated? Y 3 jessica r post Lactic if elevated? Y Name Value Range Interpretation Code Description Data Criselda rce(s) Supporting Document(s) PTT 25.1-36.5 Normal (applies to non-numeric resul ts) [facility] ID Date Data Source [id number] 01/22/2021 11:56:00 AM EDT [facility] Name Value Range Interpretation Code Description Data Criselda rce(s) Supporting Document(s) White Blood Count 4.8-10.8 Normal (applies to non-numeri c results) [facility] Red Blood Count 4.35-6.08 Normal (applies to non-numeric results) [facility] Hemoglobin 13.0-17.5 Normal (applies to non-numeric resul ts) [facility] Hematocrit 37.7-51.0 Normal (applies to non-numeric resul ts) [facility] Mean Corpuscular Volume 80-94 Normal (applies to non- numeric results) [facility] Mean Corpuscular Hemoglobin 27.0-33.0 Normal (appli es to non-numeric results) [facility] Mean Corpuscular HGB Conc 32.0-36.0 Normal (applies to no n-numeric results) [facility] Red Cell Distribution Width 11.5-14.5 Normal (appli es to non-numeric results) [facility] Platelet Count 165 X10 3/uL 130-450 Normal (applies to non-numeric results) [facility] Mean Platelet Volume 9.6-13.1 Normal (applies to non-num natividad results) [facility] Imm Grans% (AUTO) 1 % 0-2 Normal (applies to non-numeri c results) [facility] Neutrophils % (AUTO) 74 % 40-75 Normal (applies to non-num natividad results) [facility] Lymphocytes % (AUTO) 14 % 21-46 Below low normal [facility] Monocytes % (AUTO) 10 % 5-12 Normal (applies to non-numer ic results) [facility] Eosinophils % (AUTO) 2 % 1-5 Normal (applies to non-num natividad results) [facility] Basophils % (AUTO) 0 % 0-1 Normal (applies to non-numer ic results) [facility] Imm Grans# (AUTO) 0.0-0.5 Normal (applies to non-numeri c results) [facility] Neutrophils # (AUTO) 1.5-8.1 Normal (applies to non-num natividad results) [facility] Lymphocytes # (AUTO) 1.0-3.1 Normal (applies to non-num natividad results) [facility] Monocytes # (AUTO) 0.2-1.3 Normal (applies to non-numer ic results) [facility] Eosinophils# (AUTO) 0.0-0.5 Normal (applies to non-nume marnie results) [facility] Basophils # (AUTO) 0.0-0.1 Normal (applies to non-numer ic results) [facility] ID Date Data Source [id number] 01/22/2021 11:55:00 AM EDT [facility] 3 hour post Lactic if elevated? 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 ECG HEART RATE: 86 /min ECG RR INTERVAL: 696 ms ECG P DURATION: 122 ms ECG QRS DURATION: 152 ms ECG SC INTERVAL: 164 ms ECG QT INTERVAL: 365 ms ECG QTC INTERVAL: 410 ms Q-T dispersion: ms ECG P AXIS: 70 deg ECG QRS AXIS: -49 deg ECG T AXIS: 52 deg REPORT SIGNATURE ON FILE 01/23/21 1042 Reported By: Chris Rueda MD, [facility] <<Signature on File>> Exam Date/Time: 01/22/21 1119 Order #: [id number] Dictation Date/Time: 01/23/21 104 Transcribed Date/Time: 01/23/211041 Immigration Specialist: PINA Name Value Range Interpretation Code Description Data Criselda rce(s) Supporting Document(s) ID Date Data Source [id number] 01/21/2021 03:09:06 PM EDT [address] [address] Name: BEAU JACQUESB: 1940Sex: MOrdering Provider: APRIL Maxwell Prov: APRIL Brar Provider: Procedure Performed: US CAROTID BILATERALExam Date: 01/21/2021 15:02MRN: [id number] Number: [id number] Class: OutpatientAccount #: [id number] for Exam: TAVR protocolTechnique: Duplex sonography was performed.Comparison: NoneFindings: The right and left carotid systems were examined by Doppler sonography. Carotid stenosis measurements were performed using the NASCET method.RIGHT CAROTID SYSTEM:Common Systolic Velocity 91 cm/s End-Diastolic Velocity 22 cm/sInternal Systolic Velocity 141 cm/s End-Diastolic Velocity 48 cm/sExternal Systolic Velocity 83 cm/s End-Diastolic Velocity 0 cm/sVertebral Artery 69 cm/s Antegrade flowICA/CCA Systolic Ratio = 1.5 Internal Carotid Artery Stenosis: 50-69%LEFT CAROTID SYSTEM:Common Systolic Velocity 92 cm/s End-Diastolic Velocity 23 cm/sInternal Systolic Velocity 162 cm/s End-Diastolic Velocity 46 cm/sExternal Systolic Velocity 93 cm/s End-Diastolic Velocity 10 cm/sVertebral Artery 67 cm/s Antegrade flowICA/CC A Systolic Ratio = 1.8 Internal Carotid Artery Stenosis: 50-69%Incidental note is made of bilateral thyroid nodules. The largest is on the right measuring 3.7 x 3.2 x 2.4 cm.IMPRESSION: Moderate (50-69%) bilateral internal carotid artery stenosis.Bilateral thyroid nodules. Suggest biopsy. However prior to this Suggest standard thyroid ultrasound.These findings were communicated utilizing the departmental critical results protocol.Report electronically signed by: DARIAN FAIR On 01/21/2021 3:09 PMWorkstation ID: [id number] Name Value Range Interpretation Code Description Data Criselda rce(s) Supporting Document(s) ID Date Data Source [id number] 01/21/2021 02:12:38 PM EDT [facility] Name Value Range Interpretation Code Description Data Criselda rce(s) Supporting Document(s) &PDF [facility] RRWBZb4iZvPJCxPk05/YQKscEBJen5RlZHjpBNl5TFsvQYAdD5ZflEciLU0HH8lAONgGZtPGEcGAFO6u FcG [file] ICAgICAgICAgICAgICAgICAgICAgICAgICAgICAgICAgICAgICAgICAgICAgICAgICAgICAgICAgICAg ICAgICAgICAgICAgICAgICAgICAgICAgICAgICAgIC AgICAgICAgDQogICAgICAgICAgICAgICAgICAgICAgICAgICAgICAgICAgICAgICAgICAgICAgICAgIC AgICAgICAgICAgICAgICAgICAgICAgICAgICAgICAgICAgICAgICAgICAgICAgICAgDQogICAgICAgIC AgICAgICAgICAgICAgICAgICAgICAgICAgICAgICAg ICAgICAgICAgICAgICAgICAgICAgICAgICAgICAgICAgICAgICAgICAgICAgICAgICAgICAgICAgICAg DQogICAgICAgICAgICAgICAgICAgICAgICAgICAgICAgICAgICAgICAgICAgICAgICAgICAgICAgICAg ICAgICAgICAgICAgICAgICAgICAgICAgICAgICAgIC AgICAgICAgICAgDQogICAgICAgICAgICAgICAgICAgICAgICAgICAgICAgICAgICAgICAgICAgICAgIC AgICAgICAgICAgICAgICAgICAgICAgICAgICAgICAgICAgICAgICAgICAgICAgICAgICAgDQogICAgIC AgICAgICAgICAgICAgICAgICAgICAgICAgICAgICAg ICAgICAgICAgICAgICAgICAgICAgICAgICAgICAgICAgICAgICAgICAgICAgICAgICAgICAgICAgICAg ICAgDQogICAgICAgICAgICAgICAgICAgICAgICAgICAgICAgICAgICAgICAgICAgICAgICAgICAgICAg ICAgICAgICAgICAgICAgICAgICAgICAgICAgICAgIC AgICAgICAgICAgICAgDQogICAgICAgICAgICAgICAgICAgICAgICAgICAgICAgICAgICAgICAgICAgIC AgICAgICAgICAgICAgICAgICAgICAgICAgICAgICAgICAgICAgICAgICAgICAgICAgICAgICAgDQogIC AgICAgICAgICAgICAgICAgICAgICAgICAgICAgICAg ICAgICAgICAgICAgICAgICAgICAgICAgICAgICAgICAgICAgICAgICAgICAgICAgICAgICAgICAgICAg ICAgICAgDQogICAgICAgICAgICAgICAgICAgICAgICAgICAgICAgICAgICAgICAgICAgICAgICAgICAg ICAgICAgICAgICAgICAgICAgICAgICAgICAgICAgIC QuBSVqXMXyEOJoWLRrQEGnSEr5M6vjTYHoLJIzOH0sBYs3Ig7+FUyMBeKbJBW5keHztZ7FPY4ni6VcJP onIVUul0OrDDp9HM9BZANhTTkzSZ2NYGzyqb7VPNDzKLTjqSIVm7woPeOfYEQ2PRPaJwpnZY0KBTDoO8 ctmnFqFZMhGRAFVEobUUJARCmcVXCQLW4XOlExX7Yz iL12VRIKWv0+WYctnpQuDhxMIbAzRJFzh1TaPOj1VJ6NMEOxQiwyy7UnTmRbHQRMSOafWZ9YDVX9BSMr YFFjJm6FCSLzV611djTeTW7ETt6XCtEmWA9khq0UOzZzCMWnYvyHRss0LQqfEP1YyVTnHFnUkRTbZJ51 bfaEVzLsV4Ges8RxGzK6BFRfFmMbDXtdJHBsGDB2NF 65xUpcFI0TFAZgCPKnHF28XTRrUZRjMy8CBr6INlFbPD0piy2IHoQxCHVmZjvRMnv3KBcfWJ4FzLStO6 NebBOnl9uCDuLaT4EAGHSmDITyWr3AVCVmZwZzALWpPMxrCT9dRQBxARUAdOgpboM7FY4WXL8jdeFdUG 4AYiThUy0jYs5YPqMeC3CdB1AsEYDtWVJDVCypRZ3B EXrnTZ5eZT1Xh0OZhGHmjV0ytv7NLNGeWIEtPngjwb7OEvneA4Y5zQazZRTuArSmHILWQKyyCL0RFZSr RAS2OKJtQKBtHHASQdSwL64jNG0SH9Jaf19xGiQ8FXJeEaDbQUevEQ92dSdwxiUnfEIweRgaNX6TPx1+ DQplbmRvYmoNCnhyZWYNCjAgMjUNCjAwMDAwMDAwMD JpTqC7YqZxFj1IZSUjERHyJQBjZwNwJVJvQVKuMXvvZAXhYUShTIz0TEGuIZEbZX2TFcYwVCVcGpC7XB TjVTMlEUUmjo5REAEnXJAbCXQ0GMJdYHZmNQQzJDdwRPVjDGYwMVKmQQFoQPZwBP9NGjZiBVFiLNGaTp HkUWKnBBTkan1OCMWqDIVnWMM1EMSiDYEhNWSqGFon PFPlRIG2WZQ5HVNrZECiKR9OKiMsWPTwWZA7AqFqTHWxJYHute5DKHEhHRUhLmS8DRRgNXIoVQVyXQbm KYCrMSB5VMA8CGEzTCRtTH9BNgMgQFKgJDtfZpXbLAPsHYHjfl5FIBRjFLJvYvZyCGJxVOBmPAGqZNgh EMWxQPI7YvMaHJQjHMOuMQ1DGcMtZFHgTHb7PjOdIN EzXTRqma9RSNEsVAHjWHb6ZvUlFAKqNWSoFUekPHPeRKSbOSR8VYSgWJFcBU5BEbPkZZAnFLOgPkJkKT UgKAEzgc7IKKJbBDNzSKK0UGZbPDOeECCeBNlaVRAwZLBzVFQdWAJsGGSmOK8NTiBaNBMyLoC3QSAaPB EzOXTppn0URSHrUFNnKFz9RELkAKCtWJFuIPzwUQSh ZMW7QIV6WGKbTNOwBT8QZaEaUSMaGtGrMpAeOMFwKZAeao6EzVJxjVmczx4FHSjOTu1BhTviXTG5SWjb Ze9jgQRnDKOiJWYNNn6HvcRyVDDrXZTTVHikCMOcPII5MUPeSPM6WCTaUBS3LTAeSAKiOGNxEzQ8JVT0 OGShBfW5PGB3GUH6TTS6RHVmXFedQJLsA0NpBcAaUX hhYjYwMGI+SN9bIEn+Ih1Wz1DbmrJ5mxJwLMpjZVC1CS4WVMNCN2YDLa== ID Date Data Source [id number] 01/21/2021 12:18:43 PM EDT [facility]FORMATIONPatient MR[facility] Name Date of Age Gend*PT [id number] Beau Salgado W 1940 80 years M HOPPT Location Admission Date/Time Visit ID Attending [id number] 01/21/21 1056 --- Dorothy Cheng MD([id number]) EPI ID CSN Admitting Provider [id number] Dorothy Cheng MD([id number])Updated H&PPlease see the scanned/dictated outpatient note.I have reviewed the note, clinical history and physical exam findings. Therehave been no significant changes.Plan as outlined in the outpatient note.Risk/benifit/alternative of cardiac catheterization was discussed withpatient/family. Risks included, but not limited to; [place], CVA, , renalimpairment, vascular complication, and need for emergency surgery were discussedand accepted by patient.Dorothy Cheng MD, [facility], [facility] Sprinkler Fitter Name Value Range Interpretation Code Description Data Criselda rce(s) Supporting Document(s) ID Date Data Source [id number] 01/21/2021 11:23:37 AM EDT [facility] Name Value Range Interpretation Code Description Data Criselda rce(s) Supporting Document(s) EKG [facility] SRJXGl9bMsSTWhJpg8CkVyEbZWHtJY0tdvx1L0W0sWMjF0UweSUie9otL0IvI6WxXMSqUYULED1TjNTy jb2 [file] MjUgMDAwMDAgbiAKMDAwMDAwMTYwOSAwMDAwMCBuIA ubLMGcUXGlFnS3ILByITAeBG2vSeWxIJXeIPX0OPTcKLDbDZJoudGAYHVgWIBgVTEmYFW1ZNCwIJQhYK m0xfCmiCIfXuv9Py3NoUwjNML4Tj2YgrVaUDTwZKVOOz7Ws208UTBfBTUPLaw+PgpzdGFydHhyZWYKNj A3MHbNFOOVJ3U= ID Date Data Source [id number] 01/12/2021 02:12:00 PM EDT [facility] Name Value Range Interpretation Code Description Data Criselda rce(s) Supporting Document(s) Sodium 146 mmol/L 136-145 Above high normal [facility] Potassium 3.5-5.1 Normal (applies to non-numeric resul ts) [facility] Chloride 106 mmol/L 98-107 Normal (applies to non-numeric resul ts) [facility] Carbon Dioxide CO2 21-32 Normal (applies to non-numer ic results) [facility] Anion Gap 5.0-16.0 Normal (applies to non-numeric resul ts) [facility] BUN 21 mg/dL 7-18 Above high normal [facility] Creatinine,Serum 0.8-1.5 Normal (applies to non-numeric results) [facility] GFR >60 Normal (applies to non-numeric results) [facility] Glucose Level 99 mg/dL 60-99 Normal (applies to non-numeric re sults) [facility] Reference range is only applicable when patient is fasting Note the following drug interference: Sulfasalazine Sulfapyridine Can see falsely depressed Can see falsely elevated result with up to 17% results with up to 11% decrease in measurement increase in measurement Recommend patients be collected for this test prior to administration of either drug. Calcium 8.5-10.1 Normal (applies to non-numeric resul ts) [facility] ID Date Data Source [id number] 01/12/2021 01:30:00 PM EDT [facility] Name Value Range Interpretation Code Description Data Criselda rce(s) Supporting Document(s) White Blood Count 3.5-10.5 Normal (applies to non-numeri c results) [facility] Red Blood Count 4.30-5.70 Normal (applies to non-numeric results) [facility] Hemoglobin 13.5-17.5 Normal (applies to non-numeric resul ts) [facility] Hematocrit 38.8-50.0 Normal (applies to non-numeric resul ts) [facility] Mean Corpuscular Volume 81.2-95.1 Normal (applies to non- numeric results) [facility] Mean Corpuscular Hgb 25.6-32.2 Normal (applies to non-num natividad results) [facility] Mean Corpuscular Hgb Conc 32.0-36.0 Normal (applies to no n-numeric results) [facility] Red Cell Distribution Width 11.8-15.6 Normal (appli es to non-numeric results) [facility] Platelet Count 184 x10 3/uL 150-450 Normal (applies to non-numeric results) [facility] Mean Platelet Volume 9.4-12.4 Normal (applies to non-num natividad results) [facility] Neutrophils% (Auto) 31.0-71.[address] [facility] Lymphocytes% (Auto) 20.0-55.0 Below low normal [facility] Monocytes% (Auto) 4.0-12.0 Normal (applies to non-numeri c results) [facility] Eosinophils% (Auto) 1.0-8.0 Normal (applies to non-nume marnie results) [facility] Basophils% (Auto) 0.0-2.0 Normal (applies to non-numeri c results) [facility] Immature Granulocytes% (Auto) 0.0-2.0 Normal (antonio lies to non-numeric results) [facility] Neutrophils# (Auto) 1.50-6.[address] [facility] Lymphocytes# (Auto) 1.20-4.00 Normal (applies to non-nume marnie results) [facility] Monocytes# (Auto) 0.00-0.90 Normal (applies to non-numeri c results) [facility] Eosinophils# (Auto) 0.00-0.50 Normal (applies to non-nume marnie results) [facility] Basophils# (Auto) 0.00-0.20 Normal (applies to non-numeri c results) [facility] Immature Granulocytes# (Auto) 0.00-7.00 No rmal (applies to non-numeric results) [facility] ID Date Data Source [id number] 01/08/2021 08:46:00 AM EDT [facility] Name Value Range Interpretation Code Description Data Criselda rce(s) Supporting Document(s) Sodium 147 mmol/L 136-145 Above high normal [facility] Potassium 3.5-5.1 Normal (applies to non-numeric resul ts) [facility] Chloride 107 mmol/L 98-107 Normal (applies to non-numeric resul ts) [facility] Carbon Dioxide CO2 21-32 Normal (applies to non-numer ic results) [facility] Anion Gap 5.0-16.0 Normal (applies to non-numeric resul ts) [facility] BUN 24 mg/dL 7-18 Above high normal [facility] Creatinine,Serum 0.8-1.5 Normal (applies to non-numeric results) [facility] GFR >60 Normal (applies to non-numeric results) [facility] Glucose Level 91 mg/dL 60-99 Normal (applies to non-numeric re sults) [facility] Reference range is only applicable when patient is fasting Note the following drug interference: Sulfasalazine Sulfapyridine Can see falsely depressed Can see falsely elevated result with up to 17% results with up to 11% decrease in measurement increase in measurement Recommend patients be collected for this test prior to administration of either drug. Calcium 8.5-10.1 Normal (applies to non-numeric resul ts) [facility] ID Date Data Source [id number] 11/19/2020 10:43:00 AM EDT [facility] Name: BABATUNDEBEAU W : 1940 A ge/Sex: 80M Ordering Provider: Sarah Lind MD [facility] Rec #: [id number] Reg Status:REG REF Room #: Date of Service: 11/19/20 Report Number: [id number] cc: Sarah Lind MD Send Report To: Echocardiogram Complete Ordering Phys: DIOGO, Accession Number: [id number] Exam Date: 11/19/2020 10:52 Indications: AORTIC STENOSIS MURMUR BP 122 / 80 Rhythm: Sinus Technical Quality: Fair Contrast: Total Dose (mL): MEASUREMENTS (Male / Female) Normal Values 2D ECHO Measurement LV Diastolic Diameter PLAX 4.8 cm 4.2 - 6.0 / 3.9 - 5.4 cm LV Systolic Diameter PLAX 2.4 cm 2.1 - 4.0 cm IVS Diastolic Thickness 0.9 cm 0.6 - 1.1 / 0.6 - 1.0 cm LVPW Diastolic Thickness 1.2 cm 0.6 - 1.1 / 0.6 - 1.0 LV Relative Wall Thickness 0.45 LVOT Diameter 1.9 cm Aortic Root Diameter 2.7 cm Aortic Root Diameter Index 1.3 cm/m2 LA Systolic Diameter LX 4.6 cm 3.0 - 4.1 / 2.7 - 3.9 cm LA Volume Index 37.6 cm3/m2 16 - 28 cm3/m2 DOPPLER Measurement AV Peak Velocity 425 cm/s AV Peak Gradient 72.1 mmHg LVOT Peak Velocity 156 cm/s LVOT Peak Gradient 9.7 mmHg AV Area Cont Eq vti 1.1 cm2 AV Area Cont Eq pk 1 cm2 Mitral E Point Velocity 71.6 cm/s Mitral A Point Velocity 124 cm/s Mitral E to A Ratio 0.58 MV Area PHT 4.6 cm2 MV Deceleration Time 164 ms PV Peak Velocity 132 cm/s PV Peak Gradient 7 mmHg Mitral E to LV E' Lateral Ratio 8.9 LV E' Septal Velocity 5.2 cm/s Mitral E to LV E' Septal Ratio 13.7 FINDINGS Left Ventricle: Normal LV size with ejection fraction estimated at 60-65%. LVH with grade 2 diastolic dysfunction (e'septal 5.2; E/e' 13.7). No regional wall motion abnormalities Right Ventricle: Normal right ventricular size and function. Right Atrium: Normal right atrial size. Normal collapse of IVC Left Atrium: Mild to moderate left atrial dilation (4.5 cm; SHU 37) Intravenous Agitated Saline: Mitral Valve: Mild mitral regurgitation. Aortic Valve: Severe aortic stenosis (Peak/Mean 72/40mmHg; EOA 1.0-1.1cm2). No aortic regurgitation. Tricuspid Valve: Suboptimal tricuspid regurgitation jet to estimate pulmonary artery pressure. Trace tricuspid regurgitation. Pulmonic Valve: Mild pulmonary regurgitation (normal variant). Pericardium: Normal pericardium. No thickening/calcification of the pericardium. Aorta: Normal size aortic root and proximal ascending aorta. CONCLUSIONS 1) Severe aortic stenosis (Peak/Mean 72/40mmHg; EOA 1.0- 1.1cm2). No aortic regurgitation. 2) Mild mitral regurgitation. Mild to moderate left atrial dilation (4.5 cm; SHU 37) 3) Normal LV size with ejection fraction estimated at 60-65%. LVH with grade 2 diastolic dysfunction (e'septal 5.2; E/e' 13.7). No regional wall motion abnormalities 4) Normal right ventricular size and function. Suboptimal tricuspid regurgitation jet to estimate pulmonary artery pressure. Finding regarding Severe reported to Dr. Lind's office 11/19/2020 REPORT SIGNATURE ON FILE 11/19/20 1534 Reported By: Cesar Baeza MD <Electronically signed by Cesar Baeza MD in [facility]> Exam Date/Time: 11/19/20 1043 Order #: [id number] Dictation Date/Time: 11/19/20 1052 Transcribed Date/Time: Immigration Specialist: Name Value Range Interpretation Code Description Data Criselda rce(s) Supporting Document(s) ID Date Data Source [id number] 10/20/2020 09:00:00 AM EDT [facility] Name Value Range Interpretation Code Description Data Criselda rce(s) Supporting Document(s) Sodium 146 mmol/L 136-145 Above high normal [facility] Potassium 3.5-5.1 Normal (applies to non-numeric resul ts) [facility] Chloride 106 mmol/L 98-107 Normal (applies to non-numeric resul ts) [facility] Carbon Dioxide CO2 21-32 Normal (applies to non-numer ic results) [facility] Anion Gap 5.0-16.0 Normal (applies to non-numeric resul ts) [facility] BUN 19 mg/dL 7-18 Above high normal [facility] Creatinine,Serum 0.8-1.5 Normal (applies to non-numeric results) [facility] GFR >60 Normal (applies to non-numeric results) [facility] Glucose Level 91 mg/dL 60-99 Normal (applies to non-numeric re sults) [facility] Reference range is only applicable when patient is fasting Note the following drug interference: Sulfasalazine Sulfapyridine Can see falsely depressed Can see falsely elevated result with up to 17% results with up to 11% decrease in measurement increase in measurement Recommend patients be collected for this test prior to administration of either drug. Calcium 8.5-10.1 Normal (applies to non-numeric resul ts) [facility] Bilirubin,Total 0.1-1.9 Normal (applies to non-numeric results) [facility] SGOT(AST) 14 U/L 15-37 Below low normal [facility] Note the following drug interference: Sulfasalazine Sulfapyridine Can see falsely depressed Can see falsely elevated result with up to 10% results with up to 10% decrease in measurement increase in measurement Recommend patients be collected for this test prior to administration of either drug. SGPT(ALT) 25 U/L 12-78 Normal (applies to non-numeric resul ts) [facility] Note the following drug interference: Sulfasalazine Sulfapyridine Can see falsely depressed Can see falsely elevated result with up to 29% results with up to 10% decrease in measurement increase in measurement Recommend patients be collected for this test prior to administration of either drug. Alkaline Phosphatase 65 U/L 38-126 Normal (applies to non-num natividad results) [facility] can increase Alkaline Phosp le vels up to 2 times the normal adult value. Normal values for children and adolescents are 2 to 3 times the normal adult value. Total Protein 6.0-8.2 Normal (applies to non-numeric re sults) [facility] Albumin Level 3.4-5.0 Normal (applies to non-numeric re sults) [facility] ID Date Data Source [id number] 10/20/2020 09:00:00 AM EDT [facility] Name Value Range Interpretation Code Description Data Criselda rce(s) Supporting Document(s) Triglycerides 86 mg/dL <150 Normal (applies to non-numeric re sults) [facility] Cholesterol 188 mg/dL 100-200 Normal (applies to non-numeric resu lts) [facility] LDL Cholesterol Calculated 120 0-130 Normal (applies to n on-numeric results) [facility] HDL Cholesterol 51 mg/dL 40-60 Normal (applies to non-numeric results) [facility] Cholesterol/HDL Ratio 3.6-6.7 Normal (applies to non-nu meric results) [facility] ID Date Data Source [id number] 10/20/2020 08:54:00 AM EDT [facility] Name Value Range Interpretation Code Description Data Criselda rce(s) Supporting Document(s) White Blood Count 3.5-10.5 Normal (applies to non-numeri c results) [facility] Red Blood Count 4.30-5.70 Normal (applies to non-numeric results) [facility] Hemoglobin 13.5-17.5 Normal (applies to non-numeric resul ts) [facility] Hematocrit 38.8-50.0 Normal (applies to non-numeric resul ts) [facility] Mean Corpuscular Volume 81.2-95.1 Normal (applies to non- numeric results) [facility] Mean Corpuscular Hgb 25.6-32.2 Normal (applies to non-num natividad results) [facility] Mean Corpuscular Hgb Conc 32.0-36.0 Normal (applies to no n-numeric results) [facility] Red Cell Distribution Width 11.8-15.6 Normal (appli es to non-numeric results) [facility] Platelet Count 158 x10 3/uL 150-450 Normal (applies to non-numeric results) [facility] Mean Platelet Volume 9.4-12.4 Normal (applies to non-num natividad results) [facility] Neutrophils% (Auto) 31.0-71.0 Normal (applies to non-nume marnie results) [facility] Lymphocytes% (Auto) 20.0-55.0 Normal (applies to non-nume marnie results) [facility] Monocytes% (Auto) 4.0-12.0 Normal (applies to non-numeri c results) [facility] Eosinophils% (Auto) 1.0-8.0 Normal (applies to non-nume marnie results) [facility] Basophils% (Auto) 0.0-2.0 Normal (applies to non-numeri c results) [facility] Immature Granulocytes% (Auto) 0.0-2.0 Normal (antonio lies to non-numeric results) [facility] Neutrophils# (Auto) 1.50-6.20 Normal (applies to non-nume marnie results) [facility] Lymphocytes# (Auto) 1.20-4.00 Normal (applies to non-nume marnie results) [facility] Monocytes# (Auto) 0.00-0.90 Normal (applies to non-numeri c results) [facility] Eosinophils# (Auto) 0.00-0.50 Normal (applies to non-nume marnie results) [facility] Basophils# (Auto) 0.00-0.20 Normal (applies to non-numeri c results) [facility] Immature Granulocytes# (Auto) 0.00-7.00 No rmal (applies to non-numeric results) [facility] ID Date Data Source [id number] 06/29/2020 01:21:00 PM EST [facility] Name Value Range Interpretation Code Description Data Rciselda rce(s) Supporting Document(s) SARS-CoV-2 KIRAN result Not Detected Normal (applies to non- numeric results) [facility] This nucleic acid amplification test was developed and its performance characteristics determined by [facility]. Nucleic acid amplification tests include PCR and TMA. This test has not been FDA cleared or approved. This test has been authorized by FDA under an Emergency Use Authorization (EUA). This test is only authorized for the duration of time the declaration that circumstances exist justifying the authorization of the emergency use of in vitro diagnostic tests for detection of SARS-CoV-2 virus and/or diagnosis of COVID-19 infection under section 564(b)(1) of the Act, 21 U.S.C. 360bbb-3(b) (1), unless the authorization is terminated or revoked sooner. When diagnostic testing is negative, the possibility of a false negative result should be considered in the context of a patient's recent exposures and the presence of clinical signs and symptoms consistent with COVID-19. An individual without symptoms of COVID-19 and who is not shedding SARS-CoV-2 virus would expect to have a negative (not detected) result in this assay. ID Date Data Source [id number] 05/27/2020 08:20:00 AM [facility] Name Value Range Interpretation Code Description Data Criselda rce(s) Supporting Document(s) COVID-19 Result Normal (applies to non-numeric results) [facility] SEE SCANNED REPORT ID Date Data Source [id number] 05/22/2020 07:28:00 AM EST [facility] Name Value Range Interpretation Code Description Data Criselda rce(s) Supporting Document(s) SARS coronavirus 2 RNA [facility] This lab was ordered by [facility] anat and reported by [facility]. ID Date Data Source [id number] 05/09/2020 09:52:00 PM EDT [facility] Name Value Range Interpretation Code Description Data Criselda rce(s) Supporting Document(s) Respiratory specimen severe acute respir atory syndrome coronavirus 2 (SARS-CoV-2) RNA [facility] This lab was ordered by [facility] anat and reported by [facility]. ID Date Data Source [id number] 05/10/2020 01:54:00 AM EDT [facility] COVID-19 Specimen Source NASOPHARYNGEAL Is Patient admitted or to be admitted? YFirst test? YESEmployed in healthcare? NOSymptomatic per CDC? NOHospitalized? NOICU? NOResident in congregated care? ex chcf, ARC NO? NO Name Value Range Interpretation Code Description Data Criselda rce(s) Supporting Document(s) SARS-CoV-2 RNA Negative Normal (applies to non-numeric r esults) [facility] This test has not been FDA cleared or ap proved. This test has been authorized by FDA under an EUA for use by authorized laboratories. This test has been authorized only for detection of nucleic acid from 2019-nCoV, not for any other viruses or pathogens. This test is only authorized for the duration of the declaration that circumstances exist justifying the authorization of emergency use of in vitro diagnostic tests for detection and/or diagnosis of 2019-nCoV under section 564(b)(1) of Act, 21 U.S.C ? 360bbb-3(b) (1), unless the authorization is terminated or revoked sooner. Negative results do not preclude 2019-nCoV infection and should not be used as the sole basis for treatment or other patient management decisions. Negative results must be combined with clinical observations, patient history, and epidemiological information. Performed on the [employer] Fusion instrument THIS IS A STATE REPORTABLE COMMUNICABLE DISEASE. 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 ex chcf, ARC: N ?: N Please indicate the Triage TierY PRE OP Test performed or referred by The [address] [address] ID Date Data Source [id number] 05/09/2020 09:52:00 PM EDT [facility] COVID-19 Specimen Source NASOPHARYNGEAL Is Patient admitted or to be admitted? YFirst test? YESEmployed in healthcare? NOSymptomatic per CDC? NOHospitalized? NOICU? NOResident in congregated care? ex chcf, ARC NO? NO Name Value Range Interpretation Code Description Data Criselda rce(s) Supporting Document(s) SARS-CoV-2 RNA Negative Normal (applies to non-numeric r esults) [facility] This test has not been FDA cleared or ap proved. This test has been authorized by FDA under an EUA for use by authorized laboratories. This test has been authorized only for detection of nucleic acid from 2019-nCoV, not for any other viruses or pathogens. This test is only authorized for the duration of the declaration that circumstances exist justifying the authorization of emergency use of in vitro diagnostic tests for detection and/or diagnosis of 2019-nCoV under section 564(b)(1) of Act, 21 U.S.C ? 360bbb-3(b) (1), unless the authorization is terminated or revoked sooner. Negative results do not preclude 2019-nCoV infection and should not be used as the sole basis for treatment or other patient management decisions. Negative results must be combined with clinical observations, patient history, and epidemiological information. Performed on the [employer] Fusion instrument THIS IS A STATE REPORTABLE COMMUNICABLE DISEASE. 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 ex chcf, ARC: N ?: N Please indicate the Triage TierY PRE OP Test performed or referred by The [address] [address] ID Date Data Source [id number] 04/27/2020 01:40:00 PM EDT [facility] Name Value Range Interpretation Code Description Data Criselda rce(s) Supporting Document(s) Sodium 142 mmol/L 137-145 Normal (applies to non-numeric resul ts) [facility] Potassium 3.5-5.1 Normal (applies to non-numeric resul ts) [facility] Chloride 107 mmol/L 98-112 Normal (applies to non-numeric resul ts) [facility] Carbon Dioxide CO2 22.0-33.0 Normal (applies to non-numer ic results) [facility] Anion Gap 4.0-11.0 Normal (applies to non-numeric resul ts) [facility] BUN 18 mg/dL 9-20 Normal (applies to non-numeric resul ts) [facility] Creatinine 0.80-1.50 Normal (applies to non-numeric resul ts) [facility] GFR 76 mL/min >60 Normal (applies to non-numeric resul ts) [facility] Result based on MDRD formula. Glucose Level 94 mg/dL 74-99 Normal (applies to non-numeric re sults) [facility] The reference range is only applicable w hen fasting. Calcium-Uncorrected 8.4-10.2 Normal (applies to non-nume marnie results) [facility] Corrected Calcium 8.4-10.2 Normal (applies to non-numeri c results) [facility] Bilirubin,Total 0.2-1.3 Normal (applies to non-numeric results) [facility] SGOT(AST) 16 U/L 17-59 Below low normal [facility] SGPT(ALT) 23 U/L 21-72 Normal (applies to non-numeric resul ts) [facility] Alkaline Phosphatase 62 U/L 38-126 Normal (applies to non-num natividad results) [facility] can increase Alkaline Phosp le vels up to 2 times the normal adult value. Normal values for children and adolescents are 2 to 3 times the normal adult value. Total Protein 6.3-8.2 Normal (applies to non-numeric re sults) [facility] Albumin 3.5-5.0 Normal (applies to non-numeric resul ts) [facility] ID Date Data Source [id number] 04/27/2020 01:12:00 PM EDT [facility] Name Value Range Interpretation Code Description Data Criselda rce(s) Supporting Document(s) White Blood Count 4.8-10.8 Normal (applies to non-numeri c results) [facility] Red Blood Count 4.35-6.08 Normal (applies to non-numeric results) [facility] Hemoglobin 13.0-17.5 Normal (applies to non-numeric resul ts) [facility] Hematocrit 37.7-51.0 Normal (applies to non-numeric resul ts) [facility] Mean Corpuscular Volume 80-94 Normal (applies to non- numeric results) [facility] Mean Corpuscular Hemoglobin 27.0-33.0 Normal (appli es to non-numeric results) [facility] Mean Corpuscular HGB Conc 32.0-36.0 Normal (applies to no n-numeric results) [facility] Red Cell Distribution Width 11.5-14.5 Normal (appli es to non-numeric results) [facility] Platelet Count 226 X10 3/uL 130-450 Normal (applies to non-numeric results) [facility] Mean Platelet Volume 9.6-13.1 Below low normal [facility] Imm Grans% (AUTO) 1 % 0-2 Normal (applies to non-numeri c results) [facility] Neutrophils % (AUTO) 67 % 40-75 Normal (applies to non-num natividad results) [facility] Lymphocytes % (AUTO) 21 % 21-46 Normal (applies to non-num natividad results) [facility] Monocytes % (AUTO) 8 % 5-12 Normal (applies to non-numer ic results) [facility] Eosinophils % (AUTO) 2 % 1-5 Normal (applies to non-num natividad results) [facility] Basophils % (AUTO) 0 % 0-1 Normal (applies to non-numer ic results) [facility] Imm Grans# (AUTO) 0.0-0.5 Normal (applies to non-numeri c results) [facility] Neutrophils # (AUTO) 1.5-8.1 Normal (applies to non-num natividad results) [facility] Lymphocytes # (AUTO) 1.0-3.1 Normal (applies to non-num natividad results) [facility] Monocytes # (AUTO) 0.2-1.3 Normal (applies to non-numer ic results) [facility] Eosinophils# (AUTO) 0.0-0.5 Normal (applies to non-nume marnie results) [facility] Basophils # (AUTO) 0.0-0.1 Normal (applies to non-numer ic results) [facility] ID Date Data Source [id number] 04/27/2020 01:51:00 PM EDT [facility] Name: BEAU SALGADO Sonal : 1940 A ge/Sex: 79M Ordering Provider: Sarah Lind MD Med Rec #: [id number] Reg Status:REG REF Room #: Date of Service: 04/27/20 Report Number: [id number] cc: Sarah Lind MD Send Report To: Reason for exam: Preop SINUS RHYTHM 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 ECG HEART RATE: 95 /min ECG RR INTERVAL: 627 ms ECG P DURATION: 92 ms ECG QRS DURATION: 155 ms ECG SC INTERVAL: 148 ms ECG QT INTERVAL: 356 ms ECG QTC INTERVAL: 417 ms Q-T dispersion: ms ECG P AXIS: 54 deg ECG QRS AXIS: -52 deg ECG T AXIS: 48 deg REPORT SIGNATURE ON FILE 04/27/20 1351 Reported By: Maximino Tavarez MD <<Signature on File>> Exam Date/Time: 04/27/20 1037 Order #: [id number] Dictation Date/Time: 04/27/20 1351 Transcribed Date/Time: 04/27/20 135 Immigration Specialist: PINA Ochoa Value Range Interpretation Code Description Data Criselda rce(s) Supporting Document(s) Procedure Social History Code Duration Value Status Description Data Source(s ) Alcohol intake 03/10/2021 12:00:00 AM EDT Lifetime non-drinker (finding) completed Lifetime non-drinker (finding) [facility] Alcohol intake 02/23/2021 12:00:00 AM EDT Lifetime non-drinker (finding) completed Lifetime non-drinker (finding) [facility] Alcohol intake 02/19/2021 12:00:00 AM EDT Lifetime non-drinker (finding) completed Lifetime non-drinker (finding) [facility] Tobacco use and exposure 01/21/2021 12:00:00 AM EDT Never used co mpleted Never used [facility] Smoking 01/21/2021 12:00:00 AM EDT Never smoker completed Never s moker [facility] Alcohol intake 01/21/2021 12:00:00 AM EDT Lifetime non-drinker (finding) completed Lifetime non-drinker (finding) [facility] Vital Signs ID Date Data Source UNK Name Value Range Interpretation Code Description Data Source(s) Systolic blood pressure 132 mm[Hg] 132 mm[Hg] [facility] Diastolic blood pressure 60 mm[Hg] 60 mm[Hg] [facility] Body mass index (BMI) [Ratio] 24.97 kg/m2 24.97 kg/m2 [facility] Oxygen saturation in Arterial blood by Pulse oximetry 96 % 96 % [facility] Heart rate 105 /min 105 /min [facility] Body height 180.3 cm 180.3 cm [facility] Body weight 81.194 kg 81.194 kg [facility] Systolic blood pressure 107 mm[Hg] 107 mm[Hg] [facility] Diastolic blood pressure 53 mm[Hg] 53 mm[Hg] [facility] Heart rate 80 /min 80 /min [facility] Body temperature 37.06 Phyllis 37.06 Phyllis [facility] Respiratory rate 22 /min 22 /min [facility] Oxygen saturation in Arterial blood by Pulse oximetry 96 % 96 % [facility] Body weight 78.926 kg 78.926 kg [facility] Body mass index (BMI) [Ratio] 24.27 kg/m2 24.27 kg/m2 [facility] Body height 180.3 cm 180.3 cm [facility] Systolic blood pressure 111 mm[Hg] 111 mm[Hg] [facility] Diastolic blood pressure 69 mm[Hg] 69 mm[Hg] [facility] Heart rate 76 /min 76 /min [facility] Respiratory rate 18 /min 18 /min [facility] Oxygen saturation in Arterial blood by Pulse oximetry 99 % 99 % [facility] Body weight 80.876 kg 80.876 kg [facility] Body mass index (BMI) [Ratio] 24.87 kg/m2 24.87 kg/m2 [facility] Body temperature 35.94 Phyllis 35.94 Phyllis [facility] Body height 180.3 cm 180.3 cm [facility] Systolic blood pressure 125 mm[Hg] 125 mm[Hg] [facility] Diastolic blood pressure 71 mm[Hg] 71 mm[Hg] [facility] Heart rate 80 /min 80 /min [facility] Body temperature 36.72 Phyllis 36.72 Phyllis [facility] Respiratory rate 18 /min 18 /min [facility] Oxygen saturation in Arterial blood by Pulse oximetry 97 % 97 % [facility] Body height 182.9 cm 182.9 cm [facility] Body weight 78.9 kg 78.9 kg [facility] Body mass index (BMI) [Ratio] 23.59 kg/m2 23.59 kg/m2 [facility] ID Date Data Source [id number] 05/07/2021 02:04:00 PM EDT [facility] Name Value Range Interpretation Code Description Data Source(s) Weight (Calculated Kilograms) 80.24 80.24 [facility] Height (Calculated Centimeters) 182.88 182. 88 [facility] Body Mass Index (BMI) 24.0 24.0 [facility] ID Date Data Source [id number] 04/28/2021 11:05:00 AM [facility] Name Value Range Interpretation Code Description Data Source(s) Weight (Calculated Kilograms) 80.24 80.24 [facility] Height (Calculated Centimeters) 182.88 182. 88 [facility] Body Mass Index (BMI) 24.0 24.0 [facility] ID Date Data Source [id number] 04/14/2021 11:32:00 AM EDT [facility] Name Value Range Interpretation Code Description Data Source(s) Weight (Calculated Kilograms) 80.24 80.24 [facility] Height (Calculated Centimeters) 182.88 182. 88 [facility] Body Mass Index (BMI) 24.0 24.0 [facility] ID Date Data Source [id number] 02/17/2021 09:25:00 AM EDT [facility] Name Value Range Interpretation Code Description Data Source(s) Weight (Calculated Kilograms) 80.24 80.24 [facility] Height (Calculated Centimeters) 182.88 182. 88 [facility] Body Mass Index (BMI) 24.0 24.0 [facility] Weight (Calculated Kilograms) 80.24 80.24 [facility] Height (Calculated Centimeters) 182.88 182. 88 [facility] Body Mass Index (BMI) 24.0 24.0 [facility] ID Date Data Source [id number] 02/24/2021 08:58:00 AM EDT [facility] Name Value Range Interpretation Code Description Data Source(s) Weight Measurement Method 5 5 [facility] Weight (Calculated Kilograms) 80.24 80.24 [facility] Weight 2752 2752 [facility] Temperature Source 7 7 [facility] Temperature 97.1 97.1 [facility] Respiratory Effort 1 1 [facility] Respiratory Rate 18 18 [facility] Pulse Assessment Method 4 4 [facility] Pulse Rate 91 91 [facility] Height (Calculated Centimeters) 182.88 182. 88 [facility] Height 72 72 [facility] Blood Pressure 131/82 131/82 [facility] Body Mass Index (BMI) 24.0 24.0 [facility] Weight Measurement Method 5 5 [facility] Weight (Calculated Kilograms) 80.24 80.24 [facility] Weight 2752 2752 [facility] Temperature Source 7 7 [facility] Temperature 97.1 97.1 [facility] Respiratory Effort 1 1 [facility] Respiratory Rate 18 18 [facility] Pulse Assessment Method 4 4 [facility] Pulse Rate 91 91 [facility] Height (Calculated Centimeters) 182.88 182. 88 [facility] Height 72 72 [facility] Blood Pressure 131/82 131/82 [facility] Body Mass Index (BMI) 24.0 24.0 [facility] Weight Measurement Method 5 5 [facility] Weight (Calculated Kilograms) 80.24 80.24 [facility] Weight 2752 2752 [facility] Temperature Source 7 7 [facility] Temperature 97.7 97.7 [facility] Respiratory Effort 1 1 [facility] Respiratory Rate 18 18 [facility] Pulse Assessment Method 4 4 [facility] Pulse Rate 73 73 [facility] Height (Calculated Centimeters) 182.88 182. 88 [facility] Height 72 72 [facility] Blood Pressure 102/58 102/58 [facility] Body Mass Index (BMI) 24.0 24.0 [facility] ID Date Data Source [id number] 07/01/2020 08:39:00 AM EST [facility] Name Value Range Interpretation Code Description Data Source(s) Weight 2848 2848 [facility] Height 74 74 [facility] Weight Measurement Method 1 1 [facility] Weight 2848 2848 [facility] Temperature 97.9 97.9 [facility] Respiratory Effort 1 1 [facility] Respiratory Rate 18 18 [facility] Pulse Rate 84 84 [facility] Height 74 74 [facility] Blood Pressure 125/72 125/72 [facility] Weight Measurement Method 1 1 [facility] Weight 2848 2848 [facility] Temperature 97.9 97.9 [facility] Respiratory Effort 1 1 [facility] Respiratory Rate 18 18 [facility] Pulse Rate 84 84 [facility] Height 74 74 [facility] Blood Pressure 125/72 125/72 [facility] Weight 2848 2848 [facility] Height 74 74 [facility] Patient Treatment Plan of Care Planned Activity Planned Date Details Description Data Source (s) Metoprolol Tartrate 25 MG Oral Tablet 03/10/2021 12:00:00 AM EDT [facility] Bisacodyl 10 MG Rectal Suppository 02/25/2021 09:00:00 AM EDT [facility] POLYETHYLENE GLYCOL 3350 142 MG/ML Oral Solution 02/24/2021 07:00:0 0 AM EDT [facility] Aspirin 81 MG Delayed Release Oral Tablet 02/24/2021 12:00:00 AM ED T [facility] Polyethylene Glycol 400 4 MG/ML / Propylene glycol 3 M G/ML Ophthalmic Solution 02/23/2021 08:00:00 AM EDT [facility] acetaminophen (TYLENOL) 325 MG tablet 650 mg 02/22/2021 02:07:43 PM EDT [facility] ondansetron (ZOFRAN) injection 4 mg 02/22/2021 02:07:42 PM EDT [facility] 2 ML Metoclopramide 5 MG/ML Prefilled Syringe 02/22/2021 02:07:42 P M EDT [facility] Magnesium Chloride 0.62082 MEQ/ML / Pota ssium Chloride 0.0497 MEQ/ML / Sodium Acetate 0.0163 MEQ/ML / Sodium Chloride 0.0899 MEQ/ML / Sodium gluconate 5.02 MG/ML Injectable Solution [Normosol-R] 02/22/2021 01:00:00 PM EDT [facility] Meclizine Hydrochloride 12.5 MG Oral Tablet 02/22/2021 11:10:01 AM EDT [facility] normal saline flush 0.9 % injection 3 mL 01/21/2021 03:00:00 PM EDT [facility] normal saline flush 0.9 % injection 3 mL 01/21/2021 02:00:00 PM EDT [facility] Acetaminophen 325 MG Oral Tablet 01/21/2021 11:21:01 AM EDT [facility] Aspirin 81 MG Delayed Release Oral Tablet 01/21/2021 12:00:00 AM ED T [facility] clopidogrel 75 MG Oral Tablet 01/18/2021 12:00:00 AM EDT [facility] Losartan Potassium 50 MG Oral Tablet [facility] Meclizine Hydrochloride 25 MG Oral Tablet [facility] Hydrochlorothiazide 25 MG Oral Tablet [facility] Losartan Potassium 50 MG Oral Tablet [facility]
[2021-05-08] MEDS ORDERED: METO1TAB87 PO (12:37)
[2021-05-08] MEDS ORDERED: LOSA50TA88 PO (12:37)
[2021-05-08] MEDS ORDERED: PREDOPD PO (12:37)
--- OUTSIDE RECORDS SUMMARY | 2021-05-08 13:27 | CCD ---
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 Name Role Phone Shakir Antony MD Unavailable [...] Paez MD Unavailable Unavailable Cristobal, A April QUALITY COORDINATOR Unavailable Unavailable Cristobal, A April QUALITY COORDINATOR Unavailable Unavailable Cristobal, A April QUALITY COORDINATOR Unavailable Unavailable Cristobal, A April QUALITY COORDINATOR Unavailable Unavailable Cristobal, A April QUALITY COORDINATOR Unavailable Unavailable Cristobal, A April QUALITY COORDINATOR Unavailable Unavailable Cristobal, A April QUALITY COORDINATOR Unavailable Unavailable Cristobal, A April QUALITY COORDINATOR Unavailable Unavailable Cristobal, A April QUALITY COORDINATOR Unavailable Unavailable Cristobal, A April QUALITY COORDINATOR Unavailable Unavailable Cristobal, A April QUALITY COORDINATOR Unavailable Unavailable Cristobal, A April QUALITY COORDINATOR Unavailable Unavailable Cristobal, A April QUALITY COORDINATOR Unavailable Unavailable Cristobal, A April QUALITY COORDINATOR Unavailable Unavailable Cristobal, A April QUALITY COORDINATOR Unavailable Unavailable Cristobal, A April QUALITY COORDINATOR Unavailable Unavailable Cristobal, A April QUALITY COORDINATOR Unavailable Unavailable Cristobal, A April QUALITY COORDINATOR Unavailable Unavailable Cristobal, A April QUALITY COORDINATOR Unavailable Unavailable Cristobal, A April QUALITY COORDINATOR Unavailable Unavailable Cristobal, A April QUALITY COORDINATOR Unavailable Unavailable Cristobal, A April QUALITY COORDINATOR Unavailable Unavailable Cristobal, A April QUALITY COORDINATOR Unavailable Unavailable Cristobal, A April QUALITY COORDINATOR Unavailable Unavailable Cristobal, A April QUALITY COORDINATOR Unavailable Unavailable O'EMILIANO, CHINA OD Unavailable Unavailable [...] Unavailable Unavailable LEANA, JOYCE BALLESTEROS Unavailable Unavailable LEAAN, JOYCE BALLESTEROS Unavailable Unavailable LEANA, JOYCE BALLESTEROS [...] MD Unavailable Unavailable DiogoModesta MD Unavailable Unavailable DiogoModetsa MD Unavailable Unavailable DiogoModesta MD Unavailable Unavailable [...] Modesta Lind MD Unavailable Unavailable Abiodun, J Colleen PA Unavailable [phone] Abiodun, J Colleen PA Unavailable [phone] Abiodun, J Colleen PA Unavailable [phone] Abiodun, J Colleen PA Unavailable [phone] FÁTIMA, L PRATEEK PA Unavailable Unavailable FÁTIMA, [...] is protected by Article 27-F of the [place] Public Health law. If you continue you may have access to information: Regarding HIV / AIDS; Provided by facilities licensed or operated by the [facility] Office of Mental Health; or Provided by the [facility] Office for People With Developmental Disabilities. If such information is present, then the following [facility] mandated warning applies: This information has been [...] law may result in a fine or care home sentence or both. A general authorization for the release of medical or other information is NOT sufficient authorization for further disc losure. Allergies and Adverse Reactions Type Description Substance Reaction Status Data Source(s ) Drug allergy Drug allergy No Known Allergies [facility] Family History Family Member Name Family Member Gender Family Member Status Date o f Status Description Data Source(s) Unknown Male Condition [facility] Unknown Male Condition [facility] Encounters Encounter Providers Location Date Indications Data Source(s ) Outpatient Attender: CHINA BOWERS OD CPSCAORT-CPSLAOPT 03:18:00 PM EDT - 05/04/2021 03[facility]. [facility] SJP-SJP 05/02/2021 12:30:54 PM EDT [facility] Outpatient SJP.SHADE-SJP.SHADE 04/29/2021 12:00:00 AM EDT [facility] Outpatient Attender: SALLY HERNANDES DO CPSCAORT-CPSLAOPT 10:48:00 AM EDT - 04/14/2021 10:49:[facility]patient SJP-SJP 04/12/2021 09:43:10 PM EDT [facility] Outpatient Referrer: JOYCE SIERRA.SHADE-SJP.SHADE 04/09/2021 10:37:59 AM EDT [facility] Outpatient Attender: JOYCE ARTISSHADE-SJP.SHADE 10:37:42 AM EDT - 04/09/2021 12:04:02 PM EDT [facility] Outpatient Attender: SALLY CECILIO ROBISON CPSCAORT-CPSLAOPT 09:34:00 AM EDT - 03/29/2021 09:35:00 [facility]patient Attender: JOYCE DUEÑAS MDReferrer: Sarah Lind MD SJP .SHADE-SJP.SHADE 03/10/2021 12:00:00 AM EDT - 03/10/2021 02:54:41 PM EDT [facility] Outpatient Attender: PRATEEK ALEGRE Main Office 03/08/2021 0 8:00:00 AM EDT [facility] ([facility]) Inpatient Admitter: DOROTHY CHENG MDReferrer: CHLOE RIVERA MD ES1-SJ.ANES 02/22/2021 10:04:16 AM EDT [facility] Inpatient Attender: DOROTHY CHENG MDAdmitter: DOROTHY GAMBOA MD [id number] 02/22/2021 07:11:00 AM EDT - 02/23/2021 05:01:00 PM EDT [facility] Patient discharged. Outpatient Referrer: DOROTHY CHENG MD MOB-MOB.PAT 12/2020 09:32:26 AM EDT - 02/19/2021 09:32:32 AM EDT [facility] Outpatient Attender: DOROTHY CHENG MDReferrer: DOROTHY GAMBOA MD MOB-MOB.PAT 02/19/2021 09:10:59 AM EDT - 02/19/2021 10:30:30 AM EDT [facility] Outpatient Referrer: DOROTHY CHENG MD 02/02/2021 04:24:12 PM EDT [facility] Emergency Attender: Brad Varma MD CPSCAORT-ED 12:36:00 PM EDT - 01/30/2021 02:10:00 PM EDT [facility] Patient discharged. Inpatient Attender: DOROTHY CHENG MDAdmitter: DOROTHY GAMBOA MD ES1-SJ.CV 01/25/2021 10:47:28 AM EDT [facility] Inpatient Attender: Oleksandrromaine JessicaMonae MDAttender: Francois Lopez-Ortiz MDAttender: Jenn Paez MDAdmitter: Francois Lopez-Ortiz MDConsultant: Nehemiah Antony MDConsultant: NEHEMIAH ANTONY MD [facility] 01/22/2021 02:22 :00 PM EDT - 01/25/2021 04:57:00 PM EDT GI BLEED [facility] GI BLEED Patient discharged. Outpatient Attender: DOROTHY CHENG MDA dmitter: DOROTHY CHENG MDReferrer: April MERRILLP ES1-SJ.CV 01/21/2021 10:56:00 AM EDT - 01/21/2021 04:25:00 PM EDT [facility] Patient discharged. Outpatient Attender: DOROTHY CHENG MD ED-[facility] 12/16 12:48:00 PM EDT - 01/12/2021 12:49:00 PM EDT I35.0 [facility] I35.0 Patient discharged. Outpatient Attender: PEDRO LUIS Banks RecoreAttender: Faye Mendez [facility] ED-LAB 01/08/2021 07:22:00 AM EDT - 01/08/2021 07:23:00 AM EDT Q610 0 [facility] Q6100 Patient discharged. Unknown [address] [facility] [address] 01/06/2021 12:00:00 AM EDT eCW1 ([facility]) Unknown [address] [facility] [address] 12/30/2020 12:00:00 AM EDT eCW1 ([facility]) Outpatient Attender: Sarah Lind MD CPSCAORT-CARPD 10:41:00 AM EDT - 11/19/2020 10:42:00 AM EDT I35.0,R01.1 [facility] I35.0,R01.1 Patient discharged. Outpatient Attender: Sarah Lind MD ED-LAB 07:29:00 AM EDT - 10/20/2020 07:30:00 AM EDT E7800 I10 K5730 Z0000 [facility] E7800 I10 K5730 Z0000 Patient discharged. Unknown [address] [facility] [address] 06/30/2020 12:00:00 AM EST eCW1 ([facility]) Outpatient Attender: CHINA BOWERS OD CPSCAORT-CPSLAOPT 08:01:00 AM EST - 06/10/2020 08:02:00 AM EST [facility] Patient discharged. Outpatient Attender: SALLY HERNANDES DO CPSCAORT-REFOPS 05/17 10:05:00 AM EST - 05/27/2020 10:06:00 AM EST SAME DAY POST OP [facility] SAME DAY POST OP Patient discharged. Outpatient Attender: SALLY HERNANDES DO CPSCAORT-SDCLOC 05/17 06:49:00 AM EST - 05/27/2020 07:55:00 AM EST CATARACT LEFT EYE [facility] CATARACT LEFT EYE Patient discharged. Outpatient CPSCAORT-LABEJN 05/22/2020 10:05:00 AM EST [facility] Outpatient Attender: SALLY HERNANDES DO ED-LABPNP 12/2019 08:05:00 AM EST - 05/22/2020 08:06:00 AM EST PRE OP SCREENING [facility] PRE OP SCREENING Patient discharged. Outpatient Attender: SALLY HERNANDES DO CPSCAORT-REFOPS 04/17 01:00:00 PM EDT SAME DAY POST OP [facility] SAME DAY POST OP Outpatient Attender: SALLY HERNANDES DO CPSCAORT-SDCLOC 04/17 10:00:00 AM EDT - 05/13/2020 11:55:00 AM EDT CATARACT RIGHT EYE [facility] CATARACT RIGHT EYE Patient discharged. Preadmit Attender: SALLY HERNANDES DO CPSCAORT-REFOPS 05/13/2020 12:00:00 AM EDT SAME DAY POST OP [facility] SAME DAY POST OP Outpatient CPSCAORT-LABEJN 05/08/2020 10:04:00 AM EDT [facility] Outpatient Attender: SALLY HERNANDES DO ED-LABPNP 04/17 07:47:00 AM EDT - 05/08/2020 07:48:00 AM EDT PRE OP SCREENING [facility] PRE OP SCREENING Patient discharged. Outpatient Attender: SALLY HERNANDES DO CPSCAORT-CPSLAOPT 10:47:00 AM EDT - 04/29/2020 10:48:00 AM EDT [facility] Patient discharged. Outpatient Attender: Sarah Lind MD CPSCAORT-LABPD 0 10:28:00 AM EDT - 04/27/2020 10:29:00 AM EDT I10,E78.00,Z01.818 [facility] I10,E78.00,Z01.818 Patient discharged. Outpatient Attender: Colleen ALEGRE CPSCAORT-CPSLAUCC 10:30:00 AM EDT - 03/14/2020 10:31:00 AM EDT [facility] Patient discharged. Outpatient Attender: SALLY HERNANDES DO CPSCAORT-CPSLAOPT 01:29:00 PM EDT - 03/06/2020 01:30:00 PM EDT [facility] Patient discharged. Outpatient Attender: Sarah Lind MD ED-LABGH 0 08:14:00 AM EDT - 02/20/2020 08:15:00 AM EDT [facility] AF Patient discharged. Immunizations Vaccine Date Status Description Data Source(s) 207 08/28/2020 12:00:00 AM EST completed <td I D="[id number]">Covid-19 (Moderna)</td><td>08/28/2020, 07/31/2020</td><td></td> [facility] COVID-19 VACCINE Moderna 08/28/2020 12:00:00 AM EST completed [facility] Vaccine Series Complete: YESThis Data wa s Submitted to [facility] Via [employer]. COVID-19 VACCINE, MRNA-1273, LNP-S (MODERNA)/PF 08/28/2020 1 2:00:00 AM EST completed [facility] 207 07/31/2020 12:00:00 AM EST completed <td I D="[id number]">Covid-19 (Moderna)</td><td>08/28/2020, 07/31/2020</td><td></td> [facility] COVID-19 VACCINE, MRNA-1273, LNP-S (MODERNA)/PF 07/31/2020 1 2:00:00 AM EST completed [facility] COVID-19 VACCINE Moderna 07/31/2020 12:00:00 AM EST completed [facility] Vaccine Series Complete: NOThis Data was Submitted to [facility] Via [employer]. Medications Medication Brand Name Start Date Product [...] by mouth 2 (two) times a day [facility] Cardiac pacemaker in situ Nonrheumatic aortic (valve) [...] 1 per rectum prn starting POD #3.
[facility] Medication administered onsite POLYETHYLENE GLYCOL 3350 142 MG/ML Oral Solution polyethylene glycol (GLYCOLAX) packet 17 g polyethylene glycol (GLYCOLAX) packet 17 g 02/24/2021 07:00:00 AM EDT 17 g Oral active 17 g, Or al, Daily PRN, For constipation, Starting on Mon02/24/21 at 0700, PACU & Post-op
hold for loose stools
[facility] Medication administered onsite Aspirin 81 MG Delayed Release Oral Tablet aspirin EC 8 1 MG EC tablet aspirin EC 81 MG EC tablet 02/24/2021 12:00:00 AM EDT 81 mg Oral ac tive Take 1 tablet (81 mg total) by mouth daily [facility] Docusate Sodium 100 MG Oral Capsule docusate sodium (C OLACE) capsule 100 mg docusate sodium (COLACE) capsule 100 mg 02/23/2021 09:00:00 AM EDT 100 mg Oral active 100 mg, Oral, 2 times daily, First dose on Mon02/23/21 at 0900, Post-op
Start first POD.
[facility] Medication administered onsite Daily Emiliano (THERAGRAN) 1 tablet 60848-618-99 02/23/2021 09:00:00 AM EDT 1 {tbl} Oral active 1 tablet, Oral, Daily, First dose on Mon02/23/21 at 0900 [facility] Medication administered onsite pantoprazole 40 MG Delayed Release Oral Tablet pantoprazole (PROTONIX) EC tablet 40 mg pantoprazole (PROTONIX) EC tablet 40 mg 02/23/2021 09:00:00 AM E DT 40 mg Oral active Stress Ulcer Prophylaxis 40 mg, Oral, Daily, Indications: Stress Ulcer Prophylaxis, First dose on Mon02/23/21 at 0900, Post-op [facility] Stress Ulcer Prophylaxis Medication administered onsite clopidogrel 75 MG Oral Tablet clopidogrel (PLAVIX) tab let 75 mg clopidogrel (PLAVIX) tablet 75 mg 02/23/2021 09:00:00 AM EDT 75 mg Oral active 75 mg, Oral, Daily, First dose on Mon02/23/21 at 0900, Post-op
Start first POD.
[facility] Medication administered onsite Aspirin 81 MG Delayed Release Oral Tablet aspirin EC t ablet 81 mg aspirin EC tablet 81 mg 02/23/2021 09:00:00 AM EDT 81 mg Oral activ e 81 mg, Oral, Daily, First dose on Mon02/23/21 at 0900, Post-op
Starting POD # 1 for ISAAK patient. Hold for platelet count less than 90,000. If OG tube in place, give non-enteric aspirin.
[facility] Medication administered onsite Polyethylene Glycol 400 4 MG/ML / Propyl harrison glycol 3 MG/ML Ophthalmic Solution Polyethyl Glycol-Propyl Glycol (SYSTANE) 0.4-0.3 % ophthalmic solution 1 drop Polyethyl Glycol-Propyl Glycol (SYSTANE) 0.4-0.3 % ophthalmic solution 1 drop 02/23/2021 08:00:00 AM EDT 1 [drp] active 1 drop, Both Eyes, Daily, First dose on Mon02/23/21 at 0800 [facility] Medication administered onsite Magnesium Oxide (MAG-OX) tablet 400 mg 79987-690-68 08:00:00 AM EDT 400 mg Oral active 400 mg, Oral, Da vineet, First dose on Mon02/23/21 at 0800 [facility] Medication administered onsite heparin (porcine) injection 5,000 Units [id number] 02/23/20 09:00:00 PM EDT 5000 U Subcutaneous [...] equal to 1.7 if receiving Coumadin therapy.
[facility] Medication administered onsite Cefazolin 1000 MG Injection [...] minutes. Use within 1 hour of reconstitution
[facility] Perioperative Pharmacoprophylaxis Medication administered onsite normal saline flush 0.9 % injection 3 mL [id number] 02/22/2021 03:00:00 PM EDT 3 mL Intravenous active 3 mL , Intravenous, PROTOCOL, First dose on Mon02/22/21 at 1500, Post-op
flush per protocol, D/C Main IV fluid if appropriate
[facility] Medication administered onsite sodium chloride 0.9% (NS) infusion 3922-9474-91 02/22/2021 03:00:00 P M EDT Intravenous aborted at 75 mL/hr, Intravenous, Continuous, Starting on Mon02/22/21 at 1500, For 4 hours, Post-op [facility] Medication administered onsite acetaminophen (TYLENOL) 325 MG [...] Mon02/22/21 at 1407, Post-op [Order 2 End] [facility] Medication administered onsite ondansetron (ZOFRAN) injection 4 mg [id number] 02/22/2021 02:07:4 2 PM EDT 4 mg Intravenous active 4 mg, In travenous, Every 6 hours PRN, nausea, vomiting, Starting on Mon02/22/21 at 1407, Post-op
If no response in 15-30 minutes then give metoclopramide 10 mg IV x 1 then q6h prn N/V.
[facility] Medication administered onsite 2 ML Metoclopramide 5 MG/ML Prefilled Sy ringe metoclopramide (REGLAN) injection 10 mg metoclopramide (REGLAN) injection 10 mg 02/22/2021 02:07:42 PM E DT 10 mg Intravenous active 10 mg, I ntravenous, Every 6 hours PRN, nausea, vomiting, Starting on Mon02/22/21 at 1407, Post-op
Give once if no response to Zofran after 15-30 minutes, then q6h prn N/V.
[facility] Medication administered onsite Magnesium Chloride 0.27472 MEQ/ML / Pota ssium Chloride 0.0497 MEQ/ML / Sodium Acetate 0.0163 MEQ/ML / Sodium Chloride 0.0899 MEQ/ML / Sodium gluconate 5.02 MG/ML Injectable Solution [Normosol-R] electrolyte-R (NORMOSOL-R/PLASMALYTE-R) solution electrolyte-R (NORMOSOL-R/PLASMALYTE-R) solution 02/22 01:00:00 PM EDT Intravenous active at 1 00 mL/hr, Intravenous, Continuous, Starting on Mon02/22/21 at 1300, PACU (only) [facility] Medication administered onsite Tamsulosin hydrochloride 0.4 MG Oral Cap karey tamsulosin (FLOMAX) 24 hr capsule 0.4 mg tamsulosin (FLOMAX) 24 hr capsule 0.4 mg 02/22/2021 12:00:00 PM EDT 0.4 mg Oral active 0.4 mg, Oral, Daily, Fir st dose on Mon02/22/21 at 1200 [facility] Medication administered onsite Finasteride 5 MG Oral Tablet finasteride (PROSCAR) tab let 5 mg finasteride (PROSCAR) tablet 5 mg 02/22/2021 12:00:00 PM EDT 5 mg Oral active 5 mg, Oral, Daily, First dose on Mon02/22/21 at 1200 [facility] Medication administered onsite Meclizine Hydrochloride 12.5 MG Oral Tablet meclizine (ANTIVERT) tablet 25 mg meclizine (ANTIVERT) tablet 25 mg 02/22/2021 11:10:01 AM EDT 25 mg Oral active 25 mg, Oral, 3 times daily PRN, dizziness, Starting on Mon02/22/21 at 1110 [facility] Medication administered onsite Cefuroxime 250 MG Oral [...] saline flush 0.9 % injection 3 mL [id number] 01/21/2021 03:00:00 PM EDT 3 mL Intravenous active 3 mL , Intravenous, PROTOCOL, First dose on Andreia 01/21/21 at 1500, Pre-op
flush per protocol, D/C Main IV fluid if appropriate
[facility] Medication administered onsite normal saline flush 0.9 % injection 3 mL [id number] 01/21/2021 02:00:00 PM EDT 3 mL Intravenous active 3 mL , Intravenous, Every 8 hours (scheduled), First dose on Andreia 01/21/21 at 1400, Pre-op
Rapid push positive pressure flushing shall be performed with a 10 cc normal saline syringe to check the PATENCY of a PIV site prior to any infusion therapy initiation unless resistance is met.
[facility] Medication administered onsite iopamidol (ISOVUE-370) 76 % 37216 01/21/2021 01:58:04 PM EDT active As needed, Starting on Andreia 01/21/21 at 1358, Intra-Proce dure [facility] Medication administered onsite 1 ML heparin sodium, porcine 1000 UNT/ML Injection hep madhuri (porcine) injection heparin (porcine) injection 01/21/2021 01:52:30 PM EDT active As needed, Starting on Mon01/21/21 at 1352, Intra-Procedure [facility] Medication administered onsite 4 ML Verapamil hydrochloride 2.5 MG/ML Injection verap gumaro (ISOPTIN) injection verapamil (ISOPTIN) injection 01/21/2021 01:52:20 PM EDT active As needed, Starting on Mon01/21/21 at 1352, Intra-Procedure [facility] Medication administered onsite lidocaine 1 % injection 1048-1107-44 01/21/2021 01:50:42 PM EDT active As needed, Starting on Mon 1 at 1350, Intra-Procedure [facility] Medication administered onsite 2 ML Midazolam 1 MG/ML Injection midazolam (VERSED) in jection midazolam (VERSED) injection 01/21/2021 01:47:32 PM EDT active As needed, Starting on Andreia 01/21/21 at 1347, Intra-Procedure [facility] Medication administered onsite fentaNYL Citrate (PF) (SUBLIMAZE) injection [id number] 01/21/2021 01:47:23 PM EDT active As neede d, Starting on Andreia 01/21/21 at 1347, Intra-Procedure [facility] Medication administered onsite sodium chloride 0.9% (NS) infusion [id number] 01/21/2021 12:00:00 PM EDT 100 mL/h Intravenous active at 100 m L/hr, 100 mL/hr, Intravenous, Continuous, Starting on Andreia 01/21/21 at 1200, Pre-op
Start two hours prior to scheduled start time
[facility] Medication administered onsite Acetaminophen 325 MG Oral [...] mg from all sources in 24 hours."
[facility] Medication administered onsite Aspirin 81 MG Delayed Release Oral Tablet aspirin EC 8 1 MG EC tablet aspirin EC 81 MG EC tablet 01/21/2021 12:00:00 AM EDT 81 mg Oral ac tive Take 81 mg by mouth daily [facility] clopidogrel 75 MG Oral Tablet clopidogrel (PLAVIX) 75 MG tablet clopidogrel (PLAVIX) 75 MG tablet 01/18/2021 12:00:00 AM EDT 75 mg Oral aborted Take 75 mg by mouth daily Took 2 tablets on Monday and then took 1 each day until today [facility] 75 mg 01/09/2021 12:00:00 AM EDT tablet [...] Ta ke 50 mg by mouth daily [facility] Losartan Potassium 50 MG Oral Tablet losartan (COZAAR) 50 MG tablet losartan (COZAAR) 50 MG tablet 25 mg Oral aborted Take 25 mg by mouth daily as needed (for high bp) [facility] Hydrochlorothiazide 25 MG Oral Tablet hy drochlorothiazide (HYDRODIURIL) 25 MG tablet hydrochlorothiazide (HYDRODIURIL) 25 MG tablet 25 mg O ral aborted Take 25 mg by mouth daily [facility] Meclizine Hydrochloride 25 MG Oral Tablet meclizine (A NTIVERT) 25 MG tablet meclizine (ANTIVERT) 25 MG tablet 25 mg Oral abor mauro Take 25 mg by mouth 3 (three) times a day as needed for dizziness [facility] Insurance Providers Payer name Policy type / Coverage type Policy ID Covered libertarian ID Covered libertarian's relationship to riggins Policy Riggins Plan Information BCBS [facility] [id number]/[phone] [id number] SP [id number] [facility] MEDICARE ADVANTAGE [id number] Retired [id number] [employer] MEDICARE Medicare [id number] [employer] MEDICARE [id number] Ena [id number] [employer] MEDICARE [id number] Ena [id number] INSURANCE COVID-19 COVID Ena C OVID INSURANCE COVID-19 [id number] 2 [id number] INSURANCE COVID-19 COVID Ena C OVID INSURANCE COVID-19 [id number] 2 [id number] INSURANCE COVID-19 COVID Ena C OVID INSURANCE COVID-19 COVID Ena C OVID [place]UE [place] MEDICARE ADVANTAGE [id number] Retired [id number] [facility] MEDICARE ADVANTAGE [id number] Retired [id number] MEDICARE [id number] SP [id number] MEDICARE BLUE PPO 306 [id number] SP [id number] [facility] MEDICARE ADVANTAGE [id number] Retired [id number] JUD[place] BCBS B [id number] S [id number] MEDICARE BLUE PPO 306 [id number] SP [id number] Problems, Conditions, and Diagnoses Code Display Name Description Problem Type Effective Dates Data Source(s) Z96.1 Presence of intraocular lens PRESENCE OF INTRAOCULAR L ENS Diagnosis 05/04/2021 03:18:00 PM EDT [facility] H26.492 Other secondary cataract, left eye OTHER SECONDA RY CATARACT, LEFT EYE Diagnosis 04/14/2021 10:48:00 AM EDT [facility] I73.9 Peripheral vascular disease, unspecified Peripheral vascular disease, unspecified Diagnosis 04/09/2021 10:37:42 AM EDT [facility] N40.0 Benign prostatic hyperplasia without low er urinary tract symptoms Benign prostatic hyperplasia without low Diagnosis 04/09/2021 10:37:42 AM EDT [facility] I10 Essential (primary) hypertension Essential (primary) h ypertension Diagnosis 04/09/2021 10:37:42 AM EDT [facility] Z95.0 Presence of cardiac pacemaker Presence of cardiac pace maker Diagnosis 04/09/2021 10:37:42 AM EDT [facility] H35.3132 Nonexudative age-related mac ular degeneration, bilateral, intermediate dry stage NEXDTVE AGE-RELATED MCLR DEGN, BILATERAL, INTERMED DRY STAGE Diagnosis 03/29/2021 09:34:00 AM EDT [facility] H26.493 Other secondary cataract, bilateral OTHER SECOND VAUGHN CATARACT, BILATERAL Diagnosis 03/29/2021 09:34:00 AM EDT [facility] I35.0 Nonrheumatic aortic (valve) stenosis Nonrheumati c aortic (valve) stenosis Diagnosis 02/22/2021 07:11:00 AM EDT [facility] U07.1 COVID-19 COVID-19 Diagnosis 02/19/2021 09:32:26 AM ED T [facility] 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 Diagnosis 01/30/2021 12:36:00 PM EDT [facility] E11.9 Type 2 diabetes mellitus without complic ations TYPE 2 DIABETES MELLITUS WITHOUT COMPLICATIONS Diagnosis 01/30/2021 12:36:00 PM [facility] K62.5 Hemorrhage of anus and rectum HEMORRHAGE OF ANUS AND R ECTUM Diagnosis 01/30/2021 12:36:00 PM [facility] Y84.6 Urinary catheterization as t he cause of abnormal reaction of the patient, or of later complication, without mention of misadventure at the time of the procedure URINARY CATHETERIZATION CAUSE ABN REACT/COMPL, W/O MISADVNT Diagnosis 01/22/2021 02:22:00 PM [facility] R33.8 Other retention of urine OTHER RETENTION OF URINE Diag nosis 01/22/2021 02:22:00 PM [facility] K64.8 Other hemorrhoids OTHER HEMORRHOIDS Diagnosis 01/22/2021 02:22:00 PM [facility] N40.1 Benign prostatic hyperplasia with lower urinary tract symptoms BENIGN PROSTATIC HYPERPLASIA WITH LOWER URINARY TRACT SYMP Diagnosis 02:22:00 PM [facility] E78.5 Hyperlipidemia, unspecified HYPERLIPIDEMIA, UNSPECIFIE D Diagnosis 01/22/2021 02:22:00 PM [facility] I10 Essential (primary) hypertension ESSENTIAL (PRIMARY) H YPERTENSION Diagnosis 01/22/2021 02:22:00 PM [facility] I35.0 Nonrheumatic aortic (valve) stenosis NONRHEUMATI C AORTIC (VALVE) STENOSIS Diagnosis 01/22/2021 02:22:00 PM [facility] B96.4 Proteus (mirabilis) (morgani i) as the cause of diseases classified elsewhere PROTEUS (MIRABILIS) (MORGANII) CAUSING DIS CLASSD ELSWHR Trinidad gnosis 01/22/2021 02:22:00 PM [facility] T45.515A Adverse effect of anticoagulants, initia l encounter ADVERSE EFFECT OF ANTICOAGULANTS, INITIAL ENCOUNTER Diagnosis 01/22/2021 02:22:00 PM [facility] 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 HEMORRHAGIC DISORD D/T EXTRINSIC CIRCULATING ANTICOAGULANTS Diagnosis 01/22/2021 02:22:00 PM [facility] N39.0 Urinary tract infection, site not specif ied URINARY TRACT INFECTION, SITE NOT SPECIFIED Diagnosis 01/22/2021 02:22:00 PM [facility] T83.511A Infection and inflammatory r eaction due to indwelling urethral catheter, initial encounter I/I REACT D/T INDWELLING URETHRAL CATHETER, INIT Diagnosis 01/22/2021 02:22:00 PM [facility] K57.91 Diverticulosis of intestine, part unspecified, without perforation or abscess with bleeding DVRTCLOS OF INTEST, PART UNSP, W/O PERF OR ABSCESS W BLEED Diagnosis 01/22/2021 02:22:00 PM [facility] I35.0 Nonrheumatic aortic (valve) stenosis NONRHEUMATI C AORTIC (VALVE) STENOSIS Diagnosis 01/12/2021 12:48:00 PM [facility] 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, unspecified CONGENITAL RE NAL CYST, UNSPECIFIED Diagnosis 01/08/2021 07:22:00 AM [facility] I07.1 Rheumatic tricuspid insufficiency RHEUMATIC TRIC USPID INSUFFICIENCY Diagnosis 11/19/2020 10:41:00 AM [facility] I34.0 Nonrheumatic mitral (valve) insufficienc y NONRHEUMATIC MITRAL (VALVE) INSUFFICIENCY Diagnosis 11/19/2020 10:41:00 AM [facility] I50.30 Unspecified diastolic (congestive) heart failure UNSPECIFIED DIASTOLIC (CONGESTIVE) HEART FAILURE Diagnosis 11/19/2020 10:41:00 AM [facility] I51.7 Cardiomegaly CARDIOMEGALY Diagnosis 11/19/2020 10:41:00 A M [facility] H16.223 Keratoconjunctivitis sicca, not specifie d as Sjogren's, bilateral KERATOCONJUNCT SICCA, NOT SPECIFIED SJOGREN'S, BILATERAL Diagnosis 06/10/2020 08:01:00 AM [facility] H35.3131 Nonexudative age-related mac ular degeneration, bilateral, early dry stage NEXDTVE AGE-RELATED MCLR DEGN, BILATERAL, EARLY DRY STAGE Di agnosis 06/10/2020 08:01:00 AM [facility] E78.00 Pure hypercholesterolemia, unspecified P URE HYPERCHOLESTEROLEMIA, UNSPECIFIED Diagnosis 05/27/2020 06:49:00 AM [facility] H25.812 Combined forms of age-related cataract, left eye COMBINED FORMS OF AGE- RELATED CATARACT, LEFT EYE Diagnosis 05/27/2020 06:49:00 AM [facility] 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, UNSPECIFIED EYE EPITHELIAL (JUVENILE) CORNEAL DYSTROPHY, UNSPECIFIED EYE Diagnosis 05/13/20 20 01:00:00 PM [facility] H25.811 Combined forms of age-related cataract, right eye COMBINED FORMS OF AGE- RELATED CATARACT, RIGHT EYE Diagnosis 05/13/2020 10:00:00 AM [facility] H26.8 Other specified cataract OTHER SPECIFIED CATARACT Diag nosis 05/13/2020 10:00:00 AM [facility] Z11.59 Encounter for screening for other viral diseases ENCOUNTER FOR SCREENING FOR OTHER VIRAL DISEASES Diagnosis 05/08/2020 07:47:00 AM [facility] Z01.812 Encounter for preprocedural laboratory e xamination ENCOUNTER FOR PREPROCEDURAL LABORATORY EXAMINATION Diagnosis 05/08/2020 07:47:00 AM [facility] H25.813 Combined forms of age-related cataract, bilateral COMBINED FORMS OF AGE- RELATED CATARACT, BILATERAL Diagnosis 04/29/2020 10:47:00 AM [facility] R42 Dizziness and giddiness DIZZINESS AND GIDDINESS Diagno sis 03/14/2020 10:30:00 AM [facility] I73.9 PAD (peripheral artery disease) PAD (peripheral artery disease) [id number] 03/10/2021 12:00:00 AM [facility] N40.0 BPH (benign prostatic hyperplasia) BPH (benign p rostatic hyperplasia) [id number] 03/10/2021 12:00:00 AM EDT [facility] I10 HTN (hypertension) HTN (hypertension) [id number] 12:00:00 AM EDT [facility] 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 pacemaker in situ [id number] 03/08/2021 12:00:00 AM EDT [facility] 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 pacemaker in situ Pr oblem 03/08/2021 12:00:00 AM EDT [facility] ([facility]) I35.0 Nonrheumatic aortic (valve) stenosis Nonrheumati c aortic (valve) stenosis [id number] 01/25/2021 12:00:00 AM EDT [facility] Surgeries/Procedures Procedure Description Date Indications Data Source(s) Hospital outpatient clinic visit for assessment and ma nagement of a patient Hospital Outpatient Clinic Visit 05/04/2021 12:00:00 AM EDT [facility] ECG ROUTINE ECG W/LEAST 12 LDS W/I&R <td>POCT AMB EKG</td><td>Routine</td><td>03/10/2021 3:34 PM EDT</td><td> Hypertension, unspecified type Nonrheumatic aortic (valve) stenosis Cardiac pacemaker in situ</td><td> </td> 03/10/2021 03:34:00 PM EDT Cardiac pacemaker in situNonrheumatic ao rtic (valve) stenosisHypertension, unspecified type [facility] Cardiac pacemaker in situ Nonrheumatic aortic (valve) stenosis Hypertension, unspecified type OFFICE OUTPATIENT VISIT 5 MINUTES 03/08/2021 12:00:00 AM EDT [facility] ([facility]) ECHO TRANSTHORC R-T 2D W/WO M-MODE REC F-UP/LMTD <td>E CHOCARDIOGRAM TRANSTHORACIC LIMITED</td><td>Routine</td><td>02/23/2021 10:04 AM EDT</td><td></td><td> </td> 02/23/2021 10:04:10 AM EDT [facility] BLOOD COUNT COMPLETE AUTOMATED <td>CBC</td><td>STAT</t d><td>02/23/2021 8:06 AM EDT</td><td></td><td> </td> 02/23/2021 08:06:00 AM EDT [facility] BASIC METABOLIC PANEL CALCIUM TOTAL <td>BASIC METABOLI C PANEL</td><td>STAT</td><td>02/23/2021 8:06 AM EDT</td><td></td><td> </td> 02/23/2021 08:06:00 AM EDT [facility] HOSPITAL DISCHARGE DAY MANAGEMENT 30 MIN/< 02/23/2021 12:00:00 AM EDT [facility] ([facility] XR CHEST PORTABLE <td>XR CHEST PORTABLE</td><t d>STAT</td><td>02/22/2021 12:50 PM EDT</td><td></td><td> </td> 02/22/2021 12:50:17 PM EDT [facility] PROTHROMBIN TIME <td>PROTIME-INR</td><td>STAT </td><td>02/22/2021 12:34 PM EDT</td><td></td><td> </td> 02/22/2021 12:34:00 PM EDT [facility] BLOOD COUNT COMPLETE AUTOMATED <td>CBC</td><td>STAT</t d><td>02/22/2021 12:34 PM EDT</td><td></td><td> </td> 02/22/2021 12:34:00 PM EDT [facility] MAGNESIUM <td>MAGNESIUM</td><td>STAT</ td><td>02/22/2021 12:34 PM EDT</td><td></td><td> </td> 02/22/2021 12:34:00 PM EDT [facility] BASIC METABOLIC PANEL CALCIUM TOTAL <td>BASIC METABOLI C PANEL</td><td>STAT</td><td>02/22/2021 12:34 PM EDT</td><td></td><td> </td> 02/22/2021 12:34:00 PM EDT [facility] ECG ROUTINE ECG W/LEAST 12 LDS TRCG ONLY W/O I&R <td>E CG 12- LEAD</td><td>Routine</td><td>02/22/2021 12:33 PM EDT</td><td></td><td></td> 02/22/2021 12:33:35 PM EDT [facility] POC ACT <td>POC ACT</td><td>Routine< /td><td>02/22/2021 11:53 AM EDT</td><td></td><td> </td> 02/22/2021 11:53:00 AM EDT [facility] TRANSCATHETER AORTIC VALVE IMPLANT FEMORAL <td>TRANSCA THETER AORTIC VALVE IMPLANT FEMORAL</td><td>Routine</td><td>02/22/2021 11:51 AM EDT</td><td> Nonrheumatic aortic (valve) stenosis</td><td></td> 02/22/2021 11:51:04 AM EDT Nonrheumatic aortic (valve) stenosis [facility] Nonrheumatic aortic (valve) stenosis POC ACT <td>POC ACT</td><td>Routine< /td><td>02/22/2021 11:27 AM EDT</td><td></td><td> </td> 02/22/2021 11:27:00 AM EDT [facility] POC ARTERIAL BLOOD GAS W LYTES <td>POC ARTERIAL BLOOD GAS W LYTES</td><td>Routine</td><td>02/22/2021 10:33 AM EDT</td><td></td><td> </td> 02/22/2021 10:33:00 AM EDT [facility] POC ACT <td>POC ACT</td><td>Routine< /td><td>02/22/2021 10:32 AM EDT</td><td></td><td> </td> 02/22/2021 10:32:00 AM EDT [facility] ECG TRANSESOPHAG R-T 2D W/PRB IMG ACQUISJ I&R <td>ECHO CARDIOGRAM TRANSESOPHAGEAL</td><td>Routine</td><td>02/22/2021 10:04 AM EDT</td><td></td><td> </td> 02/22/2021 10:04:16 AM EDT [facility] GLUC BLD GLUC MNTR DEV CLEARED FDA SPEC HOME USE <td>P OCT GLUCOSE</td><td>Routine</td><td>02/22/2021 7:51 AM EDT</td><td></td><td> </td> 02/22/2021 07:51:00 AM EDT [facility] BLOOD TYPING ABO <td>PREPARE RBC</td><td>Rout ine</td><td>02/22/2021 12:01 AM EDT</td><td></td><td></td> 02/22/2021 12:01:00 AM EDT [facility] Aortic Valve Replacement W/ Prosthetic VLV Femoral Art Appr 02/22/2021 12:00:00 AM EDT [facility] ([facility] ROOM TEMP AB SCREEN <td>ROOM TEMP AB SCREEN</td> <td>Routine</td><td>02/19/2021 10:20 AM EDT</td><td> Nonrheumatic aortic (valve) stenosis</td><td> </td> 02/19/2021 10:20:00 AM EDT Nonrheumatic aortic (valve) stenosis [facility] Nonrheumatic aortic (valve) stenosis URINE MICROSCOPIC <td>URINE MICROSCOPIC</td><t d>Add-On</td><td>02/19/2021 10:20 AM EDT</td><td></td><td> </td> 02/19/2021 10:20:00 AM EDT [facility] URNLS DIP STICK/TABLET RGNT AUTO W/O MICROSCOPY <td>UR INALYSIS W/O MICRO</td><td>Routine</td><td>02/19/2021 10:20 AM EDT</td><td> Nonrheumatic aortic (valve) stenosis</td><td> </td> 02/19/2021 10:20:00 AM EDT Nonrheumatic aortic (valve) stenosis [facility] Nonrheumatic aortic (valve) stenosis ECG ROUTINE ECG W/LEAST 12 LDS TRCG ONLY W/O I&R <td>E CG 12- LEAD</td><td>Routine</td><td>02/19/2021 10:03 AM EDT</td><td> Nonrheumatic aortic (valve) stenosis</td><td></td> 02/19/2021 10:03:44 AM EDT Nonrheumatic aortic (valve) stenosis [facility] Nonrheumatic aortic (valve) stenosis NT PRO BNP <td>NT PRO BNP</td><td>Routi ne</td><td>02/19/2021 10:00 AM EDT</td><td> Nonrheumatic aortic (valve) stenosis</td><td> </td> 02/19/2021 10:00:00 AM EDT Nonrheumatic aortic (valve) stenosis [facility] Nonrheumatic aortic (valve) stenosis THROMBOPLASTIN TIME PARTIAL PLASMA/WHOLE BLOOD <td>APTT</td><td>Routine</td><td>02/19/2021 10:00 AM EDT</td><td> Nonrheumatic aortic (valve) stenosis</td><td> </td> 02/19/2021 10:00:00 AM EDT Nonrheumatic aortic (valve) stenosis [facility] Nonrheumatic aortic (valve) stenosis PROTHROMBIN TIME <td>PROTIME-INR</td><td>Rout ine</td><td>02/19/2021 10:00 AM EDT</td><td> Nonrheumatic aortic (valve) stenosis</td><td> </td> 02/19/2021 10:00:00 AM EDT Nonrheumatic aortic (valve) stenosis [facility] Nonrheumatic aortic (valve) stenosis BLOOD COUNT COMPLETE AUTO&AUTO DIFRNTL WBC COUNT <td>C BC AND DIFFERENTIAL</td><td>Routine</td><td>02/19/2021 10:00 AM EDT</td><td> Nonrheumatic aortic (valve) stenosis</td><td> </td> 02/19/2021 10:00:00 AM EDT Nonrheumatic aortic (valve) stenosis [facility] Nonrheumatic aortic (valve) stenosis BLOOD TYPING ABO <td>TYPE AND SCREEN</td><td> Routine</td><td>02/19/2021 10:00 AM EDT</td><td> Nonrheumatic aortic (valve) stenosis</td><td> </td> 02/19/2021 10:00:00 AM EDT Nonrheumatic aortic (valve) stenosis [facility] Nonrheumatic aortic (valve) stenosis HEMOGLOBIN GLYCOSYLATED A1C <td>HEMOGLOBIN A1C</td><td>Routine</td><td>02/19/2021 10:00 AM EDT</td><td> Nonrheumatic aortic (valve) stenosis</td><td> </td> 02/19/2021 10:00:00 AM EDT Nonrheumatic aortic (valve) stenosis [facility] Nonrheumatic aortic (valve) stenosis COMPREHENSIVE METABOLIC PANEL <td>COMPREHENSIVE METABO LIC PANEL</td><td>Routine</td><td>02/19/2021 10:00 AM EDT</td><td> Nonrheumatic aortic (valve) stenosis</td><td> </td> 02/19/2021 10:00:00 AM EDT Nonrheumatic aortic (valve) stenosis [facility] Nonrheumatic aortic (valve) stenosis 2019 NCOV AMPLIFIED <td>2019 NCOV AMPLIFIED</td> <td>STAT</td><td>02/19/2021 9:00 AM EDT</td><td> COVID-19</td><td> </td> 02/19/2021 09:00:00 AM EDT COVID-19 [facility] COVID-19 ECG ROUTINE ECG W/LEAST 12 LDS TRCG ONLY W/O I&R ELECTROCARD IOGRAM TRACING 01/30/2021 12:00:00 AM [facility] BLOOD TYPING ABO BLOOD TYPING SEROLOGIC ABO 01/30/2021 12:00:00 AM [facility] ANTIBODY SCREEN RBC EACH SERUM TECHNIQUE RBC ANTIBODY SCREEN 01/30/2021 12:00:00 AM [facility] THROMBOPLASTIN TIME PARTIAL PLASMA/WHOLE BLOOD THROMBOPLASTI N TIME PARTIAL 01/30/2021 12:00:00 AM [facility] PROTHROMBIN TIME PROTHROMBIN TIME 01/30/2021 12:00:00 AM [facility] BLOOD COUNT COMPLETE AUTO&AUTO DIFRNTL WBC COUNT COMPLETE CB C W/AUTO DIFF WBC 01/30/2021 12:00:00 AM [facility] MAGNESIUM ASSAY OF MAGNESIUM 01/30/2021 12:00:00 AM [facility] TROPONIN QUANTITATIVE ASSAY OF TROPONIN QUANT 01/30/2021 12:00:00 A M [facility] LIPASE ASSAY OF LIPASE 01/30/2021 12:00:00 AM [facility] COMPREHENSIVE METABOLIC PANEL COMPREHEN METABOLIC PANEL 01/14 12:00:00 AM [facility] Injection, pantoprazole sodium, per vial 01/30/2021 12 :00:00 AM [facility] THER PROPH/DX NJX IV PUSH SINGLE/1ST SBST/DRUG THER/PROPH/DI AG INJ IV PUSH 01/30/2021 12:00:00 AM [facility] EMERGENCY DEPARTMENT VISIT HIGH/URGENT SEVERITY EMERGENCY DE PT VISIT 01/30/2021 12:00:00 AM [facility] DUPLEX SCAN EXTRACRANIAL ART COMPL BI STUDY <td>US CAR OTID BILATERAL</td><td>Pending Discharge</td><td>01/21/2021 3:02 PM EDT</td><td></td><td> </td> 01/21/2021 03:02:51 PM EDT [facility] CARDIAC CATHETERIZATION <td>CARDIAC CATHETERIZATION</td><td>Routine</td><td>01/21/2021 2:05 PM EDT</td><td> Nonrheumatic aortic (valve) stenosis</td><td> </td> 01/21/2021 02:05:51 PM EDT Nonrheumatic aortic (valve) stenosis [facility] Nonrheumatic aortic (valve) stenosis BEDSIDE PULMONARY FUNCTION TEST <td>BEDSIDE PULMONARY FUNCTION TEST</td><td>Routine</td><td>01/21/2021 2:02 PM EDT</td><td></td><td></td> 01/21/2021 02:02:17 PM EDT [facility] ECG ROUTINE ECG W/LEAST 12 LDS TRCG ONLY W/O I&R <td>E CG 12- LEAD</td><td>Routine</td><td>01/21/2021 11:19 AM EDT</td><td></td><td></td> 01/21/2021 11:19:50 AM EDT [facility] Coronary Angiography W/O LHC No LV Gram 01/21/2021 12: 00:00 AM [facility] COLLECTION VENOUS BLOOD VENIPUNCTURE ROUTINE VENIPUNCTURE 12:00:00 AM [facility] BLOOD COUNT COMPLETE AUTO&AUTO DIFRNTL WBC COUNT COMPLETE CB C W/AUTO DIFF WBC 01/12/2021 12:00:00 AM [facility] BASIC METABOLIC PANEL CALCIUM TOTAL METABOLIC PANEL TOTAL CA 01/12/2021 12:00:00 AM [facility] Perc Transcatheter Placement, Intracoronary Stent W/Plasty 01/08/2021 12:00:00 AM [facility] Left Heart Cath W/Wo LV & Coronary Angiography 021 12:00:00 AM [facility] ([facility] ECHO TTHRC R-T 2D W/WOM-MODE COMPL SPEC&COLR DOP TTE W/DOPPL ER COMPLETE 11/19/2020 12:00:00 AM [facility] COMPUTERIZED OPHTHALMIC IMAGING RETINA CPTR OPHTH DX IMG POS T SEGMT 06/10/2020 12:00:00 AM [facility] Replacement of Left Lens with Synthetic Substitute, Pe rcutaneous Approach REPLACEMENT OF LEFT LENS WITH SYNTH SUB, PERC APPROACH 05/27/2020 12:00:00 AM [facility] Injection, fentanyl citrate, 0.1 mg 05/13/2020 12:00:0 0 AM [facility] Injection, midazolam hydrochloride, per 1 mg 0 12:00:00 AM [facility] CATARACT REMOVAL INSERTION OF LENS XCAPSL CTRC RMVL W/O ECP 05/13/2020 12:00:00 AM EDT [facility] Replacement of Right Lens with Synthetic Substitute, P ercutaneous Approach REPLACEMENT OF RIGHT LENS WITH SYNTH SUB, PERC APPROACH 05/13/2020 12:00:00 AM EDT [facility] [id number] SARS-COV-2 COVID-19 AMP PRB 05/08/2020 12:00:00 AM EDT [facility] OPH BMTRY PRTL COHER INTRFRMTRY IO LENS PWR THOM OPHTHALMIC B IOMETRY 04/29/2020 12:00:00 AM EDT [facility] Results ID Date Data Source [id number] 05/02/2021 12:30:13 PM EDT [facility] Name Value Range Interpretation Code Description Data Criselda rce(s) Supporting Document(s) &PDF [facility] AWRMQb0bUeRTTlNd33/BBSfrFEBrf7YgNCajINo6FQqjSVApG7IpdFfeVK8AN5lQOZcDGyQJJqBIMU3k yKE [file] AgICAgICAgICAgICAgICAgICAgICAgICAgICAgICAg KKQhVGCeJCKqREYlLFFmAJOtRUGsVQXwFKIzLKSoTSCdLAToED0OAYPzMBCgFNBcGJCrSNTdIMIeSZYn ICAgICAgICAgICAgICAgICAgICAgICAgICAgICAgICAgICAgICAgICAgICAgICAgICAgICAgICAgICAg YMHrEHXiXZRqPWGaVIAbHDUiEY6RUSUsCVDdAHRsOQ AgICAgICAgICAgICAgICAgICAgICAgICAgICAgICAgICAgICAgICAgICAgICAgICAgICAgICAgICAgIC VsLXXzUZFqPSJoFTYeMXJnGSPxBRSeFSEwDKNpKJ0UHQBfYMTeUUVlXWAxEPYwIRMbCCVjUHMuVUAlOH AgICAgICAgICAgICAgICAgICAgICAgICAgICAgICAg TGUwEGXtIMJzPRXlTFZeQEPzYELqIBRvZSSkGUAoIFYnZMUtCJWlHZ1FGFQkCNCnURNhGSOaRTPkOYMm ICAgICAgICAgICAgICAgICAgICAgICAgICAgICAgICAgICAgICAgICAgICAgICAgICAgICAgICAgICAg VTRsOXQvSECtYLAaEBDqMWDqPFPoTP9KEHRhWMGyQN AgICAgICAgICAgICAgICAgICAgICAgICAgICAgICAgICAgICAgICAgICAgICAgICAgICAgICAgICAgIC IvIKSkRVDwFTIuFXFtTEMxMCHyDSPmSKSdFKLcJCNvQB7ITWMaHFCxNWBkVLLaNYKbJXYxYFXvBAIdEW AgICAgICAgICAgICAgICAgICAgICAgICAgICAgICAg ENAaIWZgSAQfPHZqAAUaXLVvEVOjQAOxCBWbAXJxTJUaIQObJXQrUWSqJG6CBQHuCVEmAIIrIWQnRQAf ICAgICAgICAgICAgICAgICAgICAgICAgICAgICAgICAgICAgICAgICAgICAgICAgICAgICAgICAgICAg MNZjTCRrABShWJEvTLRzJJIuKJIlOWXdXM1RGDYxLM AgICAgICAgICAgICAgICAgICAgICAgICAgICAgICAgICAgICAgICAgICAgICAgICAgICAgICAgICAgIC FhRDFlZXIdNUVjRWXnILXpJVVzBBVtDBNdMRPbVCNwUILkGI2RLUSwDXKiTABiAVKtTBRbLQJzOJUoDU AgICAgICAgICAgICAgICAgICAgICAgICAgICAgICAg CWMvAVUuLHCyBLNjYFOrKRQzKDDlTLZmXCIqBDNaAHGoAGXeFFBrRVSeSOFkNW5WFG30oZFfc9Q1SYIe WV9bied/Lx8AGPuniyDhpFYoPX7KEhCgQS3mbe8PDiHmQN1gbi0VMNrTZcHyC5F7zDZhBAOxDWCKZoUt U68cIQsiJk94CUdoIAQmZbNfMRn6Sn7QLyCmV2yqCH IiWdH5CEWpDsF6IQOeWsQiAMypIY5Um5QjoQPaVBt+Sf2EMS0md8UjGOimEjUsIM4whu5SZGpDGgIaK2 S7cGVzU2S5ORtbNu9DVKGrIHMoCdQkRRHTFGubGZ6YEV6znfI6YS1RnZVzGRAuNLLwsOCqMJk7Z16xrT IjXAxbLT3ZJTQ+Reta+Xt4WUWHgJPTdQJEjTnYsXESG NiZbJ33naJWfUZIpAYJeYPZpCo0OMHAvN0SgzeLscDvhdlGqEDWxMCPTAL6ONInwlrLhjLVldCrpWC67 gYeoZU8JEf4USsFzST2ous9ExXXoUu9QQBZyFA3PBNYxCBHsMFKgTKU1QEHvWhAsZQjiJZSaMUNdVXO7 JVElJOYiNB4KQpTuADRdCFrcFiWhYHVlEWHunb6VWM CuQNSoDAe4AnNeJPDhAHZcJGbsFNPmXOFfXMktFCOlNPIjWR8CGgKoECGdSFJ1UBCxYLSmFWZjxx8LDQ EdNRJvWhC9KuPaKUHcTYMgSCzmLNWzOOKtJKp2HKFeXWDlOG7ADqKsSAWlBAFwESZwUQLfTCWvqr2YXE HuWFDkZIB7YKGuHXBgJUZbDVmwQUJnEGW1KmV4ZUHa IMJnTJ3QLtKbKFJgZFH6AbwxEALdDEBpws1KHBNoQAWrGpR5ZkMgZEVcUSAzMJemFXOeLAO4Gvj4NAUj UJIgIM1DLkKxRKUwWWA5UIQlDGLxVRBgjc5JCEHjOXLmQQu8DuLhZTZnPWMtBGyqZKGvFUTeSFU3WGFh FWEcNH0BWwCgETRzJMOcFrMsJFZiYTBfxi1YXNQuKR ArCxZhYDRaOVNrFQLwGTflAKXcTPOoLwJ0VXIwOXVjZX4UXuPvRBVvDXE3ABKwVXNvTCOwhu7IRWJgVD JzPbf4HASqYJGsRFFmXNtmKGNcVRUuPOD8HBZwERLvXK3AEiPdRNGwAUB9HTMzBIOyDBVqoz3YBMOmHJ WoGYJ9MLXgMWTaWZLoBNbsCPMvBUU7RvNhFLZeBETy GC2JSsJsXONyCHU9NaDiQJPzVAGczy0ELVCpOWSgCEawNBCoLUMuMYAgZZztJYCzFCM2FHWjZYVdODEn BU0TBsZpTRLhPIQvWAAgFIBxLBTzvl3XPRCnBIVhIqH8REEuJPGdYKGtDGrdCIIuHHT6BAYoNFCcWAGo AI4SQmTjBARlCIj2JaAyOGSeZATyho2SKGDdSPCgNW a3MOIyFPSmDRMuNCe3fqJxrGHvMDo9BE0YE3WzpsHaJvEWHx3Ci611QOOwPPFuDo5AB4vqQp4fWMSjXQ SDNq5PVCb8QpImOfMqJBZ1NLUhLnS7DlK6T9CnIDDwYnQrU6BwYtT+HZvrINHoWoS8OfmlBhJ2BMQqQD fgZ7KeVjHfOsTdQ3CgXK2jTTXBKq0+SVxkuDZhzBryCCGNUmO1QWU7DKezJJTTCd2I ID Date Data Source [id number] 04/12/2021 09:28:15 PM EDT [facility] Name Value Range Interpretation Code Description Data Criselda rce(s) Supporting Document(s) &PDF [facility] OKVZAi1bAmRZVpLh91/QIWayFRHnk5MhNCiiIJk7ZFtaDVTyH4JhdYqtVI7JJ7fAZSmFKeBURoPKBR3c oRX [file] DQpYhWNgYNDeGsOABPTf/5+HxBV++f//circular knife machine cutter+164qGGCnJ4U7CSs+KdZ9RgEW/jBQR4XCw+n//98sSPzJ [file] ICAgICAgICAgICAgICAgICAgICAgICAgICAgICAgICAgICAgICAgICAgICAgICAgICAgICAgICAgICAg ICAgICAgICAgICANCiAgICAgICAgICAgICAgICAgICAgICAgICAgICAgICAgICAgICAgICAgICAgICAg ICAgICAgICAgICAgICAgICAgICAgICAgICAgICAgIC AgICAgICAgICAgICAgICAgICAgICANCiAgICAgICAgICAgICAgICAgICAgICAgICAgICAgICAgICAgIC AgICAgICAgICAgICAgICAgICAgICAgICAgICAgICAgICAgICAgICAgICAgICAgICAgICAgICAgICAgIC AgICANCiAgICAgICAgICAgICAgICAgICAgICAgICAg ICAgICAgICAgICAgICAgICAgICAgICAgICAgICAgICAgICAgICAgICAgICAgICAgICAgICAgICAgICAg ICAgICAgICAgICAgICANCiAgICAgICAgICAgICAgICAgICAgICAgICAgICAgICAgICAgICAgICAgICAg ICAgICAgICAgICAgICAgICAgICAgICAgICAgICAgIC AgICAgICAgICAgICAgICAgICAgICAgICANCiAgICAgICAgICAgICAgICAgICAgICAgICAgICAgICAgIC AgICAgICAgICAgICAgICAgICAgICAgICAgICAgICAgICAgICAgICAgICAgICAgICAgICAgICAgICAgIC AgICAgICANCiAgICAgICAgICAgICAgICAgICAgICAg ICAgICAgICAgICAgICAgICAgICAgICAgICAgICAgICAgICAgICAgICAgICAgICAgICAgICAgICAgICAg ICAgICAgICAgICAgICAgICANCiAgICAgICAgICAgICAgICAgICAgICAgICAgICAgICAgICAgICAgICAg ICAgICAgICAgICAgICAgICAgICAgICAgICAgICAgIC AgICAgICAgICAgICAgICAgICAgICAgICAgICANCiAgICAgICAgICAgICAgICAgICAgICAgICAgICAgIC AgICAgICAgICAgICAgICAgICAgICAgICAgICAgICAgICAgICAgICAgICAgICAgICAgICAgICAgICAgIC AgICAgICAgICANCiAgICAgICAgICAgICAgICAgICAg ICAgICAgICAgICAgICAgICAgICAgICAgICAgICAgICAgICAgICAgICAgICAgICAgICAgICAgICAgICAg ICAgICAgICAgICAgICAgICAgICANCjw/gSYqG1gmcIFgroF9A2yfCp6ZCh3EMQ9cc0YpCUAiPAbvcbFi VjoYApHgSLVnRedFNxw5UBdlQA2CqITfQ7LuQ9TuSW liCV1EMLZiQWNjsUCxXFTcTQKeYnG6YJTaVZuuGY7MtOGlWBavKBEoWLLhVwNdTEYyDXIyJVUoJH5DIC IiO165okLeMr5PNs5JQjIoGW0sxd4LEnJbBYEwSrnIZgo3PHfrRJ6YbGZzK9QhcLBva1jKUbDyI6XYUS TnFAXbIo8QUPXzCeElOLEnCPozQC0bUHRhDUGAsDft fiD6PG6DFE2coiLuBF9SKnJfIl8yNk8ONdEsI2CtI2LkCFJfBRXBGEfyXE7BQKCvDZP6ZWCiHQWbQLLN TxDqU38hPT5AS0Pxd29qBeD3FVJsHlLqNItrGO38bJnrleJxwSMlhRvqGK8FRy9+DQplbmRvYmoNCnhy GGEXGjXgEyHFHuOnGUPeABSxWAWyEsJ4NtMuBw6BEA NhYEAeOTBrPeFdTBAxYUHoWKqwXNZpZBCjNRV0NGAiOWHlNJ4SPbZrGWLjItY2QqFgTCLyWKYpqd2JAV FyYLYcIWL9URUrMSOmEURrYMspBBTzZBXgZxdfVOAoHTSfPI8BCfEaKOAjKKP3DyMeXDBwECAdps0PUX BoPPRbPxw7NbOzLQObCOWaWHsbXEXcUXT2HCarRDTh RQFrHV2DBqWdYOGaQTWwKHjpWDSnJIYyvy6TLSQxZPCnENG5ZQZxHENwABOsCHvtCAQdRBSfWlHoJCEj AMMhON2XFdZjUIKuPKN6KKewYVCqABBzlq0MLOMjSVBpAFGsEAIcBZFyQYWtYJleKURrHOAcIIkrZQJt LBWlZK8OLrWaVMHsCJQ0QOYgCSKoYTMcms4PRGRnBS VyUhz6XWUrGRBiWIXaEJupILUhGSZ4RPU8SFBwAZWlHL9CCuLeTIEaIGawRGHnAYPlSPJvse7ARNYdZG SvUMU5DLRgUFQrHARjKVqeWEJkHTC4SsX0LFWgNBFkIQ9CMuYlIMIjENl0ULNyBBKsGSEdmg6XAZQpZR OhZXE2XDMxNQLhANZnOQvzBDTtYTT6WWv0GWIyJJZt FH5BYzChYLBbJpUzLANsGSRgDYDzmv2KTREwZBZvTHl8ATElPQIkMPImMWugTEAnWJQsJNj2NUZfRHNg QZ6KXbSnAINyNhWpMPTbYSFcXNDolf5RKLTcDDMgRFD5PVQuFTGbHETsMVrmMAEdOQHsFQT0ATQrNZSn LW3CYzTaATNzUlReMLZlYKViZUDjtv1AMAChMKRhQb RiUhMvSRFqKJEgHDxgXNCjUTUuRUV8NZUgSDOvLG4GJqFvGQHhCdFgDLLdCHTcRYFphx6XHFTyAFQwXb LuKCTlYRBiGJGuATzqZFPzDPD8OKydMULlUSQoFM0WMgLmWNnjDINBDsw9RXjxF3v9YXHlDo5ON9Awr4 FlXuOrSTJRPYqdQC7nnoUpXDSfFo4MQ6lWAvnsHQV5 PHwzWIZdImtuHKUkGpmgUOC8NkX7WNG1NtHnXe9kCLU9AQDvOFLlH0TgWFB7B7QvSWGdFFN9FcukKaxw UIJbUbUvJQ4EZz2PVrJ7XQE9zMVjSp5PDtUrMnoTWgWpJF6IYZq= ID Date Data Source [id number] 03/31/2021 04:59:21 PM EDT [facility] Name Value Range Interpretation Code Description Data Criselda rce(s) Supporting Document(s) &PDF [facility] NIIZAx1qRsGZVwBy26/UOAloBLRgz8VkIWlyMHt7OCneJIAwM3ZtdSypVB0ZU2zVGLtHHyRNUaMFAL8x oRX [file] E+DQogICAgICAgICAgICAgICAgICAgICAgICAgICAg ICAgICAgICAgICAgICAgICAgICAgICAgICAgICAgICAgICAgICAgICAgICAgICAgICAgICAgICAgICAg ICAgICAgICAgICAgDQogICAgICAgICAgICAgICAgICAgICAgICAgICAgICAgICAgICAgICAgICAgICAg ICAgICAgICAgICAgICAgICAgICAgICAgICAgICAgIC AgICAgICAgICAgICAgICAgICAgICAgDQogICAgICAgICAgICAgICAgICAgICAgICAgICAgICAgICAgIC AgICAgICAgICAgICAgICAgICAgICAgICAgICAgICAgICAgICAgICAgICAgICAgICAgICAgICAgICAgIC AgICAgDQogICAgICAgICAgICAgICAgICAgICAgICAg ICAgICAgICAgICAgICAgICAgICAgICAgICAgICAgICAgICAgICAgICAgICAgICAgICAgICAgICAgICAg ICAgICAgICAgICAgICAgDQogICAgICAgICAgICAgICAgICAgICAgICAgICAgICAgICAgICAgICAgICAg ICAgICAgICAgICAgICAgICAgICAgICAgICAgICAgIC AgICAgICAgICAgICAgICAgICAgICAgICAgDQogICAgICAgICAgICAgICAgICAgICAgICAgICAgICAgIC AgICAgICAgICAgICAgICAgICAgICAgICAgICAgICAgICAgICAgICAgICAgICAgICAgICAgICAgICAgIC AgICAgICAgDQogICAgICAgICAgICAgICAgICAgICAg ICAgICAgICAgICAgICAgICAgICAgICAgICAgICAgICAgICAgICAgICAgICAgICAgICAgICAgICAgICAg ICAgICAgICAgICAgICAgICAgDQogICAgICAgICAgICAgICAgICAgICAgICAgICAgICAgICAgICAgICAg ICAgICAgICAgICAgICAgICAgICAgICAgICAgICAgIC AgICAgICAgICAgICAgICAgICAgICAgICAgICAgDQogICAgICAgICAgICAgICAgICAgICAgICAgICAgIC AgICAgICAgICAgICAgICAgICAgICAgICAgICAgICAgICAgICAgICAgICAgICAgICAgICAgICAgICAgIC AgICAgICAgICAgDQogICAgICAgICAgICAgICAgICAg ICAgICAgICAgICAgICAgICAgICAgICAgICAgICAgICAgICAgICAgICAgICAgICAgICAgICAgICAgICAg YIIxZABsMPUwQROdCQRxSBSfVIVoEBh8P5gsLUCcLBMzGQ8yIDs7Hi0+IZqYNiOhRYI2cgZjrJ4QLO8q y2GkIDdeAVVvi5BdYCh9NI2PXAFkXDphXF8DEKjykq 4OIXAoJTStmCPGt0vsEfWrIWC5YCHhXsrrPN4SNBYmA8mjxkWzUZWvNNGTTMbrDTETWI5FMmSmE4MeoL 32KWBQEh9+MExzucSlLecMLsB7VGPdo2GdOVy9SP5VLIVvHPmaGW8YZZTtpQ4cMBypCB3MRzPhSYUpOV MXLiJlJ76peXBdMKj4C1FoIfVhDOSiGmneIVFaNXqa TmFtZXMgWyBdDQogID4+ID4+DMjsPU8RPTrzobYdVLInRn4OLPJiQMK4WZAycWOwIlHuDWULTMnwWY2L tAIgFYP0gW8xYBstCRYmLSFfN4xNMtXhoTrlNA81wBithhZgwBDpUGo+Fd6TES5av1GnJRm0wzRlNGup LGX3YFfhPKNaGLTcIVQkTQQ1TEQ7TRKVTfCxFVXiLG VlZPyhDQXbQVVrgn0VKKFaYMNdTJPrKCGoYPGbQEAlOJxdHUHlAZD3BNvpBRVoPXZgDI4ZHwNsZLAnVC RaRMFtOQPxAYBbpo9YVGQdCJBuEkZrQzVxYTFeQHFdUCugZGHdGWDeMpF3MTEaJUIqND5OCoWhVMEpUM NnBMTvQJVxTNItmf8VPFCjBXAxIRDfXfEuVGMeKZLh EZeyJDCvBSQ8CEP6YBGeYLOcSF5POcPcOXYqCQXlYlLuPWHtXKVauj3AYUWvQIXrDrS0DpXrXNUgAJMp TZwvGTJtWLD7NTPeGUTuHZHeYV9CSrNeYVVcDCa5CUKgBMFhDKAkwh7MWZInVRYmPee9JkBoDGOiVNFi BJdoNZDgVMVcDsH7NVJoMZHeOH8YSdPjSTVfZJBtVi FgPTRdYJHass8BLCAsWVAeTcF6EaSoWAVhFDGjRNwuTPXyPMTuQVG8CCMhHSAiYW9BMdWqNSClPVB1Jm HoKLHjGJLila3FMCKsWRBqLDEvSwBkPSHiKIKcRJutVWLhDPU2WvyiKGHlEWXnJK2DSnCwNDCeVZO4Qa CmCTXiDFDkeh4SUQTyQWVgUBF3NIFiPKVhTPKhQPse XVCgGZG1Hfr8RUKhQZJiJV3RRkUxKOZtOnZ5YQTzRLVrOWRikt2SEAPaLVBkOlZ1KvBjKUFeDSUgSQs2 bsQhzEQtBCl2IX5BW4TujwOjEerJPd1Ko550FOC8HFEuVi0QL3hbAh9gNWErVQIJJy0BWNv5HDSjNgt9 ZYAgCJo4GLK6IGJdN1MuGOZqVKV3BjBfNLG+IDw1YW QhIGU5LFX3EZF0EdZ0OQKtSSVpN8V0GXZoYHA8Le0zWJGHKa3+QSjmbAYtqTcpNLPIYeG8WMi9MXkyEM VPRg0K ID Date Data Source [id number] 03/11/2021 02:24:24 PM EDT [facility] NT INFORMATIONPatient MRN Name Date of Age Gend*PT [id number] Beau Salgado W 1940 80 years M IPPT Location Admission Date/Time Visit ID Attending [id number] 02/22/21 07 --- --- EPI ID CSN Admitting Provider [id number] Dorothy Cheng MD([id number]) Attestation signed by Dorothy Cheng MD at 03/11/2021 2:24 PMI saw and evaluated the patient and reviewed Cristobal's note. I agree withthe history, physical and medical decision making with the following additions,exceptions, and/or observationsSignature: CLAUDINE Willisate: March 11, 2021Time: 2:24 PM -----Physician Discharge Summary Beau SalgadoMRN: [id number] date: 02/22/2021ttending Physician: Dorothy Cheng MDAdmission Diagnosis: [...] 13 mmHg. The patient will be discharged todayton today. He is being discharged on aspirin [...] Formula Eye Drops 0.05-0.1-1-1 % SolnGeneric drug: Yuzevsjppty-Xwpbyci-EQY-Povid Administer 1 drop to both eyes once [...] Get Your MedicationsThese medications were sent to [facility] [address] [place] [id number] aspirin 81 MG EC tabletDischarge Exam:Vitals: Temp: [...] rce(s) Supporting Document(s) ID Date Data Source [id number] 02/24/2021 06:52:00 PM EDT [facility] Name Value Range Interpretation Code Description Data [facility] rce(s) Supporting Document(s) SARS coronavirus 2 RNA [Presence] in Res piratory specimen by KIRAN with probe detection NEGATIVE [facility] This lab was ordered by [facility] a nd reported by [facility]. ID Date Data Source [id number] 02/23/2021 10:09:42 AM EDT [facility] Name Value Range Interpretation Code Description Data Criselda rce(s) Supporting Document(s) SODIUM 144 mmol/L (136-145) [facility] POTASSIUM 3.9 mmol/L (3.6-5.2) [facility] CHLORIDE 111 mmol/L (100-108) H [facility] CO2 27 mmol/L (22-31) [facility] ANION GAP 6 mmol/L (7-16) L [facility] UREA NITROGEN 17 mg/dL (7-24) [facility] CREATININE 0.87 mg/dL (0.80-1.30) [facility] BUN/CREAT RATIO 19.5 RATIO (10.0-20.0) [facility] GLUCOSE 90 mg/dL (70-99) [facility] CALCIUM 7.9 mg/dL (8.4-10.2) L [facility] GFR >60 ml/min/1.73m2 (>59) [facility] GFR ( AMER) >60 ml/min/1.73m2 (>59) [facility] GFR INTERPRETATION [facility] --NORMAL KIDNEY FUNCTION OR MILD DISEASE - GFR >OR= 60CHRONIC KIDNEY DISEASE - GFR 15 - 59RENAL FAILURE - GFR <15 Est. GFR calculation based on the MDRDstudy equation, which assumes a steadystate for creatinine. Est. GFR should notbe used for medication dosing. ID Date Data Source [id number] 02/23/2021 09:42:08 AM EDT [facility] Name Value Range Interpretation Code Description Data Criselda rce(s) Supporting Document(s) WBC 9.3 10*3/uL (4.1-11.0) [facility] RBC 3.61 10*6/uL (4.60-6.10) L [facility] HGB 11.3 g/dL (13.5-18.0) L [facility] HCT 33.0 % (41.0-53.0) L [facility] MCV 91.4 fL (80.0-95.0) [facility] MCH 31.2 pg (27.0-32.0) [facility] MCHC 34.1 g/dL (32.0-36.0) [facility] RDW 13.4 % (10.5-14.5) [facility] PLT 142 10*3/uL (150-450) L [facility] MPV 7.9 fL (7.1-10.7) [facility] ID Date Data Source [id number] 02/22/2021 12:58:19 PM EDT [facility] Name Value Range Interpretation Code Description Data [facility] rce(s) Supporting Document(s) [facility] TBEGQu9cNaOQXrVjz2BlCtNmPVDbPS0plvk1T9R9eMEhO6WobAQko5euS5UnJ2YwOIAhUKNGZZ3TyVXe jb2 [file] 97x657h160uHz80I79/9OzBM7VomKK7bRyu6678+3ht58GB86/bP9214b4F3k76g7w4Lw79hL17fPSg7 THY8lZv//CCc5X/9zXr9tDS6ieqx037+gQ3tQx4mAS 1Yt/+53k3/Tq+pv7w+XN/aZvk6m5aymGr78yNm296pYs667fXRYbc/jb3/047NFae60nQV6aP996Mwlv L10+xvz6k3094iR74dzPApg/984f++EN55aQ5y0xC0t19880ZY4pUGc+pqdp02ia05Uj/O9i08w93/Cutter Operator [file] DeWnzIHe4Ht4WbqeR2hxDwBkL4OaPeFaTeMG5F ID Date Data Source [id number] 02/22/2021 12:52:15 PM EDT [address] [address] Name: BEAU JACQUESB: 1940Sex: MOrdering Provider: APRIL Maxwell Prov: APRIL Brar Provider: Procedure Performed: / XR CHEST PORTABLEExam Date: 02/22/2021 12:50MRN: [id number] Number: [id number] Class: InpatientAccount #: [id number] for Exam: Post TAVR procedureTechnique: Single AP view obtained.Comparison: NoneFindings: There appears to be transvenous pacemaker lead overlying the base of the heart. Calcification thoracic aorta. No mediastinal widening. Lungs are clear. No pneumothorax. No pleural effusion.IMPRESSION: No acute disease of the chest.Report electronically signed by: ULISES JENNINGS On 02/22/2021 12:52 PMWorkstation ID: [id number] Name Value Range Interpretation Code Description Data [facility] rce(s) Supporting Document(s) ID Date Data Source [id number] 02/22/2021 03:09:59 PM EDT [facility] Name Value Range Interpretation Code Description Data Criselda rce(s) Supporting Document(s) MAGNESIUM 2.3 mg/dL (1.7-2.4) [facility] ID Date Data Source [id number] 02/22/2021 03:09:59 PM EDT [facility] Name Value Range Interpretation Code Description Data Criselda rce(s) Supporting Document(s) SODIUM 144 mmol/L (136-145) [facility] POTASSIUM 4.0 mmol/L (3.6-5.2) [facility] CHLORIDE 111 mmol/L (100-108) H [facility] CO2 27 mmol/L (22-31) [facility] ANION GAP 6 mmol/L (7-16) L [facility] UREA NITROGEN 14 mg/dL (7-24) [facility] CREATININE 0.78 mg/dL (0.80-1.30) L [facility] BUN/CREAT RATIO 17.9 RATIO (10.0-20.0) [facility] GLUCOSE 77 mg/dL (70-99) [facility] CALCIUM 7.8 mg/dL (8.4-10.2) L [facility] GFR >60 ml/min/1.73m2 (>59) [facility] GFR ( AMER) >60 ml/min/1.73m2 (>59) [facility] GFR INTERPRETATION [facility] --NORMAL KIDNEY FUNCTION OR MILD DISEASE - GFR >OR= 60CHRONIC KIDNEY DISEASE - GFR 15 - 59RENAL FAILURE - GFR <15 Est. GFR calculation based on the MDRDstudy equation, which assumes a steadystate for creatinine. Est. GFR should notbe used for medication dosing. ID Date Data Source [id number] 02/22/2021 02:53:41 PM EDT [facility] Name Value Range Interpretation Code Description Data Criselda rce(s) Supporting Document(s) PT 11.9 s (9.2-11.9) [facility] PER[facility]MED AT [address] [place] [address] [address] [address] INR 1.14 [facility] SUGGESTED THERAPEUTIC RANGES USING INR F ORSTABILIZED ANTICOAGULATED PATIENTS:STANDARD DOSE THERAPY INR 2.0-3.0 DVT, PE, PREVENT DVT OR EMBOLISMHIGH DOSE THERAPY INR 2.5-3.5 PREVENT EMBOLISM FROM MECHANICAL HEART VALVE ID Date Data Source [id number] 02/22/2021 02:39:26 PM EDT [facility] Name Value Range Interpretation Code Description Data Criselda rce(s) Supporting Document(s) WBC 7.3 10*3/uL (4.1-11.0) [facility] [place] RBC 3.83 10*6/uL (4.60-6.10) L [facility] HGB 11.8 g/dL (13.5-18.0) L [facility] HCT 35.1 % (41.0-53.0) L [facility] MCV 91.5 fL (80.0-95.0) [facility] MCH 30.8 pg (27.0-32.0) [facility] MCHC 33.6 g/dL (32.0-36.0) [facility] RDW 13.5 % (10.5-14.5) [facility] PLT 146 10*3/uL (150-450) L [facility] MPV 7.6 fL (7.1-10.7) [facility] ID Date Data Source [id number] 02/22/2021 12:12:51 PM EDT [facility] INFORMATIONPatient MRN Name Date of Age Gend*PT [id number] Beau Salgado 1940 80 years M IPPT Location Admission Date/Time Visit ID Attending ProviderCV-11 02/22/21 0711 --- Dorothy Cheng MD([id number]) EPI ID CSN Admitting Provider [id number] Dorothy Cheng MD([id number])TRANSCATHETER AORTIC VALVE REPLACEMENTCardiovascular and Thoracic Surgery Operative ReportDate of Procedure: 02/22/2021 Patient's PCP: NALDO CARTERatient Name: Beau Salgado 80 years maleDate of :1940MRN: [id number]: [id number]: [facility] Note Date and Time: 02/22/2021 12:08 PMDate of Admission: 02/22/2021 7:11 AMPreoperative diagnoses:1. Aortic stenosis, severePostoperative diagnoses:1. Aortic stenosis, severeProcedure:1. Percutaneous access bilateral common femoral artery with 6 Faroese sheath2. Perclose placement 2 right common femoral artery3. Placement of right common femoral artery 16 Faroese E sheath4. Aortic root angiogram5. Placement of 29 mm Erickson 3 aortic valve6. Aortic valve balloon valvuloplasty with Erickson 3 balloonInterventional Payable Processor:ROWENA Willisardiac Surgeon:Rylan Hernandezthesia:Tip Provider(s):Anesthesiologist: ROSIBEL Pinedatmayr Nurse Computer Systems Information Director: Winifred GaethlePerfusionist: Werner Scott CCPEstimated Blood Loss:100 mL.Implants:Implants Implant Valve,Thv,Erickson 3,29mm W/Comm - [id number] - Implanted Aorta Inventory item: VALVE,THV,ERICKSON 3,29MM W/COMM Model/Cat number: [id number] Serial number: [id number] Manager Information: [employer] Lot number: [id number]:Post deployment valve well seated with mild PVL which improved after postdilation with 1 extra cc added to the Erickson balloon.Fluoroscopy Time / Contrast Volume:Please see scanned Tank Crewmember Report.Description of Procedure:After informed consent was obtained [...] common Femoral Arteries were accessed and 6 Faroese sheaths placed. Theright sheath was then removed over a guidewire, and two separate Perclosedevices were then placed. An 8 Faroese sheath was then placed. The patient washeparinized [...] 8French sheath was removed and a 16 Faroese E sheath was placed over the stiffwire.Then [...] to PACU in stable condition.Tommy Pinon MD [facility] FACSCardiovascular Thoracic Surgery02/22/2021, 12:08 PM Name Value Range Interpretation Code Description Data Criselda rce(s) Supporting Document(s) ID Date Data Source [id number] 02/22/2021 11:57:01 AM EDT [facility] NT INFORMATIONPatient MRN Name Date of Age Gend*PT [id number] Beau Salgado 1940 80 years M IPPT Location Admission Date/Time Visit ID Attending ProviderCV-11 02/22/21 0711 --- Doorthy Cheng MD([id number]) EPI ID CSN Admitting Provider [id number] Dorothy Cheng MD([id number])[facility] [id number] [place] [id number] CARDIAC CATHETERIZATION Preoperative diagnosis: Severe symptomatic aortic stenosisPostoperative diagnosis severe symptomatic aortic stenosisReferring Physician: Dr. Lind Surgeon: Dr. Thorne-surgeon: Dr. Pinon Anesthesia: Dr. AriastermanAnesthesia type: MAC Brief Cardiolab NotePatient Name: Beau Salgado of : 1940 Age 80 yearsPrimary Physician: SARAH LIND MD PCP Ktyf of Surgery: 02/22/2021 Mail Order Sorter: Dorothy Cheng MD Life Skills Coordinator(s): None CCS Functional Classification: None History:This is [...] with patient/family.Risks included, but not limited to; NH, CVA, , renal impairment, vascularcomplication, and need [...] deployed in the right femoral artery.A 6 Faroese pigtail catheter was advanced through the left [...] rce(s) Supporting Document(s) ID Date Data Source [id number] 02/22/2021 11:58:32 AM EDT [facility] Name Value Range Interpretation Code Description Data Criselda rce(s) Supporting Document(s) POC ACT 136 s (80-140) [facility] BY [facility] ID Date Data Source [id number] 02/22/2021 11:47:57 AM EDT [facility] NT INFORMATIONPatient MRN Name Date of Age Gend*PT [id number] Beau Salgado 1940 80 years M IPPT Location Admission Date/Time Visit ID Attending Provider --- --- --- --- EPI ID CSN Admitting Provider [id number] ---Arterial Line PlacementPatient location during procedure: CV hybrid roomIndications for arterial line: multiple ABGs and hemodynamic monitoringStaffingPerformed by: hCloe Casarez MDApproved by: ROWENA Pinedaompleted: patient identified, [...] rce(s) Supporting Document(s) ID Date Data Source [id number] 02/22/2021 11:47:57 AM EDT [facility] NT INFORMATIONPatient MRN Name Date of Age Gend*PT [id number] Beau Salgado W 1940 80 years M IPPT Location Admission Date/Time Visit ID Attending Provider --- --- --- --- EPI ID CSN Admitting Provider [id number] ---Central Line InsertionPatient location during procedure: CV [...] rce(s) Supporting Document(s) ID Date Data Source [id number] 02/22/2021 11:47:57 AM EDT [facility] NT INFORMATIONPatient MRN Name Date of Age Gend*PT [id number] Beau Salgado W 1940 80 years M IPPT Location Admission Date/Time Visit ID Attending Provider --- --- --- --- EPI ID CSN Admitting Provider [id number] ---Introducer AdditionsPatient location during procedure: CV hybrid [...] rce(s) Supporting Document(s) ID Date Data Source [id number] 02/22/2021 11:42:16 AM EDT [facility] Name Value Range Interpretation Code Description Data Criselda rce(s) Supporting Document(s) &PDF [facility] UUPNLe1qKbESHoOb99/NOBzfFEUbp6ZgYZpvLFx9RKuaOYAlY3XppYmaCO9ZN8yQQYvOVjISTvPSXQ2a FcG [file] AgICAgICAgICAgICAgICAgICAgICAgICAgICAgICAgICAgICAgICAgICAgICAgICAgICAgICAgICAgIC AgICAgICAgICAgICAgICAgICAgICAgICAgICAgICAN CiAgICAgICAgICAgICAgICAgICAgICAgICAgICAgICAgICAgICAgICAgICAgICAgICAgICAgICAgICAg ICAgICAgICAgICAgICAgICAgICAgICAgICAgICAgICAgICAgICAgICANCiAgICAgICAgICAgICAgICAg ICAgICAgICAgICAgICAgICAgICAgICAgICAgICAgIC AgICAgICAgICAgICAgICAgICAgICAgICAgICAgICAgICAgICAgICAgICAgICAgICAgICANCiAgICAgIC AgICAgICAgICAgICAgICAgICAgICAgICAgICAgICAgICAgICAgICAgICAgICAgICAgICAgICAgICAgIC AgICAgICAgICAgICAgICAgICAgICAgICAgICAgICAg ICANCiAgICAgICAgICAgICAgICAgICAgICAgICAgICAgICAgICAgICAgICAgICAgICAgICAgICAgICAg ICAgICAgICAgICAgICAgICAgICAgICAgICAgICAgICAgICAgICAgICAgICANCiAgICAgICAgICAgICAg ICAgICAgICAgICAgICAgICAgICAgICAgICAgICAgIC AgICAgICAgICAgICAgICAgICAgICAgICAgICAgICAgICAgICAgICAgICAgICAgICAgICAgICANCiAgIC AgICAgICAgICAgICAgICAgICAgICAgICAgICAgICAgICAgICAgICAgICAgICAgICAgICAgICAgICAgIC AgICAgICAgICAgICAgICAgICAgICAgICAgICAgICAg ICAgICANCiAgICAgICAgICAgICAgICAgICAgICAgICAgICAgICAgICAgICAgICAgICAgICAgICAgICAg ICAgICAgICAgICAgICAgICAgICAgICAgICAgICAgICAgICAgICAgICAgICAgICANCiAgICAgICAgICAg ICAgICAgICAgICAgICAgICAgICAgICAgICAgICAgIC AgICAgICAgICAgICAgICAgICAgICAgICAgICAgICAgICAgICAgICAgICAgICAgICAgICAgICAgICANCi AgICAgICAgICAgICAgICAgICAgICAgICAgICAgICAgICAgICAgICAgICAgICAgICAgICAgICAgICAgIC AgICAgICAgICAgICAgICAgICAgICAgICAgICAgICAg ICAgICAgICANCjw/aFRfA9kdcLAhhtP5U3zeQw6WOe6DRZ8ok1WyDAGhPKwbqfUiHyoPNrZzICGlIqrI Hyl1OUzvGI6WgLOhI9HgD2ZjCOyuBC5ZCAEuSZThgYRqAUNyHQRjKeK3ICDgYUchVU6JqICnFThlFUIy HCBmGdOmACJlER8MKADqB144lfWtTw7NWo3MWxUhZL 6rlo5XVvAgMSHxUudYGgp4LRozAV4OfCEhQ0EswYJet4xAUkDbO8QMZMD3SMRuSt6SMKUmTiFrAANjIJ ylWY3dPQLeEVKTuLchusM3AI0HVZ8gikAyRD6BRuYmNn9bMi9VOqGyC2OlC5VeRXOsEIMGWVdiZL6VRC KzGPQ0TTHnKLFwUQIKIxSwY57pMR8RM6Ubu05zEhI1 MVMeJzEhRXjqMH07nYcccrLccIQksVrtAT2WJx7+DQplbmRvYmoNCnhyZWYNCjAgMjINCjAwMDAwMDAw PLQkJwY0SvLuXd0XSEHeHDBrINWlGaSiYKNgQNWjEVfoQCVyIVC4FQs8HELlJJXlMP7IHqMjLLOiBOy0 YfliODNwCUOgrv6SEKKgDVJxIHI9SXJjGCBlPCLkRT cqADXySFGiZGW8RWDdMKUoMB4KZpVsJYOdEMF1PUYsMFGeGFBjud7ZIEXeTVNjJdM8IUBnPXWyQAOqTT soBNUjFDLcLCk1ZPQfUFTxVQ0JOvRgSORhJLU2IWypFUFcRCQfmn2XSZAuPUFvYYj7MjQoSJCiDQNoIE ncEINeLSL2LSY2YWHnELNiAO6XKnPwNQVuRGY1CAGk TEPeQQTwfx2SPZWrDQIsJeR9LSYgMDCoCPHwFYbbDFAtBGE4QiboMFAkBXNfJT4BTvUtEDGvLRokKIWw YBZgVNUjvm7CTCYtURMgMeK8TzFfHCOyIDMbBZoyQRAaWME6DkJ5PETfDMFiPZ2UBwJqRZAhEMX7EyAh XVMlHJFmaj8IPQTzYNXdYuH1AtIfVBQpJRRsVFvqWQ UtEUC9CKj1CDZoWRDrIT3WEdTiGHNpJPq5MULiWGOiVDArhx2EiVMmkMgvgr0PANmRNm8NlMzjYLIiTZ ayAo3mqHTtLMNcYFFNUo8McjCoMFPeMLPYOJavJUBzOAEaFijlSpCbG6CbRIPfPHFqRijdJ3OaIPYxEA RlQAGzKhI9UFSuC9G1VBO4JRCfSgG4HwR0FAL9A9L5 LuW3GFPdAFM+NC7vDRi+Vw1Nh8FlrdG0ozOyUImoXMTqOD6DGNUYU9AJGa== ID Date Data Source [id number] 02/22/2021 11:31:29 AM EDT [facility] Name Value Range Interpretation Code Description Data Criselda rce(s) Supporting Document(s) POC ACT 125 s (80-140) [facility] BY [facility] ID Date Data Source [id number] 02/22/2021 10:36:59 AM EDT [facility] Name Value Range Interpretation Code Description Data Criselda rce(s) Supporting Document(s) POC TEMPERATURE [facility] 37.0C POC SOURCE [facility] POC FIO2 100 [facility] CP BYPASS [facility] P[facility] PH 7.34 pH (7.35-7.45) L [facility] POC PCO2 52.6 MMHG (32.0-48.0) H [facility] POC PO2 139 MMHG (83-108) H [facility] POC SAT O2 99 % (95-99) [facility] POC BASE EXCESS 2 MMOL/L (0-3) [facility] P[facility] HCO3 28.5 MMOL/L (21.0-29.0) [facility] P[facility] TOTAL CO2 30 MMOL/L (23.0-32.0) [facility] POC HCT 34 % (41.0-53.0) L [facility] POC SODIUM 143 MMOL/L (136-145) [facility] POTASSIUM 3.9 MMOL/L (3.6-5.2) [facility] POC IONIZED CALCIUM 5.0 MG/DL (4.6-5.3) [facility] POC GLU 89 MG/DL (70-99) [facility] ID Date Data Source [id number] 02/22/2021 10:37:25 AM EDT [facility] Name Value Range Interpretation Code Description Data Criselda rce(s) Supporting Document(s) POC ACT 136 s (80-140) [facility] BY [facility] ID Date Data Source [id number] 02/22/2021 08:04:56 AM EDT [facility] NT INFORMATIONPatient MRN Name Date of Age Gend*PT [id number] Beau Salgado W 1940 80 years M IPPT Location Admission Date/Time Visit ID Attending ProviderCV-11 02/22/21 0711 --- Dorothy Cheng MD([id number]) EPI ID CSN Admitting Provider [id number] Dorothy Cheng MD([id number])Updated H&PPlease see the scanned/dictated outpatient note.I have reviewed the note, clinical history and physical exam findings. Therehave been no significant changes.Plan as outlined in the outpatient note.Risk/benifit/alternative of TAVR was discussed with patient/family. Risksincluded, but not limited to; NH, CVA, , renal impairment, vascularcomplication, and need for emergency surgery were discussed and accepted bypatient.Dorothy Cheng MD, [facility], [facility] HOSPITALInterventional Payable Processor Name Value Range Interpretation Code Description Data Criselda rce(s) Supporting Document(s) ID Date Data Source [id number] 02/22/2021 07:52:57 AM EDT [facility] Name Value Range Interpretation Code Description Data Criselda rce(s) Supporting Document(s) POC NOVA GLU 92 mg/dL (70-99) [facility] PERFORMED BY [facility] ID Date Data Source [id number] 02/26/2021 02:06:57 AM EDT [facility] SPEC EXP DATE 02/25/2021TEST ING SITE PERFORMED AT [address] [place] [address] [id number] NUMBER [id number] COMPONENT TYPE LEUKOPOOR RED CELLSUNIT DIVISION 00STATUS OF UNIT REL FROM ALLOCTRANSFUSION STATUS OK TO TRANSFUSECROSSMATCH RESULT COMPATIBLEUNIT NUMBER [id number] COMPONENT TYPE LEUKOPOOR RED CELLSUNIT DIVISION 00STATUS OF UNIT REL FROM ALLOCTRANSFUSION STATUS OK TO TRANSFUSECROSSMATCH RESULT COMPATIBLEUNIT NUMBER [id number] COMPONENT TYPE LEUKOPOOR RED CELLSUNIT DIVISION 00STATUS OF UNIT REL FROM ALLOCTRANSFUSION STATUS OK TO TRANSFUSECROSSMATCH RESULT COMPATIBLEUNIT NUMBER [id number] COMPONENT TYPE LEUKOPOOR RED CELLSUNIT DIVISION 00STATUS OF UNIT REL FROM ALLOCTRANSFUSION STATUS OK TO TRANSFUSECROSSMATCH RESULT COMPATIBLE Name Value Range Interpretation Code Description Data Criselda rce(s) Supporting Document(s) TRANSFUSE RED CELLS Lab Samantha [facility] of [facility] TESTING SITE PERFORMED AT [address] [place] [id number] ID Date Data Source [id number] 02/19/2021 02:21:32 PM EDT [facility] NT INFORMATIONPatient MRN Name Date of Age Gend*PT [id number] Beau Salgado 1940 80 years M OPPT Location Admission Date/Time Visit ID Attending Provider --- --- --- Dorothy Cheng MD([id number]) EPI ID CSN Admitting Provider [id number] ---HISTORY PHYSICALName: Beau Salgado : 1940 Sex: male [facility] Physician: Dr. Beanformant: The patient who is reliable.Chief Complaint: "I need heart surgery."HISTORY OF PRESENT ILLNESS: 80 years old white male with a history of cardiacmurmur diagnosed approximately 4 years ago. Patient states that has beenfollowed by his PCP until he was recently referred to distillery manager, Dr. Dueñas. Onmost recent routine evaluation with [...] Take 0.4 mg by mouth daily HistoricalProvider, XHHlwfzxmmzpg-Ahtjtqy-RMR-Povid (Advanced Formula Eye Drops) 0.05-0.1-1-1 % SOLNAdminister [...] warm and dry.HEENT: He is normocephalic, atraumatic. Kamiah conjunctivae. Anicteric sclerae.Pupils are equal, round, reactive [...] hepatosplenomegaly. Negative CVAT.GENITAL/RECTAL: Deferred.MUSCLE/SKELETAL: Strength is 5/5. Annealing Oven Operator are equal.NEUROLOGICALLY: Cranial nerves II through XII [...] parts of this document, were dictated using [employer] software. A reasonable attempt at proofreading has beenmade to minimize errors. Please call with any questions or corrections. Name Value Range Interpretation Code Description Data Criselda rce(s) Supporting Document(s) ID Date Data Source [id number] 02/19/2021 11:39:14 AM EDT [facility] Name Value Range Interpretation Code Description Data Criselda rce(s) Supporting Document(s) EKG [facility] USNKXv1iJiHXUhUdk6LtZnDbCTLdKF9hunh6C1G1nFZaM4YuxAJop1phD5NoB6QfYFNsXHCYIH1OsIAn jb2 [file] jxAxp+1N4A7g/dBmAXwO3yRwCTZuayR+FGrr2W9Hy5ocd5i/Seasoner Hand+/0N/Oca5+nSdsTimO+h+1zLwhfu6/ [file] naY01kiqwoh0NQb1y/wtryn6Uo5fstUfl72hFliBz30G74/iu4/audit reviewer/KfcU5dkNfI5vTiCznFLNCqQ9Mj uD2A7uHdKEVi6Gaa4XE8P/VjbihV3Q7XwsXrI/PbAmlNc9x9ySsyMkiy9hGPyk62Ors/XPvNjh+ugGvH j+7DX1v8a5Dm6n182b1i6WnpxuPzEofmDzTSPkfDWo v8HlPq6/HjnSE/sdB75Nk+qpoq70C2jb+9Y0e8KLt7wkjpwhXnfNwIIzOKC20+M9/0ObYobDW6eFqt+e 8W62pzlU3LqX9nIuEarK6OoB7fDuAqkR4RcT6aKkLyr62EURnwHPA8a62Svx+coBhUP1yQazYM26bF0c OqLsfOiddfeajvixUqzkasgMgbtfJ9Isu/Vgi6rbGw ngbrJbe0WI7nEW+l4dEZswkjN7o4T40iThvqFWn3jkbM9hpErim5NkFipm3NqSszlsJ9dyzVzE+mqxT3 9bSKRYcj4pye7ygZWT/zQAfKy4qqkseP3Sp31I3SH57u/cfO0K+pVV0nizzIvg7Fwk72q8n6/7MfX08n yN6R1ZrpbYtvPem3Qs2GuBvU1KXA+0H9B/305ce+23 /quintanilla/3Hvtt/7Br6u40tz+i0xz38tQDf9Crl2+D5FnDrej5q/oX0s0vE6Lt8OlNA5Q/McfBLP2tUdb6zsM [file] ID Date Data Source [id number] 02/20/2021 11:25:09 AM EDT [facility] Name Value Range Interpretation Code Description Data Criselda rce(s) Supporting Document(s) SPECIMEN DESCRIPTION [facility] STAPH SCREEN RESULTS (ONEGSA) [facility] COMMENT [facility] GENE TO DETECT STAPH AUREUS. (2) RT-P CR WAS PERFORMED FOR THE mecA AND [employer] GENES TO DETECT METHICILLIN RESISTANCE IN STAPH AUREUS. ID Date Data Source [id number] 02/20/2021 07:53:31 AM EDT [facility] SPECIMEN DESCRIPTION MIDSTREAM UR INE,CLEAN CATCHCULTURE RESULTS NO GROWTHREPORT STATUS FINAL 02/20/2021 Name Value Range Interpretation Code Description Data Criselda rce(s) Supporting Document(s) ID Date Data Source [id number] 02/19/2021 06:21:41 PM EDT [facility] Name Value Range Interpretation Code Description Data Criselda rce(s) Supporting Document(s) ROOM TEMP AB SCREEN [facility] ROOM TEMP AB SCREEN NEGATIVE ID Date Data Source [id number] 02/19/2021 04:35:56 PM EDT [facility] Name Value Range Interpretation Code Description Data Criselda rce(s) Supporting Document(s) URINE WBC (0-5) [facility] URINE RBC (0-2) [facility] EPITHELIAL CELLS 2+ [HPF] [facility] BACTERIA 1+ [HPF] [facility] MUCUS 1+ [HPF] [facility] ID Date Data Source [id number] 02/19/2021 04:03:00 PM EDT [facility] Name Value Range Interpretation Code Description Data Criselda rce(s) Supporting Document(s) COLOR [facility] APPEARANCE [facility] SPEC GRAV URINE 1.025 (1.003-1.030) [facility] PH URINE 6.0 (5.0-7.5) [facility] LEUK ESTERASE 2+ (NEG) A [facility] NITRITE URINE (NEG) [facility] PROTEIN URINE (NEG) [facility] GLUCOSE URINE (NEG) [facility] KETONE URINE (NEG) A [facility] [place] UROBILINOGEN 0.2 mg/dL (0-1.0) [facility] [place] BILIRUBIN URINE (NEG) [facility] BLOOD/HGB URINE (NEG) [facility] ID Date Data Source [id number] 02/19/2021 06:52:07 PM EDT [facility] SPEC EXP DATE 02/23/2021ATI ENT ABO/Rh O NEGATIVEANTIBODY SCREEN NEGATIVETESTING SITE PERFORMED AT [address] [place] [address] [place] [address] Name Value Range Interpretation Code Description Data Criselda rce(s) Supporting Document(s) TYPE AND SCREEN [facility] ID Date Data Source [id number] 02/19/2021 02:08:45 PM EDT [facility] Name Value Range Interpretation Code Description Data Criselda rce(s) Supporting Document(s) HEMOGLOBIN A1C @ 5.1 % (4.0-6.0) Lab [facility] Performed using Siemens [place] immunoassa y.Care must be taken when interpreting SjW5wckhhxwy in patients with a hemoglobin variantor decreased erythrocyte lifespan. Values 5.7 - 6.4% suggest prediabetes.Values >=6.5% are diagnostic for diabetes.REFERENCE: DIABETES CARE 2018: 41(S13-S27). EST AVERAGE GLUCOSE 100 mg/dL [facility] ID Date Data Source [id number] 02/19/2021 01:35:33 PM EDT [facility] Name Value Range Interpretation Code Description Data Criselda rce(s) Supporting Document(s) APTT 28.8 s (22.0-34.3) [facility] ID Date Data Source [id number] 02/19/2021 01:35:33 PM EDT [facility] Name Value Range Interpretation Code Description Data Criselda rce(s) Supporting Document(s) PT 10.9 s (9.2-11.9) [facility] INR 1.05 [facility] SUGGESTED THERAPEUTIC RANGES USING INR F ORSTABILIZED ANTICOAGULATED PATIENTS:STANDARD DOSE THERAPY INR 2.0-3.0 DVT, PE, PREVENT DVT OR EMBOLISMHIGH DOSE THERAPY INR 2.5-3.5 PREVENT EMBOLISM FROM MECHANICAL HEART VALVE ID Date Data Source [id number] 02/19/2021 01:35:28 PM EDT [facility] Name Value Range Interpretation Code Description Data Criselda rce(s) Supporting Document(s) NT PRO BNP 729 pg/mL (0-450) H [facility] ID Date Data Source [id number] 02/19/2021 01:35:28 PM EDT [facility] Name Value Range Interpretation Code Description Data Criselda rce(s) Supporting Document(s) SODIUM 142 mmol/L (136-145) [facility] POTASSIUM 4.1 mmol/L (3.6-5.2) [facility] CHLORIDE 107 mmol/L (100-108) [facility] CO2 31 mmol/L (22-31) [facility] ANION GAP 4 mmol/L (7-16) L [facility] UREA NITROGEN 23 mg/dL (7-24) [facility] CREATININE 0.87 mg/dL (0.80-1.30) [facility] BUN/CREAT RATIO 26.4 RATIO (10.0-20.0) H [facility] GLUCOSE 82 mg/dL (70-99) [facility] CALCIUM 9.1 mg/dL (8.4-10.2) [facility] TOTAL PROTEIN 6.4 g/dL (6.4-8.2) [facility] ALBUMIN 4.1 g/dL (3.2-4.5) [facility] GLOBULIN 2.3 g/dL (2.7-4.3) L [facility] ALB/GLOB RATIO 1.8 RATIO [facility] ALKALINE PHOSPHATASE 62 U/L (45-117) [facility] BILIRUBIN,TOTAL 0.9 mg/dL (0.0-1.0) [facility] PLEASE NOTE:Total bilirubin results may be falselyelevated in patients taking Eltrombopag. AST (SGOT) 22 U/L (11-39) [facility] ALT (SGPT) 29 U/L (12-78) [facility] GFR >60 ml/min/1.73m2 (>59) [facility] GFR ( AMER) >60 ml/min/1.73m2 (>59) [facility] GFR INTERPRETATION [facility] --NORMAL KIDNEY FUNCTION OR MILD DISEASE - GFR >OR= 60CHRONIC KIDNEY DISEASE - GFR 15 - 59RENAL FAILURE - GFR <15 Est. GFR calculation based on the MDRDstudy equation, which assumes a steadystate for creatinine. Est. GFR should notbe used for medication dosing. ID Date Data Source [id number] 02/19/2021 01:25:39 PM EDT [facility] Name Value Range Interpretation Code Description Data Criselda rce(s) Supporting Document(s) WBC 7.7 10*3/uL (4.1-11.0) [facility] [place] RBC 4.33 10*6/uL (4.60-6.10) L [facility] HGB 13.7 g/dL (13.5-18.0) [facility] HCT 40.1 % (41.0-53.0) L [facility] MCV 92.6 fL (80.0-95.0) [facility] MCH 31.6 pg (27.0-32.0) [facility] MCHC 34.1 g/dL (32.0-36.0) [facility] RDW 13.7 % (10.5-14.5) [facility] PLT 177 10*3/uL (150-450) [facility] MPV 7.8 fL (7.1-10.7) [facility] NEUT % 68.6 % (35.0-75.0) [facility] LYMPH % 18.3 % (16.0-52.0) [facility] MONO % 9.6 % (0.0-8.0) H [facility] EOS % 3.0 % (0.0-5.0) [facility] BASO % 0.5 % (0.0-4.0) [facility] NEUT # 5.3 10*3/uL (1.8-7.7) [facility] LYMPH # 1.4 10*3/uL (1.2-4.8) [facility] MONO # 0.7 10*3/uL (0.0-0.8) [facility] Eosinophils [#/volume] in Blood by Automated count 0.2 10*3/uL (0.0-0 .5) [facility] BASO # 0.0 10*3/uL (0.0-0.2) [facility] ID Date Data Source [id number] 02/19/2021 09:00:00 AM EDT [facility] Name Value Range Interpretation Code Description Data Criselda rce(s) Supporting Document(s) SARS coronavirus 2 RNA [Presence] in Res piratory specimen by KIRAN with probe detection NOT DETECTED [facility] This lab was reported by [facility]. ID Date Data Source [id number] 02/19/2021 04:44:24 PM EDT [facility] Name Value Range Interpretation Code Description Data Criselda rce(s) Supporting Document(s) SPECIMEN DESCRIPTION [facility] [place] COVID 19 RESULT (NDET) [facility] NEGATIVE COVID-19 RESULTS DONOT PRECLUDE COVID-2019 INFECTION ANDSHOULD NOT BE USED THE SOLE BASISFOR PATIENT MANAGEMENT DECISIONS. COMMENT [facility] THE [place] FDA HAS MADE THIS TEST AVAILABL EUNDER AN EMERGENCY USE AUTHORIZATION(EUA) FOR THE DETECTION AND/OR DIAGNOSISOF THE VIRUS THAT CAUSES COVID-19.THIS ASSAY AMPLIFIES AND DETECTS TARGETDNA USING RODEO PERFORMER- MEDIATEDAMPLIFICATIONTESTING PERFORMED ON [employer] FIRST TEST [facility] EMPLOYED IN HLTHCARE [facility] SYMPTOMATIC [facility] [place] DATE OF SYMPT ONSET [facility] HOSPITALIZED [facility] ICU [facility] [place] CONGREGATE CARE SET [facility] ID Date Data Source [id number] 01/24/2021 07:59:00 AM EDT [facility] Name: BEAU SALGADO : 1940 A ge/Sex: 80M Attending Physician: Francois Hrovath MD Med Rec #: [id number] Admission Date: 01/22/21 Room #: [facility] Admitting Physician: Francois Horvath MD Report Number: [id number] _ cc: Send Report To: Report Status [...] rce(s) Supporting Document(s) ID Date Data Source [id number] 02/09/2021 02:46:[facility] CHEST ABDOMEN PELVIS TAVRCLINICAL [...] mild calcifications in the ascending aorta and nxkv-gg-noktsojj calcifications at the aortic arch. There i [...] rce(s) Supporting Document(s) ID Date Data Source [id number] 01/30/2021 12:36:00 PM EDT [facility] Name: BEAU SALGADO [facility] Rec #: [id number] 63 : 1940 Age/Sex: 80M Date of Service: 01/30/21 PHYSICIAN CHART Physician Documentation [facility] Name: Beau Salgado Age: 80 yrs [...] he/she has never smoked tobacco. Preferred Language: Cambodian. ROS: 13:02 Constitutional: Negative for fever, chills. [...] cm) md1 MDM: 12:47 Patient medically screened. [facility] 13:55 Data reviewed: vital signs, nurses notes, old medical [facility] records, lab test result(s), EKG. ECG: The [...] Order name: Magnesium; Complete Time: 1 3:47 [facility]2 01/30 12:44 Order name: Lipase; Complete Time: 13:47 jam2 01/30 12:44 Order name: Iv Saline Lock; Complete Time: 13:06 [facility] 01/30 12:44 Order name: Type And Screen 2 01/30 12:44 Order name: Emergency Room EKG Order - Use EKG Work-Up jam2 /Quick Select; Complete Time: 13:20 01/30 12:44 Order name: Cardiology EKG Interpretation - Choose Reason [facility]2 for Test 01/30 12:44 Order name: NPO; [...] Rectal Bleeding jam2 Forms: - Medication Reconciliation [facility] Signatures: Dispatcher [employer] EDBrad Steele MD MD [...] rce(s) Supporting Document(s) ID Date Data Source [id number] 01/30/2021 12:36:00 PM EDT [facility] Name: BEAU SALGADO [facility] Rec #: [id number] 63 : 1940 Age/Sex: 80M Date of Service: 01/30/21 DISPOSITION SUMMARY Discharge Summary [facility] Name:Beau Salgado Emergency Department Age:80 yrs Sex:Male :1940 Arrival:01/30/2021 12:36 Departure Date01/30/2021 Departure Time14:18 Private MD:Sarah Lind MD Outcome: Discharge Location: Home/Self Care Condition: Good Chief Complaint: Rectal Bleeding Diagnosis: - Rectal bleeding Prescriptions: Follow up: Sarah Lind MD Custom Notes: Attending Physician: Brad Varma MD Private MD: Sarah Lind MD Mid Level Provider: Followup Physician: [...] rce(s) Supporting Document(s) ID Date Data Source [id number] 01/30/2021 12:36:00 PM EDT [facility] Name: BEAU SALGADO [facility] Rec #: [id number] 63 : 1940 Age/Sex: 80M Date of Service: 01/30/21 NURSE CHART Nurse's Notes [facility] Name: Beau Salgado Age: 80 yrs [...] 30 days? Yes, Where have you travelled? [place], no respiratory symptoms present, no GI symptoms. [...] he/she has never smoked tobacco. Preferred Language: Cambodian. Screenin:45 AUDIT 1. How often do you [...] Interpretation - Choose R lorene for Test Sent.[facility] 13:57 Sarah Lind MD is Referral Physician. [facility] 14:14 Radiology: None performed. am7 Administered Medications: [...] rce(s) Supporting Document(s) ID Date Data Source [id number] 01/31/2021 12:48:15 PM EDT [facility] INFORMATIONPatient MRN Name Date of Age Gend*PT [id number] Beau Salgado 1940 80 years M HOPPT Location Admission Date/Time Visit ID Attending ProviderCV-18 01/21/21 1056 --- --- EPI ID CSN Admitting P guerline [id number] Dorothy Cheng MD([id number]) [place] [address] CONSULTATION REPORT CONSULTNAME: BEAU SALGADO MChristoph#: [id number] #: [id number] ADMISSION DATE: 01/21/2021OB: 1940 SEX: M PT TYPE: H CRDACCT #: [id number] CARE PHYSICIAN: SAARH KEATING PHYSICIAN: APRIL DELEON OF CONSULTATION: 1CHIEF [...] but notlimited to bleeding, infection, arrhythmia, allergy, NH, stroke, otherorgan damages, , nerve injury including [...] also open heart surgery.WOLFGANG Telles/JEREMY Job #: [id number] DOC #: [id number] Name Value Range Interpretation Code Description Data Criselda rce(s) Supporting Document(s) ID Date Data Source [id number] 01/30/2021 02:03:00 PM EDT [facility] Name Value Range Interpretation Code Description Data Criselda rce(s) Supporting Document(s) BLOOD TYPE PATIENT O Negative Normal (applies to non-numer ic results) [facility] ANTIBODY SCREEN NEGATIVE Normal (applies to non-numeric results) [facility] ID Date Data Source [id number] 01/30/2021 01:39:00 PM EDT [facility] Name Value Range Interpretation Code Description Data Criselda rce(s) Supporting Document(s) Troponin I 0.000-0.045 Normal (applies to non-numeric resu lts) [facility] ID Date Data Source [id number] 01/30/2021 01:37:00 PM EDT [facility] Name Value Range Interpretation Code Description Data Criselda rce(s) Supporting Document(s) Sodium 144 mmol/L 137-145 Normal (applies to non-numeric resul ts) [facility] Potassium 3.5-5.1 Normal (applies to non-numeric resul ts) [facility] Chloride 110 mmol/L 98-112 Normal (applies to non-numeric resul ts) [facility] Carbon Dioxide CO2 22.0-33.0 Normal (applies to non-numer ic results) [facility] Anion Gap 4.0-11.0 Below low normal [facility] BUN 16 mg/dL 9-20 Normal (applies to non-numeric resul ts) [facility] Creatinine 0.80-1.50 Normal (applies to non-numeric resul ts) [facility] GFR 66 mL/min >60 Normal (applies to non-numeric resul ts) [facility] Result based on MDRD formula. Glucose Level 90 mg/dL 74-99 Normal (applies to non-numeric re sults) [facility] The reference range is only applicable w hen fasting. Calcium-Uncorrected 8.4-10.2 Normal (applies to non-nume marnie results) [facility] Corrected Calcium 8.4-10.2 Normal (applies to non-numeri c results) [facility] Bilirubin,Total 0.2-1.3 Normal (applies to non-numeric results) [facility] SGOT(AST) 18 U/L 17-59 Normal (applies to non-numeric resul ts) [facility] SGPT(ALT) 22 U/L 21-72 Normal (applies to non-numeric resul ts) [facility] Alkaline Phosphatase 73 U/L 38-126 Normal (applies to non-num natividad results) [facility] can increase Alkaline Phosp le vels up to 2 times the normal adult value. Normal values for children and adolescents are 2 to 3 times the normal adult value. Total Protein 6.3-8.2 Normal (applies to non-numeric re sults) [facility] Albumin 3.5-5.0 Normal (applies to non-numeric resul ts) [facility] ID Date Data Source [id number] 01/30/2021 01:37:00 PM EDT [facility] Name Value Range Interpretation Code Description Data Criselda rce(s) Supporting Document(s) Lipase 105 U/L 73-393 Normal (applies to non-numeric resul ts) [facility] ID Date Data Source [id number] 01/30/2021 01:37:00 PM EDT [facility] Name Value Range Interpretation Code Description Data Criselda rce(s) Supporting Document(s) Magnesium 1.80-2.40 Above high normal [facility] ID Date Data Source [id number] 01/30/2021 01:27:00 PM EDT [facility] Name Value Range Interpretation Code Description Data Criselda rce(s) Supporting Document(s) PT 9.4-12.5 Normal (applies to non-numeric results) [facility] INR Normal (applies to non-numeric results) [facility] The use of the INR is restricted to marcos ents on stable oral anticoagulant. Therapeutic Range: 2.0-3.0 High Risk Values: 2.5-3.5 ID Date Data Source [id number] 01/30/2021 01:27:00 PM EDT [facility] Name Value Range Interpretation Code Description Data Criselda rce(s) Supporting Document(s) PTT 25.1-36.5 Above high normal [facility] ID Date Data Source [id number] 01/30/2021 01:21:00 PM EDT [facility] Name Value Range Interpretation Code Description Data Criselda rce(s) Supporting Document(s) White Blood Count 4.8-10.8 Normal (applies to non-numeri c results) [facility] Red Blood Count 4.35-6.08 Below low normal [facility] Hemoglobin 13.0-17.5 Normal (applies to non-numeric resul ts) [facility] Hematocrit 37.7-51.0 Normal (applies to non-numeric resul ts) [facility] Mean Corpuscular Volume 80-94 Normal (applies to non- numeric results) [facility] Mean Corpuscular Hemoglobin 27.0-33.0 Normal (appli es to non-numeric results) [facility] Mean Corpuscular HGB Conc 32.0-36.0 Normal (applies to no n-numeric results) [facility] Red Cell Distribution Width 11.5-14.5 Normal (appli es to non-numeric results) [facility] Platelet Count 200 X10 3/uL 130-450 Normal (applies to non-numeric results) [facility] Mean Platelet Volume 9.6-13.1 Below low normal [facility] Imm Grans% (AUTO) 0 % 0-2 Normal (applies to non-numeri c results) [facility] Neutrophils % (AUTO) 68 % 40-75 Normal (applies to non-num natividad results) [facility] Lymphocytes % (AUTO) 20 % 21-46 Below low normal [facility] Monocytes % (AUTO) 9 % 5-12 Normal (applies to non-numer ic results) [facility] Eosinophils % (AUTO) 3 % 1-5 Normal (applies to non-num natividad results) [facility] Basophils % (AUTO) 0 % 0-1 Normal (applies to non-numer ic results) [facility] Imm Grans# (AUTO) 0.0-0.5 Normal (applies to non-numeri c results) [facility] Neutrophils # (AUTO) 1.5-8.1 Normal (applies to non-num natividad results) [facility] Lymphocytes # (AUTO) 1.0-3.1 Normal (applies to non-num natividad results) [facility] Monocytes # (AUTO) 0.2-1.3 Normal (applies to non-numer ic results) [facility] Eosinophils# (AUTO) 0.0-0.5 Normal (applies to non-nume marnie results) [facility] Basophils # (AUTO) 0.0-0.1 Normal (applies to non-numer ic results) [facility] ID Date Data Source [id number] 02/01/2021 08:27:00 AM EDT [facility] Name: BEAU SALGADO : 1940 A ge/Sex: 80M Ordering Provider: Brad Varma MD Med Rec #: [id number] Reg Status:DEP ER Room #: Date of Service: 01/30/21 Report Number: [id number] cc: Sarah Lind MD; Brad Varma MD Send Report To: Reason for exam: Baseline SINUS RHYTHM RIGHT BUNDLE BRANCH BLOCK LEFT ANTERIOR FASCICULAR BLOCK ABNORMAL ECG Compared to 01/22/2021 there is no significant change Physician Cat Hooker: Chris Rueda M.D. ECG HEART RATE: 82 /min ECG RR INTERVAL: 723 ms ECG P DURATION: 132 ms ECG QRS DURATION: 163 ms ECG ME INTERVAL: 187 ms ECG QT INTERVAL: 382 ms ECG QTC INTERVAL: 420 ms Q-T dispersion: ms ECG P AXIS: 61 deg ECG QRS AXIS: -56 deg ECG T AXIS: 54 deg REPORT SIGNATURE ON FILE 02/01/21826 Reported By: Chris Rueda MD, [facility] <<Signature on File>> Exam Date/Time: 01/30/21 1315 Order #: [id number] Dictation Date/Time: 02/01/21826 Transcribed Date/Time: 02/01/21826 Mine Laborer: PINA Name Value Range Interpretation Code Description Data Criselda rce(s) Supporting Document(s) ID Date Data Source [id number] 01/25/2021 01:44:00 PM EDT [facility] Name Value Range Interpretation Code Description Data Criselda rce(s) Supporting Document(s) White Blood Count 4.8-10.8 Normal (applies to non-numeri c results) [facility] Red Blood Count 4.35-6.08 Normal (applies to non-numeric results) [facility] Hemoglobin 13.0-17.5 Normal (applies to non-numeric resul ts) [facility] Hematocrit 37.7-51.0 Normal (applies to non-numeric resul ts) [facility] Mean Corpuscular Volume 80-94 Normal (applies to non- numeric results) [facility] Mean Corpuscular Hemoglobin 27.0-33.0 Normal (appli es to non-numeric results) [facility] Mean Corpuscular HGB Conc 32.0-36.0 Normal (applies to no n-numeric results) [facility] Red Cell Distribution Width 11.5-14.5 Normal (appli es to non-numeric results) [facility] Platelet Count 185 X10 3/uL 130-450 Normal (applies to non-numeric results) [facility] Mean Platelet Volume 9.6-13.1 Below low normal [facility] Imm Grans% (AUTO) 0 % 0-2 Normal (applies to non-numeri c results) [facility] Neutrophils % (AUTO) 63 % 40-75 Normal (applies to non-num natividad results) [facility] Lymphocytes % (AUTO) 23 % 21-46 Normal (applies to non-num natividad results) [facility] Monocytes % (AUTO) 10 % 5-12 Normal (applies to non-numer ic results) [facility] Eosinophils % (AUTO) 4 % 1-5 Normal (applies to non-num natividad results) [facility] Basophils % (AUTO) 1 % 0-1 Normal (applies to non-numer ic results) [facility] Imm Grans# (AUTO) 0.0-0.5 Normal (applies to non-numeri c results) [facility] Neutrophils # (AUTO) 1.5-8.1 Normal (applies to non-num natividad results) [facility] Lymphocytes # (AUTO) 1.0-3.1 Normal (applies to non-num natividad results) [facility] Monocytes # (AUTO) 0.2-1.3 Normal (applies to non-numer ic results) [facility] Eosinophils# (AUTO) 0.0-0.5 Normal (applies to non-nume marnie results) [facility] Basophils # (AUTO) 0.0-0.1 Normal (applies to non-numer ic results) [facility] ID Date Data Source [id number] 01/25/2021 08:40:[address] [facility] Name Value Range Interpretation Code Description Data Criselda rce(s) Supporting Document(s) Sodium 146 mmol/L 137-145 Above high normal [facility] Potassium 3.5-5.1 Normal (applies to non-numeric resul ts) [facility] Chloride 108 mmol/L 98-112 Normal (applies to non-numeric resul ts) [facility] Carbon Dioxide CO2 22.0-33.0 Normal (applies to non-numer ic results) [facility] Anion Gap 4.0-11.0 Normal (applies to non-numeric resul ts) [facility] BUN 17 mg/dL 9-20 Normal (applies to non-numeric resul ts) [facility] Creatinine 0.80-1.50 Normal (applies to non-numeric resul ts) [facility] GFR 84 mL/min >60 Normal (applies to non-numeric resul ts) [facility] Result based on MDRD formula. Glucose Level 87 mg/dL 74-99 Normal (applies to non-numeric re sults) [facility] The reference range is only applicable w hen fasting. Calcium-Uncorrected 8.4-10.2 Normal (applies to non-nume marnie results) [facility] Corrected Calcium 8.4-10.2 Normal (applies to non-numeri c results) [facility] [facility] Phosphorus 2.5-4.9 Normal (applies to non-numeric resul ts) [facility] Albumin 3.5-5.0 Below low normal [facility] ID Date Data Source [id number] 01/25/2021 08:18:[address] [facility] Name Value Range Interpretation Code Description Data [facility] rce(s) Supporting Document(s) White Blood Count 4.8-10.8 Normal (applies to non-numeri c results) [facility] Red Blood Count 4.35-6.08 Below low normal [facility] Hemoglobin 13.0-17.5 Below low normal [facility] Hematocrit 37.7-51.0 Normal (applies to non-numeric resul ts) [facility] Mean Corpuscular Volume 80-94 Normal (applies to non- numeric results) [facility] Mean Corpuscular Hemoglobin 27.0-33.0 Normal (appli es to non-numeric results) [facility] Mean Corpuscular HGB Conc 32.0-36.0 Normal (applies to no n-numeric results) [facility] Red Cell Distribution Width 11.5-14.5 Normal (appli es to non-numeric results) [facility] Platelet Count 161 X10 3/uL 130-450 Normal (applies to non-numeric results) [facility] Mean Platelet Volume 9.6-13.1 Normal (applies to non-num natividad results) [facility] Imm Grans% (AUTO) 1 % 0-2 Normal (applies to non-numeri c results) [facility] Neutrophils % (AUTO) 67 % 40-75 Normal (applies to non-num natividad results) [facility] Lymphocytes % (AUTO) 17 % 21-46 Below low normal [facility] Monocytes % (AUTO) 12 % 5-12 Normal (applies to non-numer ic results) [facility] Eosinophils % (AUTO) 3 % 1-5 Normal (applies to non-num natividad results) [facility] Basophils % (AUTO) 0 % 0-1 Normal (applies to non-numer ic results) [facility] Imm Grans# (AUTO) 0.0-0.5 Normal (applies to non-numeri c results) [facility] Neutrophils # (AUTO) 1.5-8.1 Normal (applies to non-num natividad results) [facility] Lymphocytes # (AUTO) 1.0-3.1 Below low normal [facility] Monocytes # (AUTO) 0.2-1.3 Normal (applies to non-numer ic results) [facility] Eosinophils# (AUTO) 0.0-0.5 Normal (applies to non-nume marnie results) [facility] Basophils # (AUTO) 0.0-0.1 Normal (applies to non-numer ic results) [facility] ID Date Data Source [id number] 01/22/2021 10:27:00 AM EDT [facility] Name: BEAU SALGADO [facility] Rec #: [id number] 63 : 1940 Age/Sex: 80M Date of Service: 01/22/21 PHYSICIAN CHART Physician Documentation [facility] Name: Beau Salgado Age: 80 yrs [...] had a heart cath conducted yesterday in [place], this was preliminary, as he is scheduled [...] to communication noted, The patient speaks fluent Cambodian. Exam: 12:02 Abdomen/GI: Rectal exam: rectal tone [...] CRP - Wide Range; Complete Time: 13:04 [facility] 01/22 11:02 Order name: Cbc With Auto Differential; Complete Time: 12:11[facility] 01/22 11:02 Order name: Comprehensive Metabolic Prof.; Complete Time: [facility] 13:04 01/22 11:02 Order name: Lipase; Complete Time: 13:04 [facility] 01/22 11:02 Order name: UA. [facility] 01/22 11:02 Order name: Lactic Acid; Complete Time: 12:12 [facility] 01/22 11:02 Order name: Troponin I; Complete Time: 13:04 [facility] 01/22 13:43 Interpretation: Within normal limits. [facility] 01/22 11:02 Order name: PT; Complete Time: 12:12 [facility] 01/22 11:02 Order name: PTT; Complete Time: 12:12 [facility] 01/22 11:02 Order name: Emergency Room EKG Order - Use EKG Work-Up [facility] /Quick Select; Complete Time: 11:18 01/22 11:02 Order name: Cardiology EKG Interpretation - Choose Reason [facility] for Test 01/22 12:29 Order name: Type And Screen [facility] 01/22 13:08 Order name: CT Abdomen ; [...] 13:52 Hospitalization Ordered Hospitalization Status: Inpatient Admission [facility] Provider: Hospitalist, Supervisor [employer] [facility] Condition: Stable [facility] Location: Med-Surg 2(01/22/21 14:11) kms Room Assignment: [id number](01/22/21 14:20) kms Diagnosis - GI Bleeding [facility] Additional Information - Patient Status Inpatient. [facility] Forms: - Medication Reconciliation [facility] - SBAR [facility] Addendum: 01/24/2021 09:18 Attestation: I discussed the plan of care with Mid-Level jt Provider and agree with what they have documented. I have reviewed relevant laboratory values and/or imaging studies. Signatures: Dispatcher [employer] EDMS Robinson Love RN RN edv Mauro Mccarthy RN RN tp1 Jenn Paez MD MD jtv Munz, Heather, PA-C PA-C [facility] Emily Bhardwaj NA NA [facility] Corrections: (The following items were deleted from the chart) 01/22 10:39 10:37 Home Meds: BP med; edv edv 13:08 12:12 CT Abdomen & Pelvis w Con+CT.RAD.CAN ordered. EDTN EDMS 14:11 13:52 Med/Surg 3 2 kms 14:11 13:52 2 kms 14:20 14:11 [id number] kms kms Name Value Range Interpretation Code Description Data Criselda rce(s) Supporting Document(s) ID Date Data Source [id number] 01/22/2021 10:27:00 AM EDT [facility] Name: BEAU SALGADO Med Rec #: [id number] 63 : 1940 Age/Sex: 80M Date of Service: 01/22/21 NURSE CHART Nurse's Notes [facility] Name: Beau Salgado Age: 80 yrs [...] to communication noted, The patient speaks fluent Cambodian. Screenin:39 AUDIT 1. How oft en do [...] Nurse. edv 10:41 [facility] h[facility] 10:41 Jenn Paez MD [...] 13:48 CT Abdomen Sent. 3 13:52 Hospitalist, Supervisor [employer] is Hospitalizing Provider. 2 13:52 Urine collected. [...] rce(s) Supporting Document(s) ID Date Data Source [id number] 01/24/2021 08:25:[address] [facility] Name Value Range Interpretation Code Description Data Criselda rce(s) Supporting Document(s) White Blood Count 4.8-10.8 Normal (applies to non-numeri c results) [facility] Red Blood Count 4.35-6.08 Below low normal [facility] Hemoglobin 13.0-17.5 Normal (applies to non-numeric resul ts) [facility] Hematocrit 37.7-51.0 Normal (applies to non-numeric resul ts) [facility] Mean Corpuscular Volume 80-94 Normal (applies to non- numeric results) [facility] Mean Corpuscular Hemoglobin 27.0-33.0 Normal (appli es to non-numeric results) [facility] Mean Corpuscular HGB Conc 32.0-36.0 Normal (applies to no n-numeric results) [facility] Red Cell Distribution Width 11.5-14.5 Normal (appli es to non-numeric results) [facility] Platelet Count 164 X10 3/uL 130-450 Normal (applies to non-numeric results) [facility] Mean Platelet Volume 9.6-13.1 Normal (applies to non-num natividad results) [facility] Imm Grans% (AUTO) 0 % 0-2 Normal (applies to non-numeri c results) [facility] Neutrophils % (AUTO) 73 % 40-75 Normal (applies to non-num natividad results) [facility] Lymphocytes % (AUTO) 15 % 21-46 Below low normal [facility] Monocytes % (AUTO) 9 % 5-12 Normal (applies to non-numer ic results) [facility] Eosinophils % (AUTO) 3 % 1-5 Normal (applies to non-num natividad results) [facility] Basophils % (AUTO) 1 % 0-1 Normal (applies to non-numer ic results) [facility] Imm Grans# (AUTO) 0.0-0.5 Normal (applies to non-numeri c results) [facility] Neutrophils # (AUTO) 1.5-8.1 Normal (applies to non-num natividad results) [facility] Lymphocytes # (AUTO) 1.0-3.1 Below low normal [facility] Monocytes # (AUTO) 0.2-1.3 Normal (applies to non-numer ic results) [facility] Eosinophils# (AUTO) 0.0-0.5 Normal (applies to non-nume marnie results) [facility] Basophils # (AUTO) 0.0-0.1 Normal (applies to non-numer ic results) [facility] ID Date Data Source [id number] 01/24/2021 08:21:00 AM EDT [facility] Name Value Range Interpretation Code Description Data Criselda rce(s) Supporting Document(s) Sodium 144 mmol/L 137-145 Normal (applies to non-numeric resul ts) [facility] Potassium 3.5-5.1 Normal (applies to non-numeric resul ts) [facility] Chloride 108 mmol/L 98-112 Normal (applies to non-numeric resul ts) [facility] Carbon Dioxide CO2 22.0-33.0 Normal (applies to non-numer ic results) [facility] Anion Gap 4.0-11.0 Normal (applies to non-numeric resul ts) [facility] BUN 14 mg/dL 9-20 Normal (applies to non-numeric resul ts) [facility] Creatinine 0.80-1.50 Below low normal [facility] GFR >60 Normal (applies to non-numeric results) [facility] Result based on MDRD formula. Glucose Level 82 mg/dL 74-99 Normal (applies to non-numeric re sults) [facility] The reference range is only applicable w hen fasting. Calcium-Uncorrected 8.4-10.2 Below low normal [facility] Corrected Calcium 8.4-10.2 Normal (applies to non-numeri c results) [facility] Phosphorus 2.5-4.9 Normal (applies to non-numeric resul ts) [facility] Albumin 3.5-5.0 Below low normal [facility] ID Date Data Source [id number] 01/23/2021 06:17:00 PM EDT [facility] Name Value Range Interpretation Code Description Data Criselda rce(s) Supporting Document(s) White Blood Count 4.8-10.8 Normal (applies to non-numeri c results) [facility] Red Blood Count 4.35-6.08 Below low normal [facility] Hemoglobin 13.0-17.5 Normal (applies to non-numeric resul ts) [facility] Hematocrit 37.7-51.0 Normal (applies to non-numeric resul ts) [facility] Mean Corpuscular Volume 80-94 Normal (applies to non- numeric results) [facility] Mean Corpuscular Hemoglobin 27.0-33.0 Normal (appli es to non-numeric results) [facility] Mean Corpuscular HGB Conc 32.0-36.0 Normal (applies to no n-numeric results) [facility] Red Cell Distribution Width 11.5-14.5 Normal (appli es to non-numeric results) [facility] Platelet Count 163 X10 3/uL 130-450 Normal (applies to non-numeric results) [facility] Mean Platelet Volume 9.6-13.1 Normal (applies to non-num natividad results) [facility] Imm Grans% (AUTO) 0 % 0-2 Normal (applies to non-numeri c results) [facility] Neutrophils % (AUTO) 67 % 40-75 Normal (applies to non-num natividad results) [facility] Lymphocytes % (AUTO) 21 % 21-46 Normal (applies to non-num natividad results) [facility] Monocytes % (AUTO) 8 % 5-12 Normal (applies to non-numer ic results) [facility] Eosinophils % (AUTO) 3 % 1-5 Normal (applies to non-num natividad results) [facility] Basophils % (AUTO) 0 % 0-1 Normal (applies to non-numer ic results) [facility] Imm Grans# (AUTO) 0.0-0.5 Normal (applies to non-numeri c results) [facility] Neutrophils # (AUTO) 1.5-8.1 Normal (applies to non-num natividad results) [facility] Lymphocytes # (AUTO) 1.0-3.1 Normal (applies to non-num natividad results) [facility] Monocytes # (AUTO) 0.2-1.3 Normal (applies to non-numer ic results) [facility] Eosinophils# (AUTO) 0.0-0.5 Normal (applies to non-nume marnie results) [facility] Basophils # (AUTO) 0.0-0.1 Normal (applies to non-numer ic results) [facility] ID Date Data Source [id number] 01/22/2021 10:27:00 AM EDT [facility] Name: BEAU SALGADO [facility] Rec #: [id number] 63 : 1940 Age/Sex: 80M Date of Service: 01/22/21 DISPOSITION SUMMARY Discharge Summary [facility] Name:Beau Salgado Emergency Department Age:80 yrs Sex:Male :1940 Arrival:01/22/2021 10:27 Departure Date01/22/2021 Departure Time16:24 Private MD:Sarah Lind MD Outcome: Hospitalize Location: Med-Surg 2 Condition: Stable Chief Complaint: Bloody Stools Diagnosis: GI Bleeding Prescriptions: Custom Notes: Attending Physician: Jenn Paez MD Private MD: Sarah Lind MD Mid Level Provider: Sherrie Be PA-C Hospitalizing Provider: Hospitalist, Supervisor [employer] Orders: CRP - Wide Range, Cbc With [...] rce(s) Supporting Document(s) ID Date Data Source [id number] 01/23/2021 08:24:00 AM EDT [facility] Name Value Range Interpretation Code Description Data [facility] rce(s) Supporting Document(s) Sodium 144 mmol/L 137-145 Normal (applies to non-numeric resul ts) [facility] Potassium 3.5-5.1 Normal (applies to non-numeric resul ts) [facility] Chloride 109 mmol/L 98-112 Normal (applies to non-numeric resul ts) [facility] Carbon Dioxide CO2 22.0-33.0 Normal (applies to non-numer ic results) [facility] Anion Gap 4.0-11.0 Below low normal [facility] BUN 13 mg/dL 9-20 Normal (applies to non-numeric resul ts) [facility] Creatinine 0.80-1.50 Normal (applies to non-numeric resul ts) [facility] GFR >60 Normal (applies to non-numeric results) [facility] Result based on MDRD formula. Glucose Level 81 mg/dL 74-99 Normal (applies to non-numeric re sults) [facility] The reference range is only applicable w hen fasting. Calcium-Uncorrected 8.4-10.2 Normal (applies to non-nume marnie results) [facility] Corrected Calcium 8.4-10.2 Normal (applies to non-numeri c results) [facility] Bilirubin,Total 0.2-1.3 Normal (applies to non-numeric results) [facility] SGOT(AST) 15 U/L 17-59 Below low normal [facility] SGPT(ALT) 17 U/L 21-72 Below low normal [facility] Alkaline Phosphatase 62 U/L 38-126 Normal (applies to non-num natividad results) [facility] can increase Alkaline Phosp le vels up to 2 times the normal adult value. Normal values for children and adolescents are 2 to 3 times the normal adult value. Total Protein 6.3-8.[address] [facility] Albumin 3.5-5.0 Below low normal [facility] ID Date Data Source [id number] 01/23/2021 08:05:[address] [facility] Name Value Range Interpretation Code Description Data Criselda rce(s) Supporting Document(s) White Blood Count 4.8-10.8 Normal (applies to non-numeri c results) [facility] Red Blood Count 4.35-6.08 Below low normal [facility] Hemoglobin 13.0-17.5 Normal (applies to non-numeric resul ts) [facility] Hematocrit 37.7-51.0 Normal (applies to non-numeric resul ts) [facility] Mean Corpuscular Volume 80-94 Normal (applies to non- numeric results) [facility] Mean Corpuscular Hemoglobin 27.0-33.0 Normal (appli es to non-numeric results) [facility] Mean Corpuscular HGB Conc 32.0-36.0 Normal (applies to no n-numeric results) [facility] Red Cell Distribution Width 11.5-14.5 Normal (appli es to non-numeric results) [facility] Platelet Count 158 X10 3/uL 130-450 Normal (applies to non-numeric results) [facility] Mean Platelet Volume 9.6-13.1 Normal (applies to non-num natividad results) [facility] Imm Grans% (AUTO) 0 % 0-2 Normal (applies to non-numeri c results) [facility] Neutrophils % (AUTO) 68 % 40-75 Normal (applies to non-num natividad results) [facility] Lymphocytes % (AUTO) 15 % 21-46 Below low normal [facility] Monocytes % (AUTO) 12 % 5-12 Normal (applies to non-numer ic results) [facility] Eosinophils % (AUTO) 4 % 1-5 Normal (applies to non-num natividad results) [facility] Basophils % (AUTO) 1 % 0-1 Normal (applies to non-numer ic results) [facility] Imm Grans# (AUTO) 0.0-0.5 Normal (applies to non-numeri c results) [facility] Neutrophils # (AUTO) 1.5-8.1 Normal (applies to non-num natividad results) [facility] Lymphocytes # (AUTO) 1.0-3.1 Normal (applies to non-num natividad results) [facility] Monocytes # (AUTO) 0.2-1.3 Normal (applies to non-numer ic results) [facility] Eosinophils# (AUTO) 0.0-0.5 Normal (applies to non-nume marnie results) [facility] Basophils # (AUTO) 0.0-0.1 Normal (applies to non-numer ic results) [facility] ID Date Data Source [id number] 01/23/2021 12:10:00 AM EDT [facility] Name Value Range Interpretation Code Description Data Criselda rce(s) Supporting Document(s) Troponin I 0.000-0.045 Normal (applies to non-numeric resu lts) [facility] ID Date Data Source [id number] 01/22/2021 05:55:[address] [facility] Name Value Range Interpretation Code Description Data Criselda rce(s) Supporting Document(s) Troponin I 0.000-0.045 Normal (applies to non-numeric resu lts) [facility] ID Date Data Source [id number] 01/22/2021 05:42:[address] [facility] Name Value Range Interpretation Code Description Data Criselda rce(s) Supporting Document(s) White Blood Count 4.8-10.8 Normal (applies to non-numeri c results) [facility] Red Blood Count 4.35-6.08 Below low normal [facility] Hemoglobin 13.0-17.5 Normal (applies to non-numeric resul ts) [facility] Hematocrit 37.7-51.0 Normal (applies to non-numeric resul ts) [facility] Mean Corpuscular Volume 80-94 Normal (applies to non- numeric results) [facility] Mean Corpuscular Hemoglobin 27.0-33.0 Normal (appli es to non-numeric results) [facility] Mean Corpuscular HGB Conc 32.0-36.0 Normal (applies to no n-numeric results) [facility] Red Cell Distribution Width 11.5-14.5 Normal (appli es to non-numeric results) [facility] Platelet Count 157 X10 3/uL 130-450 Normal (applies to non-numeric results) [facility] Mean Platelet Volume 9.6-13.1 Below low normal [facility] Imm Grans% (AUTO) 0 % 0-2 Normal (applies to non-numeri c results) [facility] Neutrophils % (AUTO) 69 % 40-75 Normal (applies to non-num natividad results) [facility] Lymphocytes % (AUTO) 18 % 21-46 Below low normal [facility] Monocytes % (AUTO) 10 % 5-12 Normal (applies to non-numer ic results) [facility] Eosinophils % (AUTO) 3 % 1-5 Normal (applies to non-num natividad results) [facility] Basophils % (AUTO) 0 % 0-1 Normal (applies to non-numer ic results) [facility] Imm Grans# (AUTO) 0.0-0.5 Normal (applies to non-numeri c results) [facility] Neutrophils # (AUTO) 1.5-8.1 Normal (applies to non-num natividad results) [facility] Lymphocytes # (AUTO) 1.0-3.1 Normal (applies to non-num natividad results) [facility] Monocytes # (AUTO) 0.2-1.3 Normal (applies to non-numer ic results) [facility] Eosinophils# (AUTO) 0.0-0.5 Normal (applies to non-nume marnie results) [facility] Basophils # (AUTO) 0.0-0.1 Normal (applies to non-numer ic results) [facility] ID Date Data Source [id number] 01/25/2021 11:10:00 AM EDT [facility] Name Value Range Interpretation Code Description Data Criselda rce(s) Supporting Document(s) Urine Culture [facility] ID Date Data Source [id number] 01/25/2021 11:10:00 AM EDT [facility] Name Value Range Interpretation Code Description Data Criselda rce(s) Supporting Document(s) Ampicillin Susceptible. Indicates for microbiol ogy susceptibilities only. [facility] Cefazolin Susceptible. Indicates for microbiol ogy susceptibilities only. [facility] Cefepime Susceptible. Indicates for microbiol ogy susceptibilities only. [facility] Ceftazadime Susceptible. Indicates for m icrobiology susceptibilities only. [facility] Ceftriaxone Susceptible. Indicates for m icrobiology susceptibilities only. [facility] Ciprofloxacin Susceptible. Ind icates for microbiology susceptibilities only. [facility] Ertapenem Susceptible. Indicates for microbiol ogy susceptibilities only. [facility] Gentamicin Susceptible. Indicates for microbiol ogy susceptibilities only. [facility] Levofloxacin Susceptible. Indicates for m icrobiology susceptibilities only. [facility] Nitrofurantoin 128 Results entered -- not verified [facility] Pipercillin/Tazobactam Susceptib le. Indicates for microbiology susceptibilities only. [facility] Trimeth/Sulfamethoxazole Suscept ible. Indicates for microbiology susceptibilities only. [facility] ID Date Data Source [id number] 01/22/2021 03:53:00 PM EDT [facility] Name Value Range Interpretation Code Description Data Criselda rce(s) Supporting Document(s) Color,Urine Yellow Normal (applies to non-numeric resu lts) [facility] Clarity,Urine Clear Normal (applies to non-numeric re sults) [facility] Specific [place],Urine 1.001-1.030 Normal (applies to non- numeric results) [facility] PH,Urine 5.0-8.0 [facility] Protein,Urine Negative Normal (applies to non-numeric re sults) [facility] Glucose,Urine (UA) Negative Normal (applies to non-numer ic results) [facility] Ketones,Urine Negative [facility] Blood,Urine Negative Normal (applies to non-numeric resu lts) [facility] Bilirubin,Urine Negative Normal (applies to non-numeric results) [facility] Urobilinogen,Urine Norm 0.2-1 Normal (applies to non-numer ic results) [facility] Leukocyte Esterase,Urine Negative [facility] Nitrite,Urine Negative [facility] ID Date Data Source [id number] 01/22/2021 03:53:00 PM EDT [facility] Name Value Range Interpretation Code Description Data Criselda rce(s) Supporting Document(s) RBC,Auto Urine 0-2 Normal (applies to non-numeric r esults) [facility] WBC Urine Auto 0-2 [place] [facility] Casts,Hyaline,Urine Auto 0-2 Normal (applies to non -numeric results) [facility] Bacteria Urine Auto None Seen Normal (applies to non-nume marnie results) [facility] Epithelial Cell Ur Auto None-Few Normal (applies to non- numeric results) [facility] ID Date Data Source [id number] 01/22/2021 02:38:00 PM EDT [facility] Name Value Range Interpretation Code Description Data Criselda rce(s) Supporting Document(s) BLOOD TYPE PATIENT O Negative Normal (applies to non-numer ic results) [facility] ANTIBODY SCREEN NEGATIVE Normal (applies to non-numeric results) [facility] ID Date Data Source [id number] 01/22/2021 04:48:00 PM EDT [facility] Name: BEAU SALGADO : 1940 A ge/Sex: 80M Ordering Provider: CODEY Hylton Med Rec #: [id number] Reg Status: ADM IN Room #: 206-1 Date of Service: 01/22/21 Report Number: [id number] cc:Sarah Lind MD; CODEY Hylton Send Report To: [id number] CT/CT Abdomen & Pelvis No Contras Reason [...] Electronically signed by: Maximino Alaniz MD 01/22/21 9276 Dictation Date/Time: 01/22/21 9345 Transcribed Date/Time: 01/22/21 1648 Mine Laborer: AMANDA Name Value Range Interpretation Code Description Data Criselda rce(s) Supporting Document(s) ID Date Data Source [id number] 01/22/2021 12:36:00 PM EDT [facility] 3 hour post Lactic if elevated? Y Name Value Range Interpretation Code Description Data Criselda rce(s) Supporting Document(s) Troponin I 0.000-0.045 Normal (applies to non-numeric resu lts) [facility] ID Date Data Source [id number] 01/22/2021 12:22:00 PM EDT [facility] Name Value Range Interpretation Code Description Data Criselda rce(s) Supporting Document(s) C-Reactive Protein,Wide Range <3.00 Above high normal [facility] ID Date Data Source [id number] 01/22/2021 12:22:00 PM EDT [facility] Name Value Range Interpretation Code Description Data Criselda rce(s) Supporting Document(s) Sodium 141 mmol/L 137-145 Normal (applies to non-numeric resul ts) [facility] Potassium 3.5-5.1 Normal (applies to non-numeric resul ts) [facility] Chloride 108 mmol/L 98-112 Normal (applies to non-numeric resul ts) [facility] Carbon Dioxide CO2 22.0-33.0 Normal (applies to non-numer ic results) [facility] Anion Gap 4.0-11.0 Normal (applies to non-numeric resul ts) [facility] BUN 18 mg/dL 9-20 Normal (applies to non-numeric resul ts) [facility] Creatinine 0.80-1.50 Normal (applies to non-numeric resul ts) [facility] GFR 88 mL/min >60 Normal (applies to non-numeric resul ts) [facility] Result based on MDRD formula. Glucose Level 93 mg/dL 74-99 Normal (applies to non-numeric re sults) [facility] The reference range is only applicable w hen fasting. Calcium-Uncorrected 8.4-10.2 Normal (applies to non-nume marnie results) [facility] Corrected Calcium 8.4-10.2 Normal (applies to non-numeri c results) [facility] Bilirubin,Total 0.2-1.3 Normal (applies to non-numeric results) [facility] SGOT(AST) 16 U/L 17-59 Below low normal [facility] SGPT(ALT) 20 U/L 21-72 Below low normal [facility] Alkaline Phosphatase 63 U/L 38-126 Normal (applies to non-num natividad results) [facility] can increase Alkaline Phosp le vels up to 2 times the normal adult value. Normal values for children and adolescents are 2 to 3 times the normal adult value. Total Protein 6.3-8.2 Normal (applies to non-numeric re sults) [facility] Albumin 3.5-5.0 Normal (applies to non-numeric resul ts) [facility] ID Date Data Source [id number] 01/22/2021 12:22:00 PM EDT [facility] Name Value Range Interpretation Code Description Data Criselda rce(s) Supporting Document(s) Lipase 68 U/L 73-393 Below low normal [facility] ID Date Data Source [id number] 01/22/2021 12:06:00 PM EDT [facility] 3 hour post Lactic if elevated? Y 3 jessica r post Lactic if elevated? Y 3 hour post Lactic if elevated? Y 3 jessica r post Lactic if elevated? Y Name Value Range Interpretation Code Description Data Criselda rce(s) Supporting Document(s) PT 9.4-12.5 Normal (applies to non-numeric results) [facility] INR Normal (applies to non-numeric results) [facility] The use of the INR is restricted to marcos ents on stable oral anticoagulant. Therapeutic Range: 2.0-3.0 High Risk Values: 2.5-3.5 ID Date Data Source [id number] 01/22/2021 12:06:00 PM EDT [facility] 3 hour post Lactic if elevated? Y 3 jessica r post Lactic if elevated? Y 3 hour post Lactic if elevated? Y 3 jessica r post Lactic if elevated? Y Name Value Range Interpretation Code Description Data Criselda rce(s) Supporting Document(s) PTT 25.1-36.5 Normal (applies to non-numeric resul ts) [facility] ID Date Data Source [id number] 01/22/2021 11:56:00 AM EDT [facility] Name Value Range Interpretation Code Description Data Criselda rce(s) Supporting Document(s) White Blood Count 4.8-10.8 Normal (applies to non-numeri c results) [facility] Red Blood Count 4.35-6.08 Normal (applies to non-numeric results) [facility] Hemoglobin 13.0-17.5 Normal (applies to non-numeric resul ts) [facility] Hematocrit 37.7-51.0 Normal (applies to non-numeric resul ts) [facility] Mean Corpuscular Volume 80-94 Normal (applies to non- numeric results) [facility] Mean Corpuscular Hemoglobin 27.0-33.0 Normal (appli es to non-numeric results) [facility] Mean Corpuscular HGB Conc 32.0-36.0 Normal (applies to no n-numeric results) [facility] Red Cell Distribution Width 11.5-14.5 Normal (appli es to non-numeric results) [facility] Platelet Count 165 X10 3/uL 130-450 Normal (applies to non-numeric results) [facility] Mean Platelet Volume 9.6-13.1 Normal (applies to non-num natividad results) [facility] Imm Grans% (AUTO) 1 % 0-2 Normal (applies to non-numeri c results) [facility] Neutrophils % (AUTO) 74 % 40-75 Normal (applies to non-num natividad results) [facility] Lymphocytes % (AUTO) 14 % 21-46 Below low normal [facility] Monocytes % (AUTO) 10 % 5-12 Normal (applies to non-numer ic results) [facility] Eosinophils % (AUTO) 2 % 1-5 Normal (applies to non-num natividad results) [facility] Basophils % (AUTO) 0 % 0-1 Normal (applies to non-numer ic results) [facility] Imm Grans# (AUTO) 0.0-0.5 Normal (applies to non-numeri c results) [facility] Neutrophils # (AUTO) 1.5-8.1 Normal (applies to non-num natividad results) [facility] Lymphocytes # (AUTO) 1.0-3.1 Normal (applies to non-num natividad results) [facility] Monocytes # (AUTO) 0.2-1.3 Normal (applies to non-numer ic results) [facility] Eosinophils# (AUTO) 0.0-0.5 Normal (applies to non-nume marnie results) [facility] Basophils # (AUTO) 0.0-0.1 Normal (applies to non-numer ic results) [facility] ID Date Data Source [id number] 01/22/2021 11:55:00 AM EDT [facility] 3 hour post Lactic if elevated? 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 ECG HEART RATE: 86 /min ECG RR INTERVAL: 696 ms ECG P DURATION: 122 ms ECG QRS DURATION: 152 ms ECG ME INTERVAL: 164 ms ECG QT INTERVAL: 365 ms ECG QTC INTERVAL: 410 ms Q-T dispersion: ms ECG P AXIS: 70 deg ECG QRS AXIS: -49 deg ECG T AXIS: 52 deg REPORT SIGNATURE ON FILE 01/23/21 1042 Reported By: Chris Rueda MD, [facility] <<Signature on File>> Exam Date/Time: 01/22/21 1119 Order #: [id number] Dictation Date/Time: 01/23/21 104 Transcribed Date/Time: 01/23/211041 Mine Laborer: PINA Name Value Range Interpretation Code Description Data Criselda rce(s) Supporting Document(s) ID Date Data Source [id number] 01/21/2021 03:09:06 PM EDT [address] [address] Name: BEAU JACQUESB: 1940Sex: MOrdering Provider: APRIL Maxwell Prov: APRIL Brar Provider: Procedure Performed: US CAROTID BILATERALExam Date: 01/21/2021 15:02MRN: [id number] Number: [id number] Class: OutpatientAccount #: [id number] for Exam: TAVR protocolTechnique: Duplex sonography was [...] DARIAN FAIR On 01/21/2021 3:09 PMWorkstation ID: [id number] Name Value Range Interpretation Code Description Data Criselda rce(s) Supporting Document(s) ID Date Data Source [id number] 01/21/2021 02:12:38 PM EDT [facility] Name Value Range Interpretation Code Description Data Criselda rce(s) Supporting Document(s) &PDF [facility] FBAJBn9vHiTDVuIm21/JVVshGAUml5HxXZchCVy7APmyQBYzQ1CkzOqzJY0RY8uOSDuFXzMBYoPZFI6z FcG [file] ICAgICAgICAgICAgICAgICAgICAgICAgICAgICAgICAgICAgICAgICAgICAgICAgICAgICAgICAgICAg ICAgICAgICAgICAgICAgICAgICAgICAgICAgICAgIC AgICAgICAgDQogICAgICAgICAgICAgICAgICAgICAgICAgICAgICAgICAgICAgICAgICAgICAgICAgIC AgICAgICAgICAgICAgICAgICAgICAgICAgICAgICAgICAgICAgICAgICAgICAgICAgDQogICAgICAgIC AgICAgICAgICAgICAgICAgICAgICAgICAgICAgICAg ICAgICAgICAgICAgICAgICAgICAgICAgICAgICAgICAgICAgICAgICAgICAgICAgICAgICAgICAgICAg DQogICAgICAgICAgICAgICAgICAgICAgICAgICAgICAgICAgICAgICAgICAgICAgICAgICAgICAgICAg ICAgICAgICAgICAgICAgICAgICAgICAgICAgICAgIC AgICAgICAgICAgDQogICAgICAgICAgICAgICAgICAgICAgICAgICAgICAgICAgICAgICAgICAgICAgIC AgICAgICAgICAgICAgICAgICAgICAgICAgICAgICAgICAgICAgICAgICAgICAgICAgICAgDQogICAgIC AgICAgICAgICAgICAgICAgICAgICAgICAgICAgICAg ICAgICAgICAgICAgICAgICAgICAgICAgICAgICAgICAgICAgICAgICAgICAgICAgICAgICAgICAgICAg ICAgDQogICAgICAgICAgICAgICAgICAgICAgICAgICAgICAgICAgICAgICAgICAgICAgICAgICAgICAg ICAgICAgICAgICAgICAgICAgICAgICAgICAgICAgIC AgICAgICAgICAgICAgDQogICAgICAgICAgICAgICAgICAgICAgICAgICAgICAgICAgICAgICAgICAgIC AgICAgICAgICAgICAgICAgICAgICAgICAgICAgICAgICAgICAgICAgICAgICAgICAgICAgICAgDQogIC AgICAgICAgICAgICAgICAgICAgICAgICAgICAgICAg ICAgICAgICAgICAgICAgICAgICAgICAgICAgICAgICAgICAgICAgICAgICAgICAgICAgICAgICAgICAg ICAgICAgDQogICAgICAgICAgICAgICAgICAgICAgICAgICAgICAgICAgICAgICAgICAgICAgICAgICAg ICAgICAgICAgICAgICAgICAgICAgICAgICAgICAgIC SqCVOcCXTwVMJmQIYrLINmMPf9V7qaSOAoSFLgSE4oPSn3Qe1+OLjKOpEmHID5yrEgcP8PGL2mr1KhBB fgOPXjn8HmFVh9FG0HRDRjGJnlRG6UCOwhkp9RQYJfILCpqVVNt4zgOsRuXMJ5ZRRbAsmwUZ5OMULeY8 icbsMpZPBwDNYJXPtrKQMTSMimLSIKRX6TZnEbL0Ui aK89FWVMYh9+BKpvnvEoCrxFBgQwCTSzo3PsNZw1MD4CMZKfTqerc1ItYmOzSVHUDLdeQO6QTIC9ZSSt MIVtHd3XYTRbD242ghAtZY7HAx0WCyKaSB3wqh7HSeWgJWQaZteXGwp6HRlvWY6NyYWpXXcLoFCyNW24 udrGSrZcU2Cdr8AoZaQ0KCZmWjFdUQeoACDtLFL4KP 50fPvjUN5QOBXsSHRfWQ13RRWhPMQnDh0NHh0DRhAmOT4nqk6RUyEiNYScXqkNBfe5NXckYB9GtZIgJ6 OdmUDso4mZVgBtC1QJYUPbHTVdSf5DQMJhZjHsGMLnTAlfLV0tAEXjJEGJrEsreuA3ET8OGS0qanIpBK 4HZfKvQq9aIl8YFsViU1TvO9PpZLGdKTKYQSteQX5W KYgkVX7fES5Fs2KUkCCxrV1jrn2FXTWcUCTsTbwvty9UOhurH9P3bTqlSYKyMrJiEDDRDJjtKB2JBKBt ETB4VHGxPIMcBLJFAlYgS58eYH7BB1Taa12pVpM1PIFcLuWtJEbtSN83pKhzbyJroSKalMitRC9GTl9+ DQplbmRvYmoNCnhyZWYNCjAgMjUNCjAwMDAwMDAwMD DaZoK3ReDvRj9CJWFjEIHyUFPmUyJtKBUqZIHpSVedRZAqZRNdBFs4WQVyHQBqIF2ZMeZaCURfVqE0EO JuSFYkQNEwkc6DNHReKUYjELH8FPTjDXFuPCTtAZdaCICdOWZqJTWzMOQmQDKvXE3UTvOxXJDnOFQuJn DcNQTqPEUozs7FGNTxFWLsUBW5VEEnRTMwERAhZAhh GVTlVOL1LZK9MCJlVAHrJR2CGbZgNNWlFDI9NrUqDGIaHZBiwb1KFKMiRFNcLxY1DZEgHKNbWGYwTMvq DVLuBRK3LVZ0OSLpWQTbSN9FUsQvRFTiGPdhYbIzIHQoCWJugz0ZDPWjCBBsNwBgFGLkZROwNCVbCFtr XFWhUGL1HfDiELGqEYTtYF5NXvIbDTSaZXh4LiFnED CaCYYmsn3QAOHgTOQsCKa0XwAmFHYtEUTxTYiaXEQrOQXlLRO2UQGsSXPaHI9YMfYuUEYbXUSvRsEcHZ PmESLmls2HFXYsLEMfHEG5SNPtKBOfBDTnJOyaGHAlJLHkMSNfLDJiKDXxXW5SVuSsSQHcIaE0SPWeKV DgQERobi8GYEPtJAPnEKg0WDEmEMCjMPOoBQggFIPw PKX1HWS9BSSmCCUdQK7NDuQhYXVkDhAeBrOlSOEcLKPugj8BvAFntUktjb7DBNzPKu0BwHvoMRZ2SEgy Si9lbQTwABJnWPODQh6YipOkACEjLGPYXNtoAXHaYOA7LMUmVCG5HEZgVPE4YDXrLOBkVDMnOcP1BYZ6 BZYjVmP5XRH6ZJW4CXC1XWDcJTxjQFPkJ3FuCkSzJN hhYjYwMGI+JW5aYYb+Zz6Jp0SkvyF2faSiHVftJQX3IP6KUYGQS2DHAp== ID Date Data Source [id number] 01/21/2021 12:18:43 PM EDT [facility] NT INFORMATIONPatient MRN Name Date of Age Gend*PT [id number] Beau Salgado W 1940 80 years M HOPPT Location Admission Date/Time Visit ID Attending [id number] 01/21/21 1056 --- Dorothy Cheng MD([id number]) EPI ID CSN Admitting Provider [id number] Dorothy Cheng MD([id number])Updated H&PPlease see the scanned/dictated outpatient note.I have reviewed the note, clinical history and physical exam findings. Therehave been no significant changes.Plan as outlined in the outpatient note.Risk/benifit/alternative of cardiac catheterization was discussed withpatient/family. Risks included, but not limited to; NH, CVA, , renalimpairment, vascular complication, and need for emergency surgery were discussedand accepted by patient.Dorothy Cheng MD, [facility], [facility]ITALInterventional Payable Processor Name Value Range Interpretation Code Description Data Criselda rce(s) Supporting Document(s) ID Date Data Source [id number] 01/21/2021 11:23:37 AM EDT [facility] Name Value Range Interpretation Code Description Data Criselda rce(s) Supporting Document(s) EKG [facility] LHUBIo7vUcOVXpMzq2GoXzPlVDPnNF6wphp8K6P4tHIyC9TcnLYjf6qtW3GkN0YiWXLrBVNMJO9EgLHm jb2 [file] MjUgMDAwMDAgbiAKMDAwMDAwMTYwOSAwMDAwMCBuIA pwFGEcWEYrVtD2GBGiYADdKA5aLaCzQKRrTJE9STSgRZGdVIBpqtEOYMPfQBPeLHMvPNI0SFMaKEQhJK y2llJfoMTmKmk7Gq1GhAlnYUJ2Li2NceXbPBWlYKHRNh8Er534OKQmGHTVRhy+PgpzdGFydHhyZWYKNj B2JQiUHGULP1R= ID Date Data Source [id number] 01/12/2021 02:12:00 PM EDT [facility] Name Value Range Interpretation Code Description Data Criselda rce(s) Supporting Document(s) Sodium 146 mmol/L 136-145 Above high normal [facility] Potassium 3.5-5.1 Normal (applies to non-numeric resul ts) [facility] Chloride 106 mmol/L 98-107 Normal (applies to non-numeric resul ts) [facility] Carbon Dioxide CO2 21-32 Normal (applies to non-numer ic results) [facility] Anion Gap 5.0-16.0 Normal (applies to non-numeric resul ts) [facility] BUN 21 mg/dL 7-18 Above high normal [facility] Creatinine,Serum 0.8-1.5 Normal (applies to non-numeric results) [facility] GFR >60 Normal (applies to non-numeric results) [facility] Glucose Level 99 mg/dL 60-99 Normal (applies to non-numeric re sults) [facility] Reference range is only applicable when patient is fasting Note the following drug interference: Sulfasalazine Sulfapyridine Can see falsely depressed Can see falsely elevated result with up to 17% results with up to 11% decrease in measurement increase in measurement Recommend patients be collected for this test prior to administration of either drug. Calcium 8.5-10.1 Normal (applies to non-numeric resul ts) [facility] ID Date Data Source [id number] 01/12/2021 01:30:00 PM EDT [facility] Name Value Range Interpretation Code Description Data Criselda rce(s) Supporting Document(s) White Blood Count 3.5-10.5 Normal (applies to non-numeri c results) [facility] Red Blood Count 4.30-5.70 Normal (applies to non-numeric results) [facility] Hemoglobin 13.5-17.5 Normal (applies to non-numeric resul ts) [facility] Hematocrit 38.8-50.0 Normal (applies to non-numeric resul ts) [facility] Mean Corpuscular Volume 81.2-95.1 Normal (applies to non- numeric results) [facility] Mean Corpuscular Hgb 25.6-32.2 Normal (applies to non-num natividad results) [facility] Mean Corpuscular Hgb Conc 32.0-36.0 Normal (applies to no n-numeric results) [facility] Red Cell Distribution Width 11.8-15.6 Normal (appli es to non-numeric results) [facility] Platelet Count 184 x10 3/uL 150-450 Normal (applies to non-numeric results) [facility] Mean Platelet Volume 9.4-12.4 Normal (applies to non-num natividad results) [facility] Neutrophils% (Auto) 31.0-71.0 Above high normal [facility] Lymphocytes% (Auto) 20.0-55.0 Below low normal [facility] Monocytes% (Auto) 4.0-12.0 Normal (applies to non-numeri c results) [facility] Eosinophils% (Auto) 1.0-8.0 Normal (applies to non-nume marnie results) [facility] Basophils% (Auto) 0.0-2.0 Normal (applies to non-numeri c results) [facility] Immature Granulocytes% (Auto) 0.0-2.0 Normal (antonio lies to non-numeric results) [facility] Neutrophils# (Auto) 1.50-6.20 Above high normal [facility] Lymphocytes# (Auto) 1.20-4.00 Normal (applies to non-nume marnie results) [facility] Monocytes# (Auto) 0.00-0.90 Normal (applies to non-numeri c results) [facility] Eosinophils# (Auto) 0.00-0.50 Normal (applies to non-nume marnie results) [facility] Basophils# (Auto) 0.00-0.20 Normal (applies to non-numeri c results) [facility] Immature Granulocytes# (Auto) 0.00-7.00 No rmal (applies to non-numeric results) [facility] ID Date Data Source [id number] 01/08/2021 08:46:00 AM EDT [facility] Name Value Range Interpretation Code Description Data Criselda rce(s) Supporting Document(s) Sodium 147 mmol/L 136-145 Above high normal [facility] Potassium 3.5-5.1 Normal (applies to non-numeric resul ts) [facility] Chloride 107 mmol/L 98-107 Normal (applies to non-numeric resul ts) [facility] Carbon Dioxide CO2 21-32 Normal (applies to non-numer ic results) [facility] Anion Gap 5.0-16.0 Normal (applies to non-numeric resul ts) [facility] BUN 24 mg/dL 7-18 Above high normal [facility] ospital Creatinine,Serum 0.8-1.5 Normal (applies to non-numeric results) [facility] GFR >60 Normal (applies to non-numeric results) [facility] Glucose Level 91 mg/dL 60-99 Normal (applies to non-numeric re sults) [facility] Reference range is only applicable when patient is fasting Note the following drug interference: Sulfasalazine Sulfapyridine Can see falsely depressed Can see falsely elevated result with up to 17% results with up to 11% decrease in measurement increase in measurement Recommend patients be collected for this test prior to administration of either drug. Calcium 8.5-10.1 Normal (applies to non-numeric resul ts) [facility] ID Date Data Source [id number] 11/19/2020 10:43:00 AM EDT [facility] Name: BABATUNDEBEAU W : 1940 A ge/Sex: 80M Ordering Provider: Sarah Lind MD [facility] Rec #: [id number] Reg Status:REG REF Room #: Date of Service: 11/19/20 Report Number: [id number] cc: Sarah Lind MD Send Report To: Echocardiogram Complete Ordering Phys: DIOGO, Accession Number: [id number] Exam Date: 11/19/2020 10:52 Indications: AORTIC STENOSIS [...] OV> Exam Date/Time: 11/19/20 1043 Order #: [id number] Dictation Date/Time: 11/19/20 1052 Transcribed Date/Time: Mine Laborer: Name Value Range Interpretation Code Description Data Criselda rce(s) Supporting Document(s) ID Date Data Source [id number] 10/20/2020 09:00:00 AM EDT [facility] Name Value Range Interpretation Code Description Data Criselda rce(s) Supporting Document(s) Sodium 146 mmol/L 136-145 Above high normal [facility] Potassium 3.5-5.1 Normal (applies to non-numeric resul ts) [facility] Chloride 106 mmol/L 98-107 Normal (applies to non-numeric resul ts) [facility] Carbon Dioxide CO2 21-32 Normal (applies to non-numer ic results) [facility] Anion Gap 5.0-16.0 Normal (applies to non-numeric resul ts) [facility] BUN 19 mg/dL 7-18 Above high normal [facility] Creatinine,Serum 0.8-1.5 Normal (applies to non-numeric results) [facility] GFR >60 Normal (applies to non-numeric results) [facility] Glucose Level 91 mg/dL 60-99 Normal (applies to non-numeric re sults) [facility] Reference range is only applicable when patient is fasting Note the following drug interference: Sulfasalazine Sulfapyridine Can see falsely depressed Can see falsely elevated result with up to 17% results with up to 11% decrease in measurement increase in measurement Recommend patients be collected for this test prior to administration of either drug. Calcium 8.5-10.1 Normal (applies to non-numeric resul ts) [facility] Bilirubin,Total 0.1-1.9 Normal (applies to non-numeric results) [facility] SGOT(AST) 14 U/L 15-37 Below low normal [facility] Note the following drug interference: Sulfasalazine Sulfapyridine Can see falsely depressed Can see falsely elevated result with up to 10% results with up to 10% decrease in measurement increase in measurement Recommend patients be collected for this test prior to administration of either drug. SGPT(ALT) 25 U/L 12-78 Normal (applies to non-numeric resul ts) [facility] Note the following drug interference: Sulfasalazine Sulfapyridine Can see falsely depressed Can see falsely elevated result with up to 29% results with up to 10% decrease in measurement increase in measurement Recommend patients be collected for this test prior to administration of either drug. Alkaline Phosphatase 65 U/L 38-126 Normal (applies to non-num natividad results) [facility] can increase Alkaline Phosp le vels up to 2 times the normal adult value. Normal values for children and adolescents are 2 to 3 times the normal adult value. Total Protein 6.0-8.2 Normal (applies to non-numeric re sults) [facility] Albumin Level 3.4-5.0 Normal (applies to non-numeric re sults) [facility] ID Date Data Source [id number] 10/20/2020 09:00:00 AM EDT [facility] Name Value Range Interpretation Code Description Data Criselda rce(s) Supporting Document(s) Triglycerides 86 mg/dL <150 Normal (applies to non-numeric re sults) [facility] Cholesterol 188 mg/dL 100-200 Normal (applies to non-numeric resu lts) [facility] LDL Cholesterol Calculated 120 0-130 Normal (applies to n on-numeric results) [facility] HDL Cholesterol 51 mg/dL 40-60 Normal (applies to non-numeric results) [facility] Cholesterol/HDL Ratio 3.6-6.7 Normal (applies to non-nu meric results) [facility] ID Date Data Source [id number] 10/20/2020 08:54:00 AM EDT [facility] Name Value Range Interpretation Code Description Data Criselda rce(s) Supporting Document(s) White Blood Count 3.5-10.5 Normal (applies to non-numeri c results) [facility] Red Blood Count 4.30-5.70 Normal (applies to non-numeric results) [facility] Hemoglobin 13.5-17.5 Normal (applies to non-numeric resul ts) [facility] Hematocrit 38.8-50.0 Normal (applies to non-numeric resul ts) [facility] Mean Corpuscular Volume 81.2-95.1 Normal (applies to non- numeric results) [facility] Mean Corpuscular Hgb 25.6-32.2 Normal (applies to non-num natividad results) [facility] Mean Corpuscular Hgb Conc 32.0-36.0 Normal (applies to no n-numeric results) [facility] Red Cell Distribution Width 11.8-15.6 Normal (appli es to non-numeric results) [facility] Platelet Count 158 x10 3/uL 150-450 Normal (applies to non-numeric results) [facility] Mean Platelet Volume 9.4-12.4 Normal (applies to non-num natividad results) [facility] Neutrophils% (Auto) 31.0-71.0 Normal (applies to non-nume marnie results) [facility] Lymphocytes% (Auto) 20.0-55.0 Normal (applies to non-nume marnie results) [facility] Monocytes% (Auto) 4.0-12.0 Normal (applies to non-numeri c results) [facility] Eosinophils% (Auto) 1.0-8.0 Normal (applies to non-nume marnie results) [facility] Basophils% (Auto) 0.0-2.0 Normal (applies to non-numeri c results) [facility] Immature Granulocytes% (Auto) 0.0-2.0 Normal (antonio lies to non-numeric results) [facility] Neutrophils# (Auto) 1.50-6.20 Normal (applies to non-nume marnie results) [facility] Lymphocytes# (Auto) 1.20-4.00 Normal (applies to non-nume marnie results) [facility] Monocytes# (Auto) 0.00-0.90 Normal (applies to non-numeri c results) [facility] Eosinophils# (Auto) 0.00-0.50 Normal (applies to non-nume marnie results) [facility] Basophils# (Auto) 0.00-0.20 Normal (applies to non-numeri c results) [facility] Immature Granulocytes# (Auto) 0.00-7.00 No rmal (applies to non-numeric results) [facility] ID Date Data Source [id number] 06/29/2020 01:21:00 PM EST [facility] Name Value Range Interpretation Code Description Data Criselda rce(s) Supporting Document(s) SARS-CoV-2 KIRAN result Not Detected Normal (applies to non- numeric results) [facility] This nucleic acid amplification test was developed [...] in this assay. ID Date Data Source [id number] 05/27/2020 08:20:00 AM [facility] Name Value Range Interpretation Code Description Data Criselda rce(s) Supporting Document(s) COVID-19 Result Normal (applies to non-numeric results) [facility] SEE SCANNED REPORT ID Date Data Source [id number] 05/22/2020 07:28:00 AM EST [facility] Name Value Range Interpretation Code Description Data Criselda rce(s) Supporting Document(s) SARS coronavirus 2 RNA [facility] This lab was ordered by [facility] anat and reported by [facility]. ID Date Data Source [id number] 05/09/2020 09:52:00 PM EDT [facility] Name Value Range Interpretation Code Description Data Criselda rce(s) Supporting Document(s) Respiratory specimen severe acute respir atory syndrome coronavirus 2 (SARS-CoV-2) RNA [facility] This lab was ordered by [facility] anat and reported by [facility]. ID Date Data Source [id number] 05/10/2020 01:54:00 AM EDT [facility] COVID-19 Specimen Source NASOPHARYNGEAL Is Patient admitted or to be admitted? YFirst test? YESEmployed in healthcare? NOSymptomatic per CDC? NOHospitalized? NOICU? NOResident in congregated care? ex mcfp, ARC NO? NO Name Value Range Interpretation Code Description Data Criselda rce(s) Supporting Document(s) SARS-CoV-2 RNA Negative Normal (applies to non-numeric r esults) [facility] This test has not been FDA [...] history, and epidemiological information. Performed on the [employer] Fusion instrument THIS IS A STATE REPORTABLE COMMUNICABLE DISEASE. Performing Lab Normal (applies to non-numeric r esults) [facility] COVID-19 Specimen Source: [employer] First test ?: Y Employed in healthcare?: N Symptomatic per CDC?: N Hospitalized?: N ICU?: N Resident in congregated care? ex [facility]p, ARC: N ?: N Please indicate the Triage TierY PRE OP Test performed or referred by The [address] [address] ID Date Data Source [id number] 05/09/2020 09:52:00 PM EDT [facility] COVID-19 Specimen Source NASOPHARYNGEAL Is Patient admitted or to be admitted? YFirst test? YESEmployed in healthcare? NOSymptomatic per CDC? NOHospitalized? NOICU? NOResident in congregated care? ex mcfp, ARC NO? NO Name Value Range Interpretation Code Description Data Criselda rce(s) Supporting Document(s) SARS-CoV-2 RNA Negative Normal (applies to non-numeric r esults) [facility] This test has not been FDA cleared [...] history, and epidemiological information. Performed on the [employer] Fusion instrument THIS IS A STATE REPORTABLE COMMUNICABLE DISEASE. Performing Lab Normal (applies to non-numeric r esults) [facility] COVID-19 Specimen Source: [employer] First test ?: Y Employed in healthcare?: N Symptomatic per CDC?: N Hospitalized?: N ICU?: N Resident in congregated care? ex mcfp, ARC: N ?: N Please indicate the Triage TierY PRE OP Test performed or referred by The [address] [address] ID Date Data Source [id number] 04/27/2020 01:40:00 PM EDT [facility] Name Value Range Interpretation Code Description Data Criselda rce(s) Supporting Document(s) Sodium 142 mmol/L 137-145 Normal (applies to non-numeric resul ts) [facility] Potassium 3.5-5.1 Normal (applies to non-numeric resul ts) [facility] Chloride 107 mmol/L 98-112 Normal (applies to non-numeric resul ts) [facility] Carbon Dioxide CO2 22.0-33.0 Normal (applies to non-numer ic results) [facility] Anion Gap 4.0-11.0 Normal (applies to non-numeric resul ts) [facility] BUN 18 mg/dL 9-20 Normal (applies to non-numeric resul ts) [facility] Creatinine 0.80-1.50 Normal (applies to non-numeric resul ts) [facility] GFR 76 mL/min >60 Normal (applies to non-numeric resul ts) [facility] Result based on MDRD formula. Glucose Level 94 mg/dL 74-99 Normal (applies to non-numeric re sults) [facility] The reference range is only applicable w hen fasting. Calcium-Uncorrected 8.4-10.2 Normal (applies to non-nume marnie results) [facility] Corrected Calcium 8.4-10.2 Normal (applies to non-numeri c results) [facility] Bilirubin,Total 0.2-1.3 Normal (applies to non-numeric results) [facility] SGOT(AST) 16 U/L 17-59 Below low normal [facility] SGPT(ALT) 23 U/L 21-72 Normal (applies to non-numeric resul ts) [facility] Alkaline Phosphatase 62 U/L 38-126 Normal (applies to non-num natividad results) [facility] can increase Alkaline Phosp le vels up to 2 times the normal adult value. Normal values for children and adolescents are 2 to 3 times the normal adult value. Total Protein 6.3-8.2 Normal (applies to non-numeric re sults) [facility] Albumin 3.5-5.0 Normal (applies to non-numeric resul ts) [facility] ID Date Data Source [id number] 04/27/2020 01:12:00 PM EDT [facility] Name Value Range Interpretation Code Description Data Criselda rce(s) Supporting Document(s) White Blood Count 4.8-10.8 Normal (applies to non-numeri c results) [facility] Red Blood Count 4.35-6.08 Normal (applies to non-numeric results) [facility] Hemoglobin 13.0-17.5 Normal (applies to non-numeric resul ts) [facility] Hematocrit 37.7-51.0 Normal (applies to non-numeric resul ts) [facility] Mean Corpuscular Volume 80-94 Normal (applies to non- numeric results) [facility] Mean Corpuscular Hemoglobin 27.0-33.0 Normal (appli es to non-numeric results) [facility] Mean Corpuscular HGB Conc 32.0-36.0 Normal (applies to no n-numeric results) [facility] Red Cell Distribution Width 11.5-14.5 Normal (appli es to non-numeric results) [facility] Platelet Count 226 X10 3/uL 130-450 Normal (applies to non-numeric results) [facility] Mean Platelet Volume 9.6-13.1 Below low normal [facility] Imm Grans% (AUTO) 1 % 0-2 Normal (applies to non-numeri c results) [facility] Neutrophils % (AUTO) 67 % 40-75 Normal (applies to non-num natividad results) [facility] Lymphocytes % (AUTO) 21 % 21-46 Normal (applies to non-num natividad results) [facility] Monocytes % (AUTO) 8 % 5-12 Normal (applies to non-numer ic results) [facility] Eosinophils % (AUTO) 2 % 1-5 Normal (applies to non-num natividad results) [facility] Basophils % (AUTO) 0 % 0-1 Normal (applies to non-numer ic results) [facility] Imm Grans# (AUTO) 0.0-0.5 Normal (applies to non-numeri c results) [facility] Neutrophils # (AUTO) 1.5-8.1 Normal (applies to non-num natividad results) [facility] Lymphocytes # (AUTO) 1.0-3.1 Normal (applies to non-num natividad results) [facility] Monocytes # (AUTO) 0.2-1.3 Normal (applies to non-numer ic results) [facility] Eosinophils# (AUTO) 0.0-0.5 Normal (applies to non-nume marnie results) [facility] Basophils # (AUTO) 0.0-0.1 Normal (applies to non-numer ic results) [facility] ID Date Data Source [id number] 04/27/2020 01:51:00 PM EDT [facility] Name: BEAU SALGADO Sonal : 1940 A ge/Sex: 79M Ordering Provider: Sarah Lind MD Med Rec #: [id number] Reg Status:REG REF Room #: Date of Service: 04/27/20 Report Number: [id number] cc: Sarah Lind MD Send Report To: Reason for exam: Preop SINUS RHYTHM 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 ECG HEART RATE: 95 /min ECG RR INTERVAL: 627 ms ECG P DURATION: 92 ms ECG QRS DURATION: 155 ms ECG ME INTERVAL: 148 ms ECG QT INTERVAL: 356 ms ECG QTC INTERVAL: 417 ms Q-T dispersion: ms ECG P AXIS: 54 deg ECG QRS AXIS: -52 deg ECG T AXIS: 48 deg REPORT SIGNATURE ON FILE 04/27/20 1351 Reported By: Maximino Tavarez MD <<Signature on File>> Exam Date/Time: 04/27/20 1037 Order #: [id number] Dictation Date/Time: 04/27/20 1351 Transcribed Date/Time: 04/27/20 135 Mine Laborer: PINA Ochoa Value Range Interpretation Code Description Data Criselda rce(s) Supporting Document(s) Procedure Social History Code Duration Value Status Description Data Source(s ) Alcohol intake 03/10/2021 12:00:00 AM EDT Lifetime non-drinker (finding) completed Lifetime non-drinker (finding) [facility] Alcohol intake 02/23/2021 12:00:00 AM EDT Lifetime non-drinker (finding) completed Lifetime non-drinker (finding) [facility] Alcohol intake 02/19/2021 12:00:00 AM EDT Lifetime non-drinker (finding) completed Lifetime non-drinker (finding) [facility] Tobacco use and exposure 01/21/2021 12:00:00 AM EDT Never used co mpleted Never used [facility] Smoking 01/21/2021 12:00:00 AM EDT Never smoker completed Never s moker [facility] Alcohol intake 01/21/2021 12:00:00 AM EDT Lifetime non-drinker (finding) completed Lifetime non-drinker (finding) [facility] Vital Signs ID Date Data Source UNK Name Value Range Interpretation Code Description Data Source(s) Body mass index (BMI) [Ratio] 24.97 kg/m2 24.97 kg/m2 [facility] Systolic blood pressure 132 mm[Hg] 132 mm[Hg] [facility] Diastolic blood pressure 60 mm[Hg] 60 mm[Hg] [facility] Heart rate 105 /min 105 /min [facility] Body height 180.3 cm 180.3 cm [facility] Body weight 81.194 kg 81.194 kg [facility] Oxygen saturation in Arterial blood by Pulse oximetry 96 % 96 % [facility] Systolic blood pressure 107 mm[Hg] 107 mm[Hg] [facility] Diastolic blood pressure 53 mm[Hg] 53 mm[Hg] [facility] Heart rate 80 /min 80 /min [facility] Body temperature 37.06 Phyllis 37.06 Phyllis [facility] Respiratory rate 22 /min 22 /min [facility] Oxygen saturation in Arterial blood by Pulse oximetry 96 % 96 % [facility] Body weight 78.926 kg 78.926 kg [facility] Body mass index (BMI) [Ratio] 24.27 kg/m2 24.27 kg/m2 [facility] Body height 180.3 cm 180.3 cm [facility] Systolic blood pressure 111 mm[Hg] 111 mm[Hg] [facility] Diastolic blood pressure 69 mm[Hg] 69 mm[Hg] [facility] Heart rate 76 /min 76 /min [facility] Respiratory rate 18 /min 18 /min [facility] Oxygen saturation in Arterial blood by Pulse oximetry 99 % 99 % [facility] Body temperature 35.94 Phyllis 35.94 Phyllis [facility] Body height 180.3 cm 180.3 cm [facility] Body weight 80.876 kg 80.876 kg [facility] Body mass index (BMI) [Ratio] 24.87 kg/m2 24.87 kg/m2 [facility] Body temperature 36.72 Phyllis 36.72 Phyllis [facility] Systolic blood pressure 125 mm[Hg] 125 mm[Hg] [facility] Diastolic blood pressure 71 mm[Hg] 71 mm[Hg] [facility] Heart rate 80 /min 80 /min [facility] Respiratory rate 18 /min 18 /min [facility] Oxygen saturation in Arterial blood by Pulse oximetry 97 % 97 % [facility] Body height 182.9 cm 182.9 cm [facility] Body weight 78.9 kg 78.9 kg [facility] Body mass index (BMI) [Ratio] 23.59 kg/m2 23.59 kg/m2 [facility] ID Date Data Source [id number] 05/07/2021 02:04:00 PM EDT [facility] Name Value Range Interpretation Code Description Data Source(s) Weight (Calculated Kilograms) 80.24 80.24 [facility] Height (Calculated Centimeters) 182.88 182. 88 [facility] Body Mass Index (BMI) 24.0 24.0 [facility] ID Date Data Source [id number] 04/28/2021 11:05:00 AM [facility] Name Value Range Interpretation Code Description Data Source(s) Weight (Calculated Kilograms) 80.24 80.24 [facility] Height (Calculated Centimeters) 182.88 182. 88 [facility] Body Mass Index (BMI) 24.0 24.0 [facility] ID Date Data Source [id number] 04/14/2021 11:32:00 AM EDT [facility] Name Value Range Interpretation Code Description Data Source(s) Weight (Calculated Kilograms) 80.24 80.24 [facility] Height (Calculated Centimeters) 182.88 182. 88 [facility] Body Mass Index (BMI) 24.0 24.0 [facility] ID Date Data Source [id number] 02/17/2021 09:25:00 AM EDT [facility] Name Value Range Interpretation Code Description Data Source(s) Weight (Calculated Kilograms) 80.24 80.24 [facility] Height (Calculated Centimeters) 182.88 182. 88 [facility] Body Mass Index (BMI) 24.0 24.0 [facility] Weight (Calculated Kilograms) 80.24 80.24 [facility] Height (Calculated Centimeters) 182.88 182. 88 [facility] Body Mass Index (BMI) 24.0 24.0 [facility] ID Date Data Source [id number] 02/24/2021 08:58:00 AM EDT [facility] Name Value Range Interpretation Code Description Data Source(s) Weight Measurement Method 5 5 [facility] Weight (Calculated Kilograms) 80.24 80.24 [facility] Weight 2752 2752 [facility] Temperature Source 7 7 [facility] Temperature 97.1 97.1 [facility] Respiratory Effort 1 1 [facility] Respiratory Rate 18 18 [facility] Pulse Assessment Method 4 4 [facility] Pulse Rate 91 91 [facility] Height (Calculated Centimeters) 182.88 182. 88 [facility] Height 72 72 [facility] Blood Pressure 131/82 131/82 [facility] Body Mass Index (BMI) 24.0 24.0 [facility] Weight Measurement Method 5 5 [facility] Weight (Calculated Kilograms) 80.24 80.24 [facility] Weight 2752 2752 [facility] Temperature Source 7 7 [facility] Temperature 97.1 97.1 [facility] Respiratory Effort 1 1 [facility] Respiratory Rate 18 18 [facility] Pulse Assessment Method 4 4 [facility] Pulse Rate 91 91 [facility] Height (Calculated Centimeters) 182.88 182. 88 [facility] Height 72 72 [facility] Blood Pressure 131/82 131/82 [facility] Body Mass Index (BMI) 24.0 24.0 [facility] Weight Measurement Method 5 5 [facility] Weight (Calculated Kilograms) 80.24 80.24 [facility] Weight 2752 2752 [facility] Temperature Source 7 7 [facility] Temperature 97.7 97.7 [facility] Respiratory Effort 1 1 [facility] Respiratory Rate 18 18 [facility] Pulse Assessment Method 4 4 [facility] Pulse Rate 73 73 [facility] Height (Calculated Centimeters) 182.88 182. 88 [facility] Height 72 72 [facility] Blood Pressure 102/58 102/58 [facility] Body Mass Index (BMI) 24.0 24.0 [facility] ID Date Data Source [id number] 07/01/2020 08:39:00 AM EST [facility] Name Value Range Interpretation Code Description Data Source(s) Weight 2848 2848 [facility] Height 74 74 [facility] Weight Measurement Method 1 1 [facility] Weight 2848 2848 [facility] Temperature 97.9 97.9 [facility] Respiratory Effort 1 1 [facility] Respiratory Rate 18 18 [facility] Pulse Rate 84 84 [facility] Height 74 74 [facility] Blood Pressure 125/72 125/72 [facility] Weight Measurement Method 1 1 [facility] Weight 2848 2848 [facility] Temperature 97.9 97.9 [facility] Respiratory Effort 1 1 [facility] Respiratory Rate 18 18 [facility] Pulse Rate 84 84 [facility] Height 74 74 [facility] Blood Pressure 125/72 125/72 [facility] Weight 2848 2848 [facility] Height 74 74 [facility] Patient Treatment Plan of Care Planned Activity Planned Date Details Description Data Source (s) Metoprolol Tartrate 25 MG Oral Tablet 03/10/2021 12:00:00 AM EDT [facility] Bisacodyl 10 MG Rectal Suppository 02/25/2021 09:00:00 AM EDT [facility] POLYETHYLENE GLYCOL 3350 142 MG/ML Oral Solution 02/24/2021 07:00:0 0 AM EDT [facility] Aspirin 81 MG Delayed Release Oral Tablet 02/24/2021 12:00:00 AM ED T [facility] Polyethylene Glycol 400 4 MG/ML / Propylene glycol 3 M G/ML Ophthalmic Solution 02/23/2021 08:00:00 AM EDT [facility] acetaminophen (TYLENOL) 325 MG tablet 650 mg 02/22/2021 02:07:43 PM EDT [facility] ondansetron (ZOFRAN) injection 4 mg 02/22/2021 02:07:42 PM EDT [facility] 2 ML Metoclopramide 5 MG/ML Prefilled Syringe 02/22/2021 02:07:42 P M EDT [facility] Magnesium Chloride 0.87243 MEQ/ML / Pota ssium Chloride 0.0497 MEQ/ML / Sodium Acetate 0.0163 MEQ/ML / Sodium Chloride 0.0899 MEQ/ML / Sodium gluconate 5.02 MG/ML Injectable Solution [Normosol-R] 02/22/2021 01:00:00 PM EDT [facility] Meclizine Hydrochloride 12.5 MG Oral Tablet 02/22/2021 11:10:01 AM EDT [facility] normal saline flush 0.9 % injection 3 mL 01/21/2021 03:00:00 PM EDT [facility] normal saline flush 0.9 % injection 3 mL 01/21/2021 02:00:00 PM EDT [facility] Acetaminophen 325 MG Oral Tablet 01/21/2021 11:21:01 AM EDT [facility] Aspirin 81 MG Delayed Release Oral Tablet 01/21/2021 12:00:00 AM ED T [facility] clopidogrel 75 MG Oral Tablet 01/18/2021 12:00:00 AM EDT [facility] Losartan Potassium 50 MG Oral Tablet [facility] Meclizine Hydrochloride 25 MG Oral Tablet [facility] Hydrochlorothiazide 25 MG Oral Tablet [facility] Losartan Potassium 50 MG Oral Tablet [facility]
[2021-05-08] MEDS ORDERED: ACETAMINOPHEN 325 MG TAB PO ONE (13:50)
[2021-05-08 14:03] VITALS: BP 145/65
== END 2021-05-08 14:11 | disposition home or self-care (01) ==
LOC: M ED 11:58
DX: I10 Essential (primary) hypertension (principal); Z79.899 Other long term (current) drug therapy